=== PATIENT | male | born 1955 ===

== ENCOUNTER 2017-02-28 23:20 | Inpatient (IN) ==
[2017-02-28 23:52] LABS: Basophils % 0.5 % (0.0-0.8); Eosinophils # 0.2 10*3/uL (0.0-0.87); Eosinophils % 3.1 % (0.00-10.9); Hematocrit 28.1 VOL% (42.0-52.0); Hemoglobin 10.1 GM/DL (14.0-18.0); Immature Granulocytes % 0.8 %; Immature Granulocytes Absolute 0.05 #; Lymphocytes # 1.3 10*3/uL (1.4-4.0); Lymphocytes % 20.3 % (21.2-54.2); Mean Corpuscular HGB Conc 35.9 GM/DL (32-36); Mean Corpuscular Hemoglobin 32 PG (27-34); Mean Corpuscular Volume 88.1 FL (87-102); Mean Platelet Volume 10.5 FL (9.6-12.0); Monocytes # 0.6 10*3/uL (0.11-0.8); Monocytes % 9.8 % (1.7-12.7); Neutrophils # 4.2 10*3/uL (1.4-7.4); Neutrophils % 65.5 % (38.7-73.9); Platelet Count 202 T/CUMM (130-400); Red Blood Count 3.19 MC/CUMM (3.8-5.5); Red Cell Distribution Width 12.6 % (9.3-17.3); White Blood Count 6.4 T/CUMM (4-12)
[2017-03-01] MEDS ORDERED: ONDANSETRON 4 MG/2 ML VIAL IV PRN
[2017-03-01] MEDS ORDERED: ZALEPLON 5 MG CAPSULE PO PRN
[2017-03-01] MEDS ORDERED: BISACODYL 5 MG TABLET PO PRN
[2017-03-01] MEDS ORDERED: DOCUSATE SODIUM 100 MG CAPSULE PO PRN
--- NOTE | 2017-03-01 00:01 | Emergency Department Note ---
IDonald Mantricia, am scribing for, and in the presence of, Nino Castellanos MD 23:41. Jasmin Meza Hans, MD, personally performed the services described in this documentation, ascribed by Eagle Bennett in my presence, and it is both accurate and complete . Arrival - Arrival Chief Complaint: Syncope Stated Complaint: syncope ED Nursing Triage Note: PATIENT TRANSFER FROM [facility]. EMS REPORTS PATIENT WAS DRIVING TODAY WHEN HE FELT LIKE HE WAS GOING TO PASS OUT AND SO HE PULLED OVER TO THE SIDE OF THE ROAD. PATIENT STATES HE HAS BEEN HAVING SOME COUGHING AND HEMOPTYSIS FOR THE PAST SEVERAL DAYS. PATIENT DENIES ANY CHEST PAIN OR SOB ON ARRIVAL. PATIENT IS AAOX3 IN NAD. PATIENT WITH HISTORY OF CABG IN 2016 AND HISTORY OF HEART DISEASE. Mode of Arrival: Stretcher Limitations: No Limitations Source: Patient Time Seen by Provider: 02/28/17 23:36 - History of Present Illness HPI Narrative: Pt is a 61 y/o male arriving to ED by EMS as a transfer from [facility] for further evaluation of near syncopal episode that onset today. Pt reports that he was driving when he felt like he was about to pass out so he pulled over to the side of the road. He denies any chest pain or SOB. Pt also reports that he has been coughing up blood with clots on and off for 3 weeks. Pt was seen at [facility] and only left with a referral and did not hear back from their ED. Pt has a PSHx of CABG in 2012 and is now taking Coumadin; he has a PMHx of heart disease. At time of exam, pt's blood pressure is 198/100. No other complaints were reported to ED. Onset (ago): hour(s) Consistency: constant Severity: mild Allergies/Adverse Reactions: Allergies Allergy/AdvReac Type Severity Reaction Status Date / Time No Known Allergies Allergy Verified 05/18/16 04:01 Home Medications: Home Medications Medication Instructions Recorded Confirmed Type Acetaminophen Tab [Tylenol Tab] 650 mg PO Q4H PRN #0 tablet 05/20/16 05/23/16 Rx Aspirin Chew Tab 81 mg PO DAILY tablet 05/20/16 05/23/16 Rx Carvedilol [Coreg] 6.25 mg PO BID #60 tablet 10/27/16 10/30/16 Rx Furosemide Tab [Lasix Tab] 20 mg PO DAILY #30 tablet 05/20/16 05/23/16 Rx Carvedilol [Coreg] 6.25 mg PO BID #60 tablet 06/01/16 Rx Potassium Chloride 20 meq PO DAILY 06/01/16 06/01/16 History Rosuvastatin [Crestor] 20 mg PO DAILY #30 tablet 06/01/16 Rx cloNIDine TAB [Catapres Tab] 0.1 mg PO BID #60 tablet 06/01/16 Rx predniSONE TAB [PredniSONE] 5 mg PO DAILY #7 tablet 06/01/16 Rx Review of System - Review of System Constitutional: Present: other (near syncope). Absent: chills, diaphoresis, fever Head/Ears/Nose/Throat: Absent: earache Respiratory: Absent: cough Cardiovascular: Absent: chest pain Gastrointestinal: Absent: abdominal pain, nausea, vomiting Musculoskeletal: Absent: arm pain, back pain, leg pain, neck pain Medical,Surgical,& Family Hx - Medical History Cardio: History of: CAD, Hypertension Neurology: History of: TIA Endocrine: History of: Diabetes Mellitus (NIDDM) (diet controlled) Respiratory: History of: Asthma Comment Only: Respiratory Problems (ulcer in lung) Gastrointestinal: History of: GERD Musculoskeletal: Comment Only: Musculoskeletal Problems (mult knee scopes to bilat knees) - Surgical History Cardiac Surgeries: Sugical HX of: Cardiac Catheterization (stent), Cardiac Surgery (CABG,AVR) - Family History Family History: Reports;: Family Diabetes (father), Family Hypertension (father) - Social History Smoking Status: Current every day smoker Exam Vital Signs: Vital Signs Temperature 97.9 F 02/28/17 23:22 Pulse Rate 70 02/28/17 23:22 Respiratory Rate 18 02/28/17 23:22 Blood Pressure 198/100 02/28/17 23:22 O2 Sat by Pulse Oximetry 100 02/28/17 23:22 - General General appearance: alert, in no apparent distress - Head Head exam: Present: atraumatic, normocephalic - Eye Eye exam: Present: normal appearance, PERRL, EOMI - ENT ENT exam: Present: normal exam, normal oropharynx, mucous membranes moist - Neck Neck exam: Present: normal inspection - Chest Chest inspection: Present: normal inspection - Respiratory Respiratory exam: Present: normal lung sounds bilaterally - Cardiovascular Cardiovascular exam: Present: regular rate, normal rhythm, normal heart sounds - Abdominal Exam Abdominal exam: Present: soft. Absent: distention, tenderness, guarding, rebound - Extremities Exam Extremities exam: Present: normal inspection - Back Exam Back exam: Present: normal inspection - Neurological Exam Neurological exam: Present: alert, oriented X3, CN II-XII intact - Psychiatric Psychiatric exam: Present: normal affect, normal mood - Skin Skin exam: Present: warm, dry, intact, normal color Course Course Narrative: This patient was evaluated in the ER and his chart from [place] was reviewed. He appeared to have some evidence of increased pulmonary vascular markings consistent with some volume overload on his chest x-ray and his INR was 2.6. His hemoglobin at [place] was 9.2 and it was over 12 when it was last checked here in May. Because of his near syncopal episode and his hemoptysis and anticoagulation I recommended admission to the hospital for further workup and treatment. I discussed this with the hospitalist on-call who agreed to come see the patient. Results - Labs CBC & BMP: 02/28/17 23:41 Disposition Clinical Impression: Syncope due to orthostatic hypotension, Hemoptysis Case discussed with: patient Disposition: Still a Patient Condition: Stable Time of Disposition: 00:01
--- NOTE | 2017-03-01 00:41 | Hospitalist History & Physical ---
Assessment and Plan (1) Hemoptysis Status: Acute Assessment and plan: Admit to hospitalist service. Consult pulmonary. Current Visit: Yes (2) Chronic renal failure Status: Chronic Current Visit: Yes Qualifiers: Chronic kidney disease stage: stage 3 (moderate) Qualified Code(s): N18.3 - Chronic kidney disease, stage 3 (moderate) (3) CAD (coronary artery disease) Status: Chronic Current Visit: Yes Qualifiers: [place] vs. transplanted heart: [place] heart Associated angina: without angina (4) Diabetes Status: Chronic Current Visit: Yes Qualifiers: Diabetes mellitus type: type 2 Diabetes mellitus complication detail: with chronic kidney disease Diabetes mellitus meterman insulin use: without meterman use Chronic kidney disease stage: stage 3 (moderate) (5) Dyslipidemia Status: Chronic Current Visit: Yes (6) Hypertension Status: Chronic Assessment and plan: Continue all home medications Current Visit: Yes Qualifiers: Hypertension type: essential hypertension Qualified Code(s): I10 - Essential (primary) hypertension (7) Chronic anticoagulation Status: Acute Assessment and plan: On Coumadin. INR therapeutic. Current Visit: Yes History of Present Illness Chief complaint: near syncope, hemoptysis History of present illness: Mr. Jiménez is a 61 year old male arriving to ED by EMS as a transfer from [facility] for further evaluation of near syncopal episode that onset today. Pt reports that he was driving when he felt like he was about to pass out so he pulled over to the side of the road. He denies any chest pain or SOB. Pt also reports that he has been coughing up blood with clots on and off for 3 weeks. Pt was seen at [facility] and only left with a referral and did not hear back from their ED. Pt has a PSHx of CABG in 2012 and is now taking Coumadin; he has a PMHx of heart disease. At time of exam, pt's blood pressure is 198/100. No other complaints were reported to ED. He reports the bleeding is preceded by cough. 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 Home Medications Medication Instructions Recorded Confirmed Type Acetaminophen Tab [Tylenol Tab] 650 mg PO Q4H PRN #0 tablet 05/20/16 05/23/16 Rx Aspirin Chew Tab 81 mg PO DAILY tablet 05/20/16 05/23/16 Rx Carvedilol [Coreg] 6.25 mg PO BID #60 tablet 05/20/16 05/23/16 Rx Furosemide Tab [Lasix Tab] 20 mg PO DAILY #30 tablet 05/20/16 05/23/16 Rx Carvedilol [Coreg] 6.25 mg PO BID #60 tablet 06/01/16 Rx Potassium Chloride 20 meq PO DAILY 06/01/16 06/01/16 History Rosuvastatin [Crestor] 20 mg PO DAILY #30 tablet 06/01/16 Rx cloNIDine TAB [Catapres Tab] 0.1 mg PO BID #60 tablet 06/01/16 Rx predniSONE TAB [PredniSONE] 5 mg PO DAILY #7 tablet 06/01/16 Rx Allergies Allergy/AdvReac Type Severity Reaction Status Date / Time No Known Allergies Allergy Verified 03/01/17 00:10 Medical,Surgical,& Family Hx - Medical History Cardio: History of: CAD, Hypertension Neurology: History of: TIA Endocrine: History of: Diabetes Mellitus (NIDDM) (diet controlled) Respiratory: History of: Asthma Comment Only: Respiratory Problems (ulcer in lung) Gastrointestinal: History of: GERD Musculoskeletal: Comment Only: Musculoskeletal Problems (mult knee scopes to bilat knees) - Surgical History Cardiac Surgeries: Sugical HX of: Cardiac Catheterization (stent), Cardiac Surgery (CABG,AVR) - Family History Family History: Reports;: Family Diabetes (father), Family Hypertension (father) - Social History Smoking Status: Current every day smoker Frequency of Alcohol Use: Occasionally Type of Drug Use: None Marital Status: Lives With:: Spouse Functional capacity: independent ambulation 12 point system: reviewed and no additional remarkable complaints except as stated Exam - Constitutional Vitals: Period Temp Pulse Resp BP Sys/Pérez Pulse Ox Last 24 Hr 97.9 F-97.9 F 70-70 18-18 198-198/100-100 100 Exam: Constitutional System: No distress. No tremulousness. Head: Normocephalic, atraumatic. Ears, Nose and Throat System: No pain or tenderness. No epistaxis or discharge Eyes System: Pupils equal, round, and reactive. Extraocular muscles intact. Neck: Supple, without adenopathy, No jugular venous distention. No thyromegaly, neck mass, or prior surgery apparent. Respiratory System: Chest rales bilaterally to auscultation. Cardiovascular System: Heart with regular rate and rhythm. GI System: Abdomen soft, nontender. Normo active bowel sounds present. Musculoskeletal System: limbs with 2+ bilateral pedal edema. Full distal pulses. Neurological System: No discernable sensory deficit. No aphasia Psychiatric System: Conversation is rational Results - Labs CBC & BMP: 02/28/17 23:41 Lab Results: I have reviewed the past 24 hour labs Quality Measures - VTE Contraindication to Pharmacological VTE Prophylaxis: Already on Theraputic Agent , No Prophylaxis Needed
[2017-03-01] MEDS ORDERED: DEXTROSE 50% 25 GM/50 ML VIAL IV PRN (00:47)
[2017-03-01] MEDS ORDERED: GLUCAGON 1 MG VIAL IM PRN (00:47)
--- NOTE | 2017-03-01 06:15 | EKG Report ---
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
[2017-03-01 06:36] LABS: Basophils % 0.4 % (0.0-0.8); Eosinophils # 0.2 10*3/uL (0.0-0.87); Eosinophils % 2.9 % (0.00-10.9); Hematocrit 26.6 VOL% (42.0-52.0); Hemoglobin 9.6 GM/DL (14.0-18.0); Immature Granulocytes % 0.5 %; Immature Granulocytes Absolute 0.04 #; Lymphocytes # 1.4 10*3/uL (1.4-4.0); Lymphocytes % 18.4 % (21.2-54.2); Mean Corpuscular HGB Conc 36.1 GM/DL (32-36); Mean Corpuscular Hemoglobin 32 PG (27-34); Mean Corpuscular Volume 87.8 FL (87-102); Mean Platelet Volume 10.8 FL (9.6-12.0); Monocytes # 0.7 10*3/uL (0.11-0.8); Monocytes % 9.9 % (1.7-12.7); Neutrophils # 5.1 10*3/uL (1.4-7.4); Neutrophils % 67.9 % (38.7-73.9); Platelet Count 197 T/CUMM (130-400); Red Blood Count 3.03 MC/CUMM (3.8-5.5); Red Cell Distribution Width 12.5 % (9.3-17.3); White Blood Count 7.5 T/CUMM (4-12)
[2017-03-01 06:43] LABS: INR 2.5
[2017-03-01 06:49] LABS: PT Patient Result 27.8 SECS
[2017-03-01 07:13] LABS: Calcium 8.2 MG/DL (8.5-10.1); Magnesium 2.1 MG/DL (1.8-2.4); Osmolality,Calculated 290.4 MOS/KG (273-304); Risk Ratio 5.5; Thyroid Stimulating Hormone 2.23 uIU/ml (0.358-3.74)
--- NOTE | 2017-03-01 07:35 | XRay Report ---
XR chest 1V portable Indication: Hemoptysis Comparison: 28 February 2017 Findings: The heart and mediastinum are stable in size and configuration with cardiac surgery changes. The pulmonary vascularity is normal in caliber. No lung infiltrates, effusions, pneumothorax or other abnormality is demonstrated. Impression: No acute process or significant change. PROCEDURE INTERPRETED AT [facility] DEPARTMENT OF RADIOLOGY Final Report Signed by: Dr. Sagar Graham
[2017-03-01] MEDS: INSULIN LISPRO 100 UNIT/ML SUBCUT SCH ×4 (08:10→21:27)
[2017-03-01] MEDS: FUROSEMIDE 40 MG/4 ML VIAL IV SCH (08:10)
[2017-03-01] MEDS: PANTOPRAZOLE 40 MG TABLET PO SCH (08:11)
--- NOTE | 2017-03-01 09:53 | Pulmonology Consult Note ---
Assessment and Plan (1) Status post aortic valve replacement Status: Acute Assessment and plan: Patient has a mechanical aortic valve. Requires lifelong anticoagulants with Coumadin. INR is 2.5 which is good therapeutic range. Current Visit: Yes (2) Chronic anticoagulation Status: Acute Assessment and plan: Again requires chronic anticoagulation for his aortic valve replacement. Current Visit: Yes (3) Hemoptysis Status: Acute Assessment and plan: I suspect he has hemoptysis due to congestive heart failure and anticoagulants. Nothing shows up on x-ray. I will obtain a plain CT without contrast. We will plan bronchoscopy to visualize his airways tomorrow. Probably will be best to control his congestive heart failure a little better to cut down his hemoptysis. Current Visit: Yes (4) CAD (coronary artery disease) Status: Chronic Assessment and plan: No active angina. Current Visit: Yes Qualifiers: [place] vs. transplanted heart: [place] heart Associated angina: without angina (5) Congestive heart failure Problem details: ef 25% Status: Acute Assessment and plan: BNP is elevated. Has had a low ejection fraction in the past. Ejection fraction 25%. Acute on chronic systolic congestive heart failure. Needs diuresis. Congestive heart failure can cause increased submucosal vascularity in the bronchi and lead to hemoptysis, especially in the setting of an anticoagulated patient. Current Visit: No History of Present Illness Chief complaint: Hemoptysis History of present illness: Mr. Jiménez is a 61 year old male who had an aortic valve replacement with a prosthetic valve 10 months ago here. He also had coronary bypass surgery at that time. For the last month he has been coughing up blood off and on. He says is pure blood and bright red. He has not had any fever or purulent sputum. He quit smoking a year ago. He does not have any known underlying lung disease. He has an elevated BNP. He has had some leg edema. He denies pleuritic chest pain. Home Medications Medication Instructions Recorded Confirmed Type Acetaminophen Tab [Tylenol Tab] 650 mg PO Q4H PRN #0 tablet 05/20/16 05/23/16 Rx Aspirin Chew Tab 81 mg PO DAILY tablet 05/20/16 05/23/16 Rx Carvedilol [Coreg] 6.25 mg PO BID #60 tablet 05/20/16 05/23/16 Rx Furosemide Tab [Lasix Tab] 20 mg PO DAILY #30 tablet 05/20/16 05/23/16 Rx Carvedilol [Coreg] 6.25 mg PO BID #60 tablet 06/01/16 Rx Potassium Chloride 20 meq PO DAILY 06/01/16 06/01/16 History Rosuvastatin [Crestor] 20 mg PO DAILY #30 tablet 06/01/16 Rx cloNIDine TAB [Catapres Tab] 0.1 mg PO BID #60 tablet 06/01/16 Rx predniSONE TAB [PredniSONE] 5 mg PO DAILY #7 tablet 06/01/16 Rx Allergies Allergy/AdvReac Type Severity Reaction Status Date / Time No Known Allergies Allergy Verified 03/01/17 00:10 12 point system: reviewed and no additional remarkable complaints except as stated - Cardiovascular Cardiovascular: Present: dyspnea, dyspnea on exertion, edema - Respiratory Respiratory: Present: cough, dyspnea, hemoptysis, dyspnea on exertion - Hematologic/Lymphatic Hematologic/Lymphatic: Present: easy bleeding, easy bruising Exam (Pulmonay) H&P - Constitutional Vitals: Period Temp Pulse Resp BP Sys/Pérez Pulse Ox Last 24 Hr 97.5 F-98.3 F 62-77 18-20 120-204/86-110 97-100 Exam: Vital signs normal. Pupils react to light. Throat is clear. Neck supple no bruits. He does have some jugular venous distention. Chest reveals a few rales in the right lower lobe. Heart normal rate and rhythm with mechanical aortic valve click. Abdomen soft nontender no masses. Extremities 1+ edema. Chronic discoloration of lower extremities. Venous graft donor sites are well- healed. Medical,Surgical,& Family Hx - Medical History Cardio: History of: CAD, Hypertension Neurology: History of: TIA Endocrine: History of: Diabetes Mellitus (NIDDM) Respiratory: History of: Asthma Comment Only: Respiratory Problems (ulcer in lung) Gastrointestinal: History of: GERD Musculoskeletal: Comment Only: Musculoskeletal Problems (mult knee scopes to bilat knees) - Surgical History Cardiac Surgeries: Sugical HX of: Cardiac Catheterization (stent), Cardiac Surgery (CABG,AVR) - Family History Family History: Reports;: Family Diabetes (father), Family Hypertension (father) - Social History Smoking Status: Former smoker Frequency of Alcohol Use: Occasionally Type of Drug Use: None Results - Labs CBC & BMP: 03/01/17 05:49 03/01/17 05:49 Lab Results: I have reviewed the past 24 hour labs - Diagnostic Findings Procedure: Chest x-ray: image reviewed by me (Cardiomegaly. Slight increased interstitial markings in the bases. No roya infiltrates.) Quality Measures - VTE Contraindication to Pharmacological VTE Prophylaxis: Already on Theraputic Agent , No Prophylaxis Needed
--- NOTE | 2017-03-01 12:25 | CT Report ---
CT chest wo con Indication: Hemoptysis. Comparison: CT chest 02/08/2017. Technique: CT chest was performed without administration of intravenous contrast. In addition to multiple contiguous axial source images, coronal and sagittal MPR series were provided. The CT examination was performed using one or more of the following dose reduction techniques: Automatic exposure control, adjustment of the mA and kV according to patient size, use of acute or iterative reconstruction techniques. Findings: Noncalcified spiculated nodule posterior aspect of the right upper lobe measures 15 x 11 mm and is considered compatible with pulmonary neoplasm. Caudal to the nodule and peripherally located to the nodule, there is additional groundglass attenuation as well as nodular airspace attenuation or could reflect obstructive atelectatic change. Subsegmental bronchi as demonstrated on images #[id number] appear obstructed possibly with ingrowth of neoplasm as these bronchi lie at the margin and proximal to the suggested neoplasm. Dependent atelectatic changes are present bilaterally. No pleural effusions are present. No additional endobronchial lesions are demonstrated. Noncontrast enhanced appearance of the mediastinal contents is stable. Sternotomy is present and extensive coronary artery calcifications are noted. Aortic valve prosthesis is present. Imaged portion of the upper abdomen demonstrates no specific evidence of acute pathology. Osseous structures appear stable. Soft tissues and musculature of the chest wall appear stable. No acute findings involving the chest wall or osseous structures are demonstrated. Impression: 1. Spiculated noncalcified nodule right upper lobe is worrisome for neoplasm. 2. Subsegmental bronchi adjacent to the caudal margin of the above-described nodule are occluded. Areas of nodular nonconsolidating airspace attenuation groundglass attenuation caudal to the above-described nodule could reflect evidence of infection or atelectasis. 3. No distinct adenopathy can be identified within the noncontrast enhanced mediastinum. 4. Other findings as detailed. 03/01/2017 12:18 PM PROCEDURE INTERPRETED [facility] DEPARTMENT OF RADIOLOGY Final Report Signed by: Dr. Deonte Diaz
--- NOTE | 2017-03-01 15:09 | Hospitalist Progress Note ---
Assessment and Plan (1) Hemoptysis Status: Acute Assessment and plan: The patient is to have bronchoscopy tomorrow. I reviewed the plan of care with the patient and his family at the bedside. Current Visit: Yes (2) Congestive heart failure Problem details: ef 25% Status: Acute Current Visit: No (3) Chronic renal failure Status: Chronic Current Visit: Yes Qualifiers: Chronic kidney disease stage: stage 3 (moderate) Qualified Code(s): N18.3 - Chronic kidney disease, stage 3 (moderate) (4) Chronic anticoagulation Status: Acute Current Visit: Yes (5) Status post aortic valve replacement Status: Acute Current Visit: Yes Hospitalist: Subjective Interval history: The patient is resting quietly in bed today. He has more hemoptysis again today. Dr. Quiñones anticipates bronchoscopy tomorrow. Noncontrast CAT scan does show a spiculated lesion in the right upper lobe. Exam - Constitutional Vitals: Period Temp Pulse Resp BP Sys/Pérez Pulse Ox Last 24 Hr 97.5 F-98.3 F 62-77 18-20 120-204/82-110 97-100 Exam: Constitutional System: No distress. No tremulousness. The patient has some body hemoptysis and a cup next to the bed Head: Normocephalic, atraumatic. Ears, Nose and Throat System: No evidence of Otitis or Mastoiditis. No epistaxis or discharge Eyes System: Pupils equal, round, and reactive. Extraocular muscles intact. Neck: Supple, without adenopathy, No jugular venous distention. No thyromegaly , neck mass, or prior surgery apparent. Respiratory System: Chest clear to auscultation. Cardiovascular System: Heart with regular rate and rhythm. No murmur. GI System: Abdomen soft, nontender. Normo active bowel sounds present. Musculoskeletal System: limbs with no pedal edema. Full distal pulses. Neurological System: No discernable sensory deficit. No aphasia Psychiatric System: Conversation is rational Results - Labs CBC & BMP: 03/01/17 05:49 03/01/17 05:49 Lab Results: I have reviewed the past 24 hour labs Quality Measures - VTE Contraindication to Pharmacological VTE Prophylaxis: Already on Theraputic Agent , No Prophylaxis Needed
[2017-03-01] MEDS: cloNIDine 0.1 MG TABLET PO SCH (21:26)
[2017-03-01] MEDS: CARVEDILOL 12.5 MG TABLET PO SCH (21:27)
[2017-03-02] MEDS ORDERED: PROMETHAZINE 25 MG/1 ML VIAL IM ONE (07:00)
[2017-03-02] MEDS ORDERED: MIDAZOLAM 2 MG/2 ML VIAL ONE (07:18)
[2017-03-02] MEDS ORDERED: MIDAZOLAM 2 MG/2 ML VIAL IV ONE (07:30)
[2017-03-02] MEDS ORDERED: LIDOCAINE 1% 20 ML VIAL MISC INJ ONE (07:30)
--- NOTE | 2017-03-02 07:50 | Operative Note ---
Date of procedure: 03/02/17 (Fiberoptic bronchoscopy with biopsy left lower lobe ) Pre-op diagnosis: 1. Hemoptysis #2 right upper lobe pulmonary nodule Post-op diagnosis: same (Same plus endobronchial lesion found superior segment left lower lobe and biopsy) Procedure: The patient was given intramuscular premedication on the [place]. He was transported to the bronchoscopy suite. After an appropriate timeout to be sure we were dealing with Bobo Jiménez, the patient was topically anesthetized in the nose and nasopharynx with Xylocaine. 3 L of nasal oxygen was placed in the right naris. He was given 2 mg of Versed intravenously to the point of sedation. The fiberoptic bronchoscope was introduced via the left naris. The vocal cords were identified and noted to function normally with phonation. There was some blood draped across the left vocal cord indicating that he was having some persistent hemoptysis. There were no vocal cord lesions. After further topical anesthesia the trachea was entered. It was free of lesions. The william was sharp. There was a trail of blood coming from the posterior segment right upper lobe. This is where the nodule was noted on CT scan. There were no visible lesions. We lavaged the posterior segment right upper lobe with saline. I did not do any brushings or transbronchial biopsies there because the lesion is very peripheral and the patient is somewhat anticoagulated. We then looked at the left long. There was a small amount of blood in the superior segment of the left lower lobe. There was a pale white fleshy lesion endobronchially coming off the lateral wall of the takeoff of the superior segment. This was photographed. We carefully used forceps biopsies to biopsy this lesion and came out almost in its entirety. There was minimal bleeding following that which cleared easily with saline irrigation and scope tip pressure. Bronchial washings were obtained from the superior segment left lower lobe area. We lavaged that area as well. The bronchoscope was removed. Patient returned to his room in stable condition. Anesthesia: conscious sedation Surgeon / Physician: Jah Quiñones Estimated blood loss: minimal Specimens: other (Bilateral bronchial washings, biopsy lesion superior segment left lower lobe) Condition: stable Disposition: floor Results - Labs CBC & BMP: 03/01/17 05:49 03/01/17 05:49 Discharge Plan - Discharge Medications No Action Aspirin Chew Tab 81 mg PO DAILY tablet Furosemide Tab [Lasix Tab] 20 mg PO DAILY #30 tablet cloNIDine TAB [Catapres Tab] 0.1 mg PO BID #60 tablet Potassium Chloride 20 meq PO DAILY Carvedilol [Coreg] 12.5 mg PO BID Warfarin [Coumadin] 1 mg DIRECTED Pioglitazone HCl 15 mg DAILY Warfarin [Coumadin] 2 mg DIRECTED Saxagliptin HCl [Onglyza] 2.5 mg PC BREAKFAST Calcium (Carb)/Vit D 600-400 [Caltrate 600 + D] 1 tablet BID - Follow Up or Referral - Forms/Instructions
--- NOTE | 2017-03-02 07:54 | Pulmonology Progress Note ---
Pulmonary - PN: Subj Interval history: This 61-year-old came in with history of coughing up blood for about a month almost on a daily basis. We obtained a chest CT yesterday and it showed a right upper lobe spiculated lung lesion slightly more than 1 cm in size and highly suggestive of a bronchogenic carcinoma. The patient is chronically on Coumadin for a mechanical aortic valve replacement. We did take him to bronchoscopy this morning. The lesion in the right upper lobe was too peripheral to try to get to with a bronchoscope but we did note that there was blood in that orifice and I do think this was the source of his hemoptysis. I would suggest a PET scan. A needle biopsy of the right upper lobe would be needed if the PET scan is positive. Incidental finding at the bronchoscopy was an endobronchial lesion in the superior segment left lower lobe that was clearly visible and very pale and I was able to biopsy this. Not sure if this is related to the right upper lobe nodule. At this point I would await the path report on this biopsy. We could hold his Coumadin and put him on subcutaneous Lovenox as a bridge. Then get a needle biopsy of right upper lobe lesion in a couple of days. Exam (Progress Note) - Constitutional Vitals: Period Temp Pulse Resp BP Sys/Pérez Pulse Ox Last 24 Hr 97.5 F-99.5 F 62-91 12-20 122-204/20-97 93-100 Exam: Vital signs are normal. Pupils react to light. Throat is clear. Neck supple no bruits. Chest sounds clear. Heart normal rate and rhythm with aortic valve click. Abdomen soft nontender no masses. Bowel sounds present. Extremities no clubbing cyanosis edema. Calves nontender. Results - Labs CBC & BMP: 03/01/17 05:49 03/01/17 05:49 Lab Results: I have reviewed the past 24 hour labs - Diagnostic Findings Procedure: CT - chest: image reviewed by me (Spiculated 1.3 cm nodule posterior segment right upper lobe highly suggestive of a malignancy. No adenopathy.) Assessment and Plan (1) Status post aortic valve replacement Status: Acute Assessment and plan: Patient has a mechanical aortic valve. Requires lifelong anticoagulants with Coumadin. INR is 2.5 which is good therapeutic range. 03/02/2017 would keep on subcu Lovenox while Coumadin is held. Current Visit: Yes (2) Chronic anticoagulation Status: Acute Assessment and plan: Again requires chronic anticoagulation for his aortic valve replacement. Current Visit: Yes (3) Hemoptysis Status: Acute Assessment and plan: I suspect he has hemoptysis due to congestive heart failure and anticoagulants. Nothing shows up on x-ray. I will obtain a plain CT without contrast. We will plan bronchoscopy to visualize his airways tomorrow. Probably will be best to control his congestive heart failure a little better to cut down his hemoptysis. 03/02/2017 bronchoscopy today showed blood has come from the posterior segment right upper lobe which is the location of the peripheral nodule seen on CT. We incidentally found an endobronchial pale white fleshy lesion in the superior segment left lower lobe that we did biopsy without any problems. Not sure if that is related to the lesion on the other side or not. Await pathology. Would need to have INR of less than 1.8 before needle biopsy could be done on the right side. Again would keep on subcu Lovenox while Coumadin is held and check daily protimes. Current Visit: Yes (4) CAD (coronary artery disease) Status: Chronic Assessment and plan: No active angina. Current Visit: Yes Qualifiers: [place] vs. transplanted heart: [place] heart Associated angina: without angina (5) Congestive heart failure Problem details: ef 25% Status: Acute Assessment and plan: BNP is elevated. Has had a low ejection fraction in the past. Ejection fraction 25%. Acute on chronic systolic congestive heart failure. Needs diuresis. Congestive heart failure can cause increased submucosal vascularity in the bronchi and lead to hemoptysis, especially in the setting of an anticoagulated patient. 03/02/2017 congestive heart failure managed with diuretics. He does have renal insufficiency. We did not see the increased submucosal vascularity that I thought we may at bronchoscopy. Current Visit: No
[2017-03-02 08:42] LABS: INR 2.1
[2017-03-02 08:54] LABS: PT Patient Result 23.7 SECS
[2017-03-02] MEDS: ENOXAPARIN 40 MG/0.4 ML SYRINGE SUBCUT SCH ×2 (09:50→20:42)
[2017-03-02] MEDS: FUROSEMIDE 40 MG/4 ML VIAL IV SCH (09:52)
[2017-03-02] MEDS: INSULIN LISPRO 100 UNIT/ML SUBCUT SCH ×4 (09:52→20:42)
[2017-03-02] MEDS: CARVEDILOL 12.5 MG TABLET PO SCH ×2 (09:52→20:42)
[2017-03-02] MEDS: cloNIDine 0.1 MG TABLET PO SCH ×2 (09:52→20:42)
[2017-03-02] MEDS: PANTOPRAZOLE 40 MG TABLET PO SCH (09:53)
--- NOTE | 2017-03-02 11:30 | Hospitalist Progress Note ---
Assessment and Plan (1) Hemoptysis Status: Acute Assessment and plan: The patient had bronchoscopy today and left upper lobe endobronchial lesion was removed as an incidental finding. There is blood coming from the right upper lobe bronchus and transthoracic needle biopsy is planned for Tuesday. The patient will hold Coumadin and bridge with Lovenox. We will discontinue IV Lasix and substitute oral Lasix. Will follow kidney function closely. Current Visit: Yes (2) Congestive heart failure Problem details: ef 25% Status: Acute Current Visit: No (3) Chronic renal failure Status: Chronic Current Visit: Yes Qualifiers: Chronic kidney disease stage: stage 3 (moderate) Qualified Code(s): N18.3 - Chronic kidney disease, stage 3 (moderate) (4) Chronic anticoagulation Status: Acute Current Visit: Yes (5) Status post aortic valve replacement Status: Acute Current Visit: Yes Hospitalist: Subjective Interval history: Mr. Jiménez had bronchoscopy today. It revealed the hemoptysis coming from the right upper lobe. Dr. Quiñones was able to remove a small endobronchial lesion from the left lung as well. The patient is breathing comfortably and Coumadin is being held for possible transthoracic needle biopsy of the right upper lobe lesion on Tuesday. Exam - Constitutional Vitals: Period Temp Pulse Resp BP Sys/Pérez Pulse Ox Last 24 Hr 97.6 F-99.5 F 62-91 12-20 122-192/20-97 93-100 Exam: Constitutional System: No distress. No tremulousness. The patient has some body hemoptysis and a cup next to the bed Head: Normocephalic, atraumatic. Ears, Nose and Throat System: No evidence of Otitis or Mastoiditis. No epistaxis or discharge Eyes System: Pupils equal, round, and reactive. Extraocular muscles intact. Neck: Supple, without adenopathy, No jugular venous distention. No thyromegaly , neck mass, or prior surgery apparent. Respiratory System: Chest clear to auscultation. Cardiovascular System: Heart with regular rate and rhythm. No murmur. GI System: Abdomen soft, nontender. Normo active bowel sounds present. Musculoskeletal System: limbs with no pedal edema. Full distal pulses. Neurological System: No discernable sensory deficit. No aphasia Psychiatric System: Conversation is rational Results - Labs CBC & BMP: 03/01/17 05:49 03/01/17 05:49 Lab Results: I have reviewed the past 24 hour labs Quality Measures - VTE Contraindication to Pharmacological VTE Prophylaxis: Already on Theraputic Agent , No Prophylaxis Needed
[2017-03-02] MEDS ORDERED: DEXTROSE 50% 25 GM/50 ML SYRINGE IV PRN (22:30)
[2017-03-03 06:00] LABS: INR 1.8; PT Patient Result 20.1 SECS
[2017-03-03 06:10] LABS: Calcium 8.1 MG/DL (8.5-10.1)
[2017-03-03 06:11] LABS: Magnesium 2.5 MG/DL (1.8-2.4); Osmolality,Calculated 292.3 MOS/KG (273-304); Potassium 5.1 MMOL/L (3.5-5.1)
[2017-03-03] MEDS: INSULIN LISPRO 100 UNIT/ML SUBCUT SCH ×4 (07:47→21:28)
--- NOTE | 2017-03-03 07:56 | XRay Report ---
Portable chest Date: 03/03/2017 Clinical history: Post bronchoscopy Comparison: 03/01/2017 Technique: Portable AP sitting chest Findings: The heart is normal in size with prior median sternotomy and cardiac valve replacement. Spiculated masslike density in the right upper lobe at the level of the right first anterior rib. Chronic scarring with stable mediastinum and osseous structures. Impression: Status post median sternotomy with chronic scarring. Persistent spiculated noncalcified mass in the right upper lobe consistent with probable neoplastic process. No pneumothorax. PROCEDURE INTERPRETED AT [facility] DEPARTMENT OF RADIOLOGY Final Report Signed by: Dr. Ingrid Kate
--- NOTE | 2017-03-03 08:13 | Pulmonology Progress Note ---
Pulmonary - PN: Subj Interval history: This 61-year-old came in with history of coughing up blood for about a month almost on a daily basis. We obtained a chest CT yesterday and it showed a right upper lobe spiculated lung lesion slightly more than 1 cm in size and highly suggestive of a bronchogenic carcinoma. The patient is chronically on Coumadin for a mechanical aortic valve replacement. We did take him to bronchoscopy this morning. The lesion in the right upper lobe was too peripheral to try to get to with a bronchoscope but we did note that there was blood in that orifice and I do think this was the source of his hemoptysis. I would suggest a PET scan. A needle biopsy of the right upper lobe would be needed if the PET scan is positive. Incidental finding at the bronchoscopy was an endobronchial lesion in the superior segment left lower lobe that was clearly visible and very pale and I was able to biopsy this. Not sure if this is related to the right upper lobe nodule. At this point I would await the path report on this biopsy. We could hold his Coumadin and put him on subcutaneous Lovenox as a bridge. Then get a needle biopsy of right upper lobe lesion in a couple of days. 03/03/2017 pathology report is pending from the biopsy of the endobronchial lesion and superior segment left lower lobe. Patient's Coumadin is being held. He is on subcu Lovenox. We will hold that after today's dose. He is set up for a needle biopsy of the right upper lobe pulmonary nodule tomorrow. After that he will need to get back on full anticoagulation for his mechanical aortic valve. He has not had any further hemoptysis in the last 24 hours. Exam (Progress Note) - Constitutional Vitals: Period Temp Pulse Resp BP Sys/Pérez Pulse Ox Last 24 Hr 97.7 F-99.9 F 56-75 16-20 104-154/54-75 93-99 Exam: Vital signs are normal. Pupils react to light. Throat is clear. Neck supple no bruits. Chest sounds clear. Heart normal rate and rhythm with aortic valve click. Abdomen soft nontender no masses. Bowel sounds present. Extremities no clubbing cyanosis edema. Calves nontender. Results - Labs CBC & BMP: 03/01/17 05:49 03/03/17 04:38 Lab Results: I have reviewed the past 24 hour labs Assessment and Plan (1) Status post aortic valve replacement Status: Acute Assessment and plan: Patient has a mechanical aortic valve. Requires lifelong anticoagulants with Coumadin. INR is 2.5 which is good therapeutic range. 03/02/2017 would keep on subcu Lovenox while Coumadin is held. 03/03/2017 he is on half dose Lovenox while Coumadin is held. INR was 1.8 yesterday. Should be able to tolerate needle biopsy of right upper lobe lung lesion tomorrow. Holding Lovenox after today's dose. Current Visit: Yes (2) Chronic anticoagulation Status: Acute Assessment and plan: Again requires chronic anticoagulation for his aortic valve replacement. Current Visit: Yes (3) Hemoptysis Status: Acute Assessment and plan: I suspect he has hemoptysis due to congestive heart failure and anticoagulants. Nothing shows up on x-ray. I will obtain a plain CT without contrast. We will plan bronchoscopy to visualize his airways tomorrow. Probably will be best to control his congestive heart failure a little better to cut down his hemoptysis. 03/02/2017 bronchoscopy today showed blood has come from the posterior segment right upper lobe which is the location of the peripheral nodule seen on CT. We incidentally found an endobronchial pale white fleshy lesion in the superior segment left lower lobe that we did biopsy without any problems. Not sure if that is related to the lesion on the other side or not. Await pathology. Would need to have INR of less than 1.8 before needle biopsy could be done on the right side. Again would keep on subcu Lovenox while Coumadin is held and check daily protimes. 03/03/2017 blood was noted to be coming from the posterior segment right upper lobe which is where the spiculated nodule was noted on CT. Very likely this will be a bronchogenic carcinoma. Needle biopsy is planned for tomorrow. Incidental finding of an endobronchial lesion that was removed almost in toto with forceps from the superior segment left lower lobe. Pathology pending Current Visit: Yes (4) CAD (coronary artery disease) Status: Chronic Assessment and plan: No active angina. Current Visit: Yes Qualifiers: [place] vs. transplanted heart: [place] heart Associated angina: without angina (5) Congestive heart failure Problem details: ef 25% Status: Acute Assessment and plan: BNP is elevated. Has had a low ejection fraction in the past. Ejection fraction 25%. Acute on chronic systolic congestive heart failure. Needs diuresis. Congestive heart failure can cause increased submucosal vascularity in the bronchi and lead to hemoptysis, especially in the setting of an anticoagulated patient. 03/02/2017 congestive heart failure managed with diuretics. He does have renal insufficiency. We did not see the increased submucosal vascularity that I thought we may at bronchoscopy. 03/03/2017 does not appear to be in roya heart failure at present. Current Visit: No
[2017-03-03] MEDS: ENOXAPARIN 40 MG/0.4 ML SYRINGE SUBCUT SCH (09:04)
[2017-03-03] MEDS: CARVEDILOL 12.5 MG TABLET PO SCH ×2 (09:05→21:28)
[2017-03-03] MEDS: cloNIDine 0.1 MG TABLET PO SCH ×2 (09:05→21:28)
[2017-03-03] MEDS: PANTOPRAZOLE 40 MG TABLET PO SCH (09:05)
[2017-03-03] MEDS: FUROSEMIDE 80 MG TABLET PO SCH (09:05)
--- NOTE | 2017-03-03 11:15 | Pathology Report from [facility] ---
[facility] [place] ACCESSION # : [id number] PATIENT NAME : Bobo Jiménez ORDERING DR : NAVIN SALMERON MD CLINICAL HX: Hemoptysis POST-OP DX: Same SPECIMEN INFO: Washing,Bronchial,RUL - 10 mls blood tinged, mucoid CLASS: I CLASS COMMENTS: Beingn respiratory cells, inflammationCELL BLOCK: Same CLASS LEGEND: CLASS 0 Material inadequate for diagnosis because of (see comment) CLASS I Absence of atypical or abnormal cells CLASS II Atypical Cytology but no evidence of malignancy CLASS III Cytology suggestive of but not conclusive for malignancy CLASS IV Cytology strongly suggestive of malignancy CLASS V Cytology conclusive for malignancy COLLECTED DATE: 03/02/2017 [facility] REPORT DATE: 03/03/2017 ELECTRONICALLY SIGNED BY: Lauren Roberts M.D. 03/03/2017 - 8:58:36 MTDD
--- NOTE | 2017-03-03 11:16 | Pathology Report from [facility] ---
[facility] [place] ACCESSION # : [id number] PATIENT NAME : Bobo Jiménez ORDERING DR : NAVIN SALMERON MD CLINICAL HX: Hemoptysis POST-OP DX: Same SPECIMEN INFO: Washing,Bronchial,LeftSuperiorSegment - 10 mls bloody, cloudy CLASS: I CLASS COMMENTS: Benign respiratory cells, inflammationCELL BLOCK: Same CLASS LEGEND: CLASS 0 Material inadequate for diagnosis because of (see comment) CLASS I Absence of atypical or abnormal cells CLASS II Atypical Cytology but no evidence of malignancy CLASS III Cytology suggestive of but not conclusive for malignancy CLASS IV Cytology strongly suggestive of malignancy CLASS V Cytology conclusive for malignancy COLLECTED DATE: 03/02/2017 [facility] [place] REPORT DATE: 03/03/2017 ELECTRONICALLY SIGNED BY: Lauren Roberts M.D. 03/03/2017 - 9:04:43 MTDDeedee
--- NOTE | 2017-03-03 11:16 | Hospitalist Progress Note ---
Assessment and Plan (1) Hemoptysis Status: Acute Assessment and plan: The patient had bronchoscopy yesterday and left upper lobe endobronchial lesion was removed as an incidental finding. There is blood coming from the right upper lobe bronchus and transthoracic needle biopsy is planned for Tuesday. The patient will hold Coumadin and bridge with Lovenox. We will discontinue IV Lasix and substitute oral Lasix. Will follow kidney function closely. Current Visit: Yes (2) Congestive heart failure Problem details: ef 25% Status: Acute Current Visit: No (3) Chronic renal failure Status: Chronic Current Visit: Yes Qualifiers: Chronic kidney disease stage: stage 3 (moderate) Qualified Code(s): N18.3 - Chronic kidney disease, stage 3 (moderate) (4) Chronic anticoagulation Status: Acute Current Visit: Yes (5) Status post aortic valve replacement Status: Acute Current Visit: Yes Hospitalist: Subjective Interval history: The patient is resting quietly. He has not had any further hemoptysis. The patient has not complained of chest pain or shortness of breath. Exam - Constitutional Vitals: Period Temp Pulse Resp BP Sys/Pérez Pulse Ox Last 24 Hr 97.7 F-99.9 F 56-75 16-20 104-154/54-78 93-99 Exam: Constitutional System: No distress. No tremulousness. Head: Normocephalic, atraumatic. Ears, Nose and Throat System: No evidence of Otitis or Mastoiditis. No epistaxis or discharge Eyes System: Pupils equal, round, and reactive. Extraocular muscles intact. Neck: Supple, without adenopathy, No jugular venous distention. No thyromegaly , neck mass, or prior surgery apparent. Respiratory System: Chest clear to auscultation. Cardiovascular System: Heart with regular rate and rhythm. No murmur. GI System: Abdomen soft, nontender. Normo active bowel sounds present. Musculoskeletal System: limbs with no pedal edema. Full distal pulses. Neurological System: No discernable sensory deficit. No aphasia Psychiatric System: Conversation is rational Results - Labs CBC & BMP: 03/01/17 05:49 03/03/17 04:38 Lab Results: I have reviewed the past 24 hour labs Quality Measures - VTE Contraindication to Pharmacological VTE Prophylaxis: Already on Theraputic Agent , No Prophylaxis Needed
--- NOTE | 2017-03-03 18:16 | Pathology Report from [facility] ---
[facility] ACCESSION # : [id number] PATIENT NAME : Bobo Santiago ORDERING DR : NAVIN SALMERON MD CLINICAL HX: Hemoptysis POST-OP DX: Same SPECIMEN INFO: Left superior segment bronchial GROSS DESCRIPTION: The specimen is received in formalin labeled with the patients name BOBO SANTIAGO and L SUPERIOR SEGMENT consists of a 0.2 x 0.2 cm jacobsen mucosal tissue fragment. Submitted in one cassette. DIAGNOSIS FOR BOBO SANTIAGO: LEFT SUPERIOR SEGMENT BRONCHIAL BIOPSY: Polypoid bronchial tissue with moderately dysplastic squamous metaplasia and focal chronic inflammation. COLLECTED DATE: 03/02/2017 [facility] REPORT DATE: 03/03/2017 ELECTRONICALLY SIGNED BY: Lauren Roberts M.D. 03/03/2017 - 12:24:22 [facility]ITAL[facility]ed[facility]
[2017-03-04 06:22] LABS: INR 1.7; PT Patient Result 18.7 SECS
[2017-03-04 06:42] LABS: Calcium 7.7 MG/DL (8.5-10.1); Magnesium 2.3 MG/DL (1.8-2.4); Osmolality,Calculated 285.8 MOS/KG (273-304); Potassium 4.5 MMOL/L (3.5-5.1)
[2017-03-04] MEDS: INSULIN LISPRO 100 UNIT/ML SUBCUT SCH ×4 (08:32→20:17)
--- NOTE | 2017-03-04 09:27 | Pulmonology Progress Note ---
Pulmonary - PN: Subj Interval history: This 61-year-old came in with history of coughing up blood for about a month almost on a daily basis. We obtained a chest CT yesterday and it showed a right upper lobe spiculated lung lesion slightly more than 1 cm in size and highly suggestive of a bronchogenic carcinoma. The patient is chronically on Coumadin for a mechanical aortic valve replacement. We did take him to bronchoscopy this morning. The lesion in the right upper lobe was too peripheral to try to get to with a bronchoscope but we did note that there was blood in that orifice and I do think this was the source of his hemoptysis. I would suggest a PET scan. A needle biopsy of the right upper lobe would be needed if the PET scan is positive. Incidental finding at the bronchoscopy was an endobronchial lesion in the superior segment left lower lobe that was clearly visible and very pale and I was able to biopsy this. Not sure if this is related to the right upper lobe nodule. At this point I would await the path report on this biopsy. We could hold his Coumadin and put him on subcutaneous Lovenox as a bridge. Then get a needle biopsy of right upper lobe lesion in a couple of days. 03/03/2017 pathology report is pending from the biopsy of the endobronchial lesion and superior segment left lower lobe. Patient's Coumadin is being held. He is on subcu Lovenox. We will hold that after today's dose. He is set up for a needle biopsy of the right upper lobe pulmonary nodule tomorrow. After that he will need to get back on full anticoagulation for his mechanical aortic valve. He has not had any further hemoptysis in the last 24 hours. 03/04/2017 pathology from the right fleshy lesion removed from the superior segment of left lower lobe is benign. This appears to be some form of polyp. I essentially remove the whole thing with the forceps. This should not get in the way of whatever treatment is required for the right-sided lesion. Patient is to get needle biopsy of right upper lobe nodule today. INR is 1.7. Should be able to tolerate it. Exam (Progress Note) - Constitutional Vitals: Period Temp Pulse Resp BP Sys/Pérez Pulse Ox Last 24 Hr 97.5 F-98.5 F 56-85 18-20 102-171/51-81 94-99 Exam: Vital signs are normal. Pupils react to light. Throat is clear. Neck supple no bruits. Chest sounds clear. Heart normal rate and rhythm with aortic valve click. Abdomen soft nontender no masses. Bowel sounds present. Extremities no clubbing cyanosis edema. Calves nontender. Results - Labs CBC & BMP: 03/01/17 05:49 03/04/17 05:20 Lab Results: I have reviewed the past 24 hour labs Assessment and Plan (1) Status post aortic valve replacement Status: Acute Assessment and plan: Patient has a mechanical aortic valve. Requires lifelong anticoagulants with Coumadin. INR is 2.5 which is good therapeutic range. 03/02/2017 would keep on subcu Lovenox while Coumadin is held. 03/03/2017 he is on half dose Lovenox while Coumadin is held. INR was 1.8 yesterday. Should be able to tolerate needle biopsy of right upper lobe lung lesion tomorrow. Holding Lovenox after today's dose. 03/04/2017 anticoagulants are being held for needle biopsy today. INR 1.7 should be low enough to tolerate needle biopsy Current Visit: Yes (2) Chronic anticoagulation Status: Acute Assessment and plan: Again requires chronic anticoagulation for his aortic valve replacement. Current Visit: Yes (3) Hemoptysis Status: Acute Assessment and plan: I suspect he has hemoptysis due to congestive heart failure and anticoagulants. Nothing shows up on x-ray. I will obtain a plain CT without contrast. We will plan bronchoscopy to visualize his airways tomorrow. Probably will be best to control his congestive heart failure a little better to cut down his hemoptysis. 03/02/2017 bronchoscopy today showed blood has come from the posterior segment right upper lobe which is the location of the peripheral nodule seen on CT. We incidentally found an endobronchial pale white fleshy lesion in the superior segment left lower lobe that we did biopsy without any problems. Not sure if that is related to the lesion on the other side or not. Await pathology. Would need to have INR of less than 1.8 before needle biopsy could be done on the right side. Again would keep on subcu Lovenox while Coumadin is held and check daily protimes. 03/03/2017 blood was noted to be coming from the posterior segment right upper lobe which is where the spiculated nodule was noted on CT. Very likely this will be a bronchogenic carcinoma. Needle biopsy is planned for tomorrow. Incidental finding of an endobronchial lesion that was removed almost in toto with forceps from the superior segment left lower lobe. Pathology pending 03/04/2017 no further hemoptysis. Current Visit: Yes (4) CAD (coronary artery disease) Status: Chronic Assessment and plan: No active angina. Current Visit: Yes Qualifiers: [place] vs. transplanted heart: [place] heart Associated angina: without angina (5) Congestive heart failure Problem details: ef 25% Status: Acute Assessment and plan: BNP is elevated. Has had a low ejection fraction in the past. Ejection fraction 25%. Acute on chronic systolic congestive heart failure. Needs diuresis. Congestive heart failure can cause increased submucosal vascularity in the bronchi and lead to hemoptysis, especially in the setting of an anticoagulated patient. 03/02/2017 congestive heart failure managed with diuretics. He does have renal insufficiency. We did not see the increased submucosal vascularity that I thought we may at bronchoscopy. 03/03/2017 does not appear to be in roya heart failure at present. 03/04/2017 not in roya heart failure at present. Current Visit: No
[2017-03-04] MEDS: CARVEDILOL 12.5 MG TABLET PO SCH ×2 (09:50→20:17)
[2017-03-04] MEDS: cloNIDine 0.1 MG TABLET PO SCH ×2 (09:50→20:17)
[2017-03-04] MEDS: PANTOPRAZOLE 40 MG TABLET PO SCH (09:50)
[2017-03-04] MEDS: FUROSEMIDE 80 MG TABLET PO SCH (09:50)
--- NOTE | 2017-03-04 16:27 | Hospitalist Progress Note ---
Assessment and Plan (1) Hemoptysis Status: Acute Assessment and plan: The patient will hopefully have needle biopsy on Tuesday. Will recheck INR tomorrow. We will restart Lovenox. Current Visit: Yes (2) Congestive heart failure Problem details: ef 25% Status: Acute Current Visit: No (3) Chronic renal failure Status: Chronic Current Visit: Yes Qualifiers: Chronic kidney disease stage: stage 3 (moderate) Qualified Code(s): N18.3 - Chronic kidney disease, stage 3 (moderate) (4) Chronic anticoagulation Status: Acute Current Visit: Yes (5) Status post aortic valve replacement Status: Acute Current Visit: Yes Hospitalist: Subjective Interval history: The patient was to have transthoracic needle biopsy today, but INR was 1.6 and judged to by the interventional radiologist. We will reschedule for Tuesday. Exam - Constitutional Vitals: Period Temp Pulse Resp BP Sys/Pérez Pulse Ox Last 24 Hr 97.6 F-98.5 F 56-74 16-20 102-171/51-81 94-97 Exam: Constitutional System: No distress. No tremulousness. Head: Normocephalic, atraumatic. Ears, Nose and Throat System: No evidence of Otitis or Mastoiditis. No epistaxis or discharge Eyes System: Pupils equal, round, and reactive. Extraocular muscles intact. Neck: Supple, without adenopathy, No jugular venous distention. No thyromegaly , neck mass, or prior surgery apparent. Respiratory System: Chest clear to auscultation. Cardiovascular System: Heart with regular rate and rhythm. No murmur. GI System: Abdomen soft, nontender. Normo active bowel sounds present. Musculoskeletal System: limbs with no pedal edema. Full distal pulses. Neurological System: No discernable sensory deficit. No aphasia Psychiatric System: Conversation is rational Results - Labs CBC & BMP: 03/01/17 05:49 03/04/17 05:20 Lab Results: I have reviewed the past 24 hour labs Quality Measures - VTE Contraindication to Pharmacological VTE Prophylaxis: Already on Theraputic Agent , No Prophylaxis Needed
[2017-03-04] MEDS ORDERED: ENOXAPARIN 80 MG/0.8 ML SYRINGE SUBCUT SCH (16:30)
[2017-03-04] MEDS: ENOXAPARIN 40 MG/0.4 ML SYRINGE SUBCUT SCH (20:18)
[2017-03-05 03:30] LABS: INR 1.5; PT Patient Result 16.2 SECS
[2017-03-05] MEDS: INSULIN LISPRO 100 UNIT/ML SUBCUT SCH ×4 (08:51→20:57)
[2017-03-05] MEDS: ENOXAPARIN 40 MG/0.4 ML SYRINGE SUBCUT SCH ×2 (08:52→20:57)
[2017-03-05] MEDS: CARVEDILOL 12.5 MG TABLET PO SCH ×2 (08:53→20:57)
[2017-03-05] MEDS: FUROSEMIDE 80 MG TABLET PO SCH (08:54)
[2017-03-05] MEDS: PANTOPRAZOLE 40 MG TABLET PO SCH (08:54)
[2017-03-05] MEDS: cloNIDine 0.1 MG TABLET PO SCH ×2 (08:54→20:57)
--- NOTE | 2017-03-05 09:34 | Pulmonology Progress Note ---
Pulmonary - PN: Subj Interval history: This 61-year-old came in with history of coughing up blood for about a month almost on a daily basis. We obtained a chest CT yesterday and it showed a right upper lobe spiculated lung lesion slightly more than 1 cm in size and highly suggestive of a bronchogenic carcinoma. The patient is chronically on Coumadin for a mechanical aortic valve replacement. We did take him to bronchoscopy this morning. The lesion in the right upper lobe was too peripheral to try to get to with a bronchoscope but we did note that there was blood in that orifice and I do think this was the source of his hemoptysis. I would suggest a PET scan. A needle biopsy of the right upper lobe would be needed if the PET scan is positive. Incidental finding at the bronchoscopy was an endobronchial lesion in the superior segment left lower lobe that was clearly visible and very pale and I was able to biopsy this. Not sure if this is related to the right upper lobe nodule. At this point I would await the path report on this biopsy. We could hold his Coumadin and put him on subcutaneous Lovenox as a bridge. Then get a needle biopsy of right upper lobe lesion in a couple of days. 03/03/2017 pathology report is pending from the biopsy of the endobronchial lesion and superior segment left lower lobe. Patient's Coumadin is being held. He is on subcu Lovenox. We will hold that after today's dose. He is set up for a needle biopsy of the right upper lobe pulmonary nodule tomorrow. After that he will need to get back on full anticoagulation for his mechanical aortic valve. He has not had any further hemoptysis in the last 24 hours. 03/04/2017 pathology from the right fleshy lesion removed from the superior segment of left lower lobe is benign. This appears to be some form of polyp. I essentially remove the whole thing with the forceps. This should not get in the way of whatever treatment is required for the right-sided lesion. Patient is to get needle biopsy of right upper lobe nodule today. INR is 1.7. Should be able to tolerate it. 03/05/2017 patient's INR of 1.7 was too high for interventional radiologist to proceed with needle biopsy yesterday. Plans are to do that on Tuesday. INR today is 1.5. Patient on half dose Lovenox twice a day. Has mechanical aortic valve Exam (Progress Note) - Constitutional Vitals: Period Temp Pulse Resp BP Sys/Pérez Pulse Ox Last 24 Hr 97.5 F-98.1 F 60-74 16-20 119-165/69-94 96-100 Exam: Vital signs are normal. Pupils react to light. Throat is clear. Neck supple no bruits. Chest sounds clear. Heart normal rate and rhythm with aortic valve click. Abdomen soft nontender no masses. Bowel sounds present. Extremities no clubbing cyanosis edema. Calves nontender. Results - Labs CBC & BMP: 03/01/17 05:49 03/04/17 05:20 Lab Results: I have reviewed the past 24 hour labs Assessment and Plan (1) Status post aortic valve replacement Status: Acute Assessment and plan: Patient has a mechanical aortic valve. Requires lifelong anticoagulants with Coumadin. INR is 2.5 which is good therapeutic range. 03/02/2017 would keep on subcu Lovenox while Coumadin is held. 03/03/2017 he is on half dose Lovenox while Coumadin is held. INR was 1.8 yesterday. Should be able to tolerate needle biopsy of right upper lobe lung lesion tomorrow. Holding Lovenox after today's dose. 03/04/2017 anticoagulants are being held for needle biopsy today. INR 1.7 should be low enough to tolerate needle biopsy 03/05/17 again is on Lovenox while we are holding Coumadin Current Visit: Yes (2) Chronic anticoagulation Status: Acute Assessment and plan: Again requires chronic anticoagulation for his aortic valve replacement. Current Visit: Yes (3) Hemoptysis Status: Acute Assessment and plan: I suspect he has hemoptysis due to congestive heart failure and anticoagulants. Nothing shows up on x-ray. I will obtain a plain CT without contrast. We will plan bronchoscopy to visualize his airways tomorrow. Probably will be best to control his congestive heart failure a little better to cut down his hemoptysis. 03/02/2017 bronchoscopy today showed blood has come from the posterior segment right upper lobe which is the location of the peripheral nodule seen on CT. We incidentally found an endobronchial pale white fleshy lesion in the superior segment left lower lobe that we did biopsy without any problems. Not sure if that is related to the lesion on the other side or not. Await pathology. Would need to have INR of less than 1.8 before needle biopsy could be done on the right side. Again would keep on subcu Lovenox while Coumadin is held and check daily protimes. 03/03/2017 blood was noted to be coming from the posterior segment right upper lobe which is where the spiculated nodule was noted on CT. Very likely this will be a bronchogenic carcinoma. Needle biopsy is planned for tomorrow. Incidental finding of an endobronchial lesion that was removed almost in toto with forceps from the superior segment left lower lobe. Pathology pending 03/04/2017 no further hemoptysis. 03/05/2017 no hemoptysis now. Has right upper lobe pulmonary nodule that is likely the source of the hemoptysis. We found blood in that bronchus at bronchoscopy. Current Visit: Yes (4) CAD (coronary artery disease) Status: Chronic Assessment and plan: No active angina. Current Visit: Yes Qualifiers: [place] vs. transplanted heart: [place] heart Associated angina: without angina (5) Congestive heart failure Problem details: ef 25% Status: Acute Assessment and plan: BNP is elevated. Has had a low ejection fraction in the past. Ejection fraction 25%. Acute on chronic systolic congestive heart failure. Needs diuresis. Congestive heart failure can cause increased submucosal vascularity in the bronchi and lead to hemoptysis, especially in the setting of an anticoagulated patient. 03/02/2017 congestive heart failure managed with diuretics. He does have renal insufficiency. We did not see the increased submucosal vascularity that I thought we may at bronchoscopy. 03/03/2017 does not appear to be in roya heart failure at present. 03/04/2017 not in roya heart failure at present. 03/05/17 heart failure is controlled. Current Visit: No
[2017-03-05] MEDS: ACETAMINOPHEN 325 MG TABLET PO PRN (10:33)
--- NOTE | 2017-03-05 12:43 | Hospitalist Progress Note ---
Assessment and Plan (1) Hemoptysis Status: Acute Assessment and plan: The patient will hopefully have needle biopsy on Tuesday. Will recheck INR tomorrow. We will continue Lovenox over the weekend. Current Visit: Yes (2) Congestive heart failure Problem details: ef 25% Status: Acute Current Visit: No (3) Chronic renal failure Status: Chronic Current Visit: Yes Qualifiers: Chronic kidney disease stage: stage 3 (moderate) Qualified Code(s): N18.3 - Chronic kidney disease, stage 3 (moderate) (4) Chronic anticoagulation Status: Acute Current Visit: Yes (5) Status post aortic valve replacement Status: Acute Current Visit: Yes Hospitalist: Subjective Interval history: The patient is admitted the hospital with hemoptysis. He has a suspicious lesion in the right upper lung posteriorly. The patient will have a transthoracic needle biopsy on Tuesday if INR is less than 1.4. The patient has no new symptoms. Exam - Constitutional Vitals: Period Temp Pulse Resp BP Sys/Pérez Pulse Ox Last 24 Hr 97.5 F-98.5 F 60-74 18-20 121-165/75-94 96-100 Exam: Constitutional System: No distress. No tremulousness. Head: Normocephalic, atraumatic. Ears, Nose and Throat System: No evidence of Otitis or Mastoiditis. No epistaxis or discharge Eyes System: Pupils equal, round, and reactive. Extraocular muscles intact. Neck: Supple, without adenopathy, No jugular venous distention. No thyromegaly , neck mass, or prior surgery apparent. Respiratory System: Chest clear to auscultation. Cardiovascular System: Heart with regular rate and rhythm. No murmur. GI System: Abdomen soft, nontender. Normo active bowel sounds present. Musculoskeletal System: limbs with no pedal edema. Full distal pulses. Neurological System: No discernable sensory deficit. No aphasia Psychiatric System: Conversation is rational Results - Labs CBC & BMP: 03/01/17 05:49 03/04/17 05:20 Lab Results: I have reviewed the past 24 hour labs Quality Measures - VTE Contraindication to Pharmacological VTE Prophylaxis: Already on Theraputic Agent , No Prophylaxis Needed
[2017-03-06 02:22] LABS: INR 1.5; PT Patient Result 15.8 SECS
[2017-03-06] MEDS: INSULIN LISPRO 100 UNIT/ML SUBCUT SCH ×4 (09:17→22:20)
[2017-03-06] MEDS: ENOXAPARIN 40 MG/0.4 ML SYRINGE SUBCUT SCH (09:18)
[2017-03-06] MEDS: PANTOPRAZOLE 40 MG TABLET PO SCH (09:19)
[2017-03-06] MEDS: cloNIDine 0.1 MG TABLET PO SCH ×2 (09:19→20:48)
[2017-03-06] MEDS: FUROSEMIDE 80 MG TABLET PO SCH (09:20)
[2017-03-06] MEDS: CARVEDILOL 12.5 MG TABLET PO SCH ×2 (09:20→20:48)
--- NOTE | 2017-03-06 09:30 | Pulmonology Progress Note ---
Pulmonary - PN: Subj Interval history: This 61-year-old came in with history of coughing up blood for about a month almost on a daily basis. We obtained a chest CT yesterday and it showed a right upper lobe spiculated lung lesion slightly more than 1 cm in size and highly suggestive of a bronchogenic carcinoma. The patient is chronically on Coumadin for a mechanical aortic valve replacement. We did take him to bronchoscopy this morning. The lesion in the right upper lobe was too peripheral to try to get to with a bronchoscope but we did note that there was blood in that orifice and I do think this was the source of his hemoptysis. I would suggest a PET scan. A needle biopsy of the right upper lobe would be needed if the PET scan is positive. Incidental finding at the bronchoscopy was an endobronchial lesion in the superior segment left lower lobe that was clearly visible and very pale and I was able to biopsy this. Not sure if this is related to the right upper lobe nodule. At this point I would await the path report on this biopsy. We could hold his Coumadin and put him on subcutaneous Lovenox as a bridge. Then get a needle biopsy of right upper lobe lesion in a couple of days. 03/03/2017 pathology report is pending from the biopsy of the endobronchial lesion and superior segment left lower lobe. Patient's Coumadin is being held. He is on subcu Lovenox. We will hold that after today's dose. He is set up for a needle biopsy of the right upper lobe pulmonary nodule tomorrow. After that he will need to get back on full anticoagulation for his mechanical aortic valve. He has not had any further hemoptysis in the last 24 hours. 03/04/2017 pathology from the right fleshy lesion removed from the superior segment of left lower lobe is benign. This appears to be some form of polyp. I essentially remove the whole thing with the forceps. This should not get in the way of whatever treatment is required for the right-sided lesion. Patient is to get needle biopsy of right upper lobe nodule today. INR is 1.7. Should be able to tolerate it. 03/05/2017 patient's INR of 1.7 was too high for interventional radiologist to proceed with needle biopsy yesterday. Plans are to do that on Tuesday. INR today is 1.5. Patient on half dose Lovenox twice a day. Has mechanical aortic valve 03/06/2017 INR is 1.5 today. Will hold Lovenox after morning dose and plan for needle biopsy of right upper lobe spiculated pulmonary nodule tomorrow. At bronchoscopy there was clearly some old blood coming from that posterior right upper lobe segment. Exam (Progress Note) - Constitutional Vitals: Period Temp Pulse Resp BP Sys/Pérez Pulse Ox Last 24 Hr 97.4 F-98.9 F 54-76 18-20 93-156/54-88 96-99 Exam: Vital signs are normal. Pupils react to light. Throat is clear. Neck supple no bruits. Chest sounds clear. Heart normal rate and rhythm with aortic valve click. Abdomen soft nontender no masses. Bowel sounds present. Extremities no clubbing cyanosis edema. Calves nontender. Results - Labs CBC & BMP: 03/01/17 05:49 03/04/17 05:20 Lab Results: I have reviewed the past 24 hour labs Assessment and Plan (1) Status post aortic valve replacement Status: Acute Assessment and plan: Patient has a mechanical aortic valve. Requires lifelong anticoagulants with Coumadin. INR is 2.5 which is good therapeutic range. 03/02/2017 would keep on subcu Lovenox while Coumadin is held. 03/03/2017 he is on half dose Lovenox while Coumadin is held. INR was 1.8 yesterday. Should be able to tolerate needle biopsy of right upper lobe lung lesion tomorrow. Holding Lovenox after today's dose. 03/04/2017 anticoagulants are being held for needle biopsy today. INR 1.7 should be low enough to tolerate needle biopsy 03/05/17 again is on Lovenox while we are holding Coumadin 03/06/2017 hold Lovenox after this morning. INR is 1.5. Resume Coumadin soon after needle biopsy completed. Current Visit: Yes (2) Chronic anticoagulation Status: Acute Assessment and plan: Again requires chronic anticoagulation for his aortic valve replacement. Current Visit: Yes (3) Hemoptysis Status: Acute Assessment and plan: I suspect he has hemoptysis due to congestive heart failure and anticoagulants. Nothing shows up on x-ray. I will obtain a plain CT without contrast. We will plan bronchoscopy to visualize his airways tomorrow. Probably will be best to control his congestive heart failure a little better to cut down his hemoptysis. 03/02/2017 bronchoscopy today showed blood has come from the posterior segment right upper lobe which is the location of the peripheral nodule seen on CT. We incidentally found an endobronchial pale white fleshy lesion in the superior segment left lower lobe that we did biopsy without any problems. Not sure if that is related to the lesion on the other side or not. Await pathology. Would need to have INR of less than 1.8 before needle biopsy could be done on the right side. Again would keep on subcu Lovenox while Coumadin is held and check daily protimes. 03/03/2017 blood was noted to be coming from the posterior segment right upper lobe which is where the spiculated nodule was noted on CT. Very likely this will be a bronchogenic carcinoma. Needle biopsy is planned for tomorrow. Incidental finding of an endobronchial lesion that was removed almost in toto with forceps from the superior segment left lower lobe. Pathology pending 03/04/2017 no further hemoptysis. 03/05/2017 no hemoptysis now. Has right upper lobe pulmonary nodule that is likely the source of the hemoptysis. We found blood in that bronchus at bronchoscopy. 03/06/2017 no further hemoptysis. Blood was seen to come from the posterior segment right upper lobe at bronchoscopy. Current Visit: Yes (4) CAD (coronary artery disease) Status: Chronic Assessment and plan: No active angina. Current Visit: Yes Qualifiers: [place] vs. transplanted heart: [place] heart Associated angina: without angina (5) Congestive heart failure Problem details: ef 25% Status: Acute Assessment and plan: BNP is elevated. Has had a low ejection fraction in the past. Ejection fraction 25%. Acute on chronic systolic congestive heart failure. Needs diuresis. Congestive heart failure can cause increased submucosal vascularity in the bronchi and lead to hemoptysis, especially in the setting of an anticoagulated patient. 03/02/2017 congestive heart failure managed with diuretics. He does have renal insufficiency. We did not see the increased submucosal vascularity that I thought we may at bronchoscopy. 03/03/2017 does not appear to be in roya heart failure at present. 03/04/2017 not in roya heart failure at present. 03/05/17 heart failure is controlled. Current Visit: No
[2017-03-06] MEDS ORDERED: PHYTONADIONE 10 MG/1 ML AMP SUBCUT ONE (09:32)
--- NOTE | 2017-03-06 13:19 | Hospitalist Progress Note ---
Assessment and Plan (1) Hemoptysis Status: Acute Assessment and plan: The patient will hopefully have needle biopsy on Tuesday. Will recheck INR tomorrow. We are going to discontinue Lovenox now Current Visit: Yes (2) Congestive heart failure Problem details: ef 25% Status: Acute Current Visit: No (3) Chronic renal failure Status: Chronic Current Visit: Yes Qualifiers: Chronic kidney disease stage: stage 3 (moderate) Qualified Code(s): N18.3 - Chronic kidney disease, stage 3 (moderate) (4) Chronic anticoagulation Status: Acute Current Visit: Yes (5) Status post aortic valve replacement Status: Acute Current Visit: Yes Hospitalist: Subjective Interval history: The patient was admitted to the hospital with hemoptysis. We are planning transthoracic needle biopsy of the right upper lobe mass on Tuesday. INR today 1.5. I am ordering a dose of vitamin K which has been administered. Exam - Constitutional Vitals: Period Temp Pulse Resp BP Sys/Pérez Pulse Ox Last 24 Hr 97.4 F-98.9 F 54-76 18-20 116-156/61-88 96-99 Exam: Constitutional System: No distress. No tremulousness. Head: Normocephalic, atraumatic. Ears, Nose and Throat System: No evidence of Otitis or Mastoiditis. No epistaxis or discharge Eyes System: Pupils equal, round, and reactive. Extraocular muscles intact. Neck: Supple, without adenopathy, No jugular venous distention. No thyromegaly , neck mass, or prior surgery apparent. Respiratory System: Chest clear to auscultation. Cardiovascular System: Heart with regular rate and rhythm. No murmur. GI System: Abdomen soft, nontender. Normo active bowel sounds present. Musculoskeletal System: limbs with no pedal edema. Full distal pulses. Neurological System: No discernable sensory deficit. No aphasia Psychiatric System: Conversation is rational Results - Labs CBC & BMP: 03/01/17 05:49 03/04/17 05:20 Lab Results: I have reviewed the past 24 hour labs Labs: INR is 1.5 Quality Measures - VTE Contraindication to Pharmacological VTE Prophylaxis: Already on Theraputic Agent , No Prophylaxis Needed
[2017-03-07 04:50] LABS: Basophils % 0.4 % (0.0-0.8); Eosinophils # 0.3 10*3/uL (0.0-0.87); Eosinophils % 2.8 % (0.00-10.9); Hematocrit 29.5 VOL% (42.0-52.0); Hemoglobin 10.1 GM/DL (14.0-18.0); Immature Granulocytes % 0.6 %; Immature Granulocytes Absolute 0.05 #; Lymphocytes # 1.6 10*3/uL (1.4-4.0); Lymphocytes % 17.8 % (21.2-54.2); Mean Corpuscular HGB Conc 34.2 GM/DL (32-36); Mean Corpuscular Hemoglobin 31 PG (27-34); Mean Corpuscular Volume 89.7 FL (87-102); Mean Platelet Volume 10.6 FL (9.6-12.0); Monocytes # 0.9 10*3/uL (0.11-0.8); Neutrophils # 6.1 10*3/uL (1.4-7.4); Neutrophils % 68.4 % (38.7-73.9); Platelet Count 204 T/CUMM (130-400); Red Blood Count 3.29 MC/CUMM (3.8-5.5); Red Cell Distribution Width 12.8 % (9.3-17.3); White Blood Count 8.9 T/CUMM (4-12)
[2017-03-07 05:11] LABS: INR 1.3
[2017-03-07 05:23] LABS: Calcium 7.9 MG/DL (8.5-10.1); Magnesium 2.7 MG/DL (1.8-2.4); Osmolality,Calculated 286.7 MOS/KG (273-304); Potassium 5.3 MMOL/L (3.5-5.1)
[2017-03-07] MEDS: INSULIN LISPRO 100 UNIT/ML SUBCUT SCH ×4 (07:40→20:05)
--- NOTE | 2017-03-07 08:40 | Pulmonology Progress Note ---
Pulmonary - PN: Subj Interval history: This 61-year-old came in with history of coughing up blood for about a month almost on a daily basis. We obtained a chest CT yesterday and it showed a right upper lobe spiculated lung lesion slightly more than 1 cm in size and highly suggestive of a bronchogenic carcinoma. The patient is chronically on Coumadin for a mechanical aortic valve replacement. We did take him to bronchoscopy this morning. The lesion in the right upper lobe was too peripheral to try to get to with a bronchoscope but we did note that there was blood in that orifice and I do think this was the source of his hemoptysis. I would suggest a PET scan. A needle biopsy of the right upper lobe would be needed if the PET scan is positive. Incidental finding at the bronchoscopy was an endobronchial lesion in the superior segment left lower lobe that was clearly visible and very pale and I was able to biopsy this. Not sure if this is related to the right upper lobe nodule. At this point I would await the path report on this biopsy. We could hold his Coumadin and put him on subcutaneous Lovenox as a bridge. Then get a needle biopsy of right upper lobe lesion in a couple of days. 03/03/2017 pathology report is pending from the biopsy of the endobronchial lesion and superior segment left lower lobe. Patient's Coumadin is being held. He is on subcu Lovenox. We will hold that after today's dose. He is set up for a needle biopsy of the right upper lobe pulmonary nodule tomorrow. After that he will need to get back on full anticoagulation for his mechanical aortic valve. He has not had any further hemoptysis in the last 24 hours. 03/04/2017 pathology from the right fleshy lesion removed from the superior segment of left lower lobe is benign. This appears to be some form of polyp. I essentially remove the whole thing with the forceps. This should not get in the way of whatever treatment is required for the right-sided lesion. Patient is to get needle biopsy of right upper lobe nodule today. INR is 1.7. Should be able to tolerate it. 03/05/2017 patient's INR of 1.7 was too high for interventional radiologist to proceed with needle biopsy yesterday. Plans are to do that on Tuesday. INR today is 1.5. Patient on half dose Lovenox twice a day. Has mechanical aortic valve 03/06/2017 INR is 1.5 today. Will hold Lovenox after morning dose and plan for needle biopsy of right upper lobe spiculated pulmonary nodule tomorrow. At bronchoscopy there was clearly some old blood coming from that posterior right upper lobe segment. 03/07/2017 INR is 1.3. Ready for needle biopsy. Patient aware that he could have complications of bleeding or a pneumothorax. Exam (Progress Note) - Constitutional Vitals: Period Temp Pulse Resp BP Sys/Pérez Pulse Ox Last 24 Hr 97.7 F-98.7 F 60-71 18-20 118-141/61-79 95-98 Exam: Vital signs are normal. Pupils react to light. Throat is clear. Neck supple no bruits. Chest sounds clear. Heart normal rate and rhythm with aortic valve click. Abdomen soft nontender no masses. Bowel sounds present. Extremities no clubbing cyanosis edema. Calves nontender. Results - Labs CBC & BMP: 03/07/17 04:19 03/07/17 04:19 Lab Results: I have reviewed the past 24 hour labs Assessment and Plan (1) Status post aortic valve replacement Status: Acute Assessment and plan: Patient has a mechanical aortic valve. Requires lifelong anticoagulants with Coumadin. INR is 2.5 which is good therapeutic range. 03/02/2017 would keep on subcu Lovenox while Coumadin is held. 03/03/2017 he is on half dose Lovenox while Coumadin is held. INR was 1.8 yesterday. Should be able to tolerate needle biopsy of right upper lobe lung lesion tomorrow. Holding Lovenox after today's dose. 03/04/2017 anticoagulants are being held for needle biopsy today. INR 1.7 should be low enough to tolerate needle biopsy 03/05/17 again is on Lovenox while we are holding Coumadin 03/06/2017 hold Lovenox after this morning. INR is 1.5. Resume Coumadin soon after needle biopsy completed. 03/07/2017 INR is 1.3. Holding Coumadin for needle biopsy. Had Lovenox yesterday morning but it has been held since then. Needs to resume Lovenox later today if no bleeding from the biopsy. Current Visit: Yes (2) Chronic anticoagulation Status: Acute Assessment and plan: Again requires chronic anticoagulation for his aortic valve replacement. Current Visit: Yes (3) Hemoptysis Status: Acute Assessment and plan: I suspect he has hemoptysis due to congestive heart failure and anticoagulants. Nothing shows up on x-ray. I will obtain a plain CT without contrast. We will plan bronchoscopy to visualize his airways tomorrow. Probably will be best to control his congestive heart failure a little better to cut down his hemoptysis. 03/02/2017 bronchoscopy today showed blood has come from the posterior segment right upper lobe which is the location of the peripheral nodule seen on CT. We incidentally found an endobronchial pale white fleshy lesion in the superior segment left lower lobe that we did biopsy without any problems. Not sure if that is related to the lesion on the other side or not. Await pathology. Would need to have INR of less than 1.8 before needle biopsy could be done on the right side. Again would keep on subcu Lovenox while Coumadin is held and check daily protimes. 03/03/2017 blood was noted to be coming from the posterior segment right upper lobe which is where the spiculated nodule was noted on CT. Very likely this will be a bronchogenic carcinoma. Needle biopsy is planned for tomorrow. Incidental finding of an endobronchial lesion that was removed almost in toto with forceps from the superior segment left lower lobe. Pathology pending 03/04/2017 no further hemoptysis. 03/05/2017 no hemoptysis now. Has right upper lobe pulmonary nodule that is likely the source of the hemoptysis. We found blood in that bronchus at bronchoscopy. 03/06/2017 no further hemoptysis. Blood was seen to come from the posterior segment right upper lobe at bronchoscopy. 03/07/2017 this is felt to be due to the pulmonary nodule in the right upper lobe. Blood was seen coming from that segment at bronchoscopy. For needle biopsy today. Current Visit: Yes (4) CAD (coronary artery disease) Status: Chronic Assessment and plan: No active angina. Current Visit: Yes Qualifiers: [place] vs. transplanted heart: [place] heart Associated angina: without angina (5) Congestive heart failure Problem details: ef 25% Status: Acute Assessment and plan: BNP is elevated. Has had a low ejection fraction in the past. Ejection fraction 25%. Acute on chronic systolic congestive heart failure. Needs diuresis. Congestive heart failure can cause increased submucosal vascularity in the bronchi and lead to hemoptysis, especially in the setting of an anticoagulated patient. 03/02/2017 congestive heart failure managed with diuretics. He does have renal insufficiency. We did not see the increased submucosal vascularity that I thought we may at bronchoscopy. 03/03/2017 does not appear to be in roya heart failure at present. 03/04/2017 not in roya heart failure at present. 03/05/17 heart failure is controlled. Current Visit: No
[2017-03-07] MEDS: PANTOPRAZOLE 40 MG TABLET PO SCH (10:40)
[2017-03-07] MEDS: cloNIDine 0.1 MG TABLET PO SCH ×2 (10:40→20:05)
[2017-03-07] MEDS: FUROSEMIDE 80 MG TABLET PO SCH (10:40)
[2017-03-07] MEDS: CARVEDILOL 12.5 MG TABLET PO SCH ×2 (10:40→20:05)
[2017-03-07] MEDS ORDERED: DIAZEPAM 5 MG TABLET PO ONE (13:28)
[2017-03-07] MEDS ORDERED: SODIUM POLYSTYRENE SULFATE 15 GM/60 ML BOTTLE PO ONE (14:20)
--- NOTE | 2017-03-07 14:23 | Hospitalist Progress Note ---
Assessment and Plan (1) Hemoptysis Status: Acute Assessment and plan: light staph aureus from bronch, no abx for now as no other signs of infection, ct guided biopsy today by IR, dont restart coumadin till we know if lesion can be resected. Current Visit: Yes (2) Congestive heart failure Problem details: ef 25% Status: Acute Assessment and plan: HL IVF, bnp, cont lasix,hx of chronic systolic and diastolic chf with ef 30% and grade 3 diastolic dysfunction Current Visit: No (3) Chronic renal failure Status: Chronic Assessment and plan: chronic stage 4 renal failure, stable Current Visit: Yes Qualifiers: Chronic kidney disease stage: stage 3 (moderate) Qualified Code(s): N18.3 - Chronic kidney disease, stage 3 (moderate) (4) Diabetes Status: Chronic Assessment and plan: dont restart actos, patient needs to be on insulin, start on lantus 7 units Current Visit: Yes Qualifiers: Diabetes mellitus type: type 2 Diabetes mellitus complication detail: with chronic kidney disease 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 Current Visit: Yes (7) Status post aortic valve replacement Status: Acute Assessment and plan: lovenox 90 units Sq daily Current Visit: Yes Hospitalist: Subjective Interval history: Discussed case with Dr. Quiñones today. Patient is downstairs getting a biopsy at this lung lesion currently. If his hemoptysis has stopped will restart him on treatment dose Lovenox tonight. We do not want to restart the Coumadin and as this 1 lesion may be resectable. We will await biopsy before restarting the Coumadin. Exam - Constitutional Vitals: Period Temp Pulse Resp BP Sys/Pérez Pulse Ox Last 24 Hr 97.7 F-98.7 F 60-71 12-20 128-165/61-79 95-100 Exam: Heart Rate-[RRR] Lungs-[diminished but clear ] GI-[+bs soft, NT] Ext-[no edema] Neuro [Motor 5/5], [alert and oriented times 2] psych [normal mood and flat affect] General [no acute distress] Results - Labs CBC & BMP: 03/07/17 04:19 03/07/17 04:19 Lab Results: I have reviewed the past 24 hour labs Labs: Growing staph aureus in his sputum. Quality Measures - VTE Contraindication to Pharmacological VTE Prophylaxis: Already on Theraputic Agent , No Prophylaxis Needed
[2017-03-07] MEDS ORDERED: CLINDAMYCIN INJ 600 MG in PREMIX 1 EACH IV SCH (14:30)
--- NOTE | 2017-03-07 15:16 | Post Interventional Procedure ---
Pre-op diagnosis: Right upper lobe pulmonary nodule Post-op diagnosis: same Procedure: CT guided lung nodule biopsy Contrast: none Flouroscopy: none Radiologist: Jimmy Roldan Anesthesia: local Specimens: other (three 20 ga cores sent to path) Estimated blood loss: none Complications: none Condition: stable Description/Findings: tiny right apical nodule targeted from prone approach 3 cores obtained with no pneumothorax after biopsy patient tolerated well Assessment and Plan - Time spent with patient Time spent with patient: Less than 30 minutes
--- NOTE | 2017-03-07 15:19 | XRay Report ---
Exam: XR chest post procedure Indication: Status post right upper lobe lung nodule biopsy Comparison study: 03/03/2017 radiograph Findings: There is no pneumothorax following biopsy of the right upper lobe lung nodule. The right upper lobe lung nodule is again visualized and appears essentially unchanged from prior. Median sternotomy wiring is noted. Critics silhouette remains some contours appear within normal limits. Lungs are otherwise clear. Impression: No pneumothorax or other complication following right upper lobe lung nodule biopsy. PROCEDURE INTERPRETED AT [facility] DEPARTMENT OF RADIOLOGY Final Report Signed by: Jimmy Roldan
--- NOTE | 2017-03-07 15:20 | CT Report ---
CT biopsy lung w core RT Clinical Information: Right upper lobe solid pulmonary nodule concerning for neoplasm/carcinoma Physician: Dr. Roldan Technique: Informed consent was obtained from the patient. Full explanation of the nature of the procedure, alternatives and risks were discussed, including risks of bleeding, infection and potential inability to diagnose with needle technique. Adjacent vascular and organ injury were also fully discussed. He expressed understanding and a desire to proceed. Formal timeouts were performed, per protocol. Local anesthesia only was used for the procedure. Upper lobe solid nodule is targeted for biopsy from the prone position. CT guided localization of the target lesion was performed. Under real time guidance, 3 total core biopsies were obtained using a 20-gauge system and submitted in formalin. Follow-up imaging demonstrated no evidence of pneumothorax, hemorrhage or other immediate complication. Estimated blood loss less than 5 cc. Total number of images for this study: 1470 Conclusion: Technically successful CT guided right upper lobe lung nodule biopsy as detailed above PROCEDURE INTERPRETED AT [facility] DEPARTMENT OF RADIOLOGY Final Report Signed by: Jimmy Roldan
--- NOTE | 2017-03-07 17:01 | XRay Report ---
Exam: XR chest inspiration expiratio Indication: status post right upper lobe lesion biopsy Comparison study: today at 2:41 pm Findings: There is no pneumothorax following right lung biopsy. Impression: No pneumothorax. PROCEDURE INTERPRETED AT [facility] DEPARTMENT OF RADIOLOGY Final Report Signed by: Jimmy Roldan
[2017-03-07] MEDS: INSULIN GLARGINE 100 UNIT/ML SUBCUT SCH (17:15)
[2017-03-07] MEDS ORDERED: ENOXAPARIN 100 MG/ML SYRINGE SUBCUT SCH (21:00)
[2017-03-07] MEDS: ACETAMINOPHEN 325 MG TABLET PO PRN (23:53)
[2017-03-08] MEDS: ACETAMINOPHEN 325 MG TABLET PO PRN (06:06)
[2017-03-08] MEDS ORDERED: FUROSEMIDE 40 MG TABLET PO SCH (07:15)
[2017-03-08 07:28] LABS: Basophils % 0.5 % (0.0-0.8); Eosinophils # 0.2 10*3/uL (0.0-0.87); Eosinophils % 3.5 % (0.00-10.9); Hematocrit 29.4 VOL% (42.0-52.0); Hemoglobin 10.3 GM/DL (14.0-18.0); Immature Granulocytes % 0.5 %; Immature Granulocytes Absolute 0.03 #; Lymphocytes # 0.9 10*3/uL (1.4-4.0); Lymphocytes % 13.8 % (21.2-54.2); Mean Corpuscular Hemoglobin 32 PG (27-34); Mean Corpuscular Volume 89.9 FL (87-102); Mean Platelet Volume 11.8 FL (9.6-12.0); Monocytes # 0.6 10*3/uL (0.11-0.8); Monocytes % 9.3 % (1.7-12.7); Neutrophils # 4.6 10*3/uL (1.4-7.4); Neutrophils % 72.4 % (38.7-73.9); Platelet Count 217 T/CUMM (130-400); Red Blood Count 3.27 MC/CUMM (3.8-5.5); Red Cell Distribution Width 12.9 % (9.3-17.3); White Blood Count 6.4 T/CUMM (4-12)
--- NOTE | 2017-03-08 07:35 | Oncology Consult Note ---
Assessment and Plan - Time spent with patient Time spent with patient: Greater than 30 minutes (1) Mass of right lung Status: Acute Assessment and plan: At this point in time we are waiting return of pathology. This does appear to be a malignant lesion on CT scan and hopefully we will have confirmatory information from his biopsy done yesterday. If malignancy is confirmed, he will need thoracic surgery evaluation for possible resection. Given the location, the actual surgical resection would not be a difficult process. However, his biggest issue is going to be his underlying comorbidities including coronary artery disease status post CABG, likely emphysema, and artificial aortic valve on chronic anticoagulation. Thoracic surgery evaluation can be done as an outpatient. They would likely prefer to have pulmonary function test and a PET scan done. 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 transplanted heart: [place] heart Associated angina: without angina (8) Status post aortic valve replacement Status: Acute Current Visit: Yes History of Present Illness History of present illness: Mr. Jiménez is a 61 year old male with an extensive smoking history, coronary artery disease status post three-vessel CABG in 2016, status post aortic valve replacement on chronic anticoagulation, and likely emphysema who was admitted with hemoptysis. A CT of his chest showed a 1.5 cm density in his right upper lobe. He underwent bronchoscopy with no identifiable lesion in the right lung but there was a small endobronchial density in the left lung. Bronchial washings were done which returned back negative. Resection of this density in the left lung return back as just squamous metaplasia. He underwent percutaneous needle biopsy of the right upper lobe mass yesterday. Pathology still pending at this time. Oncology has been consulted for evaluation. Home Medications Medication Instructions Recorded Confirmed Type Aspirin Chew Tab 81 mg PO DAILY tablet 05/20/16 03/01/17 Rx Furosemide Tab [Lasix Tab] 20 mg PO DAILY #30 tablet 05/20/16 03/01/17 Rx Potassium Chloride 20 meq PO DAILY 06/01/16 03/01/17 History cloNIDine TAB [Catapres Tab] 0.1 mg PO BID #60 tablet 06/01/16 03/01/17 Rx Calcium (Carb)/Vit D 600-400 1 tablet BID 03/01/17 03/01/17 History [Caltrate 600 + D] Carvedilol [Coreg] 12.5 mg PO BID 03/01/17 03/01/17 History Pioglitazone HCl 15 mg DAILY 03/01/17 03/01/17 History Saxagliptin HCl [Onglyza] 2.5 mg PC BREAKFAST 03/01/17 03/01/17 History Warfarin [Coumadin] 1 mg DIRECTED 03/01/17 03/01/17 History Warfarin [Coumadin] 2 mg DIRECTED 03/01/17 03/01/17 History Allergies Allergy/AdvReac Type Severity Reaction Status Date / Time No Known Allergies Allergy Verified 03/01/17 00:10 Medical,Surgical,& Family Hx - Medical History Cardio: History of: CAD, Hypertension Neurology: History of: TIA Endocrine: History of: Diabetes Mellitus (NIDDM) Respiratory: History of: Asthma Comment Only: Respiratory Problems (ulcer in lung) Gastrointestinal: History of: GERD Musculoskeletal: Comment Only: Musculoskeletal Problems (mult knee scopes to bilat knees) - Surgical History Cardiac Surgeries: Sugical HX of: Cardiac Catheterization (stent), Cardiac Surgery (CABG,AVR) - Family History Family History: Reports;: Family Diabetes (father), Family Hypertension (father) - Social History Smoking Status: Former smoker Frequency of Alcohol Use: Occasionally Type of Drug Use: None 12 point system: reviewed and no additional remarkable complaints except as stated - Constitutional Constitutional: Absent: chills, fatigue, fever(s), night sweats, weakness, weight loss - Cardiovascular Cardiovascular ROS IM: Absent: chest pain, edema - Respiratory Respiratory: Present: hemoptysis. Absent: cough, dyspnea - Gastrointestinal Gastrointestinal: Absent: abdominal pain, hematemesis, hematochezia, melena Exam - Constitutional Vitals: Period Temp Pulse Resp BP Sys/Pérez Pulse Ox Last 24 Hr 97.5 F-98.7 F 60-82 12-20 129-180/61-87 95-100 General appearance: normal weight, no acute distress - Head Head Exam: Present: normocephalic, atraumatic - Eye Eye Exam: Present: EOMI Pupils: Present: PERRL - ENT ENT exam: Present: normal exam, normal oropharynx - Neck Neck exam: Absent: lymphadenopathy, thyromegaly - Respiratory Respiratory exam: Present: CTAB. Absent: decreased breath sounds, wheezes - Cardiovascular Cardiovascular exam: Present: RRR. Absent: JVD, systolic murmur - GI/Abdominal GI/Abdominal exam: Present: soft. Absent: ascites, distended, firm, mass - Neurological Exam Neurological exam: Present: alert, oriented X3, CN II-XII intact - Psychiatric Psychiatric exam: Present: normal affect, normal mood - Skin Skin exam: Present: warm, dry Results - Labs CBC & BMP: 03/08/17 05:16 03/07/17 04:19 Lab Results: I have reviewed the past 24 hour labs - Diagnostic Findings Procedure: CT - chest: report reviewed by me, image reviewed by me Quality Measures - VTE Contraindication to Pharmacological VTE Prophylaxis: Already on Theraputic Agent , No Prophylaxis Needed
[2017-03-08 07:40] LABS: INR 1.2; PT Patient Result 12.9 SECS
--- NOTE | 2017-03-08 08:08 | Pulmonology Progress Note ---
Pulmonary - PN: Subj Interval history: This 61-year-old came in with history of coughing up blood for about a month almost on a daily basis. We obtained a chest CT yesterday and it showed a right upper lobe spiculated lung lesion slightly more than 1 cm in size and highly suggestive of a bronchogenic carcinoma. The patient is chronically on Coumadin for a mechanical aortic valve replacement. We did take him to bronchoscopy this morning. The lesion in the right upper lobe was too peripheral to try to get to with a bronchoscope but we did note that there was blood in that orifice and I do think this was the source of his hemoptysis. I would suggest a PET scan. A needle biopsy of the right upper lobe would be needed if the PET scan is positive. Incidental finding at the bronchoscopy was an endobronchial lesion in the superior segment left lower lobe that was clearly visible and very pale and I was able to biopsy this. Not sure if this is related to the right upper lobe nodule. At this point I would await the path report on this biopsy. We could hold his Coumadin and put him on subcutaneous Lovenox as a bridge. Then get a needle biopsy of right upper lobe lesion in a couple of days. 03/03/2017 pathology report is pending from the biopsy of the endobronchial lesion and superior segment left lower lobe. Patient's Coumadin is being held. He is on subcu Lovenox. We will hold that after today's dose. He is set up for a needle biopsy of the right upper lobe pulmonary nodule tomorrow. After that he will need to get back on full anticoagulation for his mechanical aortic valve. He has not had any further hemoptysis in the last 24 hours. 03/04/2017 pathology from the right fleshy lesion removed from the superior segment of left lower lobe is benign. This appears to be some form of polyp. I essentially remove the whole thing with the forceps. This should not get in the way of whatever treatment is required for the right-sided lesion. Patient is to get needle biopsy of right upper lobe nodule today. INR is 1.7. Should be able to tolerate it. 03/05/2017 patient's INR of 1.7 was too high for interventional radiologist to proceed with needle biopsy yesterday. Plans are to do that on Tuesday. INR today is 1.5. Patient on half dose Lovenox twice a day. Has mechanical aortic valve 03/06/2017 INR is 1.5 today. Will hold Lovenox after morning dose and plan for needle biopsy of right upper lobe spiculated pulmonary nodule tomorrow. At bronchoscopy there was clearly some old blood coming from that posterior right upper lobe segment. 03/07/2017 INR is 1.3. Ready for needle biopsy. Patient aware that he could have complications of bleeding or a pneumothorax. 03/08/2017 patient had needle biopsy of right upper lobe lesion yesterday. Pathology is pending. Patient does have some comorbidities including previous coronary bypass surgery, a diagnosis of congestive heart failure although he is not in failure at present, and chronic renal failure. I will get a PFT today. I think a PET scan may be helpful but since this is a small solitary pulmonary nodule, probably could proceed with resection, if indicated by the pathology when it is out. Exam (Progress Note) - Constitutional Vitals: Period Temp Pulse Resp BP Sys/Pérez Pulse Ox Last 24 Hr 97.5 F-98.7 F 63-82 12-20 136-180/78-87 95-100 Exam: Vital signs are normal. Pupils react to light. Throat is clear. Neck supple no bruits. Chest sounds clear. Heart normal rate and rhythm with aortic valve click. Abdomen soft nontender no masses. Bowel sounds present. Extremities no clubbing cyanosis edema. Calves nontender. Results - Labs CBC & BMP: 03/08/17 05:16 03/07/17 04:19 Lab Results: I have reviewed the past 24 hour labs Assessment and Plan (1) Status post aortic valve replacement Status: Acute Assessment and plan: Patient has a mechanical aortic valve. Requires lifelong anticoagulants with Coumadin. INR is 2.5 which is good therapeutic range. 03/02/2017 would keep on subcu Lovenox while Coumadin is held. 03/03/2017 he is on half dose Lovenox while Coumadin is held. INR was 1.8 yesterday. Should be able to tolerate needle biopsy of right upper lobe lung lesion tomorrow. Holding Lovenox after today's dose. 03/04/2017 anticoagulants are being held for needle biopsy today. INR 1.7 should be low enough to tolerate needle biopsy 03/05/17 again is on Lovenox while we are holding Coumadin 03/06/2017 hold Lovenox after this morning. INR is 1.5. Resume Coumadin soon after needle biopsy completed. 03/07/2017 INR is 1.3. Holding Coumadin for needle biopsy. Had Lovenox yesterday morning but it has been held since then. Needs to resume Lovenox later today if no bleeding from the biopsy. 03/08/2017 continuing on subcu Lovenox while pathology is pending. If surgery is planned, we do not want to restart Coumadin and have to stop it again. Current Visit: Yes (2) Chronic anticoagulation Status: Acute Assessment and plan: Again requires chronic anticoagulation for his aortic valve replacement. Current Visit: Yes (3) Hemoptysis Status: Acute Assessment and plan: I suspect he has hemoptysis due to congestive heart failure and anticoagulants. Nothing shows up on x-ray. I will obtain a plain CT without contrast. We will plan bronchoscopy to visualize his airways tomorrow. Probably will be best to control his congestive heart failure a little better to cut down his hemoptysis. 03/02/2017 bronchoscopy today showed blood has come from the posterior segment right upper lobe which is the location of the peripheral nodule seen on CT. We incidentally found an endobronchial pale white fleshy lesion in the superior segment left lower lobe that we did biopsy without any problems. Not sure if that is related to the lesion on the other side or not. Await pathology. Would need to have INR of less than 1.8 before needle biopsy could be done on the right side. Again would keep on subcu Lovenox while Coumadin is held and check daily protimes. 03/03/2017 blood was noted to be coming from the posterior segment right upper lobe which is where the spiculated nodule was noted on CT. Very likely this will be a bronchogenic carcinoma. Needle biopsy is planned for tomorrow. Incidental finding of an endobronchial lesion that was removed almost in toto with forceps from the superior segment left lower lobe. Pathology pending 03/04/2017 no further hemoptysis. 03/05/2017 no hemoptysis now. Has right upper lobe pulmonary nodule that is likely the source of the hemoptysis. We found blood in that bronchus at bronchoscopy. 03/06/2017 no further hemoptysis. Blood was seen to come from the posterior segment right upper lobe at bronchoscopy. 03/07/2017 this is felt to be due to the pulmonary nodule in the right upper lobe. Blood was seen coming from that segment at bronchoscopy. For needle biopsy today. 03/08/2017 patient has had no further hemoptysis. No hemoptysis following the needle biopsy. Current Visit: Yes (4) CAD (coronary artery disease) Status: Chronic Assessment and plan: No active angina. Current Visit: Yes Qualifiers: [place] vs. transplanted heart: [place] heart Associated angina: without angina (5) Congestive heart failure Problem details: ef 25% Status: Acute Assessment and plan: BNP is elevated. Has had a low ejection fraction in the past. Ejection fraction 25%. Acute on chronic systolic congestive heart failure. Needs diuresis. Congestive heart failure can cause increased submucosal vascularity in the bronchi and lead to hemoptysis, especially in the setting of an anticoagulated patient. 03/02/2017 congestive heart failure managed with diuretics. He does have renal insufficiency. We did not see the increased submucosal vascularity that I thought we may at bronchoscopy. 03/03/2017 does not appear to be in roya heart failure at present. 03/04/2017 not in roya heart failure at present. 03/05/17 heart failure is controlled. Current Visit: No
[2017-03-08] MEDS: INSULIN LISPRO 100 UNIT/ML SUBCUT SCH (08:51)
[2017-03-08] MEDS: cloNIDine 0.1 MG TABLET PO SCH (08:52)
[2017-03-08] MEDS: PANTOPRAZOLE 40 MG TABLET PO SCH (08:52)
[2017-03-08] MEDS: INSULIN GLARGINE 100 UNIT/ML SUBCUT SCH (08:52)
[2017-03-08] MEDS: CARVEDILOL 12.5 MG TABLET PO SCH (08:52)
--- NOTE | 2017-03-08 10:02 | Discharge Summary ---
Hospital Course - Hospital Course Hospital Course: 61-year-old Beckham male presents for near-syncope episode secondary to hemoptysis. Patient reported coughing up clots of blood over the last 3 weeks. Patient is on Coumadin for in aortic valve replacement and is on aspirin for CAD. Patient's INR on admission was 1.8. We have left it to drift down to 1.3. CT of his check chest showed a spiculated noncalcified nodule in the right upper lobe that was worrisome for any plasty. Patient had something removed on the other side that was concerning in the past and it turned out to be benign. Biopsy was taken by interventional radiology yesterday and pathology has already confirmed that there is no cancer but does reports infection. Patient was had a bronchoscopy which also grew out staph aureus sensitive to clindamycin. We will do 7 days of clindamycin. We have restarted his Lovenox shots once a day due to his renal failure. We will reload him on Coumadin for 5 mg of Coumadin for the next 3 days then 2.5. Lovenox should be discontinued after the INR is greater than 2. Patient will be reloaded on Coumadin to see if he develops hemoptysis again. If he continues to have problems with hemoptysis this area will need to be resected by surgery. Patient sees Dr. Felder for his cardiac problems and for adjustment of Coumadin. I have asked home health to help in monitoring that. Including administration of his Lovenox shots. Would like him to follow-up with Dr. Paredes for his stage 4 renal failure. He is on a low dose of Lasix a day but cannot tolerate any more potassium. Patient is on oral diabetic medicines which are no longer appropriate due to his current diagnoses. Patient will have to start on a low dose of Lantus daily to control his blood sugars. Patient wanted to return to work right away I do not think that is a good idea. I think he needs to stay off work for at least this week. He will also have a lot of follow-up appointments in the next 1-2 weeks that will make it difficult for him to work. His hypertension is controlled and his chronic systolic and diastolic chf is controlled. She will be discharged home today with follow-up appointments with Dr. Quiñones, Dr Felder, [facility] and Dr. Paredes. - Time spent with patient Time with patient DS: Greater than 30 minutes (45 min) Diagnosis - Discharge Diagnosis (1) Hemoptysis Status: Acute (2) Congestive heart failure Status: Acute (3) Chronic renal failure Status: Chronic (4) Diabetes Status: Chronic (5) Hypertension Status: Chronic (6) Chronic anticoagulation Status: Acute (7) Status post aortic valve replacement Status: Acute Discharge Plan - Discharge Data Disposition: Home Health Service Condition at Discharge: Stable Discharge Diet: diabetic diet Activity: resume usual activities as tolerated, other (wear oxygen prn as needed ) Hygiene: no restrictions Weight Bearing at Discharge: full weight bearing, other (fall precautions ) Contact your physician if you experience:: fever over 101 - Discharge Medications New Enoxaparin [Lovenox] 90 mg SUBCUT Q24H #5 syringe Insulin Glargine,Hum.rec.anlog [Lantus SoloStar] 10 unit SUBCUT DAILY #5 applicator Warfarin [Coumadin] 2.5 mg PO DAILY@1800 #60 tablet Clindamycin HCl 300 mg PO TID #21 capsule Continue Aspirin Chew Tab 81 mg PO DAILY tablet cloNIDine TAB [Catapres Tab] 0.1 mg PO BID #60 tablet Carvedilol [Coreg] 12.5 mg PO BID Furosemide Tab [Lasix Tab] 20 mg PO DAILY #30 tablet Calcium (Carb)/Vit D 600-400 [Caltrate 600 + D] 1 tablet BID Discontinued Potassium Chloride 20 meq PO DAILY Warfarin [Coumadin] 1 mg DIRECTED Pioglitazone HCl 15 mg DAILY Warfarin [Coumadin] 2 mg DIRECTED Saxagliptin HCl [Onglyza] 2.5 mg PC BREAKFAST - Follow Up or Referral Follow Up: Randy Paredes Jr., MD [Physician] - 2 Weeks (worsening renal function) [facility] [Provider Group] - 1 Week (INR ) Jah Quiñones MD [Physician] - 1 Week Frankie Felder MD [Physician] - 2 Weeks - Forms/Instructions Additional Discharge Instructions: INR on 03/11 and then daily until INR between 2-3. Must continue lovenox until INR greater than 2. Call results to Dr. Felder Exam - Constitutional Vitals: Period Temp Pulse Resp BP Sys/Pérez Pulse Ox Last 24 Hr 97.5 F-98.7 F 63-82 12-20 136-180/78-87 95-100 General appearance: normal weight, no acute distress - Respiratory Respiratory exam: Present: clear to auscultation bilaterally. Absent: wheezes - Cardiovascular Cardiovascular exam: Present: regular rate and rhythm. Absent: systolic murmur - GI/Abdominal GI/Abdominal exam: Present: normal bowel sounds, soft. Absent: tenderness - Neurological Exam Neurological exam: Present: alert, oriented X3 - Psychiatric Psychiatric exam: Present: normal affect, normal mood Discharge Results Procedures and tests throughout hospitalization: Pending Orders 03/02/17 07:50 AFB Culture/Smears Routine AFB Culture/Smears Routine Fungal Culture w/ Prep Routine Fungal Culture w/ Prep Routine Cytology Request Routine 03/06/17 14:17 Consult to Interventional Rad Routine 03/09/17 04:00 CBC [Comp Blood Count Auto Diff] IN AM Prothrombin Time INR IN AM 03/10/17 04:00 CBC [Comp Blood Count Auto Diff] IN AM Prothrombin Time INR IN AM Labs on day of discharge: Labs from last 24 hours 03/08/17 03/08/17 03/08/17 08:05 05:16 05:16 WBC 6.4 RBC 3.27 L Hgb 10.3 L Hct 29.4 L MCV 89.9 MCH 32 MCHC 35.0 RDW 12.9 Plt Count 217 MPV 11.8 Neut % (Auto) 72.4 Lymph % (Auto) 13.8 L Ector % (Auto) 9.3 Eos % (Auto) 3.5 Baso % (Auto) 0.5 Neut # (Auto) 4.6 Lymph # (Auto) 0.9 L Ector # (Auto) 0.6 Eos # (Auto) 0.2 Baso # (Auto) 0.0 Immature Gran % 0.5 Nucleated RBC % 0.0 Immature Gran # 0.03 Nucleated RBCs # 0.00 Immature Plt Fraction 0.0 INR 1.2 PT Patient/Control Mix 12.9 POC Glucose 215 H B-Natriuretic Peptide 03/07/17 03/07/17 03/07/17 19:17 15:50 15:15 WBC RBC Hgb Hct MCV MCH MCHC RDW Plt Count MPV Neut % (Auto) Lymph % (Auto) Ector % (Auto) Eos % (Auto) Baso % (Auto) Neut # (Auto) Lymph # (Auto) Ector # (Auto) Eos # (Auto) Baso # (Auto) Immature Gran % Nucleated RBC % Immature Gran # Nucleated RBCs # Immature Plt Fraction INR PT Patient/Control Mix POC Glucose 331 H 133 H B-Natriuretic Peptide 176 H 03/07/17 11:05 WBC RBC Hgb Hct MCV MCH MCHC RDW Plt Count MPV Neut % (Auto) Lymph % (Auto) Ector % (Auto) Eos % (Auto) Baso % (Auto) Neut # (Auto) Lymph # (Auto) Ector # (Auto) Eos # (Auto) Baso # (Auto) Immature Gran % Nucleated RBC % Immature Gran # Nucleated RBCs # Immature Plt Fraction INR PT Patient/Control Mix POC Glucose 189 H B-Natriuretic Peptide DS: Provider Date of admission: 03/01/17 00:00 Primary care physician: Werner Spangler MD Attending physician on admission: Angelica Chiu MD Consults: 03/01/17 00:38 Consult to Physician [CONS] Routine Comment: hemoptysis Consulting Provider: Jah Quiñones Consulting Provider Notified: Yes When should Consulting Provider be notified: Now Consult to Specialist Group: Pulmonology When should Consulting Provider be notified: Now Person Notified: DR QUIÑONES NOTIFIED OF CONSULT Date Notified: 03/01/17 Time Notified: 08:38 03/07/17 14:15 Consult to Physician [CONS] Routine Comment: lung ca, biopsy today Consulting Provider: Onel Paul Consulting Provider Notified: Yes When should Consulting Provider be notified: Now Consult to Specialist Group: Oncology When should Consulting Provider be notified: Now Person Notified: DR PAUL NOTIFIED OF CONSULT Date Notified: 03/08/17 Time Notified: 07:28 03/08/17 06:19 Consult to Case Mgmt/Social Srvs [CONS] Routine Reason for Case Mgmt/Social Srvs: Other Consult Comment: wants to discuss how to apply for disability Discharging clinician: Michela Mcgraw MD
[2017-03-08 11:58] VITALS: BP 162/78
--- NOTE | 2017-03-08 12:26 | Pathology Report from [facility] ---
[facility] ACCESSION # : [id number] PATIENT NAME : Bobo Santiago ORDERING DR : Jimmy Roldan MD CLINICAL HX: Right upper lobe lung mass POST-OP DX: Same SPECIMEN INFO: Right upper lobe lung mass biopsy x 3, CT GROSS DESCRIPTION: The specimen is received in formalin labeled with the patients name BOBO SANTIAGO and consists of cylindrical fragments of red- jacobsen soft tissue collectively measuring 0.4 x 0.5 cm. Submitted in one cassette. DIAGNOSIS FOR BOBO SANTIAGO: RIGHT UPPER LOBE LUNG MASS, BIOPSY: Benign pulmonary parenchyma with evidence of prior hemorrhage and abscess formation. No evidence of malignancy. COLLECTED DATE: 03/07/2017 [facility] REPORT DATE: 03/08/2017 ELECTRONICALLY SIGNED BY: Estuardo Olivares III, M.D. 03/08/2017 - 9:22:20 [facility] SYSTEM[facility]ed[facility]
--- NOTE | 2017-04-01 11:37 | Anesthesia Post-Op ---
Anesthesia Post OP - Post Ansesthetic Evaluation Patient seen in post op: Yes Resp: within normal limits CV: within normal limits Mental: within normal limits Temp: within normal limits [id number]: within normal limits Nausea and Vomiting: within normal limits Pain: within normal limits
== END 2017-03-08 11:56 | disposition home health service (06) | DRG 987 ==
LOC: EDBD → EDUNIT# → N.ED 23:20 → SUATTDRO 03-01 → N.EDINP 03-01 → N.4E 03-01 01:37
PROVIDERS: ADMIT Family Medicine; ATTEND Internal Medicine

== ENCOUNTER 2017-03-31 10:27 | Inpatient (IN) ==
[2017-03-31] MEDS ORDERED: TIROFIBAN 5,000 MCG/100 ML PREMIX IV SCH (11:08)
[2017-03-31 12:05] LABS: Basophils % 0.2 % (0.0-0.8); Eosinophils # 0.1 10*3/uL (0.0-0.87); Eosinophils % 1.7 % (0.00-10.9); Hematocrit 17.8 VOL% (42.0-52.0); Immature Granulocytes % 0.5 %; Immature Granulocytes Absolute 0.04 #; Mean Corpuscular HGB Conc 34.8 GM/DL (32-36); Mean Corpuscular Hemoglobin 31 PG (27-34); Mean Corpuscular Volume 89.4 FL (87-102); Mean Platelet Volume 10.7 FL (9.6-12.0); Monocytes # 0.7 10*3/uL (0.11-0.8); Neutrophils # 6.3 10*3/uL (1.4-7.4); Neutrophils % 76.6 % (38.7-73.9); Platelet Count 215 T/CUMM (130-400); Red Blood Count 1.99 MC/CUMM (3.8-5.5); Red Cell Distribution Width 13.1 % (9.3-17.3); White Blood Count 8.2 T/CUMM (4-12)
--- NOTE | 2017-03-31 12:05 | Cardiology History & Physical ---
Assessment and Plan - Time spent with patient Time spent with patient: Greater than 30 minutes (1) ST elevation myocardial infarction (STEMI) of anterior wall Status: Acute Assessment and plan: With him having had chest pain in these EKG changes, he needs an emergency cath Plan/records: 1 emergency heart cath Give Aggrastat Proton pump inhibitor Check labs Aspirin was given the emergency room We will add a beta-smith post MA Probably no TEODORO inhibitor depending on his renal function check lipids and treat per guidelines Left heart cath and possible PTCA or stent were discussed with the patient. The risk of the procedure include but are not limited to a small risk of injury to the vessel, abnormal heart rhythm, stroke, heart attack, need for emergent surgery, contrast reaction, restenosis, infection, or . The patient voices understanding, agrees with the plan, and desires to proceed with the heart catheterization. Current Visit: Yes (2) Chronic anticoagulation Status: Acute Current Visit: No (3) Status post aortic valve replacement Status: Acute Current Visit: No (4) CAD (coronary artery disease) Status: Chronic Current Visit: No Qualifiers: [place] vs. transplanted heart: [place] heart Associated angina: without angina (5) Chronic renal failure Status: Chronic Current Visit: No Qualifiers: Chronic kidney disease stage: stage 3 (moderate) Qualified Code(s): N18.3 - Chronic kidney disease, stage 3 (moderate) (6) Diabetes Status: Chronic Current Visit: No Qualifiers: Diabetes mellitus type: type 2 Diabetes mellitus complication detail: with chronic kidney disease Diabetes mellitus correction insulin use: without correction use Chronic kidney disease stage: stage 3 (moderate) (7) Dyslipidemia Status: Chronic Current Visit: No (8) Hypertension Status: Chronic Current Visit: No Qualifiers: Hypertension type: essential hypertension Qualified Code(s): I10 - Essential (primary) hypertension History of Present Illness Chief complaint: "I hurt my chest this morning". History of present illness: Mr. Jiménez is a 61 year old male PCP: [facility] [employer]:? Has been Dr. rob Patient is 61. In 04/2016 he underwent multivessel bypass grafting with a vein graft to the right coronary, vein graft to the obtuse marginal, and an EDUARD to the LAD. He did fairly well. I do not believe he was seen in follow-up. This morning, he began having some chest pressure. There is a left chest. Nothing brought it on. Nitroglycerin did help it. It was associated shortness breath but no nausea diaphoresis. He was seen by EMS. They activated STEMI. However when I reevaluated for STEMI the fat is not a STEMI. There are ambulance brought down and he was delayed in getting here. His EKG repeated in the ER was a question of a STEMI . Currently is not having much chest pain. No orthopnea, PND, edema, palpitations , syncope, cough wheezing or phlegm. No bleeding in the pt's bowels, urine, or coughing up blood. No planned surgery for the next year. No contraindication to anticoagulation for a year. Chronic renal insufficiency-creatinine about 3.5 Prior bypass grafting Diabetes Had a lung biopsy 2 weeks ago here--was told the results was no cancer Visual acuity is less Prior CVA Left knee hurts more after the stroke No known drug allergies Home Medications Medication Instructions Recorded Confirmed Type Aspirin Chew Tab 81 mg PO DAILY tablet 05/20/16 03/31/17 Rx cloNIDine TAB [Catapres Tab] 0.1 mg PO BID #60 tablet 06/01/16 03/31/17 Rx Calcium (Carb)/Vit D 600-400 1 tablet BID 03/01/17 03/31/17 History [Caltrate 600 + D] Carvedilol [Coreg] 6.25 mg PO BID 03/01/17 03/31/17 History Insulin Glargine,Hum.rec.anlog 10 unit SUBCUT DAILY #5 applicator 03/08/1703/31 Rx [Lantus SoloStar] Warfarin [Coumadin] 2.5 mg PO DAILY@1800 #60 tablet 03/08/17 03/31/17 Rx Atorvastatin [Lipitor] 20 mg PO BEDTIME 03/31/17 03/31/17 History Furosemide Tab [Lasix Tab] 20 mg PO MOWEFR 03/31/17 03/31/17 History Tramadol HCl [Tramadol Tab] 50 mg PO Q12H PRN 03/31/17 03/31/17 History Allergies Allergy/AdvReac Type Severity Reaction Status Date / Time No Known Allergies Allergy Verified 03/01/17 00:10 12 point system: reviewed and no additional remarkable complaints except as stated (A 12 point review of systems is negative except for as mentioned in HPI. ) Medical,Surgical,& Family Hx - Medical History Cardio: History of: CAD, Hypertension Neurology: History of: TIA Endocrine: History of: Diabetes Mellitus (NIDDM) Respiratory: History of: Asthma Comment Only: Respiratory Problems (ulcer in lung) Gastrointestinal: History of: GERD Musculoskeletal: Comment Only: Musculoskeletal Problems (mult knee scopes to bilat knees) - Surgical History Cardiac Surgeries: Sugical HX of: Cardiac Catheterization (stent), Cardiac Surgery (CABG,AVR) Orthopedic Surgeries: Surgical HX of;: Orthopedic Surgery - Family History Family History: Reports;: Family Diabetes (father), Family Hypertension (father) - Social History Smoking Status: Former smoker Functional capacity: independent ambulation Cardiology Physical Exam - Constitutional Vitals: Intake and Output 03/30/17 03/31/17 03/31/17 23:59 07:59 15:59 Other: Weight 89.358 kg Patient Weight 03/31/17 23:59 Weight 89.358 kg Exam: HEENT: Pupils equal, reactive to light and accommodation Neck: NoJVD or bruit Lungs clear to auscultation Heart: Regular rhythm rate with normal S1 and S2. Apical S4, 2/6 systolic ejection murmur along right upper sternal border Abdomen: No hepatosplenomegaly Spine/extremities: No clubbing, cyanosis, or edema Neuro: Nonfocal Psych: No depression or anxiety Femoral pulses are 4+. Foot pulses are 3-4+. Result/EKG - Labs CBC & BMP: 03/31/17 13:53 03/31/17 11:51 Lab Results: I have reviewed the past 24 hour labs - Diagnostic Findings Procedure: Chest x-ray: report reviewed by me - EKG EKG results: interpreted by me
--- NOTE | 2017-03-31 12:05 | History and Physical Update ---
Sedation H&P Update - History and Physical H&P was reviewed, the patient examined and there: are no changes in the patients condition since last H&P was completed. - Dictation Physical: refer to H&P completed by admitting physician - Physical Exam Mental Status: alert and oriented Heart: regular rate and rhythm Lung: clear to auscultation Abdomen: within normal limits Vitals: within normal limits - Sedation Plan for Sedation: minimal Patient Consent: Procedure disscussed with patient and patinet has consented., Risks and benefits were discussed with patient,including infection,, bleeding, injury to surrounding structures, seizure, temporary nerve, Patient understands and accepts potential risks/benefits and agrees to, proceed. ASA Class: IV Airway Assessment: Class II: Soft palate, uvula, fauces visible
[2017-03-31 12:06] LABS: Hemoglobin 6.2 GM/DL (14.0-18.0)
--- NOTE | 2017-03-31 12:10 | Operative Note ---
Date of procedure: 03/31/17 Procedure Preformed: Left heart cath Coronary angiography Angiogram of the vein graft to the right coronary Angiogram of the vein graft to the left circumflex/obtuse marginal Angiogram of the ISBELL vein graft graft to LAD Aggrastat bolus and infusion--for PCI Stent of the insertion site of the ISBELL into the LAD--drug-eluting stent, 3.0 x 20 mm integrity, after pre-dilating with a 3.0 x 20 mm NC Trek--after PTCA there was significant residual recoil, thus drug-eluting stent was done Angiogram of the right femoral artery Loading with Brilinta, 180 mg p.o. Angio-Seal of the right femoral artery-successful- Surgeon / Physician: Frankie Felder Monumental Stonemason: Jose M Lugo Post-op diagnosis: same (7-year-old who had onset of chest pain this morning and EKG done which is a question of a STEMI. Is referred for diagnostic catheterization and possible intervention. On the way, exam is broke down. There was a delay with the ambulance.) Findings: Impression Significant three-vessel coronary disease Patent EDUARD to the LAD but there is a significant, 80%, insertion site stenosis- could be the source of his anterior STEMI, could be opening and closing--but it could be a red kidd and that the EKG changes are not due to ACS/STEMI Patent vein graft to the obtuse marginal Patent vein graft to the right coronary No LV gram was done because of his creatinine about 3.5 and he has a Saint Yadiel aortic valve Aggrastat bolus and infusion Status post successful stenting of the insertion site of the ISBELL into the LAD- drug-eluting stent, 3.0 x 20 mm integrity; after pre-dilating with a 3.0 x 20 mm NC Trek Brilinta 180 mg p.o. Angiogram of the right femoral artery Angio-Seal right femoral artery-successful Plan/recommendations: Based on the angiogram, it could be that the insertion site the LAD was open and closing and causes ischemic anterior EKG changes. However, it could be that there is an intermittent IVCD or some other cause of the apparent ST elevation EKG changes and that this was not a STEMI. I intervened. Hopefully be better. He received 109 9 cc of Visipaque. He very likely could have renal failure requiring dialysis. Thus, I will consult nephrology. I discussed that with him. Otherwise, I am told his initial hematocrit is 17. Thus, I will consult GI medicine, he may have a GI source of his low hematocrit, such as bleeding. Because of the emergency situation, we had none of this information and to wear into the cath and intervention. The patient will have risk factors optimized. The patient will be on antiplatelet medications to include Plavix or Brilinta for at least a year, and then change to aspirin. Otherwise, he will need to be on the warfarin indefinitely because it is Saint Yadiel aortic valve.. Follow-up will be scheduled. Addenda: I saw the patient post-cath. the groin puncture site and distal pulse are stable. vital signs are stable and the patient will be observed closely overnight. Specimens: none sent Estimated blood loss: minimal Condition: stable Anesthesia: local, conscious sedation Disposition: ICU
[2017-03-31] MEDS ORDERED: MAGNESIUM SULF RIDER 2 GM in PREMIX 1 EACH IV PRN (12:20)
[2017-03-31] MEDS ORDERED: ONDANSETRON 4 MG/2 ML VIAL IV PRN (12:20)
[2017-03-31] MEDS ORDERED: MAGNESIUM SULF RIDER 4 GM in PREMIX 1 EACH IV PRN (12:20)
--- NOTE | 2017-03-31 12:20 | Cardiology Operative Report ---
Date of Procedure:: 03/31/17 Post-op diagnosis: same (Anterior STEMI, known CAD, prior AVR) Procedure: Date of procedure: 03/31/17 Procedure Preformed: Left heart cath Coronary angiography Angiogram of the vein graft to the right coronary Angiogram of the vein graft to the left circumflex/obtuse marginal Angiogram of the ISBELL vein graft graft to LAD Aggrastat bolus and infusion--for PCI Stent of the insertion site of the ISBELL into the LAD--drug-eluting stent, 3.0 x 20 mm integrity, after pre-dilating with a 3.0 x 20 mm NC Trek--after PTCA there was significant residual recoil, thus drug-eluting stent was done Angiogram of the right femoral artery Loading with Brilinta, 180 mg p.o. Angio-Seal of the right femoral artery-successful- Surgeon / Physician: Frankie Felder Tip Puncher: Jose M Lugo Post-op diagnosis: same (7-year-old who had onset of chest pain this morning and EKG done which is a question of a STEMI. Is referred for diagnostic catheterization and possible intervention. On the way, exam is broke down. There was a delay with the ambulance.) procedure: The patient was prepped and draped in usual manner. Entered the right femoral artery via the Seldinger technique. I used a sheath and then used a JL4 and engaged left coronary. Multiple views were taken. I then exchanged for a JR4. Multiple views of the right coronary were taken. I then used a JR4 to engage the vein graft to right coronary, vein graft to obtuse marginal, and the EDUARD. Multiple views were taken of each of these. I then proceeded with intervention of the insertion site of the ISBELL into the LAD. See below. The catheters were then removed from the patient. Please see the data sheets for the details of catheters used. Intervention: Cardiovascular surgery was available for any complications. The coronary intervention was done using a 6 Welsh ISBELL guiding catheter and a 0.014 run through wire. After predilatation with a 3.0 x 20 mm NC trek balloon, there was significant recall., I then placed a 3.0 x 20 mm integrally coronary stent across the lesion. It was deployed. Afterwards, there was a good result. See the data sheet for the times and inflation, last inflation was to about 18-20 nicole for a minute. No ventriculogram or aortogram was done to try to conserve Contrast Angiogram of the right femoral artery was done, either at that time or as a follow-through from the aortogram/left ventriculogram. Closure device was used -see data sheets. patient was transferred to her room on telemetry in satisfactory condition. Please see the cath report for details of the pressures and times. Complications: none Hemodynamic data: LVEDP was --not done, because I did not cross the Saint Yadiel valve Angiographic data: The left main coronary was large and had minimal luminal irregularities. There is a distal narrowing of maybe 40 - 50% The left anterior descending artery was large. There is one major diagonal. The proximal LAD is occluded. The remainder of LAD is filled via the ISBELL to the LAD The left circumflex system was moderate to large. It was 1 major obtuse marginal and 1 posterior lateral branches. The obtuse marginal branch was occluded proximally or subtotally occluded. The right coronary artery was large in size, dominant vessel with the PDA and post lateral branch. It was totally occluded proximally. The vessel filled via the vein graft to the PDA. The ISBELL to the LAD was large. However at the insertion site there was an 80% focal narrowing. The vein graft to the right coronary artery was large and widely patent The vein graft to the obtuse marginal was large and widely patent. After predilatation of the LAD there was significant recall. It was inadequate for PTCA alone. After placement of the stent, there was a 0% residual and DEREK grade III flow. . Angiogram of the right femoral artery revealed the puncture site to be in a large vessel, above the bifurcation. It was suitable for a clocure device. Impression Significant three-vessel coronary disease Patent EDUARD to the LAD but there is a significant, 80%, insertion site stenosis- could be the source of his anterior STEMI, could be opening and closing--but it could be a red kidd and that the EKG changes are not due to ACS/STEMI Patent vein graft to the obtuse marginal Patent vein graft to the right coronary No LV gram was done because of his creatinine about 3.5 and he has a [place] Yadiel aortic valve Aggrastat bolus and infusion Status post successful stenting of the insertion site of the ISBELL into the LAD- drug-eluting stent, 3.0 x 20 mm integrity; after pre-dilating with a 3.0 x 20 mm NC Trek Brilinta 180 mg p.o. Angiogram of the right femoral artery Angio-Seal right femoral artery-successful Plan/recommendations: Based on the angiogram, it could be that the insertion site the LAD was open and closing and causes ischemic anterior EKG changes. However, it could be that there is an intermittent IVCD or some other cause of the apparent ST elevation EKG changes and that this was not a STEMI. I intervened. Hopefully be better. He received 109 9 cc of Visipaque. He very likely could have renal failure requiring dialysis. Thus, I will consult nephrology. I discussed that with him. Otherwise, I am told his initial hematocrit is 17. Thus, I will consult GI medicine, he may have a GI source of his low hematocrit, such as bleeding. Because of the emergency situation, we had none of this information and to wear into the cath and intervention. The patient will have risk factors optimized. The patient will be on antiplatelet medications to include Plavix or Brilinta for at least a year, and then change to aspirin. Otherwise, he will need to be on the warfarin indefinitely because it is Saint Yadiel aortic valve.. Follow-up will be scheduled. Addenda: I saw the patient post-cath. the groin puncture site and distal pulse are stable. vital signs are stable and the patient will be observed closely overnight. Specimens: none sent Estimated blood loss: minimal Condition: stable Anesthesia: local, conscious sedation Disposition: ICU Anesthesia: local, minimal conscious sedation Surgeon / Physician: Frankie Felder Estimated blood loss: minimal Specimens: none sent Condition: stable Disposition: ICU/CCU
[2017-03-31] MEDS ORDERED: PANTOPRAZOLE 40 MG TABLET PO SCH (12:30)
[2017-03-31] MEDS: SODIUM CHLORIDE 0.9% 1,000 ML IV SCH ×2 (12:59→20:39)
[2017-03-31] MEDS: CARVEDILOL 3.125 MG TABLET PO SCH ×2 (13:00→21:15)
[2017-03-31 13:17] LABS: Alanine Aminotransferase 15 U/L (16-61); Albumin 2.5 G/DL (3.4-5.0); Alkaline Phosphatase 98 U/L (45-117); Aspartate Amino Transferase 21 U/L (0-37); Blood Urea Nitrogen 47 MG/DL (7-18); Calcium 7.9 MG/DL (8.5-10.1); Glucose 333 MG/DL (74-106); Magnesium 2.3 MG/DL (1.8-2.4); Potassium 4.2 MMOL/L (3.5-5.1); Sodium 136 MMOL/L (136-145); Total Protein 5.7 G/DL (6.4-8.3); Troponin I Only 0.022 NG/ML (0.00-0.045)
--- NOTE | 2017-03-31 13:41 | EKG Report ---
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
[2017-03-31 14:08] LABS: Risk Ratio 5.55
[2017-03-31 14:10] LABS: Troponin I Only 0.021 NG/ML (0.00-0.045)
[2017-03-31 14:16] LABS: Basophils % 0.3 % (0.0-0.8); Eosinophils # 0.1 10*3/uL (0.0-0.87); Eosinophils % 1.4 % (0.00-10.9); Hematocrit 18.5 VOL% (42.0-52.0); Hemoglobin 6.5 GM/DL (14.0-18.0); Immature Granulocytes % 0.3 %; Immature Granulocytes Absolute 0.02 #; Lymphocytes % 13.8 % (21.2-54.2); Mean Corpuscular HGB Conc 35.1 GM/DL (32-36); Mean Corpuscular Hemoglobin 31 PG (27-34); Mean Corpuscular Volume 89.4 FL (87-102); Mean Platelet Volume 10.9 FL (9.6-12.0); Monocytes # 0.6 10*3/uL (0.11-0.8); Neutrophils # 5.3 10*3/uL (1.4-7.4); Neutrophils % 76.2 % (38.7-73.9); Platelet Count 215 T/CUMM (130-400); Red Blood Count 2.07 MC/CUMM (3.8-5.5); Red Cell Distribution Width 13.1 % (9.3-17.3)
[2017-03-31 14:41] LABS: Folate 7.4 NG/ML (5.4-24.0); Vitamin B12 380 PG/ML (211-911)
[2017-03-31 14:44] LABS: PT Patient Result 92.9 SECS
[2017-03-31 14:47] LABS: INR 7.7; Partial Thromboplastin Time > 320.0 SECS (0-40)
[2017-03-31] MEDS ORDERED: SODIUM CHLORIDE 0.9% 250 ML IV PRN (14:54)
[2017-03-31] MEDS ORDERED: MIDAZOLAM 2 MG/2 ML VIAL ONE (15:00)
[2017-03-31] MEDS ORDERED: MEPERIDINE 25 MG/1 ML VIAL ONE (15:00)
[2017-03-31] MEDS ORDERED: TICAGRELOR 90 MG TABLET ONE (15:00)
[2017-03-31] MEDS ORDERED: LIDOCAINE 1% 20 ML VIAL ONE (15:00)
[2017-03-31] MEDS ORDERED: HYDROmorphone 2 MG/1 ML VIAL ONE (15:00)
[2017-03-31] MEDS ORDERED: HEPARIN 5,000 UNIT/1 ML VIAL ONE (15:00)
[2017-03-31] MEDS ORDERED: TIROFIBAN 5,000 MCG/100 ML PREMIX IV ONE (15:00)
[2017-03-31] MEDS ORDERED: ceFAZolin 1,000 MG VIAL ONE (15:00)
--- NOTE | 2017-03-31 15:03 | Nephrology Consult Note ---
History of Present Illness Chief complaint: ARF on CRF History of present illness: Mr. Jiménez is a 61 year old male whom we are asked to see with a creatinine of about 3.8. He is status post aortic valve replacement on chronic anticoagulation and status post coronary artery bypass. He presented with chest pain was taken to the [facility] and received 100 cc of contrast and placement of the stent at the anastomosis of his internal mammary artery to the LAD. He is doing well now with blood pressure about 140 systolic. There is no recorded hypotension. He is having no chest pain. In May 2016 his creatinine here was 1.5. He is a long-standing diabetic. He reports having had a good bit of hemoptysis late including last night and denies any melena. His hematocrit however 17% at the time of presentation. On exam he is lying flat in no distress very pleasant and oriented chest is clear heart without rub or gallop and no significant edema is noted. Impression acute renal failure superimposed on chronic renal impairment. The acute component is likely secondary to his recent bleeding. Next diagnosis is diabetes mellitus and diabetic nephropathy. Plan he is to receive fresh frozen plasma and packed cells to correct his over anticoagulation and anemia respectively. Will give a couple doses of Mucomyst which is of questionable benefit but certainly will not hurt. Principally we will maintain his blood pressure and try to keep him well hydrated. Will follow daily lab clinic Home Medications Medication Instructions Recorded Confirmed Type Aspirin Chew Tab 81 mg PO DAILY tablet 05/20/16 03/31/17 Rx cloNIDine TAB [Catapres Tab] 0.1 mg PO BID #60 tablet 06/01/16 03/31/17 Rx Calcium (Carb)/Vit D 600-400 1 tablet BID 03/01/17 03/31/17 History [Caltrate 600 + D] Carvedilol [Coreg] 6.25 mg PO BID 03/01/17 03/31/17 History Insulin Glargine,Hum.rec.anlog 10 unit SUBCUT DAILY #5 applicator 03/08/1703/31 Rx [Lantus SoloStar] Warfarin [Coumadin] 2.5 mg PO DAILY@1800 #60 tablet 03/08/17 03/31/17 Rx Atorvastatin [Lipitor] 20 mg PO BEDTIME 03/31/17 03/31/17 History Furosemide Tab [Lasix Tab] 20 mg PO MOWEFR 03/31/17 03/31/17 History Tramadol HCl [Tramadol Tab] 50 mg PO Q12H PRN 03/31/17 03/31/17 History Allergies Allergy/AdvReac Type Severity Reaction Status Date / Time No Known Allergies Allergy Verified 03/01/17 00:10 Medical,Surgical,& Family Hx - Medical History Cardio: History of: CAD, Hypertension, NM Psychological: No history of: Anxiety Disorders, Depression Neurology: History of: TIA Endocrine: History of: Diabetes Mellitus (IDDM), Diabetes Mellitus (NIDDM) Respiratory: History of: Asthma Comment Only: Respiratory Problems (ulcer in lung) Genitourinary: No history of: Prostate Problems Gastrointestinal: History of: GERD Musculoskeletal: Comment Only: Musculoskeletal Problems (mult knee scopes to bilat knees) Hematology: No history of: Anemia - Surgical History Cardiac Surgeries: Sugical HX of: Cardiac Catheterization (stent), Cardiac Surgery (CABG,AVR (June 2016)) HEENT Surgeries: Surgical HX of: Eye Surgery (Cataract surgery) Abdominal Surgeries: Patient denies: Appendectomy, Cholecystectomy Orthopedic Surgeries: Surgical HX of;: Orthopedic Surgery (Right knee, Left hand ) - Family History Family History: Reports;: Family Diabetes (father), Family Hypertension (father) - Social History Smoking Status: Former smoker Frequency of Alcohol Use: None Type of Drug Use: None Review of Systems 12 point system: reviewed and no additional remarkable complaints except as stated Exam - Vital Signs Vital signs: Period Temp Pulse Resp BP Sys/Pérez Pulse Ox Last 24 Hr 97.3 F 64-74 13-21 125-161/70-82 98-100 - General Appearance General appearance: well-developed, well-nourished, appears started age EENT: ATNC Neck: no JVD, no thyromegaly, no carotid bruit, supple Respiratory: no kyphosis, no scoliosis Cardiology: no murmurs, no rub, no gallops, no edema, regular rate, regular rhythm, normal S1, normal S2 Gastrointestinal: normoactive bowel sounds Integumentary: no rash, warm and dry Neurologic: no focal deficit, no asterixis, alert and oriented x3, reflexes 2+ and symmetric, gait normal, strength 5/5 Musculoskeletal: no deformities, no erythema, no cyanosis, no clubbing Psychiatric: mood/affect appropriate, cooperative Results - Labs CBC & BMP: 03/31/17 13:53 03/31/17 11:51 Assessment and Plan - Time spent with patient Time spent with patient: Greater than 30 minutes (1) Acute renal failure Status: Acute Current Visit: Yes (2) Chronic renal failure Status: Chronic Current Visit: No Qualifiers: Chronic kidney disease stage: stage 3 (moderate) Qualified Code(s): N18.3 - Chronic kidney disease, stage 3 (moderate) (3) Diabetes Status: Chronic Current Visit: No Qualifiers: Diabetes mellitus type: type 2 Diabetes mellitus complication detail: with chronic kidney disease 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 transplanted heart: [place] heart Associated angina: without angina Specialty Discharge - Follow Up or Referrals - Speciality Discharge Instructions Nephrology Instructions: Mucomyst 3 doses. Fresh frozen plasma and packed cells as planned. Daily creatinine.
[2017-03-31 16:26] LABS: Sedimentation Rate-Westergren 130 MM/HR (0-20)
--- NOTE | 2017-03-31 17:44 | Gastrointestinal Consult Note ---
Assessment and Plan (1) Gastrointestinal hemorrhage with hematemesis Status: Acute Assessment and plan: I am really not sure if the bleeding the patient was describing coming out of his mouth was secondary to the previous mass noted in the right lung with hemoptysis or epistaxis in the nasal cavity and swallowed blood (which I strongly suspect given his symptoms) or true hematemesis from his underlying reflux and possible esophagitis versus Dieulafoy's lesion versus gastric ulcer etc. Upper endoscopy may be able to clarify the situation or at least rule out the upper GI tract as a potential source. If this is unrevealing with suggest that Dr. Villalta that are doing fiberoptic examination the patient's sinuses/ nasal cavity to see if this is the true source. Given the patient's reflux will certainly place him on Protonix twice daily and will continue to observe him for melena. I was not able to do a rectal exam today due to his requirement to remain still in the bed. From a GI standpoint he can certainly have some clear liquids tonight, we will plan to perform upper endoscopy tomorrow morning, after he is received his fresh frozen plasma and 2 units packed red blood cells. I think it is reasonable to hold off on active anticoagulation but understand the reason to not treat him with vitamin K given the recent stent placement 2 to the ISBELL. Further recommendations post upper endoscopy tomorrow. Current Visit: Yes (2) Posthemorrhagic anemia Status: Acute Assessment and plan: We will watch the patient's hematocrit status post treatment with a fresh frozen plasma and then transfusion. CBC and PT/INR pending for tomorrow. Upper endoscopy discussed with the patient and his who is at the bedside, risks include but are not limited to: Bleeding, infection, perforation, cardiac and pulmonary compromise. Current Visit: Yes (3) Chronic anticoagulation Status: Acute Assessment and plan: The patient has a requirement for chronic anticoagulation due to his St. Yadiel's aortic heart valve. Now he has the stent placement 2 in the ISBELL and will need to be on chronic anticoagulation. Would suggest switching over to heparin as this can be discontinued almost immediately and has a reversal agent in the form of protamine. We will continue to observe him in the short-term. Current Visit: No (4) Screening for colorectal cancer Status: Acute Assessment and plan: The patient has never had a colorectal cancer screening and is 10 years overdue at some point in the future he may wish to have this evaluated. This is certainly not a priority for the next 6 months and may require a heparin window given the patient's aortic heart valve/need for chronic anticoagulation. Current Visit: Yes History of Present Illness Chief complaint: Question of hematemesis versus epistaxis with expectorated blood, anemia History of present illness: Mr. Jiménez is a 61 year old [place] male who has a history of undergoing triple -vessel bypass and insertion of a St. Yadiel's valve in the aortic valve position around August [address] Matthew. Unfortunately the patient developed a stroke with right-sided upper and lower extremity weakness as well as some dysarthria/ dysphasia. These have gotten considerably better but the patient still has easy fatigue on walking and tends to list to his right side after prolonged exercise. The patient is also been worked up for a right upper lobe mass that proved not to be cancerous but instead an abscess. He apparently had chest pain this morning and during an EKG was thought to have a potential STEMI and was taken to the [facility] by Dr. Felder where he was noted to have an anterior STEMI and the ISBELL leading to the LAD was stented using a drug-eluting stent 2. Patient was noted to have elevated creatinine of 3.5 and so contrast was limited as a result of this. Unfortunately the patient also was noted to have a low hematocrit at 17% along with an INR that was elevated due to presumably over coumadinization to 7.7. At baseline the patient takes Coumadin 2.5 mg daily along with 81 mg of aspirin. He blames some of the blood loss on his use of tramadol 1. He is being given fresh frozen plasma but is not giving any vitamin K due to the recent stent placement. The patient describes what sounded initially like hematemesis where he would be laying flat on his back and with suddenly cough versus expectorate quarter size clots of blood which eventually filled up a volume equal to about 22 ounces he states. Does not feel that these are being vomited up per se from the stomach but rather expectorated up versus coughed up and may represent epistaxis with partial clearance and expectoration. He does have reflux and states this can be severe and so a GI bleeding source will be sought tomorrow with attention paid to the nasopharynx particularly. He has not noticed any black stools recently. His last hematocrit from the hospital on 03/08/17 was 29.4%. The patient's hematocrit has ranged in the past from [address] up to 37.1%. He has never had a colonoscopy and cannot recall having EGD but does state that he had a bronchoscopy and did expectorate some bleeding after that her seizure was done in the past. He does not feel nauseous he is somewhat hungry but is being held n.p.o. post catheterization. He is due to get 2 units of fresh frozen plasma as well as 2 units of packed red blood cells. Will likely perform upper endoscopy tomorrow morning in order to assess the GI tract as mentioned. Home Medications Medication Instructions Recorded Confirmed Type Aspirin Chew Tab 81 mg PO DAILY tablet 05/20/16 03/31/17 Rx cloNIDine TAB [Catapres Tab] 0.1 mg PO BID #60 tablet 06/01/16 03/31/17 Rx Calcium (Carb)/Vit D 600-400 1 tablet BID 03/01/17 03/31/17 History [Caltrate 600 + D] Carvedilol [Coreg] 6.25 mg PO BID 03/01/17 03/31/17 History Insulin Glargine,Hum.rec.anlog 10 unit SUBCUT DAILY #5 applicator 03/08/1703/31 Rx [Lantus SoloStar] Warfarin [Coumadin] 2.5 mg PO DAILY@1800 #60 tablet 03/08/17 03/31/17 Rx Atorvastatin [Lipitor] 20 mg PO BEDTIME 03/31/17 03/31/17 History Furosemide Tab [Lasix Tab] 20 mg PO MOWEFR 03/31/17 03/31/17 History Tramadol HCl [Tramadol Tab] 50 mg PO Q12H PRN 03/31/17 03/31/17 History Allergies Allergy/AdvReac Type Severity Reaction Status Date / Time No Known Allergies Allergy Verified 03/01/17 00:10 Medical,Surgical,& Family Hx - Medical History Cardio: History of: CAD, Hypertension, ID Psychological: No history of: Anxiety Disorders, Depression Neurology: History of: TIA Endocrine: History of: Diabetes Mellitus (IDDM), Diabetes Mellitus (NIDDM) Respiratory: History of: Asthma Comment Only: Respiratory Problems (ulcer in lung) Genitourinary: No history of: Prostate Problems Gastrointestinal: History of: GERD Musculoskeletal: Comment Only: Musculoskeletal Problems (mult knee scopes to bilat knees) Hematology: No history of: Anemia - Surgical History Cardiac Surgeries: Sugical HX of: Cardiac Catheterization (stent), Cardiac Surgery (CABG,AVR (June 2016)) HEENT Surgeries: Surgical HX of: Eye Surgery (Cataract surgery) Abdominal Surgeries: Patient denies: Appendectomy, Cholecystectomy Orthopedic Surgeries: Surgical HX of;: Orthopedic Surgery (Right knee, Left hand ) - Family History Family History: Reports;: Family Diabetes (father), Family Hypertension (father) - Social History Smoking Status: Former smoker Frequency of Alcohol Use: None Type of Drug Use: None Review of systems: Constitutional: Denies fever, chills, positive for nausea, but denies true vomiting--he has difficulty clarifying this from expectoration Eyes: Denies dry eyes, and scleral icterus HENT: Patient has occasional headaches Cardiovascular: He admits to acute chest pain but no claudication Respiratory: Admits to chest pain, some shortness of breath, but no wheezing, difficulty breathing, he does admit to some cough with black expectoration Gastrointestinal: As noted in the HPI Genitourinary: Denies dysuria and hematuria Neurologic: Denies vision loss, and loss of sensation Musculoskeletal: He admits to some joint swelling, joint stiffness, and muscular weakness Psychiatric: Denies depression and pam symptoms Heme-Lymph: The patient does have some easy bruising especially with his recent left arm injury, but denies lymph node enlargement or tenderness, night sweats, he has been having some excessive bleeding Allergies-immunologic: Denies pruritus and rhinorrhea Exam - Constitutional Vitals: Period Temp Pulse Resp BP Sys/Pérez Pulse Ox Last 24 Hr 97.3 F-98.2 F 61-74 12-21 125-161/65-82 97-100 General appearance: no acute distress Exam: Constitutional: Well-developed, well-nourished, alert, and in no acute distress Head and face: Head: Normocephalic atraumatic Eyes: Conjunctiva without injection, no gross scleral icterus, pupils equal and round bilaterally Ears: Intact to conversation in both ears Nose: External appearance is normal, nares patent Mouth: Oral mucous membranes moist without erythema dentition noted to be without erosion--Dr. Hernandez residue is noted in the back throat Neck: Normal appearance, no masses or tenderness, trachea midline Thyroid: Gland midline and appropriate size for age Respiratory: Normal respiratory effort, clear to auscultation without wheezes, rhonchi or rales Cardiovascular: Regular rate and rhythm, normal S1, S2, there is a metallic click noted in the right second intercostal space, the exam is without rubs, or gallops. He does have a 2 out of 6 systolic ejection murmur heard best left lower sternal border radiating up into the second right intercostal space Gastrointestinal: Nontender to palpation, normal active bowel sounds, tone normal without rigidity or guarding, no masses present, no hepatomegaly, no spleen tip felt. No rectal exam obtained--as he was laying flat post cardiac catheterization. Lymphatic: Neck without adenopathy, axilla without lymphadenopathy present Musculoskeletal: Right and left lower extremities with some evidence of edema--there is swelling noted of his right leg and left arm with cuts and excoriations on the left arm Skin and subcutaneous tissue: No rashes or ulcerations noted, normal skin turgor, digits and nails without clubbing/cyanosis/deformities. Neurologic: The patient is grossly oriented to person place and time, cranial nerves show tongue movements are normal with normal tongue extrusion midline, light touch sensation is intact. Psychiatric: No hallucinations or delusions are present, does not appear depressed Results - Labs CBC & BMP: 03/31/17 13:53 03/31/17 11:51 Quality Measures - VTE Contraindication to Pharmacological VTE Prophylaxis: High Risk of Bleeding Specialty Discharge - Follow Up or Referrals
--- NOTE | 2017-03-31 19:17 | XRay Report ---
Exam: XR chest 1V portable Indication: Shortness of breath Comparison study: Prior chest radiograph 03/07/2017 Findings: There is been development of right upper lobe airspace opacities suggestive of atelectasis or focal pneumonia. The heart, mediastinum and bony structures are stable from prior. There is no pneumothorax. No significant pleural effusion is identified. Median sternotomy wiring is again noted. There is no acute osseous abnormality. The known right upper lobe lung lesion is not well visualized. Impression: Development of focal opacities within the right upper lung may represent atelectasis or developing infectious/inflammatory infiltrate. PROCEDURE INTERPRETED AT [facility] Final Report Signed by: Jimmy Roldan
[2017-03-31] MEDS: TICAGRELOR 90 MG TABLET PO SCH (21:14)
[2017-03-31] MEDS: PANTOPRAZOLE 40 MG VIAL IV SCH (21:15)
[2017-03-31] MEDS: ATORVASTATIN 40 MG TABLET PO SCH (21:15)
[2017-03-31] MEDS: ACETYLCYSTEINE 600 MG CAPSULE PO SCH (21:15)
[2017-03-31 21:57] LABS: INR 2.8
[2017-03-31 22:03] LABS: PT Patient Result 32.2 SECS
[2017-03-31 22:16] LABS: Troponin I Only 0.041 NG/ML (0.00-0.045)
[2017-04-01 04:58] LABS: Basophils % 0.5 % (0.0-0.8); Eosinophils # 0.3 10*3/uL (0.0-0.87); Eosinophils % 3.2 % (0.00-10.9); Hematocrit 23.2 VOL% (42.0-52.0); Hemoglobin 8.2 GM/DL (14.0-18.0); Immature Granulocytes % 0.5 %; Immature Granulocytes Absolute 0.04 #; Lymphocytes # 0.9 10*3/uL (1.4-4.0); Lymphocytes % 10.8 % (21.2-54.2); Mean Corpuscular HGB Conc 35.3 GM/DL (32-36); Mean Corpuscular Hemoglobin 31 PG (27-34); Mean Corpuscular Volume 86.6 FL (87-102); Mean Platelet Volume 10.5 FL (9.6-12.0); Monocytes # 0.9 10*3/uL (0.11-0.8); Neutrophils # 6.4 10*3/uL (1.4-7.4); Platelet Count 214 T/CUMM (130-400); Red Blood Count 2.68 MC/CUMM (3.8-5.5); Red Cell Distribution Width 13.6 % (9.3-17.3); White Blood Count 8.5 T/CUMM (4-12)
[2017-04-01] MEDS ORDERED: MORPHINE 2 MG/1 ML SYRINGE IV PRN (05:16)
[2017-04-01] MEDS: hydrALAZINE 20 MG/1 ML VIAL IV PRN ×2 (05:20→09:36)
[2017-04-01 05:25] LABS: INR 3.1
[2017-04-01 05:31] LABS: Calcium 7.9 MG/DL (8.5-10.1); Magnesium 2.2 MG/DL (1.8-2.4); Osmolality,Calculated 294.4 MOS/KG (273-304); Potassium 3.9 MMOL/L (3.5-5.1)
[2017-04-01 05:34] LABS: PT Patient Result 35.4 SECS
[2017-04-01 05:39] LABS: Troponin I Only 0.064 NG/ML (0.00-0.045)
[2017-04-01] MEDS: SODIUM CHLORIDE 0.9% 1,000 ML IV SCH ×3 (06:13→20:35)
[2017-04-01 06:31] LABS: Hemoglobin A1 (Alkaline) 97.6 % (96.5-98.5); Hemoglobin A2 (Alkaline) 2.4 % (1.5-3.5)
--- NOTE | 2017-04-01 08:31 | EKG Report ---
Stationary ECG Study [facility] Test Date: 04/01/2017 8:04:44 AM Pat Name: CELINE SANTIAGO Department: Room: 126 Gender: M [employer] Associate: ALCON : 1955 Requested by: Duncan Felder Order Number: [id number] Reading MD: DUNCAN FELDER Intervals [place] Rate: 71 P: 31 VA: 133 QRS: 45 QRSD: 92 T: 48 QT: 368 QTc: 391 Interpretive Statements SINUS RHYTHM ST DEVIATION AND MODERATE T-WAVE ABNORMALITY, CONSIDER LATERAL ISCHEMIA Electronically Signed On 04-01-17 10:15:46 CDT by DUNCAN FELDER [email or web address]
--- NOTE | 2017-04-01 09:25 | Nephrology Progress Note ---
Nephrology - PN: Subj Interval history: Mr. Jiménez is seen in follow-up of his acute renal failure superimposed on chronic renal failure. He is doing well and his creatinine is down to 2.9 from yesterday's 3.3. He is making good volumes of urine and has a stable blood pressure 160/90. After transfusion his hematocrit is 23%. He is to undergo upper endoscopy today. His Mucomyst will be stopped after tonight's dose and I expect his renal function to continue to improve. Chest is clear. He is not short of breath and is cheerful. We will continue to check her creatinine daily. Exam (PN)-Nephrology - Vital Signs Vital signs: Period Temp Pulse Resp BP Sys/Pérez Pulse Ox Last 24 Hr 97.3 F-99.2 F 60-82 10-22 125-184/62-102 92-100 - Lab 04/01/17 04:08 04/01/17 04:09 Most recent lab results Calcium 7.9 MG/DL (8.5-10.1) L 04/01/17 04:09 Magnesium 2.2 MG/DL (1.8-2.4) 04/01/17 04:09 Assessment and Plan (1) Acute renal failure Status: Acute Current Visit: Yes (2) Chronic renal failure Status: Chronic Current Visit: No Qualifiers: Chronic kidney disease stage: stage 3 (moderate) Qualified Code(s): N18.3 - Chronic kidney disease, stage 3 (moderate) (3) Diabetes Status: Chronic Current Visit: No Qualifiers: Diabetes mellitus type: type 2 Diabetes mellitus complication detail: with chronic kidney disease Diabetes mellitus 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 transplanted heart: [place] heart Associated angina: without angina Specialty Discharge - Follow Up or Referrals
[2017-04-01] MEDS: ACETYLCYSTEINE 600 MG CAPSULE PO SCH ×2 (09:33→20:35)
[2017-04-01] MEDS: CARVEDILOL 3.125 MG TABLET PO SCH (09:34)
[2017-04-01] MEDS: TICAGRELOR 90 MG TABLET PO SCH ×2 (09:34→20:34)
[2017-04-01] MEDS: PANTOPRAZOLE 40 MG VIAL IV SCH ×2 (09:39→20:35)
[2017-04-01] MEDS ORDERED: ETOMIDATE 20 MG/10 ML VIAL IV ONE (10:55)
[2017-04-01] MEDS ORDERED: PROPOFOL 200 MG/20 ML VIAL IV ONE (10:55)
[2017-04-01] MEDS ORDERED: LIDOCAINE 100 MG/5 ML SYRINGE ONE (10:55)
--- NOTE | 2017-04-01 11:22 | Operative Note ---
Date of procedure: 04/01/17 Pre-op diagnosis: Question of epistaxis versus hemoptysis versus hematemesis Post-op diagnosis: other (This patient has anemia of unclear source. Expectoration of blood given the lack of findings of the upper endoscopy I suspect this may have either come from his lungs with coughed up blood from the lesion previously identified or from his nasopharynx with epistaxis. I might suggest obtaining a nasopharyngeal exam with Dr. Estrada or other ENT if the patient begins to have similar symptoms. Post fresh frozen plasma the coagulopathy has been corrected back to the usual range for heart valve patient. We need to watch his hematocrit. Eventually this patient will need a colonoscopy presumably 6-[address]) Procedure: PROCEDURE: Esophagogastroduodenoscopy (EGD) REFERRING PHYSICIAN: Frankie Rob MD INDICATIONS: This is a patient who came in with a hematocrit of 17.8 and a INR elevated from Coumadin to 7.7, status post 2 units of fresh frozen plasma and 2 units of packed red blood cells the patient's hematocrit is up to 23.2% and an INR of 3.1. The prior H&P was reviewed and interrim changes are as noted : ENDOSCOPIST: Eloy Tavera MD ENDOSCOPE: Olympus Video 100 System upper endoscope ASA CLASS: EXAM: CV: regular rate and rhythm respiratory: Clear without wheezes abdominal: active bowel sounds MEDICATION: Per nursing anesthesia protocol, see their notes PROCEDURE: After discussion of the potential risks and benefits of upper endoscopy, the informed consent was obtained. The patient was then placed in the left lateral decubitus position where sedation was achieved as noted above. Esophageal intubation was performed without difficulty, and the endoscope was advanced through the esophagus, stomach and duodenum. A slow withdrawal was then performed with retroflexion in the stomach for careful inspection of the incisura angularis, fundus and cardia. The scope was then returned to a neutral position and withdrawn through the esophagus. The patient tolerated the procedure well and without complication. BIOPSIES: None obtained due to INR elevation PHOTOGRAPHS: Obtained FINDINGS: Hypopharynx and Larynx: There was a scant amount of blood in front of the vocal cords possibly due to hemoptysis versus nasopharyngeal bleeding in this region. Esohagoscopy Upper and middle thirds: Normal Lower third normal Esophogastric junctions: Normal Gastroscopy: Cardia/Fundus: 1 cm hiatal hernia otherwise normal-appearing Body: Slight patchy erythema, no heme Antrum and pylorus slight patchy erythema, no heme Duodenoscopy: Bulb normal Second and third portions: Normal IMPRESSION: This patient has anemia of unclear source. Expectoration of blood given the lack of findings of the upper endoscopy I suspect this may have either come from his lungs with coughed up blood from the lesion previously identified or from his nasopharynx with epistaxis. I might suggest obtaining a nasopharyngeal exam with Dr. Estrada or other ENT if the patient begins to have similar symptoms. Post fresh frozen plasma the coagulopathy has been corrected back to the usual range for heart valve patient. We need to watch his hematocrit. Eventually this patient will need a colonoscopy presumably 6-[address] RECOMMENDATIONS: Follow up for biopsy results in 1-2 weeks by phone [phone] Continue anti-gastroesophageal reflux measures (avoid carbonated and acidic beverages, avoid eating within 2 hours of bedtime, avoid tight fitting clothing , and elevate the front bed posts 6 inches prior to sleeping. Colonoscopy eventually needed Stool for H. pylori antigen This patient could go right back on a cardiac diet my opinion. Protonix 40 mg daily. Eloy Tavera MD COPY TO: Frankie rob MD Anesthesia: MAC Surgeon / Physician: Eloy Tavera Estimated blood loss: minimal Specimens: none sent Condition: stable Disposition: post procedure unit (G.I. Suite) Results - Labs CBC & BMP: 04/01/17 04:08 04/01/17 04:09 Discharge Plan - Discharge Medications No Action Aspirin Chew Tab 81 mg PO DAILY tablet cloNIDine TAB [Catapres Tab] 0.1 mg PO BID #60 tablet Carvedilol [Coreg] 6.25 mg PO BID Insulin Glargine,Hum.rec.anlog [Lantus SoloStar] 10 unit SUBCUT DAILY #5 applicator Warfarin [Coumadin] 2.5 mg PO DAILY@1800 #60 tablet Atorvastatin [Lipitor] 20 mg PO BEDTIME Furosemide Tab [Lasix Tab] 20 mg PO MOWEFR Calcium (Carb)/Vit D 600-400 [Caltrate 600 + D] 1 tablet BID Tramadol HCl [Tramadol Tab] 50 mg PO Q12H PRN PRN Reason: Pain - Follow Up or Referral - Forms/Instructions Instructions: Left Heart Catheterization (DC), Heart Healthy Diet (GEN), Coronary Intravascular Stent Placement (DC)
--- NOTE | 2017-04-01 11:33 | Gastrointestinal Progress Note ---
Assessment and Plan (1) Gastrointestinal hemorrhage with hematemesis Status: Acute Assessment and plan: I am really not sure if the bleeding the patient was describing coming out of his mouth was secondary to the previous mass noted in the right lung with hemoptysis or epistaxis in the nasal cavity and swallowed blood (which I strongly suspect given his symptoms) or true hematemesis from his underlying reflux and possible esophagitis versus Dieulafoy's lesion versus gastric ulcer etc. Upper endoscopy may be able to clarify the situation or at least rule out the upper GI tract as a potential source. If this is unrevealing with suggest that Dr. Estrada might consider doing fiberoptic examination the patient's sinuses/ nasal cavity to see if this is the true source. Given the patient's reflux will certainly place him on Protonix twice daily and will continue to observe him for melena. I was not able to do a rectal exam today due to his requirement to remain still in the bed. From a GI standpoint he can certainly have some clear liquids tonight, we will plan to perform upper endoscopy tomorrow morning, after he is received his fresh frozen plasma and 2 units packed red blood cells. I think it is reasonable to hold off on active anticoagulation but understand the reason to not treat him with vitamin K given the recent stent placement 2 to the LAMAR. Further recommendations post upper endoscopy tomorrow. 04/01/17--Upper endoscopy findings were as follows: This patient has anemia of unclear source. Expectoration of blood given the lack of findings of the upper endoscopy I suspect this may have either come from his lungs with coughed up blood from the lesion previously identified or from his nasopharynx with epistaxis. I might suggest obtaining a nasopharyngeal exam with Dr. Estrada or other ENT if the patient begins to have similar symptoms. Post fresh frozen plasma the coagulopathy has been corrected back to the usual range for heart valve patient. We need to watch his hematocrit. Eventually this patient will need a colonoscopy presumably 6-[address] Current Visit: Yes (2) Posthemorrhagic anemia Status: Acute Assessment and plan: We will watch the patient's hematocrit status post treatment with a fresh frozen plasma and then transfusion. CBC and PT/INR pending for tomorrow. Upper endoscopy discussed with the patient and his who is at the bedside, risks include but are not limited to: Bleeding, infection, perforation, cardiac and pulmonary compromise. --INR is now down to 3.1, hematocrit is increased from 17.8% to 23.2%. Watch this for stability over time. Considering the patient's cardiac disease might consider giving him more blood and has a cushion in case he bleeds further from another unspecified source. The upper GI tract appears not to be the source of his blood loss. There was a small amount of blood noted in the posterior pharynx suggestive of hemoptysis versus epistaxis with expectoration of this blood. Current Visit: Yes (3) Chronic anticoagulation Status: Acute Assessment and plan: The patient has a requirement for chronic anticoagulation due to his St. Yadiel's aortic heart valve. Now he has the stent placement 2 in the ISBELL and will need to be on chronic anticoagulation. Would suggest switching over to heparin as this can be discontinued almost immediately and has a reversal agent in the form of protamine. We will continue to observe him in the short-term. 04/01/17--As noted above, INR now down to 3.1 which is within the range that aortic valve anticoagulation is effective (2.5-3.5). Current Visit: No (4) Screening for colorectal cancer Status: Acute Assessment and plan: The patient has never had a colorectal cancer screening and is 10 years overdue at some point in the future he may wish to have this evaluated. This is certainly not a priority for the next 6 months and may require a heparin window given the patient's aortic heart valve/need for chronic anticoagulation. 04/01/17--continue to plan colonoscopy as an outpatient down the road 6-12 months depending on when he can come off his anticoagulation long enough to be able to be scoped for potential lesions/other bleeding sources. If the patient develops significant lower GI bleeding the next several months we can certainly take him off of anticoagulation and check for a source. Current Visit: Yes Gastroenterology - PN: Subj Interval history: Patient doing well this morning, no new complaints Exam (Progress Note) - Constitutional Vitals: Period Temp Pulse Resp BP Sys/Pérez Pulse Ox Last 24 Hr 97.3 F-99.2 F 60-82 10-22 125-184/62-102 92-100 General appearance: no acute distress - Head Head exam: Present: normocephalic - Eye Eye exam: Present: EOMI - Respiratory Respiratory exam: Present: clear to auscultation bilaterally - Cardiovascular Cardiovascular exam: Present: regular rate and rhythm - GI/Abdominal GI/Abdominal exam: Present: normal bowel sounds, soft. Absent: distended, guarding, tenderness, rebound - Neurological Exam Neurological exam: Present: alert, oriented X3, CN II-XII intact. Absent: motor sensory deficit - Psychiatric Psychiatric exam: Present: normal affect, normal mood - Skin Skin exam: Present: warm Results - Labs CBC & BMP: 04/01/17 04:08 04/01/17 04:09 Specialty Discharge - Follow Up or Referrals
--- NOTE | 2017-04-01 12:39 | Cardiology Progress Note ---
Assessment and Plan - Time spent with patient Time spent with patient: Greater than 30 minutes (1) NSTEMI (non-ST elevated myocardial infarction) Status: Acute Assessment and plan: SEE PLAN OF CARE LISTED BELOW Current Visit: Yes (2) Hx of CABG Status: Chronic Assessment and plan: SEE PLAN OF CARE LISTED BELOW Current Visit: Yes (3) Anemia Status: Acute Assessment and plan: SEE PLAN OF CARE LISTED BELOW Current Visit: Yes (4) Chronic renal failure Status: Chronic Assessment and plan: SEE PLAN OF CARE LISTED BELOW Current Visit: No Qualifiers: Chronic kidney disease stage: stage 3 (moderate) Qualified Code(s): N18.3 - Chronic kidney disease, stage 3 (moderate) (5) Diabetes Status: Chronic Assessment and plan: SEE PLAN OF CARE LISTED BELOW Current Visit: No Qualifiers: Diabetes mellitus type: type 2 Diabetes mellitus complication detail: with chronic kidney disease 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 insulin use: without alf use Chronic kidney disease stage: stage 3 (moderate) (6) Hypertension Status: Chronic Assessment and plan: SEE PLAN OF CARE LISTED BELOW Current Visit: No Qualifiers: Hypertension type: essential hypertension Qualified Code(s): I10 - Essential (primary) hypertension (7) Dyslipidemia Status: Chronic Assessment and plan: SEE PLAN OF CARE LISTED BELOW Current Visit: No (8) Tobacco abuse Status: Chronic Assessment and plan: SEE PLAN OF CARE LISTED BELOW Current Visit: No (9) Murmur, cardiac Status: Chronic Assessment and plan: SEE PLAN OF CARE LISTED BELOW Current Visit: No (10) CAD (coronary artery disease) Status: Chronic Assessment and plan: SEE PLAN OF CARE LISTED BELOW Current Visit: No Qualifiers: [place] vs. 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 FELDER PCP: [facility] SUMMARY: Mr. Jiménez, 61ChM, with risk factors significant for: Known CAD ( April 2016 CABG: ISBELL - LAD, SVG - OM, SVG - RCA), hypertension, dyslipidemia , diabetes, sedentary lifestyle and noncompliance. History of aortic valve replacement (mechanical valve), chronic anticoagulation (Coumadin), chronic kidney disease. Patient was admitted March 31, 2017 with complaints of chest pain. Initially, there was thought this may be STEMI and patient was taken emergently to the cardiac catheterization lab where Dr. Felder performed PCI with PHYLLIS to the insertion site of the ISBELL to LAD. This was not a STEMI rather a NSTEMI. Patient tolerated the procedure well and was returned to the CCU. Patient was found to be significantly anemic with a hemoglobin of 6.9, INR 7.7. Required fresh frozen plasma to correct the INR to 2.8. Required 2 units packed red blood cells as well. Gastroenterology was consulted and patient is scheduled to undergo a EGD today. Appreciate nephrology's assistance. Patient has chronic kidney disease and overnight, creatinine has improved from 3.3 - 2.9. 2016: This morning, patient tells me he is feeling well without chest pain, heaviness or tightness. Right groin is soft, free of hematoma or bruit. Patient is tolerating low-dose beta-smith, atorvastatin. Avoiding TEODORO inhibitors for fear of worsening renal insufficiency. Patient's aspirin has been held but Brilinta continues. Echocardiogram reveals: EF 55%, aortic valve area 1.5 cm, PAP 62 mmHg. At this point, blood pressures been somewhat elevated and I will increase his beta-smith giving him a "now" dose for better blood pressure control. Continue to follow his labs closely. Will further discuss with Dr. Felder and await additional recommendations. ASSESSMENT/PLAN: 1. NSTEMI - PCI to insertion site of ISBELL to LAD. Drug-eluting stent was utilized. Now revascularized 2. KNOWN CAD ( S/P CABG: ISBELL - LAD, SVG - RCA, SVG - OM) - 3. HYPERTENSION - increase beta-blockade for better blood pressure control. Avoiding TEODORO inhibitors for fear of worsening renal insufficiency 4. DYSLIPIDEMIA - LDL 65. Triglycerides 375. Will add fish oil 5. DIABETES - sliding scale insulin, adjusting accordingly 6. MECHANICAL AORTIC VALVE - has been maintained on Coumadin. 7. ANEMIA - appreciate gastroenterology's assistance. Scheduled to undergo EGD today. He has received transfusions 2. 8. SUPRATHERAPEUTIC INR - this is been reversed with FFP. Continue daily monitoring 9. CKD, STAGE III - avoiding TEODORO inhibitors for fear of worsening renal insufficiency 10. NONCOMPLIANCE - reiterated the importance of compliance 11. TOBACCO USE - greater than 5 minutes was spent today discussing the merits of tobacco cessation Exam (Progress Note) - Constitutional Vitals: Period Temp Pulse Resp BP Sys/Pérez Pulse Ox Last 24 Hr 97.3 F-99.2 F 60-82 10-22 125-184/62-102 92-100 Exam: General: [Appears well with no apparent distress.] [Pleasant and cooperative. ] [Appears comfortable.] HEENT: [PERRL, normocephalic, atraumatic. Mucous membranes moist. No jaundice noted. Conjunctiva moist and clear, sclerae anicteric] Neck: No obvious JVD/HJR, no thyromegaly or lymphadenopathy noted. No carotid bruit appreciated Cardiac: [Regular rate and rhythm.] [Click of valve is noted. II/ LISANDRA heard best at bilateral upper sternal borders Lungs: [Clear to auscultation without accessory muscle use to assist the respiratory pattern.] Oxygen in use via nasal cannula intermittently Abdomen: Soft, bowel sounds normoactive. Nontender and nondistended. No abdominal bruit or thrill noted. No masses noted. Musculoskeletal: No fluid collection. Decreased range of motion is noted. Extremities: Right groin soft, free of hematoma or bruit. No clubbing, cyanosis noted. [Trace bilateral lower extremity edema edema noted.] Upper extremity pulses 2+. Lower extremity pulses 2+. Capillary refill less than 3 seconds. Skin: No unusual lesions or rashes. No skin breakdown appreciated. Neuro: Awake, alert and oriented 3. Moves all extremities well without hemiparesis or paralysis. No essential tremor is appreciated. Result/EKG - Labs CBC & BMP: 04/01/17 04:08 04/01/17 04:09 Lab Results: I have reviewed the past 24 hour labs Labs: Laboratory Results - last 24 hr 03/31/17 03/31/17 03/31/17 11:51 11:51 13:00 WBC RBC Hgb Hct MCV MCH MCHC RDW Plt Count MPV Neut % (Auto) Lymph % (Auto) [place] % (Auto) Eos % (Auto) Baso % (Auto) Neut # (Auto) Lymph # (Auto) [place] # (Auto) Eos # (Auto) Baso # (Auto) Immature Gran % Nucleated RBC % Immature Gran # Nucleated RBCs # Anemia Panel Interp Immature Plt Fraction ESR [place] Absolute Retic Percent Retic Retic Hgb Equivalent Hemoglobin A1 Hemoglobin A2 Hgb ELP Interp INR PT Patient/Control Mix Circ Anticoag PTT Sodium 136 Potassium 4.2 Chloride 102 Carbon Dioxide 25 Anion Gap 13.2 BUN 47 H Creatinine 3.30 H GFR Calculation 23 BUN/Creatinine Ratio 14.00 Glucose 333 H Calculated Osmolality 296.0 Calcium 7.9 L Magnesium 2.3 Iron TIBC % Saturation Ferritin 222.7 Total Bilirubin 0.60 AST 21 ALT 15 L Alkaline Phosphatase 98 Total Creatine Kinase 273 CK-MB (CK-2) 2.1 Troponin I 0.022 Total Protein 5.7 L Albumin 2.5 L Globulin 3.2 Albumin/Globulin Ratio 0.7 L Triglycerides Cholesterol LDL Cholesterol VLDL Cholesterol HDL Cholesterol Heart Disease Risk Ratio Vitamin B12 Folate Blood Type Antibody Screen IRA (IgG-AHG) Negative IRA, Polyspecific Negative Crossmatch 03/31/17 03/31/17 03/31/17 13:01 13:01 13:01 WBC RBC Hgb Hct MCV MCH MCHC RDW Plt Count MPV Neut % (Auto) Lymph % (Auto) [place] % (Auto) Eos % (Auto) Baso % (Auto) Neut # (Auto) Lymph # (Auto) [place] # (Auto) Eos # (Auto) Baso # (Auto) Immature Gran % Nucleated RBC % Immature Gran # Nucleated RBCs # Anemia Panel Interp Immature Plt Fraction ESR [place] Absolute Retic Percent Retic Retic Hgb Equivalent Hemoglobin A1 Hemoglobin A2 Hgb ELP Interp INR PT Patient/Control Mix Circ Anticoag PTT Sodium Potassium Chloride Carbon Dioxide Anion Gap BUN Creatinine GFR Calculation BUN/Creatinine Ratio Glucose Calculated Osmolality Calcium Magnesium Iron 50 L TIBC 250 % Saturation 20.0 Ferritin Total Bilirubin AST ALT Alkaline Phosphatase Total Creatine Kinase 279 CK-MB (CK-2) 2.2 Troponin I 0.021 Total Protein Albumin Globulin Albumin/Globulin Ratio Triglycerides 375 H Cholesterol 161 LDL Cholesterol 65.0 VLDL Cholesterol 75.0 HDL Cholesterol 29 L Heart Disease Risk Ratio 5.55 Vitamin B12 Folate Blood Type Antibody Screen IRA (IgG-AHG) IRA, Polyspecific Crossmatch 03/31/17 03/31/17 03/31/17 13:53 13:53 13:54 WBC 7.0 RBC 2.07 L Hgb 6.5 L Hct 18.5 L MCV 89.4 MCH 31 MCHC 35.1 RDW 13.1 Plt Count 215 MPV 10.9 Neut % (Auto) 76.2 H Lymph % (Auto) 13.8 L [place] % (Auto) 8.0 Eos % (Auto) 1.4 Baso % (Auto) 0.3 Neut # (Auto) 5.3 Lymph # (Auto) 1.0 L [place] # (Auto) 0.6 Eos # (Auto) 0.1 Baso # (Auto) 0.0 Immature Gran % 0.3 Nucleated RBC % 0.0 Immature Gran # 0.02 Nucleated RBCs # 0.00 Anemia Panel Interp See comment Immature Plt Fraction 0.0 ESR Westergren 130 H Absolute Retic 0.1 Percent Retic 2.5 H Retic Hgb Equivalent 33.6 Hemoglobin A1 97.6 Hemoglobin A2 2.4 Hgb ELP Interp See comment INR 7.7 H* PT Patient/Control Mix 92.9 D Circ Anticoag PTT > 320.0 H* D Sodium Potassium Chloride Carbon Dioxide Anion Gap BUN Creatinine GFR Calculation BUN/Creatinine Ratio Glucose Calculated Osmolality Calcium Magnesium Iron TIBC % Saturation Ferritin Total Bilirubin AST ALT Alkaline Phosphatase Total Creatine Kinase CK-MB (CK-2) Troponin I Total Protein Albumin Globulin Albumin/Globulin Ratio Triglycerides Cholesterol LDL Cholesterol VLDL Cholesterol HDL Cholesterol Heart Disease Risk Ratio Vitamin B12 380 Folate 7.4 Blood Type Antibody Screen IRA (IgG-AHG) IRA, Polyspecific Crossmatch 03/31/17 03/31/17 03/31/17 13:54 21:09 21:09 WBC RBC Hgb Hct MCV MCH MCHC RDW Plt Count MPV Neut % (Auto) Lymph % (Auto) [place] % (Auto) Eos % (Auto) Baso % (Auto) Neut # (Auto) Lymph # (Auto) [place] # (Auto) Eos # (Auto) Baso # (Auto) Immature Gran % Nucleated RBC % Immature Gran # Nucleated RBCs # Anemia Panel Interp Immature Plt Fraction ESR [place] Absolute Retic Percent Retic Retic Hgb Equivalent Hemoglobin A1 Hemoglobin A2 Hgb ELP Interp INR 2.8 PT Patient/Control Mix 32.2 D Circ Anticoag PTT Sodium Potassium Chloride Carbon Dioxide Anion Gap BUN Creatinine GFR Calculation BUN/Creatinine Ratio Glucose Calculated Osmolality Calcium Magnesium Iron TIBC % Saturation Ferritin Total Bilirubin AST ALT Alkaline Phosphatase Total Creatine Kinase 245 CK-MB (CK-2) 2.1 Troponin I 0.041 Total Protein Albumin Globulin Albumin/Globulin Ratio Triglycerides Cholesterol LDL Cholesterol VLDL Cholesterol HDL Cholesterol Heart Disease Risk Ratio Vitamin B12 Folate Blood Type O POSITIVE Antibody Screen Negative IRA (IgG-AHG) IRA, Polyspecific Crossmatch See Detail 04/01/17 04/01/17 04/01/17 04:08 04:08 04:08 WBC 8.5 RBC 2.68 L D Hgb 8.2 L D Hct 23.2 L MCV 86.6 L MCH 31 MCHC 35.3 RDW 13.6 Plt Count 214 MPV 10.5 Neut % (Auto) 75.0 H Lymph % (Auto) 10.8 L [place] % (Auto) 10.0 Eos % (Auto) 3.2 Baso % (Auto) 0.5 Neut # (Auto) 6.4 Lymph # (Auto) 0.9 L [place] # (Auto) 0.9 H Eos # (Auto) 0.3 Baso # (Auto) 0.0 Immature Gran % 0.5 Nucleated RBC % 0.0 Immature Gran # 0.04 Nucleated RBCs # 0.00 Anemia Panel Interp Immature Plt Fraction 0.0 ESR [place] Absolute Retic Percent Retic Retic Hgb Equivalent Hemoglobin A1 Hemoglobin A2 Hgb ELP Interp INR 3.1 PT Patient/Control Mix 35.4 Circ Anticoag PTT 50.0 H D Sodium Potassium Chloride Carbon Dioxide Anion Gap BUN Creatinine GFR Calculation BUN/Creatinine Ratio Glucose Calculated Osmolality Calcium Magnesium Iron TIBC % Saturation Ferritin Total Bilirubin AST ALT Alkaline Phosphatase Total Creatine Kinase 208 CK-MB (CK-2) 1.6 Troponin I 0.064 H D Total Protein Albumin Globulin Albumin/Globulin Ratio Triglycerides Cholesterol LDL Cholesterol VLDL Cholesterol HDL Cholesterol Heart Disease Risk Ratio Vitamin B12 Folate Blood Type Antibody Screen IRA (IgG-AHG) IRA, Polyspecific Crossmatch 04/01/17 04:09 WBC RBC Hgb Hct MCV MCH MCHC RDW Plt Count MPV Neut % (Auto) Lymph % (Auto) [place] % (Auto) Eos % (Auto) Baso % (Auto) Neut # (Auto) Lymph # (Auto) [place] # (Auto) Eos # (Auto) Baso # (Auto) Immature Gran % Nucleated RBC % Immature Gran # Nucleated RBCs # Anemia Panel Interp Immature Plt Fraction ESR [place] Absolute Retic Percent Retic Retic Hgb Equivalent Hemoglobin A1 Hemoglobin A2 Hgb ELP Interp INR PT Patient/Control Mix Circ Anticoag PTT Sodium 140 Potassium 3.9 Chloride 106 Carbon Dioxide 28 Anion Gap 9.9 BUN 43 H Creatinine 2.90 H GFR Calculation 27 BUN/Creatinine Ratio 14.00 Glucose 183 H Calculated Osmolality 294.4 Calcium 7.9 L Magnesium 2.2 Iron TIBC % Saturation Ferritin Total Bilirubin AST ALT Alkaline Phosphatase Total Creatine Kinase CK-MB (CK-2) Troponin I Total Protein Albumin Globulin Albumin/Globulin Ratio Triglycerides Cholesterol LDL Cholesterol VLDL Cholesterol HDL Cholesterol Heart Disease Risk Ratio Vitamin B12 Folate Blood Type Antibody Screen IRA (IgG-AHG) IRA, Polyspecific Crossmatch - Diagnostic Findings Procedure: Chest x-ray: report reviewed by me - EKG EKG results: interpreted by me EKG shows: sinus rhythm Quality Measures - VTE Contraindication to Pharmacological VTE Prophylaxis: High Risk of Bleeding Specialty Discharge - Follow Up or Referrals
--- NOTE | 2017-04-01 15:40 | ECHO Report ---
Bobo Jiménez Exam Date: 04/01/2017 08:47 Referring Physician: Technologist: Lisa Maguire RDCS Age: 61 Ht (in): 69 Wt (lb): 197 Gender: M Exam Location: [facility] ([place]) Echo Indications: Subsequent ST elevation (STEMI) myocardial infarction of anterior wall, s/p CATH with stent, hx AVR - [place], Chronic kidney disease, stage 3 (moderate), Acute kidney failure, unspecified, CAD with previous CABG, Essential (primary) hypertension, Dyslipidemia, IDDM, Chronic anticoagulation BP: 179 / 82 HR: 76 Rhythm: Sinus Technical Quality: Good IMPRESSIONS 2 - 3 + left ventricular hypertrophy. Left ventricular ejection fraction is estimated at 55 %. The right ventricle is mildly enlarged but normal in function. The right atrium is mildly enlarged. The left atrium is mildly enlarged. Mild mitral valve regurgitation. [place] aortic valve. Mean gradient 9 mmHg, PEDRO 1.5 cm. Trace prosthetic aortic valve regurgitation. Zfxj-[id number]-ovgoctyc tricuspid valve regurgitation. Tricuspid regurgitation velocities suggest a PAP of 62 mmHg. Mild pulmonary valve regurgitation. MEASUREMENTS (Male / Female) Normal Values 2D ECHO LV Diastolic Diameter PLAX 5.0 cm 4.2 - 5.9 / 3.9 - 5.3 cm LV Systolic Diameter PLAX 3.7 cm LV Fractional Shortening PLAX 25.9 % IVS Diastolic Thickness 1.3 cm 0.6 - 1.0 / 0.6 - 0.9 cm LVPW Diastolic Thickness 1.3 cm 0.6 - 1.0 / 0.6 - 0.9 cm RV Internal Dim ED PLAX 3.7 cm Aortic Root Diameter 3.7 cm LA Systolic Diameter LX 4.9 cm 3.0 - 4.0 / 2.7 - 3.8 cm DOPPLER TR Peak Velocity 361.0 cm/s TR Peak Gradient 52.1 mmHg FINDINGS Left Ventricle Normal left ventricular cavity size. 2 3 + left ventricular hypertrophy. Left ventricular ejection fraction is estimated at 55 %. Right Ventricle The right ventricle is mildly enlarged but normal in function Right Atrium The right atrium is mildly enlarged. Left Atrium The left atrium is mildly enlarged. Mitral Valve Mildly thickened mitral valve. Mild mitral annular calcification. Mild mitral valve regurgitation. Aortic Valve [place] aortic valve. Mean gradient 9 mmHg, PEDRO 1.5 cm. Trace prosthetic aortic valve regurgitation. Tricuspid Valve Morphologically normal tricuspid valve. Opfo-gv-odwyjshx tricuspid valve regurgitation. Tricuspid regurgitation velocities suggest a PAP of 62 mmHg. Pulmonic Valve Morphologically normal pulmonic valve. Mild pulmonary valve regurgitation. Pericardium Normal pericardium without effusion. Aorta Normal ascending aorta dimension. Frankie Felder MD (Electronically Signed) Final Date: 01 April 2017 15:39
[2017-04-01] MEDS: CARVEDILOL 6.25 MG TABLET PO SCH ×2 (16:49→20:34)
[2017-04-01] MEDS ORDERED: GLUCAGON 1 MG VIAL IM PRN (17:24)
[2017-04-01] MEDS ORDERED: DEXTROSE 50% 25 GM/50 ML SYRINGE IV PRN (17:24)
[2017-04-01] MEDS: ATORVASTATIN 40 MG TABLET PO SCH (20:34)
[2017-04-01] MEDS: OMEGA 3 ACID ETHYL ESTERS 1 GM CAPSULE PO SCH (20:35)
[2017-04-01] MEDS: INSULIN REGULAR 100 UNIT/ML SUBCUT SCH (21:08)
[2017-04-02 05:09] LABS: Basophils % 0.2 % (0.0-0.8); Eosinophils # 0.2 10*3/uL (0.0-0.87); Eosinophils % 2.4 % (0.00-10.9); Hematocrit 21.8 VOL% (42.0-52.0); Hemoglobin 7.6 GM/DL (14.0-18.0); Immature Granulocytes % 0.5 %; Immature Granulocytes Absolute 0.05 #; Lymphocytes % 10.3 % (21.2-54.2); Mean Corpuscular HGB Conc 34.9 GM/DL (32-36); Mean Corpuscular Hemoglobin 31 PG (27-34); Mean Corpuscular Volume 87.6 FL (87-102); Mean Platelet Volume 10.3 FL (9.6-12.0); Monocytes % 10.2 % (1.7-12.7); Neutrophils # 7.4 10*3/uL (1.4-7.4); Neutrophils % 76.4 % (38.7-73.9); Platelet Count 204 T/CUMM (130-400); Red Blood Count 2.49 MC/CUMM (3.8-5.5); Red Cell Distribution Width 13.4 % (9.3-17.3); White Blood Count 9.7 T/CUMM (4-12)
[2017-04-02] MEDS: SODIUM CHLORIDE 0.9% 1,000 ML IV SCH (05:11)
[2017-04-02 05:44] LABS: Calcium 7.5 MG/DL (8.5-10.1); INR 4.2; Magnesium 2.3 MG/DL (1.8-2.4); Osmolality,Calculated 292.5 MOS/KG (273-304); Potassium 4.2 MMOL/L (3.5-5.1)
[2017-04-02 06:03] LABS: Partial Thromboplastin Time 65.8 SECS (0-40)
[2017-04-02] MEDS ORDERED: SODIUM CHLORIDE 0.9% 250 ML IV PRN (07:17)
--- NOTE | 2017-04-02 07:17 | Nephrology Progress Note ---
Nephrology - PN: Subj Interval history: The patient is resting. However serum creatinine is up to 4.0 today. Of note, hematocrit is down to 21. He denies any shortness of breath or chest pain. He has been hemodynamically stable. Recommend transfusing 2 units packed red blood cells. BMP in a.m. Exam (PN)-Nephrology - Vital Signs Vital signs: Period Temp Pulse Resp BP Sys/Pérez Pulse Ox Last 24 Hr 98.3 F-98.8 F 63-83 12-23 123-184/57-103 94-100 - General Appearance General appearance: well-developed, well-nourished EENT: ATNC Neck: supple Respiratory: clear Cardiology: no edema, regular rate, regular rhythm Gastrointestinal: normoactive bowel sounds, no tenderness Integumentary: no rash Neurologic: alert and oriented x3 Musculoskeletal: no clubbing Psychiatric: mood/affect appropriate, cooperative - Lab 04/02/17 04:23 04/02/17 04:23 Most recent lab results Calcium 7.5 MG/DL (8.5-10.1) L 04/02/17 04:23 Magnesium 2.3 MG/DL (1.8-2.4) 04/02/17 04:23 Assessment and Plan (1) NSTEMI (non-ST elevated myocardial infarction) Status: Acute Current Visit: Yes (2) Hx of CABG Status: Chronic Current Visit: Yes (3) Chronic renal failure Status: Chronic Current Visit: No Qualifiers: Chronic kidney disease stage: stage 3 (moderate) Qualified Code(s): N18.3 - Chronic kidney disease, stage 3 (moderate) (4) Diabetes Status: Chronic Current Visit: No Qualifiers: Diabetes mellitus type: type 2 Diabetes mellitus complication detail: with chronic kidney disease 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 Current Visit: Yes Specialty Discharge - Follow Up or Referrals
[2017-04-02] MEDS: INSULIN REGULAR 100 UNIT/ML SUBCUT SCH ×4 (07:42→20:51)
--- NOTE | 2017-04-02 07:53 | EKG Report ---
Stationary ECG Study [facility] Test Date: 04/02/2017 7:54:07 AM Pat Name: CELINE SANTIAGO Department: Room: 126 Gender: M [place] Gatherer: CHRISTIANO : 1955 Requested by: Duncan Felder Order Number: [id number] Reading MD: DUNCAN FELDER Intervals [place] Rate: 80 P: -18 SC: 130 QRS: -25 QRSD: 98 T: 96 QT: 361 QTc: 397 Interpretive Statements SINUS RHYTHM ANTEROSEPTAL MYOCARDIAL INFARCTION, OF INDETERMINATE AGE Electronically Signed On 04-02-17 12:20:25 CDT by DUNCAN FELDER [email or web address]
[2017-04-02] MEDS: CARVEDILOL 6.25 MG TABLET PO SCH ×2 (08:20→20:50)
[2017-04-02] MEDS: OMEGA 3 ACID ETHYL ESTERS 1 GM CAPSULE PO SCH ×2 (08:20→20:52)
[2017-04-02] MEDS: TICAGRELOR 90 MG TABLET PO SCH ×2 (08:20→20:51)
[2017-04-02] MEDS: PANTOPRAZOLE 40 MG VIAL IV SCH ×2 (08:21→20:52)
[2017-04-02] MEDS: POLYETHYLENE GLYCOL POWDER 17 GM PACK PO SCH (12:14)
--- NOTE | 2017-04-02 14:11 | Cardiology Progress Note ---
Assessment and Plan (1) ST elevation myocardial infarction (STEMI) of anterior wall Status: Acute Assessment and plan: With him having had chest pain in these EKG changes, he needs an emergency cath Plan/records: 1 emergency heart cath Give Aggrastat Proton pump inhibitor Check labs Aspirin was given the emergency room We will add a beta-smith post MD Probably no TEODORO inhibitor depending on his renal function check lipids and treat per guidelines Left heart cath and possible PTCA or stent were discussed with the patient. The risk of the procedure include but are not limited to a small risk of injury to the vessel, abnormal heart rhythm, stroke, heart attack, need for emergent surgery, contrast reaction, restenosis, infection, or . The patient voices understanding, agrees with the plan, and desires to proceed with the heart catheterization. 04/02/17 With upper endoscopy negative and some nasal discharge of blood, ENT source is possible Appreciate Dr. Russell Tavera's help We will consult ENT, Dr. Arik Estrada Give 2 more units of blood, hematocrit continues to decrease Creatinine has now increased. Renal is involved. Hopefully will not be a large increase, will peak and then come back to his baseline We will watch another day in CCU Recheck CBC and CMP in the a.m. Prognosis remains guarded Current Visit: Yes (2) Chronic anticoagulation Status: Chronic Current Visit: No (3) Status post aortic valve replacement Status: Chronic Current Visit: No (4) CAD (coronary artery disease) Status: Chronic Current Visit: No Qualifiers: [place] vs. 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 director long term care insulin use: without detention use Chronic kidney disease stage: stage 3 (moderate) (7) Dyslipidemia Status: Chronic Current Visit: No (8) Hypertension Status: Chronic Current Visit: No Qualifiers: Hypertension type: essential hypertension Qualified Code(s): I10 - Essential (primary) hypertension Exam (Progress Note) - Constitutional Vitals: Period Temp Pulse Resp BP Sys/Pérez Pulse Ox Last 24 Hr 98.5 F-99.7 F 63-84 11-26 123-184/57-103 94-100 Result/EKG - Labs CBC & BMP: 04/02/17 04:23 04/02/17 04:23 Labs: Laboratory Results - last 24 hr 04/01/17 04/02/17 04/02/17 20:39 04:23 04:23 WBC 9.7 RBC 2.49 L Hgb 7.6 L Hct 21.8 L MCV 87.6 MCH 31 MCHC 34.9 RDW 13.4 Plt Count 204 MPV 10.3 Neut % (Auto) 76.4 H Lymph % (Auto) 10.3 L [place] % (Auto) 10.2 Eos % (Auto) 2.4 Baso % (Auto) 0.2 Neut # (Auto) 7.4 Lymph # (Auto) 1.0 L [place] # (Auto) 1.0 H Eos # (Auto) 0.2 Baso # (Auto) 0.0 Immature Gran % 0.5 Nucleated RBC % 0.0 Immature Gran # 0.05 Nucleated RBCs # 0.00 Immature Plt Fraction 0.0 INR 4.2 PT Patient/Control Mix 49.0 D Circ Anticoag PTT 65.8 H D Sodium Potassium Chloride Carbon Dioxide Anion Gap BUN Creatinine GFR Calculation BUN/Creatinine Ratio Glucose POC Glucose 305 H Calculated Osmolality Calcium Magnesium Blood Type Antibody Screen Crossmatch Blood Bank Comment 04/02/17 04/02/17 04/02/17 04:23 04:23 07:29 WBC RBC Hgb Hct MCV MCH MCHC RDW Plt Count MPV Neut % (Auto) Lymph % (Auto) [place] % (Auto) Eos % (Auto) Baso % (Auto) Neut # (Auto) Lymph # (Auto) [place] # (Auto) Eos # (Auto) Baso # (Auto) Immature Gran % Nucleated RBC % Immature Gran # Nucleated RBCs # Immature Plt Fraction INR PT Patient/Control Mix Circ Anticoag PTT Sodium 139 Potassium 4.2 Chloride 105 Carbon Dioxide 28 Anion Gap 10.2 BUN 49 H Creatinine 4.00 H GFR Calculation 18 BUN/Creatinine Ratio 12.00 Glucose 158 H POC Glucose 166 H Calculated Osmolality 292.5 Calcium 7.5 L Magnesium 2.3 Blood Type Cancelled Antibody Screen Cancelled Crossmatch See Detail Blood Bank Comment Cancelled 04/02/17 11:27 WBC RBC Hgb Hct MCV MCH MCHC RDW Plt Count MPV Neut % (Auto) Lymph % (Auto) [place] % (Auto) Eos % (Auto) Baso % (Auto) Neut # (Auto) Lymph # (Auto) [place] # (Auto) Eos # (Auto) Baso # (Auto) Immature Gran % Nucleated RBC % Immature Gran # Nucleated RBCs # Immature Plt Fraction INR PT Patient/Control Mix Circ Anticoag PTT Sodium Potassium Chloride Carbon Dioxide Anion Gap BUN Creatinine GFR Calculation BUN/Creatinine Ratio Glucose POC Glucose 202 H Calculated Osmolality Calcium Magnesium Blood Type Antibody Screen Crossmatch Blood Bank Comment Quality Measures - VTE Contraindication to Pharmacological VTE Prophylaxis: High Risk of Bleeding Specialty Discharge - Follow Up or Referrals
--- NOTE | 2017-04-02 15:02 | Consultation ---
Assessment and Plan - Time spent with patient Time spent with patient: Greater than 30 minutes (1) Anterior epistaxis Status: Acute Assessment and plan: Bedside nasal endoscopy reveals bright red blood consistent with bilateral anterior epistaxis with no discernible source consistent with elevated INR. Bilateral sinus foam anterior packing simple performed at bedside along with nasal endoscopy patient tolerated the procedure well. The amount of hemorrhage that I visualized is not consistent with a hemoglobin of 7.6. I suspect with his multiple comorbidities he has a baseline anemia that was exacerbated potentially with bilateral epistaxis because of an elevated INR. He is currently receiving several units of blood products and with that improving his INR and controlling his blood pressure and the sinus foam that will dissolve over the next several days this should control any nasal cause or exacerbation. Additionally I will add Afrin and nasal saline spray to help moisten the nasal airway and help the sinus foam to dissolve over the next several days. Additionally if he is to wear a supplemental oxygen device I recommend it be a mask and that it be humidified and to stay away from nasal prong during at least this course of stay. Thank you very much for this consultation I remain available if there is any additional questions or concerns and I will follow this patient intermittently throughout his course of stay Current Visit: Yes (2) Coagulopathy Status: Acute Current Visit: Yes (3) NSTEMI (non-ST elevated myocardial infarction) Status: Acute Current Visit: Yes (4) Anemia Status: Acute Current Visit: Yes (5) Posthemorrhagic anemia Status: Resolved Current Visit: Yes (6) ST elevation myocardial infarction (STEMI) of anterior wall Status: Acute Current Visit: Yes History of Present Illness - Data of Consult Patient: new to practice Consult date: 04/02/17 Requesting Physician: Eloy Tavera - Consult Narrative Reason for consult: Anemia, epistaxis History of present illness: Mr. Jiménez is a 61 year old male with multiple medical comorbidities was found to have significant anemia that has progressed since his admit to a hemoglobin of 7 currently he was scoped by GI today with no obvious sources of hemorrhage. He has had episodes of hemoptysis with no defined source. ENT was consulted to evaluate the nasal airway to determine if there is any potential for epistaxis to be the underlying cause. He has noted a few episodes of epistaxis over the last day. His blood pressure is been moderately well controlled and the patient is unaware of the exact source. CC: Frankie Felder MD - Home Medications and Allergies Home Medications: Home Medications Medication Instructions Recorded Confirmed Type Aspirin Chew Tab 81 mg PO DAILY tablet 05/20/16 03/31/17 Rx cloNIDine TAB [Catapres Tab] 0.1 mg PO BID #60 tablet 06/01/16 03/31/17 Rx Calcium (Carb)/Vit D 600-400 1 tablet BID 03/01/17 03/31/17 History [Caltrate 600 + D] Carvedilol [Coreg] 6.25 mg PO BID 03/01/17 03/31/17 History Insulin Glargine,Hum.rec.anlog 10 unit SUBCUT DAILY #5 applicator 03/08/1703/31 Rx [Lantus SoloStar] Warfarin [Coumadin] 2.5 mg PO DAILY@1800 #60 tablet 03/08/17 03/31/17 Rx Atorvastatin [Lipitor] 20 mg PO BEDTIME 03/31/17 03/31/17 History Furosemide Tab [Lasix Tab] 20 mg PO MOWEFR 03/31/17 03/31/17 History Tramadol HCl [Tramadol Tab] 50 mg PO Q12H PRN 03/31/17 03/31/17 History Allergies/Adverse Reactions: Allergies Allergy/AdvReac Type Severity Reaction Status Date / Time No Known Allergies Allergy Verified 03/01/17 00:10 12 point system: reviewed and no additional remarkable complaints except as stated Medical,Surgical,& Family Hx - Medical History Cardio: History of: CAD, Hypertension, AR Psychological: No history of: Anxiety Disorders, Depression Neurology: History of: TIA Endocrine: History of: Diabetes Mellitus (IDDM), Diabetes Mellitus (NIDDM) Respiratory: History of: Asthma Comment Only: Respiratory Problems (ulcer in lung) Genitourinary: No history of: Prostate Problems Gastrointestinal: History of: GERD Musculoskeletal: Comment Only: Musculoskeletal Problems (mult knee scopes to bilat knees) Hematology: No history of: Anemia - Surgical History Cardiac Surgeries: Sugical HX of: Cardiac Catheterization (stent), Cardiac Surgery (CABG,AVR) HEENT Surgeries: Surgical HX of: Eye Surgery (Cataract surgery) Abdominal Surgeries: Patient denies: Appendectomy, Cholecystectomy Orthopedic Surgeries: Surgical HX of;: Orthopedic Surgery - Family History Family History: Reports;: Family Diabetes (father), Family Hypertension (father) - Social History Smoking Status: Former smoker Frequency of Alcohol Use: None Type of Drug Use: None Exam - Constitutional Vitals: Period Temp Pulse Resp BP Sys/Pérez Pulse Ox Last 24 Hr 98.5 F-99.7 F 66-84 11-26 123-184/57-103 94-100 General appearance: normal weight, no acute distress - Head Head exam: Present: normal inspection, normocephalic - Eye Eye exam: Present: EOMI Pupils: Present: MALORIE - ENT ENT exam: Present: normal exam, normal external ear exam, other (Minimal bright red blood in the posterior oropharynx. Bedside nasal endoscopy performed revealing bilateral bright red blood with no discernible source consistent with the patient's elevated INR from anticoagulant therapy at home. The amount of epistaxis is not consistent with a hemoglobin of 7 unless there is a baseline anemia of chronic disease which seems possible so this may be an exacerbation of his baseline anemia) - Neck Neck exam: Present: normal inspection - Respiratory Respiratory exam: Present: other (No gross shortness of breath or difficulty breathing he is satting well on room air SPO2 he is had a nasal cannula but is currently not using it it is not currently humidified I did discuss with nursing that if he needs supplemental oxygen should be with facemask warmed and humidified air) - Cardiovascular Cardiovascular exam: Present: other (Current systolic blood pressure 149) - GI/Abdominal GI/Abdominal exam: Present: soft - Extremities Exam Extremities exam: Present: normal inspection, normal capillary refill - Neurological Exam Neurological exam: Present: alert, oriented X3, CN II-XII intact - Psychiatric Psychiatric exam: Present: normal affect, normal mood - Skin Skin exam: Present: normal color, warm Results - Labs CBC & BMP: 04/02/17 04:23 04/02/17 04:23 Lab Results: I have reviewed the past 24 hour labs (Decrease in hemoglobin from low eights-7.6 this could be delusional from admit) Quality Measures - VTE Contraindication to Pharmacological VTE Prophylaxis: High Risk of Bleeding Specialty Discharge - Follow Up or Referrals
[2017-04-02] MEDS ORDERED: OXYMETAZOLINE 0.05% NASAL SPRAY 15 ML BOTTLE BOTH NARES PRN (15:08)
[2017-04-02] MEDS ORDERED: SODIUM CHLORIDE 0.65% NASAL SPRAY 45 ML BOTTLE BOTH NARES PRN (15:09)
--- NOTE | 2017-04-02 15:16 | EKG Report ---
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
[2017-04-02] MEDS: hydrALAZINE 20 MG/1 ML VIAL IV PRN ×2 (15:40→19:33)
[2017-04-02] MEDS: ACETAMINOPHEN 325 MG TABLET PO PRN (19:33)
--- NOTE | 2017-04-02 20:02 | Gastrointestinal Progress Note ---
Assessment and Plan (1) Gastrointestinal hemorrhage with hematemesis Status: Acute Assessment and plan: I am really not sure if the bleeding the patient was describing coming out of his mouth was secondary to the previous mass noted in the right lung with hemoptysis or epistaxis in the nasal cavity and swallowed blood (which I strongly suspect given his symptoms) or true hematemesis from his underlying reflux and possible esophagitis versus Dieulafoy's lesion versus gastric ulcer etc. Upper endoscopy may be able to clarify the situation or at least rule out the upper GI tract as a potential source. If this is unrevealing with suggest that Dr. Estrada might consider doing fiberoptic examination the patient's sinuses/ nasal cavity to see if this is the true source. Given the patient's reflux will certainly place him on Protonix twice daily and will continue to observe him for melena. I was not able to do a rectal exam today due to his requirement to remain still in the bed. From a GI standpoint he can certainly have some clear liquids tonight, we will plan to perform upper endoscopy tomorrow morning, after he is received his fresh frozen plasma and 2 units packed red blood cells. I think it is reasonable to hold off on active anticoagulation but understand the reason to not treat him with vitamin K given the recent stent placement 2 to the [place]. Further recommendations post upper endoscopy tomorrow. 04/01/17--Upper endoscopy findings were as follows: This patient has anemia of unclear source. Expectoration of blood given the lack of findings of the upper endoscopy I suspect this may have either come from his lungs with coughed up blood from the lesion previously identified or from his nasopharynx with epistaxis. I might suggest obtaining a nasopharyngeal exam with Dr. Estrada or other ENT if the patient begins to have similar symptoms. Post fresh frozen plasma the coagulopathy has been corrected back to the usual range for heart valve patient. We need to watch his hematocrit. Eventually this patient will need a colonoscopy presumably 6-[address] 04/02/17--The patient had a upper endoscopy which was fairly unrevealing yesterday , the lesion was found in his nasopharynx corresponding to a potential bleeding source from epistaxis by Dr. Arik Estrada. His hematocrit continues to drift down his equilibrates, will strongly consider giving him some more blood if the product applications scientist feels this would be helpful. We can consider doing colonoscopy down the road to look for colorectal cancer. As his GI issues are cleared up I am going to sign off the case at this time, good luck with this very challenging patient. Current Visit: Yes (2) Posthemorrhagic anemia Status: Resolved Assessment and plan: We will watch the patient's hematocrit status post treatment with a fresh frozen plasma and then transfusion. CBC and PT/INR pending for tomorrow. Upper endoscopy discussed with the patient and his who is at the bedside, risks include but are not limited to: Bleeding, infection, perforation, cardiac and pulmonary compromise. 04/01/17--INR is now down to 3.1, hematocrit is increased from 17.8% to 23.2%. Watch this for stability over time. Considering the patient's cardiac disease might consider giving him more blood and has a cushion in case he bleeds further from another unspecified source. The upper GI tract appears not to be the source of his blood loss. There was a small amount of blood noted in the posterior pharynx suggestive of hemoptysis versus epistaxis with expectoration of this blood. 04/02/17--unfortunately the INR is back up to 4.2, the hematocrit continues to drift downward, currently at 21.8%. The patient has received another 2 units in response to this but we are waiting till the morning time to redraw. I have signed off the case at this point please alert me if there are any other GI issues the wish to have addressed. Current Visit: Yes (3) Chronic anticoagulation Status: Chronic Assessment and plan: The patient has a requirement for chronic anticoagulation due to his [facility]'s aortic heart valve. Now he has the stent placement 2 in the [place] and will need to be on chronic anticoagulation. Would suggest switching over to heparin as this can be discontinued almost immediately and has a reversal agent in the form of protamine. We will continue to observe him in the short-term. 04/01/17--As noted above, INR now down to 3.1 which is within the range that aortic valve anticoagulation is effective (2.5-3.5). 04/02/17--As noted above. INR continues to rise despite being off Coumadin. May need more FFP or small dose of vitamin K. Current Visit: No (4) Screening for colorectal cancer Status: Resolved Assessment and plan: The patient has never had a colorectal cancer screening and is 10 years overdue at some point in the future he may wish to have this evaluated. This is certainly not a priority for the next 6 months and may require a heparin window given the patient's aortic heart valve/need for chronic anticoagulation. 04/01/17--continue to plan colonoscopy as an outpatient down the road 6-12 months depending on when he can come off his anticoagulation long enough to be able to be scoped for potential lesions/other bleeding sources. If the patient develops significant lower GI bleeding the next several months we can certainly take him off of anticoagulation and check for a source. 04/02/17--as noted above. Current Visit: No Gastroenterology - PN: Subj Interval history: No new complaints, epistaxis was discovered on evaluation of the nasopharynx by Dr. Arik Estrada. The patient is taking his food and well and is not having any further GI issues. Exam (Progress Note) - Constitutional Vitals: Period Temp Pulse Resp BP Sys/Pérez Pulse Ox Last 24 Hr 98.5 F-100.3 F 67-90 11-26 123-192/57-107 94-100 General appearance: no acute distress - Head Head exam: Present: normocephalic - Eye Eye exam: Present: EOMI - Respiratory Respiratory exam: Present: clear to auscultation bilaterally. Absent: rhonchi, stridor, wheezes - Cardiovascular Cardiovascular exam: Present: regular rate and rhythm - GI/Abdominal GI/Abdominal exam: Present: normal bowel sounds, soft. Absent: distended, guarding, tenderness - Extremities Exam Extremities exam: Present: edema (Trace) - Neurological Exam Neurological exam: Present: alert, oriented X3 - Psychiatric Psychiatric exam: Present: normal affect, normal mood - Skin Skin exam: Present: warm Results - Labs CBC & BMP: 04/02/17 04:23 04/02/17 04:23 Specialty Discharge - Follow Up or Referrals
[2017-04-02] MEDS: ATORVASTATIN 40 MG TABLET PO SCH (20:50)
[2017-04-03 03:43] LABS: Basophils % 0.3 % (0.0-0.8); Eosinophils # 0.2 10*3/uL (0.0-0.87); Eosinophils % 1.7 % (0.00-10.9); Hematocrit 26.3 VOL% (42.0-52.0); Hemoglobin 9.2 GM/DL (14.0-18.0); Immature Granulocytes % 0.7 %; Immature Granulocytes Absolute 0.07 #; Lymphocytes # 0.9 10*3/uL (1.4-4.0); Lymphocytes % 8.1 % (21.2-54.2); Mean Corpuscular Hemoglobin 30 PG (27-34); Mean Corpuscular Volume 86.5 FL (87-102); Mean Platelet Volume 10.1 FL (9.6-12.0); Monocytes # 1.2 10*3/uL (0.11-0.8); Neutrophils # 8.2 10*3/uL (1.4-7.4); Neutrophils % 78.2 % (38.7-73.9); Platelet Count 203 T/CUMM (130-400); Red Blood Count 3.04 MC/CUMM (3.8-5.5); Red Cell Distribution Width 13.7 % (9.3-17.3); White Blood Count 10.5 T/CUMM (4-12)
[2017-04-03 04:07] LABS: INR 4.2
[2017-04-03 04:09] LABS: PT Patient Result 48.8 SECS
[2017-04-03 04:47] LABS: Calcium 7.1 MG/DL (8.5-10.1); Potassium 3.7 MMOL/L (3.5-5.1)
[2017-04-03] MEDS: hydrALAZINE 20 MG/1 ML VIAL IV PRN (06:16)
[2017-04-03] MEDS: OMEGA 3 ACID ETHYL ESTERS 1 GM CAPSULE PO SCH ×2 (08:40→21:55)
[2017-04-03] MEDS: TICAGRELOR 90 MG TABLET PO SCH ×2 (08:40→21:49)
[2017-04-03] MEDS: CARVEDILOL 6.25 MG TABLET PO SCH ×2 (08:40→21:49)
[2017-04-03] MEDS: INSULIN REGULAR 100 UNIT/ML SUBCUT SCH ×4 (08:41→21:49)
[2017-04-03] MEDS: POLYETHYLENE GLYCOL POWDER 17 GM PACK PO SCH (08:43)
[2017-04-03] MEDS: PANTOPRAZOLE 40 MG VIAL IV SCH ×2 (08:44→21:48)
--- NOTE | 2017-04-03 09:25 | EKG Report ---
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
--- NOTE | 2017-04-03 09:28 | Nephrology Progress Note ---
Nephrology - PN: Subj Interval history: The patient is resting. However serum creatinine is up to 4.0 today. Of note, hematocrit is down to 21. He denies any shortness of breath or chest pain. He has been hemodynamically stable. Recommend transfusing 2 units packed red blood cells. BMP in a.m. 04/03/2017. The patient did receive 2 units packed red blood cells on yesterday. Hemoglobin is noted be 9.2 today. The patient did require nasal packing by Dr. rondon on yesterday to 2 epistaxis. He states he did get much rest last night. He has been hemodynamically stable. Creatinine is noted to be 4.3 slightly up from yesterday. Exam (PN)-Nephrology - Vital Signs Vital signs: Period Temp Pulse Resp BP Sys/Pérez Pulse Ox Last 24 Hr 98.5 F-100.3 F 69-94 11-87 132-192/74-107 95-100 Exam: Nasal packing noted. - General Appearance General appearance: well-developed, well-nourished Neck: supple Respiratory: clear Cardiology: regular rate, regular rhythm Gastrointestinal: normoactive bowel sounds Neurologic: alert and oriented x3 Psychiatric: mood/affect appropriate, cooperative - Lab 04/03/17 03:15 04/03/17 03:15 Most recent lab results Calcium 7.1 MG/DL (8.5-10.1) L 04/03/17 03:15 Magnesium 2.3 MG/DL (1.8-2.4) 04/02/17 04:23 Assessment and Plan (1) NSTEMI (non-ST elevated myocardial infarction) Status: Acute Current Visit: Yes (2) Hx of CABG Status: Chronic Current Visit: Yes (3) Chronic renal failure Status: Chronic Current Visit: No Qualifiers: Chronic kidney disease stage: stage 3 (moderate) Qualified Code(s): N18.3 - Chronic kidney disease, stage 3 (moderate) (4) Diabetes Status: Chronic Current Visit: No Qualifiers: Diabetes mellitus type: type 2 Diabetes mellitus complication detail: with chronic kidney disease Diabetes mellitus chcf insulin use: without watermaster use Chronic kidney disease stage: stage 3 (moderate) (5) Hypertension Status: Chronic Current Visit: No Qualifiers: Hypertension type: essential hypertension Qualified Code(s): I10 - Essential (primary) hypertension (6) Anemia Status: Acute Current Visit: Yes Specialty Discharge - Follow Up or Referrals
--- NOTE | 2017-04-03 13:02 | Cardiology Progress Note ---
Assessment and Plan (1) ST elevation myocardial infarction (STEMI) of anterior wall Problem details: In retrospect, with no rise in CK-MB or troponin, this may be a baseline abnormal EKG for him. He may or may not had a non-STEMI. However his chest pain is now gone, possibly related to the 80% lesion of the insertion site of the LAD from the EDUARD graft Status: Acute Assessment and plan: With him having had chest pain in these EKG changes, he needs an emergency cath Plan/records: 1 emergency heart cath Give Aggrastat Proton pump inhibitor Check labs Aspirin was given the emergency room We will add a beta-smith post MS Probably no TEODORO inhibitor depending on his renal function check lipids and treat per guidelines Left heart cath and possible PTCA or stent were discussed with the patient. The risk of the procedure include but are not limited to a small risk of injury to the vessel, abnormal heart rhythm, stroke, heart attack, need for emergent surgery, contrast reaction, restenosis, infection, or . The patient voices understanding, agrees with the plan, and desires to proceed with the heart catheterization. 04/02/17 With upper endoscopy negative and some nasal discharge of blood, ENT source is possible Appreciate Dr. Russell Tavera's help We will consult ENT, Dr. Arik Estrada Give 2 more units of blood, hematocrit continues to decrease Creatinine has now increased. Renal is involved. Hopefully will not be a large increase, will peak and then come back to his baseline We will watch another day in CCU Recheck CBC and CMP in the a.m. Prognosis remains guarded 04/03/70 Assessment/plan/recommendation: He seems to not be bleeding more now His INR remains elevated, even with holding warfarin. Hopefully the INR will decrease. He is very sensitive to warfarin. DC nasal cannula O2 Appreciate Dr. Arik Galvin's help with his epistaxis We will try to get INR to a range of 2-3 His creatinine is increased, but not so high that he needs dialysis. Hopefully creatinine will peak and come down and he will get back to his baseline renal function We will managed transfer moved to telemetry unit Maybe home a few days Long-term, since she had a stent, per the information from the [place] AF-PCI trial, where 2 drugs were used instead of a triple therapy, I would favor him using Coumadin and Plavix or Brilinta, which ever they have at [facility], and drop the low-dose aspirin. -- this will be for a year and then consider--- stopping the Plavix/Brilinta and then using an aspirin with the warfarin. Current Visit: Yes (2) Chronic anticoagulation Status: Chronic Current Visit: No (3) Status post aortic valve replacement Status: Chronic Current Visit: No (4) CAD (coronary artery disease) Status: Chronic Current Visit: No Qualifiers: [place] vs. transplanted heart: [place] heart Associated angina: without angina (5) Chronic renal failure Status: Chronic Current Visit: No Qualifiers: Chronic kidney disease stage: stage 3 (moderate) Qualified Code(s): N18.3 - Chronic kidney disease, stage 3 (moderate) (6) Diabetes Status: Chronic Current Visit: No Qualifiers: Diabetes mellitus type: type 2 Diabetes mellitus complication detail: with chronic kidney disease Diabetes mellitus long term care social worker insulin use: without mcfp use Chronic kidney disease stage: stage 3 (moderate) (7) Dyslipidemia Status: Chronic Current Visit: No (8) Hypertension Status: Chronic Current Visit: No Qualifiers: Hypertension type: essential hypertension Qualified Code(s): I10 - Essential (primary) hypertension (9) Abnormal EKG Status: Acute Current Visit: Yes Cardiology - PN: Subj Interval history: No chest pain or shortness of breath. Did have some epistaxis last night. Had some foam placed in his nose to help control the epistaxis Exam (Progress Note) - Constitutional Vitals: Period Temp Pulse Resp BP Sys/Pérez Pulse Ox Last 24 Hr 98.5 F-100.3 F 65-94 11-87 132-192/74-107 95-98 Exam: HEENT: Pupils equal, reactive to light and accommodation Neck: NoJVD or bruit Lungs clear to auscultation Heart: Regular rhythm rate with normal S1 and S2. Apical S4, 2/6 systolic ejection murmur along the right upper sternal border. Normal opening and closing sounds of the aortic valve. Abdomen: No hepatosplenomegaly Spine/extremities: No clubbing, cyanosis, or edema Neuro: Nonfocal Psych: No depression or anxiety Result/EKG - Labs CBC & BMP: 04/03/17 03:15 04/03/17 03:15 Lab Results: I have reviewed the past 24 hour labs Labs: Laboratory Results - last 24 hr 04/02/17 04/02/17 04/02/17 04:23 15:46 20:36 WBC RBC Hgb Hct MCV MCH MCHC RDW Plt Count MPV Neut % (Auto) Lymph % (Auto) [place] % (Auto) Eos % (Auto) Baso % (Auto) Neut # (Auto) Lymph # (Auto) [place] # (Auto) Eos # (Auto) Baso # (Auto) Immature Gran % Nucleated RBC % Immature Gran # Nucleated RBCs # Immature Plt Fraction INR PT Patient/Control Mix Sodium Potassium Chloride Carbon Dioxide Anion Gap BUN Creatinine GFR Calculation BUN/Creatinine Ratio Glucose POC Glucose 219 H 296 H Calculated Osmolality Calcium Crossmatch See Detail 04/03/17 04/03/17 04/03/17 03:15 03:15 03:15 WBC 10.5 RBC 3.04 L D Hgb 9.2 L D Hct 26.3 L MCV 86.5 L MCH 30 MCHC 35.0 RDW 13.7 Plt Count 203 MPV 10.1 Neut % (Auto) 78.2 H Lymph % (Auto) 8.1 L [place] % (Auto) 11.0 Eos % (Auto) 1.7 Baso % (Auto) 0.3 Neut # (Auto) 8.2 H Lymph # (Auto) 0.9 L [place] # (Auto) 1.2 H Eos # (Auto) 0.2 Baso # (Auto) 0.0 Immature Gran % 0.7 Nucleated RBC % 0.0 Immature Gran # 0.07 Nucleated RBCs # 0.00 Immature Plt Fraction 0.0 INR 4.2 PT Patient/Control Mix 48.8 Sodium 136 Potassium 3.7 Chloride 102 Carbon Dioxide 25 Anion Gap 12.7 BUN 51 H Creatinine 4.30 H GFR Calculation 17 BUN/Creatinine Ratio 11.00 Glucose 136 H POC Glucose Calculated Osmolality 287.0 Calcium 7.1 L Crossmatch 04/03/17 07:02 WBC RBC Hgb Hct MCV MCH MCHC RDW Plt Count MPV Neut % (Auto) Lymph % (Auto) [place] % (Auto) Eos % (Auto) Baso % (Auto) Neut # (Auto) Lymph # (Auto) [place] # (Auto) Eos # (Auto) Baso # (Auto) Immature Gran % Nucleated RBC % Immature Gran # Nucleated RBCs # Immature Plt Fraction INR PT Patient/Control Mix Sodium Potassium Chloride Carbon Dioxide Anion Gap BUN Creatinine GFR Calculation BUN/Creatinine Ratio Glucose POC Glucose 152 H Calculated Osmolality Calcium Crossmatch - Diagnostic Findings Procedure: Chest x-ray: report reviewed by me - EKG EKG results: interpreted by me Quality Measures - VTE Contraindication to Pharmacological VTE Prophylaxis: High Risk of Bleeding Specialty Discharge - Follow Up or Referrals Follow up with: Frankie Felder MD [Physician] - (In about 2-4 weeks after discharge--with a CBC, PT/INR, and a CMP)
[2017-04-03] MEDS ORDERED: traMADol 50 MG TABLET PO PRN (14:20)
[2017-04-03] MEDS: ATORVASTATIN 40 MG TABLET PO SCH (21:49)
[2017-04-03] MEDS: CALCIUM (CARBONATE)/VITAMIN D 600 MG-400 UNIT TABLET PO SCH (21:49)
[2017-04-03] MEDS: ZALEPLON 5 MG CAPSULE PO PRN (21:49)
[2017-04-04 04:53] LABS: Basophils % 0.4 % (0.0-0.8); Eosinophils # 0.3 10*3/uL (0.0-0.87); Hematocrit 25.3 VOL% (42.0-52.0); Hemoglobin 8.9 GM/DL (14.0-18.0); Immature Granulocytes % 0.4 %; Immature Granulocytes Absolute 0.03 #; Lymphocytes # 0.8 10*3/uL (1.4-4.0); Lymphocytes % 10.5 % (21.2-54.2); Mean Corpuscular HGB Conc 35.2 GM/DL (32-36); Mean Corpuscular Hemoglobin 31 PG (27-34); Mean Corpuscular Volume 86.6 FL (87-102); Mean Platelet Volume 10.5 FL (9.6-12.0); Monocytes # 0.9 10*3/uL (0.11-0.8); Monocytes % 12.2 % (1.7-12.7); Neutrophils # 5.4 10*3/uL (1.4-7.4); Neutrophils % 72.5 % (38.7-73.9); Platelet Count 220 T/CUMM (130-400); Red Blood Count 2.92 MC/CUMM (3.8-5.5); White Blood Count 7.5 T/CUMM (4-12)
[2017-04-04 05:19] LABS: PT Patient Result 46.8 SECS
[2017-04-04 05:31] LABS: Calcium 6.8 MG/DL (8.5-10.1); Osmolality,Calculated 294.7 MOS/KG (273-304); Potassium 4.1 MMOL/L (3.5-5.1)
--- NOTE | 2017-04-04 07:35 | Physician Query Form ---
CLICK EDIT DOCUMENT TO SELECT QUERY ANSWER --> OK --> SIGN Rubi Diaz RN, CCDS Certified Clinical Gizzard Skin Remover W) [phone] (f) [phone] [email or web address] PROVIDERS: Make your selection(s) from the choices in EACH section by typing an "x" and enter comments in the comment section. Please use your independent medical judgment in providing your response. This request does not imply that any particular answer is desired or expected. CLINICAL INDICATORS: (Providers should not edit this section) The below diagnosis was documented in the record, but is not consistently noted in subsequent documentation. The medical record indicates that the patient was admitted with an MA, and " With flat troponins and no CK-MB rise, it is possible EKG changes or a "red kidd", and the patient is not having a STEMI. It could be unstable angina.". Diagnosis: STEMI Please clarify the following: ( ) The above diagnosis was monitored, evaluated, and/or treated and is a confirmed diagnosis ( ) The above diagnosis was ruled out ( ) The above diagnosis is still a likely, suspected, probable diagnosis (x ) Other, please specify: Based on EKG, he was initially thought he was having an anterior STEMI. However, after doing the cath and no rising enzymes and EKG did not change any further, it appears he was not having a STEMI. He very well could be having unstable angina because his chest pain is now gone since we put the stent in his insertion site into his LAD from the ISBELL. ( ) Clinically unable to determine COMMENTS: PLEASE ALSO DOCUMENT RESPONSE IN PROGRESS NOTES AND/OR DISCHARGE SUMMARY Use of terms such as suspected, likely, or probable (associated with a specific diagnosis that is being evaluated, monitored, or treated as if it exists) are acceptable and can be restated in the discharge summary if not ruled out. KOLTON
--- NOTE | 2017-04-04 07:36 | Physician Query Form ---
CLICK EDIT DOCUMENT TO SELECT QUERY ANSWER --> OK --> SIGN Rubi Diaz RN, CCDS Certified Clinical Otolaryngology Nurse W) [phone] (f) [phone] [email or web address] PROVIDERS: Make your selection(s) from the choices in EACH section by typing an "x" and enter comments in the comment section. Please use your independent medical judgment in providing your response. This request does not imply that any particular answer is desired or expected. CLINICAL INDICATORS: (Providers should not edit this section) The medical record indicates that the patient was admitted with an ID, anemia "acute", HH of 6.2/17.8, hemoptysis, "requirement for chronic anticoagulation due to his [facility]iel's aortic heart valve" and the patient was given 4 units of blood. "I suspect with his multiple comorbidities he has a baseline anemia that was exacerbated potentially with bilateral epistaxis because of an elevated INR" Based on the above, could you clarify the appropriate diagnosis, if significant , that supports the above abnormalities and additional evaluation, monitoring, and/or treatment rendered: (x ) patient was monitored or treated for "Hemorrhagic disorder due to extrinsic circulating anticoagulants. ( ) patient was not monitored or treated for "Hemorrhagic disorder due to extrinsic circulating anticoagulants. ( ) Other, please specify: ( ) Clinically unable to determine COMMENTS: PLEASE ALSO DOCUMENT RESPONSE IN PROGRESS NOTES AND/OR DISCHARGE SUMMARY Use of terms such as suspected, likely, or probable (associated with a specific diagnosis that is being evaluated, monitored, or treated as if it exists) are acceptable and can be restated in the discharge summary if not ruled out. MTDD
--- NOTE | 2017-04-04 08:25 | Progress Note ---
Assessment and Plan - Time spent with patient Time spent with patient: Less than 30 minutes (1) Anterior epistaxis Status: Acute Assessment and plan: Bedside nasal endoscopy reveals bright red blood consistent with bilateral anterior epistaxis with no discernible source consistent with elevated INR. Bilateral sinus foam anterior packing simple performed at bedside along with nasal endoscopy patient tolerated the procedure well. The amount of hemorrhage that I visualized is not consistent with a hemoglobin of 7.6. I suspect with his multiple comorbidities he has a baseline anemia that was exacerbated potentially with bilateral epistaxis because of an elevated INR. He is currently receiving several units of blood products and with that improving his INR and controlling his blood pressure and the sinus foam that will dissolve over the next several days this should control any nasal cause or exacerbation. Additionally I will add Afrin and nasal saline spray to help moisten the nasal airway and help the sinus foam to dissolve over the next several days. Additionally if he is to wear a supplemental oxygen device I recommend it be a mask and that it be humidified and to stay away from nasal prong during at least this course of stay. Thank you very much for this consultation I remain available if there is any additional questions or concerns and I will follow this patient intermittently throughout his course of stay 04/04/2017 Bedside anterior rhinoscopy reveals a recurrence of bright red blood from the right anterior septum and nasal airway. I opted for a repeat packing of FloSeal which is an anterior pack but more aggressive and may cause some mucosal irritation but the benefits outweigh the risk if there is no improvement or if this recurs we will put a non-dissolvable Merisel for the next 5-7 days but for patient comfort we opted to try for another few more days with a dissolvable that would be better tolerated. Patient tolerated the placement well please notify me if there is any recurrence we will try to continue to monitor this situation. Thank you again very much for involving me in this patient's care Current Visit: Yes (2) Coagulopathy Status: Acute Current Visit: Yes (3) NSTEMI (non-ST elevated myocardial infarction) Status: Acute Current Visit: Yes (4) Anemia Status: Acute Current Visit: Yes (5) Posthemorrhagic anemia Status: Resolved Current Visit: Yes (6) ST elevation myocardial infarction (STEMI) of anterior wall Problem details: In retrospect, with no rise in CK-MB or troponin, this may be a baseline abnormal EKG for him. He may or may not had a non-STEMI. However his chest pain is now gone, possibly related to the 80% lesion of the insertion site of the LAD from the EDUARD graft Status: Acute Current Visit: Yes Family Medicine PN Sub Interval history: Mr. Jiménez is a 61-year-old male with multiple comorbidities requiring chronic anticoagulation had a recurrence of his epistaxis then we resolved on Tuesday with dissolvable nasal packing apparently on the right side it started to bleed again this morning he did have isolated elbow dated blood pressure/hypertension in the high 190s which probably contributed to his epistaxis patient was tolerating it well and there appears to be minimal blood loss noted of probably less than 10-20 cc. ENT was consulted and was in the hospital and came by for repeat packing. Exam (Progress Note) - Constitutional Vitals: Period Temp Pulse Resp BP Sys/Pérez Pulse Ox Last 24 Hr 96.1 F-99.1 F 65-87 14-22 110-165/72-91 92-98 General appearance: normal weight, no acute distress - Head Head exam: Present: normal inspection, normocephalic - Eye Eye exam: Present: EOMI Pupils: Present: MALORIE - ENT ENT exam: Present: normal exam, normal external ear exam, other (Anterior rhinoscopy reveals diffuse venous epistaxis predominantly anterior again the previous packing has started to resolve as expected but with the elevated blood pressure there appeared to be a recurrence. I repacked the patient's right side with FloSeal which is also a dissolvable nasal pack but may cause some mucosal irritation but the benefits outweigh the risk of using a little bit more aggressive packing with some thrombin to help try to control this if this does not work will be forced to place a Merisel pack or non-dissolvable longer term pack while everything settles down most likely this was because of the isolated elevated blood pressure because his INR appears to be improved.) - Neck Neck exam: Present: normal inspection - Respiratory Respiratory exam: Present: other (No shortness of breath or difficulty breathing ) - GI/Abdominal GI/Abdominal exam: Present: soft - Extremities Exam Extremities exam: Present: normal inspection, normal capillary refill - Neurological Exam Neurological exam: Present: alert, oriented X3, CN II-XII intact - Psychiatric Psychiatric exam: Present: normal affect, normal mood - Skin Skin exam: Present: normal color, warm Results - Labs CBC & BMP: 04/04/17 03:41 04/04/17 03:41 Lab Results: I have reviewed the past 24 hour labs (Slight continued drop of hemoglobin from the low 90s to the high eights this could be lab variation his nosebleed was prime minimal on enough not to cause or gross change and lab values) Quality Measures - VTE Contraindication to Pharmacological VTE Prophylaxis: High Risk of Bleeding Specialty Discharge - Follow Up or Referrals Follow up with: Frankie Felder MD [Physician] - (In about 2-4 weeks after discharge--with a CBC, PT/INR, and a CMP)
[2017-04-04] MEDS: CARVEDILOL 6.25 MG TABLET PO SCH (08:32)
[2017-04-04] MEDS: POLYETHYLENE GLYCOL POWDER 17 GM PACK PO SCH (08:32)
[2017-04-04] MEDS: TICAGRELOR 90 MG TABLET PO SCH ×2 (08:32→22:36)
[2017-04-04] MEDS: CALCIUM (CARBONATE)/VITAMIN D 600 MG-400 UNIT TABLET PO SCH ×2 (08:33→22:36)
[2017-04-04] MEDS: INSULIN REGULAR 100 UNIT/ML SUBCUT SCH ×4 (08:34→22:38)
[2017-04-04] MEDS: PANTOPRAZOLE 40 MG VIAL IV SCH ×2 (08:39→22:39)
[2017-04-04] MEDS: hydrALAZINE 20 MG/1 ML VIAL IV PRN (08:44)
[2017-04-04] MEDS: OMEGA 3 ACID ETHYL ESTERS 1 GM CAPSULE PO SCH ×2 (09:22→22:38)
--- NOTE | 2017-04-04 15:02 | Cardiology Progress Note ---
Assessment and Plan (1) NSTEMI (non-ST elevated myocardial infarction) Status: Acute Assessment and plan: 61-year-old male, presenting with non-STEMI, severe anemia, underwent PCI. Status post transfusion, packed for nosebleed. Unrevealing upper GI workup. Mechanical [facility] AVR, on Coumadin. Currently, still anemic, hemodynamically stable, without ischemic symptoms. -Continue Brilinta. -Resume Coumadin, once INR drifts below 3. -Continue statin -Continue carvedilol. -Appreciate ENT, GI input. -He is still quite anemic, but not symptomatic from CHF or angina at this point. If his symptoms with light activity, will transfuse further, to achieve a crit above 27 -Severe CKD, follow electrolytes closely Current Visit: Yes (2) Hx of CABG Status: Chronic Current Visit: Yes (3) Anemia Status: Acute Current Visit: Yes (4) Anterior epistaxis Status: Acute Current Visit: Yes (5) Chronic renal failure Status: Chronic Current Visit: No Qualifiers: Chronic kidney disease stage: stage 3 (moderate) Qualified Code(s): N18.3 - Chronic kidney disease, stage 3 (moderate) (6) Diabetes Status: Chronic Current Visit: No Qualifiers: Diabetes mellitus type: type 2 Diabetes mellitus complication detail: with chronic kidney disease 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 use: without halfway use Chronic kidney disease stage: stage 3 (moderate) (7) Hypertension Status: Chronic Current Visit: No Qualifiers: Hypertension type: essential hypertension Qualified Code(s): I10 - Essential (primary) hypertension (8) Expressive aphasia Status: Resolved Current Visit: No (9) Acute CVA (cerebrovascular accident) Status: Resolved Current Visit: No (10) Chronic anticoagulation Status: Chronic Current Visit: No (11) Status post aortic valve replacement Status: Chronic Current Visit: No (12) Posthemorrhagic anemia Status: Resolved Current Visit: Yes Cardiology - PN: Subj Interval history: He is feeling better. Has no bleeding a.m., was assessed and treated by Dr. Estrada. No chest pain or shortness of breath. Crit around 25, no symptoms with rest or light activity. Exam (Progress Note) - Constitutional Vitals: Period Temp Pulse Resp BP Sys/Pérez Pulse Ox Last 24 Hr 96.1 F-99.1 F 70-78 16-18 110-197/70-96 92-99 General appearance: normal weight, over weight - Head Head exam: Present: normal inspection. Absent: contusion - Eye Eye exam: Absent: conjunctival injection, scleral icterus Pupils: Absent: dilated - ENT ENT exam: Present: normal external ear exam - Neck Neck exam: Present: normal inspection - Respiratory Respiratory exam: Present: clear to auscultation bilaterally. Absent: chest wall tenderness - Cardiovascular Cardiovascular exam: Present: regular rate and rhythm, other (Mechanical valve sound). Absent: JVD, systolic murmur - GI/Abdominal GI/Abdominal exam: Present: normal bowel sounds. Absent: distended - Extremities Exam Extremities exam: Present: normal inspection, normal capillary refill, edema (1+ ), other (Healed ulcers) - Back Exam Back exam: Present: normal inspection - Neurological Exam Neurological exam: Present: alert, oriented X3 - Psychiatric Psychiatric exam: Present: normal affect, normal mood - Skin Skin exam: Present: normal color, warm. Absent: cyanosis Result/EKG - Labs CBC & BMP: 04/04/17 03:41 04/04/17 03:41 Lab Results: I have reviewed the past 24 hour labs Labs: Laboratory Results - last 24 hr 04/03/17 04/03/17 04/03/17 11:21 16:59 21:11 WBC RBC Hgb Hct MCV MCH MCHC RDW Plt Count MPV Neut % (Auto) Lymph % (Auto) [place] % (Auto) Eos % (Auto) Baso % (Auto) Neut # (Auto) Lymph # (Auto) [place] # (Auto) Eos # (Auto) Baso # (Auto) Immature Gran % Nucleated RBC % Immature Gran # Nucleated RBCs # Immature Plt Fraction INR PT Patient/Control Mix Sodium Potassium Chloride Carbon Dioxide Anion Gap BUN Creatinine GFR Calculation BUN/Creatinine Ratio Glucose POC Glucose 182 H 291 H 277 H Calculated Osmolality Calcium 04/04/17 04/04/17 04/04/17 03:41 03:41 03:41 WBC 7.5 RBC 2.92 L Hgb 8.9 L Hct 25.3 L MCV 86.6 L MCH 31 MCHC 35.2 RDW 14.0 Plt Count 220 MPV 10.5 Neut % (Auto) 72.5 Lymph % (Auto) 10.5 L [place] % (Auto) 12.2 Eos % (Auto) 4.0 Baso % (Auto) 0.4 Neut # (Auto) 5.4 Lymph # (Auto) 0.8 L [place] # (Auto) 0.9 H Eos # (Auto) 0.3 Baso # (Auto) 0.0 Immature Gran % 0.4 Nucleated RBC % 0.0 Immature Gran # 0.03 Nucleated RBCs # 0.00 Immature Plt Fraction 0.0 INR 4.0 PT Patient/Control Mix 46.8 Sodium 138 Potassium 4.1 Chloride 105 Carbon Dioxide 24 Anion Gap 13.1 BUN 52 H Creatinine 4.10 H GFR Calculation 18 BUN/Creatinine Ratio 12.00 Glucose 203 H POC Glucose Calculated Osmolality 294.7 Calcium 6.8 L 04/04/17 04/04/17 07:55 11:22 WBC RBC Hgb Hct MCV MCH MCHC RDW Plt Count MPV Neut % (Auto) Lymph % (Auto) [place] % (Auto) Eos % (Auto) Baso % (Auto) Neut # (Auto) Lymph # (Auto) [place] # (Auto) Eos # (Auto) Baso # (Auto) Immature Gran % Nucleated RBC % Immature Gran # Nucleated RBCs # Immature Plt Fraction INR PT Patient/Control Mix Sodium Potassium Chloride Carbon Dioxide Anion Gap BUN Creatinine GFR Calculation BUN/Creatinine Ratio Glucose POC Glucose 279 H 206 H Calculated Osmolality Calcium - EKG EKG results: interpreted by me Quality Measures - VTE Contraindication to Pharmacological VTE Prophylaxis: High Risk of Bleeding Specialty Discharge - Follow Up or Referrals Follow up with: Frankie Felder MD [Physician] - (In about 2-4 weeks after discharge--with a CBC, PT/INR, and a CMP)
--- NOTE | 2017-04-04 16:23 | Nephrology Progress Note ---
Nephrology - PN: Subj Interval history: Mr. Jiménez is seen in follow-up of his acute renal failure. His creatinine is down to 4.1 today from 4.3 yesterday. He is in no distress lying flat and his chest is clear. He complains of nothing today but did have a nosebleed earlier and required packing again. His INR is 4 and he remains on antiplatelet agents. Will continue to follow and expect his renal function to slowly return to its previous baseline. Exam (PN)-Nephrology - Vital Signs Vital signs: Period Temp Pulse Resp BP Sys/Pérez Pulse Ox Last 24 Hr 96.1 F-99.0 F 70-78 16-18 110-197/70-96 92-99 - Lab 04/04/17 03:41 04/04/17 03:41 Most recent lab results Calcium 6.8 MG/DL (8.5-10.1) L 04/04/17 03:41 Magnesium 2.3 MG/DL (1.8-2.4) 04/02/17 04:23 Assessment and Plan (1) Acute renal failure Status: Chronic Current Visit: Yes (2) Chronic renal failure Status: Chronic Current Visit: No Qualifiers: Chronic kidney disease stage: stage 3 (moderate) Qualified Code(s): N18.3 - Chronic kidney disease, stage 3 (moderate) (3) Diabetes Status: Chronic Current Visit: No Qualifiers: Diabetes mellitus type: type 2 Diabetes mellitus complication detail: with chronic kidney disease Diabetes mellitus intermediate insulin use: without terminal gauger supervisor use Chronic kidney disease stage: stage 3 (moderate) (4) CAD (coronary artery disease) Status: Chronic Current Visit: No Qualifiers: [place] vs. transplanted heart: [place] heart Associated angina: without angina Specialty Discharge - Follow Up or Referrals Follow up with: Frankie Felder MD [Physician] - (In about 2-4 weeks after discharge--with a CBC, PT/INR, and a CMP)
[2017-04-04] MEDS ORDERED: CARVEDILOL 6.25 MG TABLET PO ONE (16:59)
[2017-04-04] MEDS: ATORVASTATIN 40 MG TABLET PO SCH (22:36)
[2017-04-04] MEDS: CARVEDILOL 12.5 MG TABLET PO SCH (22:37)
[2017-04-05] MEDS: ACETAMINOPHEN 325 MG TABLET PO PRN (07:36)
[2017-04-05] MEDS: CALCIUM (CARBONATE)/VITAMIN D 600 MG-400 UNIT TABLET PO SCH ×2 (08:26→22:41)
[2017-04-05] MEDS: CARVEDILOL 12.5 MG TABLET PO SCH (08:26)
[2017-04-05] MEDS: TICAGRELOR 90 MG TABLET PO SCH ×2 (08:26→22:41)
[2017-04-05] MEDS: INSULIN REGULAR 100 UNIT/ML SUBCUT SCH ×4 (08:26→22:42)
--- NOTE | 2017-04-05 08:27 | Nephrology Progress Note ---
Nephrology - PN: Subj Interval history: Mr. Jiménez is seen in follow-up of his acute renal failure superimposed on chronic renal failure. Creatinines not done today but will check tomorrow and the next several days. An INR will be checked Tuesday. He is not short of breath when lying flat but will follow up his right upper lobe infiltrate with a chest x-ray today. He has no significant peripheral edema. He does have some bruising from his over anticoagulation. Exam (PN)-Nephrology - Vital Signs Vital signs: Period Temp Pulse Resp BP Sys/Pérez Pulse Ox Last 24 Hr 98.1 F-99 F 66-75 16-20 127-182/70-90 95-96 - Lab 04/04/17 03:41 04/04/17 03:41 Most recent lab results Calcium 6.8 MG/DL (8.5-10.1) L 04/04/17 03:41 Magnesium 2.3 MG/DL (1.8-2.4) 04/02/17 04:23 Assessment and Plan (1) Acute renal failure Status: Chronic Current Visit: Yes (2) Chronic renal failure Status: Chronic Current Visit: No Qualifiers: Chronic kidney disease stage: stage 3 (moderate) Qualified Code(s): N18.3 - Chronic kidney disease, stage 3 (moderate) (3) Diabetes Status: Chronic Current Visit: No Qualifiers: Diabetes mellitus type: type 2 Diabetes mellitus complication detail: with chronic kidney disease Diabetes mellitus fpc insulin use: without long term care phlebotomist use Chronic kidney disease stage: stage 3 (moderate) (4) CAD (coronary artery disease) Status: Chronic Current Visit: No Qualifiers: [place] vs. transplanted heart: [place] heart Associated angina: without angina Specialty Discharge - Follow Up or Referrals Follow up with: Frankie Felder MD [Physician] - (In about 2-4 weeks after discharge--with a CBC, PT/INR, and a CMP)
[2017-04-05] MEDS: PANTOPRAZOLE 40 MG VIAL IV SCH ×2 (08:29→22:42)
[2017-04-05] MEDS: POLYETHYLENE GLYCOL POWDER 17 GM PACK PO SCH (08:34)
[2017-04-05] MEDS: OMEGA 3 ACID ETHYL ESTERS 1 GM CAPSULE PO SCH ×2 (08:41→22:41)
--- NOTE | 2017-04-05 09:19 | XRay Report ---
2 view chest 04/05/2017 8:18 AM Indication: Shortness of breath Comparison: March 31, 2017 at 1759 hours Findings: Cardiomediastinal contours are stable with sternotomy wires and midline no evidence of bowel replacement. Persistent atelectasis of the right upper lobe. No acute osseous abnormalities. Visualized upper abdomen demonstrates no acute pathology. Impression: No change in the complete atelectasis of the right upper lobe PROCEDURE INTERPRETED AT [facility] DEPARTMENT OF RADIOLOGY Final Report Signed by: Deonte Pak
--- NOTE | 2017-04-05 09:52 | Progress Note ---
Assessment and Plan (1) Anterior epistaxis Status: Acute Assessment and plan: Patient's epistaxis his has resolved. He has not been using his Afrin or nasal saline spray. I instructed him on how to insert this. He will do this twice a day. Current Visit: Yes Family Medicine PN Sub Interval history: Acute epitaxis status post bilateral sinus bone packing over the weekend. He continued to have right septal anterior bleed which was packed with FloSeal yesterday. His denies any more hemorrhage or nasal mucosal irritation. His INR remained stable at around 4. His blood pressure is improved, but it was elevated some this morning. Exam (Progress Note) - Constitutional Vitals: Period Temp Pulse Resp BP Sys/Pérez Pulse Ox Last 24 Hr 98.1 F-99 F 66-75 16-20 127-182/70-90 95-96 General appearance: normal weight, no acute distress - Head Head exam: Present: normal inspection, normocephalic - Eye Eye exam: Present: EOMI - ENT ENT exam: Present: normal external ear exam, normal oropharynx, other (No active bleeding noted.) - Neck Neck exam: Present: normal inspection - Respiratory Respiratory exam: Present: other (Normal effort and movement bilaterally) - Cardiovascular Cardiovascular exam: Present: other (Regular rate) - GI/Abdominal GI/Abdominal exam: Present: soft - Extremities Exam Extremities exam: Present: normal inspection, normal capillary refill - Neurological Exam Neurological exam: Present: alert, oriented X3 - Psychiatric Psychiatric exam: Present: normal affect, normal mood - Skin Skin exam: Present: normal color Results - Labs CBC & BMP: 04/04/17 03:41 04/04/17 03:41 Lab Results: I have reviewed the past 24 hour labs Quality Measures - VTE Contraindication to Pharmacological VTE Prophylaxis: High Risk of Bleeding Specialty Discharge - Follow Up or Referrals Follow up with: Frankie Felder MD [Physician] - (In about 2-4 weeks after discharge--with a CBC, PT/INR, and a CMP)
--- NOTE | 2017-04-05 14:44 | Cardiology Progress Note ---
Assessment and Plan - Time spent with patient Time spent with patient: Greater than 30 minutes Time spent discussing smoking cessation with patient: 3 to 10 minutes (1) NSTEMI (non-ST elevated myocardial infarction) Status: Resolved Assessment and plan: SEE PLAN OF CARE LISTED BELOW Current Visit: Yes (2) Hx of CABG Status: Chronic Assessment and plan: SEE PLAN OF CARE LISTED BELOW Current Visit: Yes (3) Anemia Status: Acute Assessment and plan: SEE PLAN OF CARE LISTED BELOW Current Visit: Yes (4) Chronic renal failure Status: Chronic Assessment and plan: SEE PLAN OF CARE LISTED BELOW Current Visit: No Qualifiers: Chronic kidney disease stage: stage 3 (moderate) Qualified Code(s): N18.3 - Chronic kidney disease, stage 3 (moderate) (5) Diabetes Status: Chronic Assessment and plan: SEE PLAN OF CARE LISTED BELOW Current Visit: No Qualifiers: Diabetes mellitus type: type 2 Diabetes mellitus complication detail: with chronic kidney disease 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 Chronic kidney disease stage: stage 3 (moderate) (6) Hypertension Status: Chronic Assessment and plan: SEE PLAN OF CARE LISTED BELOW Current Visit: No Qualifiers: Hypertension type: essential hypertension Qualified Code(s): I10 - Essential (primary) hypertension (7) Dyslipidemia Status: Chronic Assessment and plan: SEE PLAN OF CARE LISTED BELOW Current Visit: No (8) Tobacco abuse Status: Chronic Assessment and plan: SEE PLAN OF CARE LISTED BELOW Current Visit: No (9) Murmur, cardiac Status: Chronic Assessment and plan: SEE PLAN OF CARE LISTED BELOW Current Visit: No (10) CAD (coronary artery disease) Status: Chronic Assessment and plan: SEE PLAN OF CARE LISTED BELOW Current Visit: No Qualifiers: [place] vs. transplanted heart: [place] heart Associated angina: without angina (11) Chronic anticoagulation Status: Chronic Assessment and plan: SEE PLAN OF CARE LISTED BELOW Current Visit: No (12) Status post aortic valve replacement Status: Chronic Assessment and plan: SEE PLAN OF CARE LISTED BELOW Current Visit: No (13) Anterior epistaxis Status: Resolved Assessment and plan: SEE PLAN OF CARE LISTED BELOW Current Visit: Yes Cardiology - PN: Subj Interval history: FLOOR REPRESENTATIVE: DR. FELDER PCP: [facility] SUMMARY: Mr. Jiménez, 61ChM, with risk factors significant for: Known CAD ( April 2016 CABG: ISBELL - LAD, SVG - OM, SVG - RCA), hypertension, dyslipidemia , diabetes, sedentary lifestyle and noncompliance. History of aortic valve replacement (mechanical valve), chronic anticoagulation (Coumadin), chronic kidney disease. Patient was admitted March 31, 2017 with complaints of chest pain. Initially, there was thought this may be STEMI and patient was taken emergently to the cardiac catheterization lab where Dr. Felder performed PCI with PHYLLIS to the insertion site of the ISBELL to LAD. This was not a STEMI rather a NSTEMI. Patient tolerated the procedure well and was returned to the CCU. Patient was found to be significantly anemic with a hemoglobin of 6.9, INR 7.7. Required fresh frozen plasma to correct the INR to 2.8. Required transfusions packed red blood cells. Underwent EGD which revealed no obvious bleed, unrevealing upper GI workup. Patient has chronic kidney disease and overnight, creatinine has improved from 3.3 - 2.9. 2016: This morning, patient tells me he is feeling well without chest pain, heaviness or tightness. Right groin is soft, free of hematoma or bruit. Patient is tolerating low-dose beta-smith, atorvastatin. Avoiding TEODORO inhibitors for fear of worsening renal insufficiency. Patient's aspirin has been held but Brilinta continues. Echocardiogram reveals: EF 55%, aortic valve area 1.5 cm, PAP 62 mmHg. At this point, blood pressures been somewhat elevated and I will increase his beta-smith giving him a "now" dose for better blood pressure control. Continue to follow his labs closely. Will further discuss with Dr. Felder and await additional recommendations. 2016: Patient has been ambulating in room. Hopefully, he will be eligible for discharge home soon. He would like to be evaluated for swing bed facility however I do not think he is can qualify. No additional epistaxis during the night. I will ask case management to assist with evaluation. INR pending today. Blood pressure is better after increasing beta-blockade yesterday. Still suboptimally controlled and I will increase his Coreg this afternoon as well. Avoiding TEODORO inhibitors for fear of worsening his renal insufficiency. Also, not utilizing Aspirin due to his recent severe anemia requiring transfusion and supratherapeutic INR. Coumadin continues to be held at this time. ASSESSMENT/PLAN: 1. NSTEMI - PCI to insertion site of ISBELL to LAD. Drug-eluting stent was utilized. Now revascularized. We are holding aspirin due to his recent severe anemia but continuing Brilinta with continued monitoring of his anemic status. 2. KNOWN CAD ( S/P CABG: ISBELL - LAD, SVG - RCA, SVG - OM) - without complaints of angina at this time 3. HYPERTENSION - increasing beta-blockade again this afternoon for better blood pressure control. Avoiding TEODORO inhibitors for fear of worsening renal insufficiency 4. DYSLIPIDEMIA - LDL 65. Triglycerides 375. [place]am-3 has been added as well. Dietary counseling. 5. DIABETES - sliding scale insulin, adjusting accordingly. Suboptimally controlled blood glucose levels. Restarting home insulin regimen starting in the morning. 6. MECHANICAL AORTIC VALVE - has been maintained on Coumadin. Today's INR pending. We are still holding Coumadin. 7. ANEMIA - appreciate gastroenterology's assistance. EGD unrevealing. Stable but we will continue to monitor. 8. SUPRATHERAPEUTIC INR -INR pending today. Coumadin continues to be held. Will need to reincorporate once her INR begins to dwindle down. 9. CKD, STAGE III - avoiding TEODORO inhibitors for fear of worsening renal insufficiency 10. NONCOMPLIANCE - reiterated the importance of compliance 11. TOBACCO USE - greater than 5 minutes was spent today discussing the merits of tobacco cessation 12. EPISTAXIS - no additional epistaxis overnight. Dr. Estrada intervened yesterday. We will resume Coumadin when INR begins to normalize. Exam (Progress Note) - Constitutional Vitals: Period Temp Pulse Resp BP Sys/Pérez Pulse Ox Last 24 Hr 98.1 F-99 F 64-75 16-20 127-182/70-90 95-98 Exam: General: [Appears well with no apparent distress.] [Pleasant and cooperative. ] [Appears comfortable.] HEENT: [PERRL, normocephalic, atraumatic. Mucous membranes moist. No jaundice noted. Conjunctiva moist and clear, sclerae anicteric] Neck: No obvious JVD/HJR, no thyromegaly or lymphadenopathy noted. No carotid bruit appreciated Cardiac: [Regular rate and rhythm.] [Click of valve is noted. II/ LISANDRA heard best at bilateral upper sternal borders Lungs: [Clear to auscultation without accessory muscle use to assist the respiratory pattern.] Not requiring oxygen. Abdomen: Soft, bowel sounds normoactive. Nontender and nondistended. No abdominal bruit or thrill noted. No masses noted. Musculoskeletal: No fluid collection. Decreased range of motion is noted. Extremities: Right groin soft, free of hematoma or bruit. No clubbing, cyanosis noted. [Trace bilateral lower extremity edema edema noted.] Upper extremity pulses 2+. Lower extremity pulses 2+. Capillary refill less than 3 seconds. Skin: No unusual lesions or rashes. No skin breakdown appreciated. Neuro: Awake, alert and oriented 3. Moves all extremities well without hemiparesis or paralysis. No essential tremor is appreciated. Result/EKG - Labs CBC & BMP: 04/04/17 03:41 04/04/17 03:41 Lab Results: I have reviewed the past 24 hour labs Labs: Laboratory Results - last 24 hr 04/04/17 04/04/17 04/05/17 16:28 20:48 07:46 POC Glucose 256 H 228 H 180 H 04/05/17 11:57 POC Glucose 294 H - Diagnostic Findings Procedure: Chest x-ray: report reviewed by me - EKG EKG results: interpreted by dc EKG shows: sinus rhythm Quality Measures - VTE Contraindication to Pharmacological VTE Prophylaxis: High Risk of Bleeding Specialty Discharge - Follow Up or Referrals Follow up with: Frankie Felder MD [Physician] - (In about 2-4 weeks after discharge--with a CBC, PT/INR, and a CMP)
[2017-04-05 15:06] LABS: INR 3.6
[2017-04-05 15:09] LABS: PT Patient Result 41.3 SECS
--- NOTE | 2017-04-05 19:55 | XRay Report ---
History: Fall with left elbow pain Date: 04/05/2017 Study: Left elbow 2 views Comparison exam: No previous elbow x-ray available There is no acute fracture or dislocation. There is mild osteophyte formation associated with the elbow. There is no focal lytic or blastic lesion. Impression: No acute fracture is seen. Osteoarthritis PROCEDURE INTERPRETED AT [facility] DEPARTMENT OF RADIOLOGY Final Report Signed by: Dr. Crystal Carlos
[2017-04-05] MEDS: CARVEDILOL 25 MG TABLET PO SCH (22:41)
[2017-04-05] MEDS: ZALEPLON 5 MG CAPSULE PO PRN (22:41)
[2017-04-05] MEDS: ATORVASTATIN 40 MG TABLET PO SCH (22:41)
[2017-04-06 03:56] LABS: Basophils % 0.5 % (0.0-0.8); Eosinophils # 0.4 10*3/uL (0.0-0.87); Eosinophils % 4.7 % (0.00-10.9); Hemoglobin 8.5 GM/DL (14.0-18.0); Immature Granulocytes % 0.8 %; Immature Granulocytes Absolute 0.07 #; Lymphocytes % 11.4 % (21.2-54.2); Mean Corpuscular Hemoglobin 30 PG (27-34); Monocytes # 1.1 10*3/uL (0.11-0.8); Monocytes % 12.8 % (1.7-12.7); Neutrophils % 69.8 % (38.7-73.9); Platelet Count 240 T/CUMM (130-400); Red Blood Count 2.81 MC/CUMM (3.8-5.5); White Blood Count 8.5 T/CUMM (4-12)
[2017-04-06 04:13] LABS: INR 3.8
[2017-04-06 04:22] LABS: PT Patient Result 44.2 SECS
[2017-04-06 05:01] LABS: Calcium 7.2 MG/DL (8.5-10.1); Magnesium 2.5 MG/DL (1.8-2.4); Osmolality,Calculated 287.7 MOS/KG (273-304)
[2017-04-06 05:14] LABS: Potassium 6.1 MMOL/L (3.5-5.1)
--- NOTE | 2017-04-06 08:03 | Progress Note ---
Assessment and Plan (1) Anterior epistaxis Status: Resolved Assessment and plan: Status post sinus foam packing and right FloSeal packing. He is doing well without any further Hemorrhage. I did instruct him again to use his nasal sprays especially the saline wash. Current Visit: Yes Family Medicine PN Sub Interval history: Anterior Epistaxis status post sinus foam packing about five days ago and FloSeal packing about two days ago. He denies any further epistaxis or mucosal irritation. He has not been using his nasal sprays as directed. BP was better controlled through the night and INR remains stable. Exam (Progress Note) - Constitutional Vitals: Period Temp Pulse Resp BP Sys/Pérez Pulse Ox Last 24 Hr 97.5 F-100.1 F 64-81 18-20 139-156/71-91 95-98 General appearance: normal weight, no acute distress - Head Head exam: Present: normal inspection, normocephalic - ENT ENT exam: Present: normal oropharynx, other (No active nasal hemorrhagge) - Neck Neck exam: Present: normal inspection - Respiratory Respiratory exam: Present: other (Normal effort and movement bilaterally) - Cardiovascular Cardiovascular exam: Present: other (Regular rate) - GI/Abdominal GI/Abdominal exam: Present: soft - Extremities Exam Extremities exam: Present: normal inspection - Neurological Exam Neurological exam: Present: oriented X3 - Psychiatric Psychiatric exam: Present: normal affect, normal mood Results - Labs CBC & BMP: 04/06/17 03:02 04/06/17 06:52 Quality Measures - VTE Contraindication to Pharmacological VTE Prophylaxis: High Risk of Bleeding Specialty Discharge - Follow Up or Referrals Follow up with: Frankie Felder MD [Physician] - (In about 2-4 weeks after discharge--with a CBC, PT/INR, and a CMP)
--- NOTE | 2017-04-06 08:06 | Pulmonology Consult Note ---
Assessment and Plan (1) Atelectasis right upper lobe Status: Acute Assessment and plan: This is likely due to a thrombus from hemoptysis. Earlier he had bled from a tiny lesion in his right upper lobe when he was hyper anticoagulated. We will bronchoscope him and remove whatever is obstructing his right upper lobe. Suspect it will need to be a clot or mucous plug. Will not have to hold his anticoagulants for this. Current Visit: Yes (2) NSTEMI (non-ST elevated myocardial infarction) Status: Resolved Assessment and plan: Status post cath and now on Brilinta. Had stent in ISBELL graft Current Visit: Yes (3) Hx of CABG Status: Chronic Assessment and plan: Patient has had previous coronary bypass surgery. Came in with non-ST elevation [place]. Was cathed by Dr. Felder the findings of narrowing of the ISBELL graft. That was stented. Patient is on Brilinta. He remains on Coumadin for his aortic valve replacement. Current Visit: Yes (4) Anterior epistaxis Status: Resolved Assessment and plan: He was found to have some bleeding from the anterior portion of both nares. We will be careful of that spot when we do the bronchoscope Current Visit: Yes (5) Coagulopathy Status: Acute Assessment and plan: He is fully anticoagulated on Coumadin. His INR was 7.7 on admission. We need to be sure he gets proper follow-up of his protimes when he is discharged this time. Current Visit: Yes (6) Congestive heart failure Problem details: ef 25% Status: Resolved Assessment and plan: Ejection fraction 25%. Does not appear to be in roya failure at present Current Visit: No (7) Hemoptysis Status: Acute Assessment and plan: His hemoptysis has stopped. Current Visit: No (8) Status post aortic valve replacement Status: Chronic Assessment and plan: Requires lifelong anticoagulants with Coumadin. [place] INR would be 2.5-3.5 Current Visit: No History of Present Illness Chief complaint: Atelectasis right upper lobe History of present illness: Mr. Jiménez is a 61 year old male who came in 6 days ago with chest pain and had a non-ST elevation myocardial infarction. He was also coughing up blood. His INR was 7.7. He had a previous aortic valve replacement and coronary bypass surgery. He has a cardiomyopathy with ejection fraction 25%. He has also had a nosebleed. His pro time has been corrected down to the therapeutic range for his aortic valve. He he developed atelectasis of the right upper lobe. He has lost some volume there now. I suspect he has a mucous plug and or thrombus in his right upper lobe bronchus. I bronchoscoped him about a month ago for pulmonary nodule in the right upper lobe and hemoptysis. We did see blood coming from that segment. He had an endobronchial lesion in the left lower lobe that we biopsied and it was benign, a polypoid lesion and seem to be completely resected just with the bronchial forceps. Samples from the right upper lobe were negative for malignancy and we had planned follow-up x-rays there. The patient is not clear whether he gets his pro times done with the doctor. He said he got it done at the pharmacy. It appears that he is not getting proper follow-up care once he leaves here. At present he is on Brilinta and on Coumadin. He has not eaten this morning. We can proceed with bronchoscopy. I do not plan any biopsies. We will remove whatever is obstructing the right upper lobe whether it is a thrombus or mucous plug. Home Medications Medication Instructions Recorded Confirmed Type Aspirin Chew Tab 81 mg PO DAILY tablet 05/20/16 03/31/17 Rx cloNIDine TAB [Catapres Tab] 0.1 mg PO BID #60 tablet 06/01/16 03/31/17 Rx Calcium (Carb)/Vit D 600-400 1 tablet BID 03/01/17 03/31/17 History [Caltrate 600 + D] Carvedilol [Coreg] 6.25 mg PO BID 03/01/17 03/31/17 History Insulin Glargine,Hum.rec.anlog 10 unit SUBCUT DAILY #5 applicator 03/08/1703/31 Rx [Lantus SoloStar] Warfarin [Coumadin] 2.5 mg PO DAILY@1800 #60 tablet 03/08/17 03/31/17 Rx Atorvastatin [Lipitor] 20 mg PO BEDTIME 03/31/17 03/31/17 History Furosemide Tab [Lasix Tab] 20 mg PO MOWEFR 03/31/17 03/31/17 History Tramadol HCl [Tramadol Tab] 50 mg PO Q12H PRN 03/31/17 03/31/17 History Allergies Allergy/AdvReac Type Severity Reaction Status Date / Time No Known Allergies Allergy Verified 03/01/17 00:10 - Cardiovascular Cardiovascular: Present: dyspnea, dyspnea on exertion, edema - Respiratory Respiratory: Present: cough, dyspnea, hemoptysis, dyspnea on exertion - Hematologic/Lymphatic Hematologic/Lymphatic: Present: easy bleeding Exam (Pulmonay) H&P - Constitutional Vitals: Period Temp Pulse Resp BP Sys/Pérez Pulse Ox Last 24 Hr 97.5 F-100.1 F 64-81 18-20 139-156/71-91 95-98 Exam: Patient is alert oriented. Vital signs normal. Pupils react to light. Throat is clear. Neck supple no bruits. Chest reveals decreased breath sounds on the right upper lobe otherwise clear. Heart normal rate and rhythm without mechanical aortic valve click which sounds normal. Abdomen is soft nontender no masses. Extremities no clubbing cyanosis 1+ edema. Calves nontender. Medical,Surgical,& Family Hx - Medical History Cardio: History of: CAD, Hypertension, [place] Psychological: No history of: Anxiety Disorders, Depression Neurology: History of: TIA Endocrine: History of: Diabetes Mellitus (IDDM), Diabetes Mellitus (NIDDM) Respiratory: History of: Asthma Comment Only: Respiratory Problems (ulcer in lung) Genitourinary: No history of: Prostate Problems Gastrointestinal: History of: GERD Musculoskeletal: Comment Only: Musculoskeletal Problems (mult knee scopes to bilat knees) Hematology: No history of: Anemia - Surgical History Cardiac Surgeries: Sugical HX of: Cardiac Catheterization (stent), Cardiac Surgery (CABG,AVR) HEENT Surgeries: Surgical HX of: Eye Surgery (Cataract surgery) Abdominal Surgeries: Patient denies: Appendectomy, Cholecystectomy Orthopedic Surgeries: Surgical HX of;: Orthopedic Surgery - Family History Family History: Reports;: Family Diabetes (father), Family Hypertension (father) - Social History Smoking Status: Former smoker Frequency of Alcohol Use: None Type of Drug Use: None Results - Labs CBC & BMP: 04/06/17 03:02 04/06/17 06:52 Lab Results: I have reviewed the past 24 hour labs - Diagnostic Findings Procedure: Chest x-ray: image reviewed by me (Atelectasis right upper lobe with volume loss) Quality Measures - VTE Contraindication to Pharmacological VTE Prophylaxis: High Risk of Bleeding Specialty Discharge - Follow Up or Referrals Follow up with: Frankie Felder MD [Physician] - (In about 2-4 weeks after discharge--with a CBC, PT/INR, and a CMP)
[2017-04-06] MEDS ORDERED: LIDOCAINE 2% 20 ML VIAL RESP TX ONE (08:13)
[2017-04-06] MEDS ORDERED: LIDOCAINE 1% 20 ML VIAL MISC INJ ONE (08:13)
[2017-04-06] MEDS ORDERED: MIDAZOLAM 2 MG/2 ML VIAL IV ONE (08:13)
[2017-04-06] MEDS ORDERED: MIDAZOLAM 2 MG/2 ML VIAL ONE ×2 (08:41→10:43)
--- NOTE | 2017-04-06 08:47 | Nephrology Progress Note ---
Nephrology - PN: Subj Interval history: Mr. Jiménez is seen in follow-up of his acute renal failure superimposed on chronic renal failure. His creatinine is better at 3.8 and he looks fine. He is lying flat in bed and is not short of breath. His chest x-ray yesterday demonstrates atelectasis the right upper lobe and Dr. Quiñones will do bronchoscopy today to remove the obstruction if possible. He has no significant edema. His renal function should continue to improve toward baseline. He is several days post contrast exposure Exam (PN)-Nephrology - Vital Signs Vital signs: Period Temp Pulse Resp BP Sys/Pérez Pulse Ox Last 24 Hr 97.5 F-100.1 F 64-81 18-20 139-156/71-91 95-98 - Lab 04/06/17 03:02 04/06/17 06:52 Most recent lab results Calcium 7.2 MG/DL (8.5-10.1) L 04/06/17 03:02 Magnesium 2.5 MG/DL (1.8-2.4) H 04/06/17 03:02 Assessment and Plan (1) Acute renal failure Status: Chronic Current Visit: Yes (2) Chronic renal failure Status: Chronic Current Visit: No Qualifiers: Chronic kidney disease stage: stage 3 (moderate) Qualified Code(s): N18.3 - Chronic kidney disease, stage 3 (moderate) (3) Diabetes Status: Chronic Current Visit: No Qualifiers: Diabetes mellitus type: type 2 Diabetes mellitus complication detail: with chronic kidney disease 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 transplanted heart: [place] heart Associated angina: without angina Specialty Discharge - Follow Up or Referrals Follow up with: Frankie Felder MD [Physician] - (In about 2-4 weeks after discharge--with a CBC, PT/INR, and a CMP)
--- NOTE | 2017-04-06 10:16 | Operative Note ---
Date of procedure: 04/06/17 (Fiberoptic bronchoscopy with removal of thrombi right upper lobe bronchus) Pre-op diagnosis: Right upper lobe atelectasis due to endobronchial thrombi Post-op diagnosis: same Procedure: After an appropriate timeout to be sure we were dealing with Bobo Jiménez, the patient was topically anesthetized in the nose and nasopharynx with Xylocaine. He was given at first 2 mg of Versed and eventually a total of 6 mg of Versed to the point of sedation intravenously. 3 L of nasal oxygen was placed in the left naris. The fiberoptic bronchoscope was introduced via the right naris. Vocal cords were identified and noted to function normally with phonation. After further topical anesthesia the trachea was entered and was free of lesions. The william was sharp. Left lung was normal. The previously noted polyp in the superior segment of the left lower lobe is gone from previous biopsies. On the right side there were retained secretions in the right middle and lower lobes. The right upper lobe was totally obstructed with thrombus. Using forceps, saline, and suction from the tip of the bronchoscope we were able to remove the vast majority of the thrombi the right upper lobe. There was still some adherent thrombi coming from the posterior segment of the right upper lobe. We were not able to get that dislodged. I was then able to visualize the apical and anterior segments of the right upper lobe which are open now. The bronchoscope was removed. Patient returned to his room in stable condition. Hopefully he can cough and dislodge the residual thrombi in the posterior segment right upper lobe. If not we may have to go back and try to remove them later. Probably would have to hold Coumadin for that. Anesthesia: conscious sedation Surgeon / Physician: Jah Quiñones Estimated blood loss: minimal Specimens: other (Bronchial washings) Condition: stable Disposition: floor Results - Labs CBC & BMP: 04/06/17 03:02 04/06/17 06:52 Discharge Plan - Discharge Medications No Action Aspirin Chew Tab 81 mg PO DAILY tablet cloNIDine TAB [Catapres Tab] 0.1 mg PO BID #60 tablet Carvedilol [Coreg] 6.25 mg PO BID Insulin Glargine,Hum.rec.anlog [Lantus SoloStar] 10 unit SUBCUT DAILY #5 applicator Warfarin [Coumadin] 2.5 mg PO DAILY@1800 #60 tablet Atorvastatin [Lipitor] 20 mg PO BEDTIME Furosemide Tab [Lasix Tab] 20 mg PO MOWEFR Calcium (Carb)/Vit D 600-400 [Caltrate 600 + D] 1 tablet BID Tramadol HCl [Tramadol Tab] 50 mg PO Q12H PRN PRN Reason: Pain - Follow Up or Referral Follow Up: Frnakie Felder MD [Physician] - (In about 2-4 weeks after discharge--with a CBC, PT/INR, and a CMP) - Forms/Instructions Instructions: Left Heart Catheterization (DC), Heart Healthy Diet (GEN), Coronary Intravascular Stent Placement (DC)
[2017-04-06] MEDS: INSULIN REGULAR 100 UNIT/ML SUBCUT SCH ×4 (12:53→21:29)
--- NOTE | 2017-04-06 13:57 | Physician Query Form ---
CLICK EDIT DOCUMENT TO SELECT QUERY ANSWER --> OK --> SIGN Rubi Diaz RN, CCDS Certified Clinical Soft Water Mechanic W) [phone] (f) [phone] [email or web address] PROVIDERS: Make your selection(s) from the choices in EACH section by typing an "x" and enter comments in the comment section. Please use your independent medical judgment in providing your response. This request does not imply that any particular answer is desired or expected. CLINICAL INDICATORS: (Providers should not edit this section) The medical record indicates that the patient was admitted with an [place], History of "Congestive Heart Failure", "Ejection fraction 25%", and the patient is on Coreg Daily. Please provide further specificity regarding CHF. TYPE: ( x) Systolic (HFrEF - heart failure with reduced systolic function/EF) ( ) Diastolic (HFpEF - heart failure with preserved systolic function/EF) ( ) Combined Systolic/Diastolic ( ) Other, please specify: ( ) Clinically unable to determine ( ) Past Medical History of Systolic CHF ( ) Past Medical History of Diastolic CHF ( ) Clinically unable to determine COMMENTS: PLEASE ALSO DOCUMENT RESPONSE IN PROGRESS NOTES AND/OR DISCHARGE SUMMARY Use of terms such as suspected, likely, or probable (associated with a specific diagnosis that is being evaluated, monitored, or treated as if it exists) are acceptable and can be restated in the discharge summary if not ruled out. MTDD
[2017-04-06] MEDS: TICAGRELOR 90 MG TABLET PO SCH ×2 (15:01→21:29)
[2017-04-06] MEDS: CARVEDILOL 25 MG TABLET PO SCH ×2 (15:02→21:29)
[2017-04-06] MEDS: OMEGA 3 ACID ETHYL ESTERS 1 GM CAPSULE PO SCH ×2 (15:02→21:29)
[2017-04-06] MEDS: CALCIUM (CARBONATE)/VITAMIN D 600 MG-400 UNIT TABLET PO SCH ×2 (15:02→21:29)
[2017-04-06] MEDS: PANTOPRAZOLE 40 MG VIAL IV SCH ×2 (15:08→21:29)
[2017-04-06] MEDS: POLYETHYLENE GLYCOL POWDER 17 GM PACK PO SCH (15:10)
--- NOTE | 2017-04-06 16:52 | Cardiology Progress Note ---
Assessment and Plan - Time spent with patient Time spent with patient: Greater than 30 minutes Time spent discussing smoking cessation with patient: 3 to 10 minutes (1) NSTEMI (non-ST elevated myocardial infarction) Status: Resolved Assessment and plan: SEE PLAN OF CARE LISTED BELOW Current Visit: Yes (2) Hx of CABG Status: Chronic Assessment and plan: SEE PLAN OF CARE LISTED BELOW Current Visit: Yes (3) Anemia Status: Acute Assessment and plan: SEE PLAN OF CARE LISTED BELOW Current Visit: Yes (4) Chronic renal failure Status: Chronic Assessment and plan: SEE PLAN OF CARE LISTED BELOW Current Visit: No Qualifiers: Chronic kidney disease stage: stage 3 (moderate) Qualified Code(s): N18.3 - Chronic kidney disease, stage 3 (moderate) (5) Diabetes Status: Chronic Assessment and plan: SEE PLAN OF CARE LISTED BELOW Current Visit: No Qualifiers: Diabetes mellitus type: type 2 Diabetes mellitus complication detail: with chronic kidney disease 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 Chronic kidney disease stage: stage 3 (moderate) (6) Hypertension Status: Chronic Assessment and plan: SEE PLAN OF CARE LISTED BELOW Current Visit: No Qualifiers: Hypertension type: essential hypertension Qualified Code(s): I10 - Essential (primary) hypertension (7) Dyslipidemia Status: Chronic Assessment and plan: SEE PLAN OF CARE LISTED BELOW Current Visit: No (8) Tobacco abuse Status: Chronic Assessment and plan: SEE PLAN OF CARE LISTED BELOW Current Visit: No (9) Murmur, cardiac Status: Chronic Assessment and plan: SEE PLAN OF CARE LISTED BELOW Current Visit: No (10) CAD (coronary artery disease) Status: Chronic Assessment and plan: SEE PLAN OF CARE LISTED BELOW Current Visit: No Qualifiers: [place] vs. transplanted heart: [place] heart Associated angina: without angina (11) Chronic anticoagulation Status: Chronic Assessment and plan: SEE PLAN OF CARE LISTED BELOW Current Visit: No (12) Status post aortic valve replacement Status: Chronic Assessment and plan: SEE PLAN OF CARE LISTED BELOW Current Visit: No (13) Anterior epistaxis Status: Resolved Assessment and plan: SEE PLAN OF CARE LISTED BELOW Current Visit: Yes (14) Right upper lobe consolidation Status: Acute Assessment and plan: SEE PLAN OF CARE LISTED BELOW. Current Visit: Yes Cardiology - PN: Subj Interval history: MUD BOSS: DR. FELDER PCP: [facility] SUMMARY: Mr. Jiménez, 61ChM, with risk factors significant for: Known CAD ( April 2016 CABG: ISBELL - LAD, SVG - OM, SVG - RCA), hypertension, dyslipidemia , diabetes, sedentary lifestyle and noncompliance. History of aortic valve replacement (mechanical valve), chronic anticoagulation (Coumadin), chronic kidney disease. Patient was admitted March 31, 2017 with complaints of chest pain. Initially, there was thought this may be STEMI and patient was taken emergently to the cardiac catheterization lab where Dr. Felder performed PCI with PHYLLIS to the insertion site of the ISBELL to LAD. This was not a STEMI rather a NSTEMI. Patient tolerated the procedure well and was returned to the CCU. Patient was found to be significantly anemic with a hemoglobin of 6.9, INR 7.7. Required fresh frozen plasma to correct the INR to 2.8. Required transfusions packed red blood cells. Underwent EGD which revealed no obvious bleed, unrevealing upper GI workup. Patient has chronic kidney disease and overnight, creatinine has improved from 3.3 - 2.9. 2016: This morning, patient tells me he is feeling well without chest pain, heaviness or tightness. Right groin is soft, free of hematoma or bruit. Patient is tolerating low-dose beta-smith, atorvastatin. Avoiding TEODORO inhibitors for fear of worsening renal insufficiency. Patient's aspirin has been held but Brilinta continues. Echocardiogram reveals: EF 55%, aortic valve area 1.5 cm, PAP 62 mmHg. At this point, blood pressures been somewhat elevated and I will increase his beta-smith giving him a "now" dose for better blood pressure control. Continue to follow his labs closely. Will further discuss with Dr. Felder and await additional recommendations. 2016: Patient has been ambulating in room. Hopefully, he will be eligible for discharge home soon. He would like to be evaluated for swing bed facility however I do not think he is can qualify. No additional epistaxis during the night. I will ask case management to assist with evaluation. INR pending today. Blood pressure is better after increasing beta-blockade yesterday. Still suboptimally controlled and I will increase his Coreg this afternoon as well. Avoiding TEODORO inhibitors for fear of worsening his renal insufficiency. Also, not utilizing Aspirin due to his recent severe anemia requiring transfusion and supratherapeutic INR. Coumadin continues to be held at this time. 2016: Patient underwent bronchoscopy with removal of thrombi of the right upper lobe bronchus this morning. (See FOB report). X-ray left arm reveal no fracture. He is doing well at this time. No chest pain, heaviness or tightness. He has been walking without difficulty, no dyspnea. INR 3.8. Will re-start Coumadin soon. Vital signs are stable. Continue Coreg, Brilinta , atorvastatin. Further discuss with Dr. Phillips and await additional recommendations. ASSESSMENT/PLAN: 1. NSTEMI - PCI to insertion site of ISBELL to LAD with PHYLLIS. We are holding aspirin due to his recent, severe anemia but continuing Brilinta with continued monitoring of his anemic status. 2. KNOWN CAD ( S/P CABG: ISBELL - LAD, SVG - RCA, SVG - OM) - without complaints of angina at this time 3. HYPERTENSION -blood pressures responded nicely to increasing beta- blockade. Avoiding TEODORO inhibitors for fear of worsening renal insufficiency 4. DYSLIPIDEMIA - LDL 65. Triglycerides 375. [place]-3 has been added as well. Dietary counseling. 5. DIABETES - sliding scale insulin, adjusting accordingly. Blood glucose levels responded well after initiating home insulin regimen. 6. MECHANICAL AORTIC VALVE - has been maintained on Coumadin. Today's INR 3.8. We are still holding Coumadin. 7. ANEMIA - appreciate gastroenterology's assistance. EGD unrevealing. Stable but we will continue to monitor. 8. SUPRATHERAPEUTIC INR - INR remains elevated despite Coumadin being withheld. Will reincorporate once INR begins to normalize. 9. CKD, STAGE III - avoiding TEODORO inhibitors for fear of worsening renal insufficiency 10. NONCOMPLIANCE - reiterated the importance of compliance 11. TOBACCO USE - greater than 5 minutes was spent today discussing the merits of tobacco cessation 12. EPISTAXIS - no additional epistaxis overnight. Dr. Estrada intervened yesterday. We will resume Coumadin when INR begins to normalize. 13. THROMBI OF BRONCHUS - status post fiberoptic bronchoscopy. Hopefully, patient may be able to expectorate the residual thrombi. Exam (Progress Note) - Constitutional Vitals: Period Temp Pulse Resp BP Sys/Pérez Pulse Ox Last 24 Hr 97 F-100.1 F 62-81 12-27 113-185/64-96 95-100 Exam: General: [Appears well with no apparent distress.] [Pleasant and cooperative. ] [Appears comfortable.] HEENT: [PERRL, normocephalic, atraumatic. Mucous membranes moist. No jaundice noted. Conjunctiva moist and clear, sclerae anicteric] Neck: No obvious JVD/HJR, no thyromegaly or lymphadenopathy noted. No carotid bruit appreciated Cardiac: [Regular rate and rhythm.] [Click of valve is noted. II/ LISANDRA heard best at bilateral upper sternal borders Lungs: [Clear to auscultation without accessory muscle use to assist the respiratory pattern.] Not requiring oxygen. Abdomen: Soft, bowel sounds normoactive. Nontender and nondistended. No abdominal bruit or thrill noted. No masses noted. Musculoskeletal: No fluid collection. Decreased range of motion is noted. Extremities: Right groin soft, free of hematoma or bruit. No clubbing, cyanosis noted. [Trace bilateral lower extremity edema edema noted.] Upper extremity pulses 2+. Lower extremity pulses 2+. Capillary refill less than 3 seconds. Skin: No unusual lesions or rashes. No skin breakdown appreciated. Neuro: Awake, alert and oriented 3. Moves all extremities well without hemiparesis or paralysis. No essential tremor is appreciated. Result/EKG - Labs CBC & BMP: 04/06/17 03:02 04/06/17 06:52 Lab Results: I have reviewed the past 24 hour labs Labs: Laboratory Results - last 24 hr 04/05/17 04/06/17 04/06/17 19:22 03:02 03:02 WBC 8.5 RBC 2.81 L Hgb 8.5 L Hct 25.0 L MCV 89.0 MCH 30 MCHC 34.0 RDW 14.0 Plt Count 240 MPV 10.0 Neut % (Auto) 69.8 Lymph % (Auto) 11.4 L [place] % (Auto) 12.8 H Eos % (Auto) 4.7 Baso % (Auto) 0.5 Neut # (Auto) 6.0 Lymph # (Auto) 1.0 L [place] # (Auto) 1.1 H Eos # (Auto) 0.4 Baso # (Auto) 0.0 Immature Gran % 0.8 Nucleated RBC % 0.0 Immature Gran # 0.07 Nucleated RBCs # 0.00 Immature Plt Fraction 0.0 INR 3.8 PT Patient/Control Mix 44.2 Sodium Potassium Chloride Carbon Dioxide Anion Gap BUN Creatinine GFR Calculation BUN/Creatinine Ratio Glucose POC Glucose 315 H Calculated Osmolality Calcium Magnesium 04/06/17 04/06/17 04/06/17 03:02 06:52 08:18 WBC RBC Hgb Hct MCV MCH MCHC RDW Plt Count MPV Neut % (Auto) Lymph % (Auto) [place] % (Auto) Eos % (Auto) Baso % (Auto) Neut # (Auto) Lymph # (Auto) [place] # (Auto) Eos # (Auto) Baso # (Auto) Immature Gran % Nucleated RBC % Immature Gran # Nucleated RBCs # Immature Plt Fraction INR PT Patient/Control Mix Sodium 138 Potassium 6.1 H* D 4.9 Chloride 108 H Carbon Dioxide 24 Anion Gap 12.1 BUN 43 H Creatinine 3.80 H GFR Calculation 19 BUN/Creatinine Ratio 11.00 Glucose 138 H POC Glucose 189 H Calculated Osmolality 287.7 Calcium 7.2 L Magnesium 2.5 H 04/06/17 04/06/17 11:32 15:20 WBC RBC Hgb Hct MCV MCH MCHC RDW Plt Count MPV Neut % (Auto) Lymph % (Auto) [place] % (Auto) Eos % (Auto) Baso % (Auto) Neut # (Auto) Lymph # (Auto) [place] # (Auto) Eos # (Auto) Baso # (Auto) Immature Gran % Nucleated RBC % Immature Gran # Nucleated RBCs # Immature Plt Fraction INR PT Patient/Control Mix Sodium Potassium Chloride Carbon Dioxide Anion Gap BUN Creatinine GFR Calculation BUN/Creatinine Ratio Glucose POC Glucose 204 H 276 H Calculated Osmolality Calcium Magnesium - Diagnostic Findings Procedure: Chest x-ray: report reviewed by me - EKG EKG results: interpreted by sd EKG shows: sinus rhythm Quality Measures - VTE Contraindication to Pharmacological VTE Prophylaxis: High Risk of Bleeding Specialty Discharge - Follow Up or Referrals Follow up with: Frankie Felder MD [Physician] - (In about 2-4 weeks after discharge--with a CBC, PT/INR, and a CMP)
[2017-04-06] MEDS: INSULIN GLARGINE 100 UNIT/ML SUBCUT SCH (17:09)
[2017-04-06] MEDS: ATORVASTATIN 40 MG TABLET PO SCH (21:29)
[2017-04-07 06:03] LABS: Basophils % 0.4 % (0.0-0.8); Eosinophils # 0.4 10*3/uL (0.0-0.87); Eosinophils % 4.6 % (0.00-10.9); Hematocrit 23.9 VOL% (42.0-52.0); Hemoglobin 8.1 GM/DL (14.0-18.0); Immature Granulocytes % 0.9 %; Immature Granulocytes Absolute 0.07 #; Lymphocytes % 12.3 % (21.2-54.2); Mean Corpuscular HGB Conc 33.9 GM/DL (32-36); Mean Corpuscular Hemoglobin 30 PG (27-34); Mean Corpuscular Volume 89.2 FL (87-102); Monocytes # 1.1 10*3/uL (0.11-0.8); Monocytes % 13.8 % (1.7-12.7); Neutrophils # 5.3 10*3/uL (1.4-7.4); Platelet Count 226 T/CUMM (130-400); Red Blood Count 2.68 MC/CUMM (3.8-5.5); White Blood Count 7.8 T/CUMM (4-12)
[2017-04-07 06:31] LABS: Calcium 7.3 MG/DL (8.5-10.1); Magnesium 2.6 MG/DL (1.8-2.4); Osmolality,Calculated 288.5 MOS/KG (273-304); Potassium 4.7 MMOL/L (3.5-5.1)
--- NOTE | 2017-04-07 07:54 | Pulmonology Progress Note ---
Pulmonary - PN: Subj Interval history: This 61-year-old man came in with a hyper prolonged PT/INR. He apparently bled from his right upper lobe. It was obstructed at bronchoscopy yesterday and we removed a lot of clots from there. Chest x-ray today looks better but not entirely open. He still had some residual clot in the posterior segment of the right upper lobe it was very difficult to extract from there. I note that the patient's Coumadin has been held. His last INR was 3.6. He needs to be started back on the Coumadin for his mechanical aortic valve. I will resume it at 2 mg daily. Recheck pro time today and tomorrow. Patient has been noncompliant with getting his pro times checked. I talked with the patient and his daughter today. The daughter says that he often does not go to get it checked. I think this is a huge problem for him. This was discussed. Exam (Progress Note) - Constitutional Vitals: Period Temp Pulse Resp BP Sys/Pérez Pulse Ox Last 24 Hr 97 F-99.5 F 62-88 12 113-185/62-96 95-100 Exam: Patient's alert oriented vital signs normal. pupils react light. throat clear. neck supple no bruits. chest reveals slightly decreased breath sounds in the right upper lobe posteriorly otherwise clear. Heart normal rate and rhythm no murmurs, does have normal clicks of mechanical aortic valve. Abdomen soft nontender no masses. Extremities no clubbing cyanosis edema. Results - Labs CBC & BMP: 04/07/17 05:15 04/07/17 05:15 Lab Results: I have reviewed the past 24 hour labs - Diagnostic Findings Procedure: Chest x-ray: image reviewed by me (Right upper lobe is better aerated. Still slight infiltrate there. Likely from the residual obstructing thrombus in posterior segment.) Assessment and Plan (1) Atelectasis right upper lobe Status: Acute Assessment and plan: This is likely due to a thrombus from hemoptysis. Earlier he had bled from a tiny lesion in his right upper lobe when he was hyper anticoagulated. We will bronchoscope him and remove whatever is obstructing his right upper lobe. Suspect it will need to be a clot or mucous plug. Will not have to hold his anticoagulants for this. 04/07/2017 we were able to remove a good bit of thrombus from the right upper lobe bronchus. He had residual problems in the posterior segment which was difficult to extract. He is coughing up some clots this morning. Hopefully he can cough the rest of this out if he has no further bleeding. The bleeding was due to hyper prolongation of his pro time. Needs to be tightly watched. He has been noncompliant with getting his pro times at home. Current Visit: Yes (2) NSTEMI (non-ST elevated myocardial infarction) Status: Resolved Assessment and plan: Status post cath and now on Brilinta. Had stent in ISBELL graft Current Visit: Yes (3) Hx of CABG Status: Chronic Assessment and plan: Patient has had previous coronary bypass surgery. Came in with non-ST elevation [place]. Was cathed by Dr. Felder the findings of narrowing of the ISBELL graft. That was stented. Patient is on Brilinta. He remains on Coumadin for his aortic valve replacement. Current Visit: Yes (4) Anterior epistaxis Status: Resolved Assessment and plan: He was found to have some bleeding from the anterior portion of both nares. We will be careful of that spot when we do the bronchoscope 04/07/2017 no further nosebleeds. No problems with nosebleeds at the time of the bronchoscopy yesterday. Current Visit: Yes (5) Coagulopathy Status: Acute Assessment and plan: He is fully anticoagulated on Coumadin. His INR was 7.7 on admission. We need to be sure he gets proper follow-up of his protimes when he is discharged this time. 04/07/2017 recheck pro time today. Resume Coumadin at lower dose. I have chosen 2 mg daily. Cardiology may wish to adjust that. Goal would be INR of 2.5-3.5 for mechanical aortic valve. Current Visit: Yes (6) Congestive heart failure Problem details: ef 25% Status: Resolved Assessment and plan: Ejection fraction 25%. Does not appear to be in roya failure at present 04/07/2017 chronic systolic congestive heart failure controlled at present. Current Visit: No (7) Hemoptysis Status: Acute Assessment and plan: His hemoptysis has stopped. 04/07/2017 he has coughed up some clotted material. Hopefully this is coming from the posterior segment right upper lobe and will get it open. Current Visit: No (8) Status post aortic valve replacement Status: Chronic Assessment and plan: Requires lifelong anticoagulants with Coumadin. [place] INR would be 2.5-3.5 Current Visit: No Specialty Discharge - Follow Up or Referrals Follow up with: Frankie Felder MD [Physician] - (In about 2-4 weeks after discharge--with a CBC, PT/INR, and a CMP)
[2017-04-07 08:30] LABS: INR 2.5
[2017-04-07 08:35] LABS: PT Patient Result 28.3 SECS
[2017-04-07] MEDS: OMEGA 3 ACID ETHYL ESTERS 1 GM CAPSULE PO SCH (08:50)
[2017-04-07] MEDS: CARVEDILOL 25 MG TABLET PO SCH (08:51)
[2017-04-07] MEDS: CALCIUM (CARBONATE)/VITAMIN D 600 MG-400 UNIT TABLET PO SCH (08:51)
[2017-04-07] MEDS: TICAGRELOR 90 MG TABLET PO SCH (08:51)
[2017-04-07] MEDS: INSULIN REGULAR 100 UNIT/ML SUBCUT SCH ×3 (08:52→17:38)
[2017-04-07] MEDS: INSULIN GLARGINE 100 UNIT/ML SUBCUT SCH (08:52)
[2017-04-07] MEDS: POLYETHYLENE GLYCOL POWDER 17 GM PACK PO SCH (08:52)
[2017-04-07] MEDS ORDERED: SODIUM CHLORIDE 0.9% 250 ML IV PRN (09:00)
--- NOTE | 2017-04-07 09:00 | Nephrology Progress Note ---
Nephrology - PN: Subj Interval history: Mr. Jiménez is seen in follow-up of his acute on chronic renal failure. His creatinine is much improved down to 3 2 from yesterday's 3.8. Potassium stable at 4.7. Chest x-ray post bronchoscopy look much improved following removal of thrombus from the right upper lobe. He is mildly dyspneic with exertion and has a hematocrit of 23. I think he will do better if we can improve that hematocrit and will give 2 units packed red cells today. His chest is clear he has no significant edema. He is anxious to go home and hopefully he will be able to soon. From a renal standpoint I think is fine if he is discharged. Exam (PN)-Nephrology - Vital Signs Vital signs: Period Temp Pulse Resp BP Sys/Pérez Pulse Ox Last 24 Hr 97 F-99.5 F 62-88 12-27 113-164/62-96 95-100 - Lab 04/07/17 05:15 04/07/17 05:15 Most recent lab results Calcium 7.3 MG/DL (8.5-10.1) L 04/07/17 05:15 Magnesium 2.6 MG/DL (1.8-2.4) H 04/07/17 05:15 Assessment and Plan (1) Acute renal failure Status: Chronic Current Visit: Yes (2) Chronic renal failure Status: Chronic Current Visit: No Qualifiers: Chronic kidney disease stage: stage 3 (moderate) Qualified Code(s): N18.3 - Chronic kidney disease, stage 3 (moderate) (3) Diabetes Status: Chronic Current Visit: No Qualifiers: Diabetes mellitus type: type 2 Diabetes mellitus complication detail: with chronic kidney disease 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 transplanted heart: [place] heart Associated angina: without angina Specialty Discharge - Follow Up or Referrals Follow up with: Frankie Felder MD [Physician] - (In about 2-4 weeks after discharge--with a CBC, PT/INR, and a CMP)
[2017-04-07] MEDS: PANTOPRAZOLE 40 MG VIAL IV SCH (09:32)
--- NOTE | 2017-04-07 10:07 | XRay Report ---
XR chest 1V portable Indication: Post bronchoscopy Comparison: 05 April 2017 Findings: The heart and mediastinum are stable in size and configuration. The pulmonary vascularity is normal in caliber. There is improved aeration of the right upper lung density and decreased volume loss. No other lung infiltrates, effusions, pneumothorax or other abnormality is demonstrated. Impression: Improving right upper lobe atelectasis. No other significant changes. PROCEDURE INTERPRETED AT [facility] DEPARTMENT OF RADIOLOGY Final Report Signed by: Dr. Sagar Graham
--- NOTE | 2017-04-07 10:57 | Discharge Summary ---
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 SUMMARY: Mr. Jiménez, 61ChM, with risk factors significant for: Known CAD ( April 2016 CABG: ISBELL - LAD, SVG - OM, SVG - RCA), hypertension, dyslipidemia , diabetes, sedentary lifestyle and noncompliance. History of aortic valve replacement (mechanical valve), chronic anticoagulation (Coumadin), chronic kidney disease. Patient was admitted March 31, 2017 with complaints of chest pain. Initially, there was thought this may be STEMI and patient was taken emergently to the cardiac catheterization lab where Dr. Felder performed PCI with PHYLLIS to the insertion site of the ISBELL to LAD. This was not a STEMI rather a NSTEMI. Patient tolerated the procedure well and was returned to the CCU. Patient was found to be significantly anemic with a hemoglobin of 6.9, INR 7.7. Required fresh frozen plasma to correct the INR to 2.8. Required transfusions packed red blood cells. Underwent EGD which revealed no obvious bleed, unrevealing upper GI workup. Patient has chronic kidney disease and overnight, creatinine has improved from 3.3 - 2.9. 2016: This morning, patient tells me he is feeling well without chest pain, heaviness or tightness. Right groin is soft, free of hematoma or bruit. Patient is tolerating low-dose beta-smith, atorvastatin. Avoiding TEODORO inhibitors for fear of worsening renal insufficiency. Patient's aspirin has been held but Brilinta continues. Echocardiogram reveals: EF 55%, aortic valve area 1.5 cm, PAP 62 mmHg. At this point, blood pressures been somewhat elevated and I will increase his beta-smith giving him a "now" dose for better blood pressure control. Continue to follow his labs closely. Will further discuss with Dr. Felder and await additional recommendations. 2016: Patient has been ambulating in room. Hopefully, he will be eligible for discharge home soon. He would like to be evaluated for swing bed facility however I do not think he is can qualify. No additional epistaxis during the night. I will ask case management to assist with evaluation. INR pending today. Blood pressure is better after increasing beta-blockade yesterday. Still suboptimally controlled and I will increase his Coreg this afternoon as well. Avoiding TEODORO inhibitors for fear of worsening his renal insufficiency. Also, not utilizing Aspirin due to his recent severe anemia requiring transfusion and supratherapeutic INR. Coumadin continues to be held at this time. 2016: Patient underwent bronchoscopy with removal of thrombi of the right upper lobe bronchus this morning. (See FOB report). X-ray left arm reveal no fracture. He is doing well at this time. No chest pain, heaviness or tightness. He has been walking without difficulty, no dyspnea. INR 3.8. Will re-start Coumadin soon. Vital signs are stable. Continue Coreg, Brilinta , atorvastatin. Further discuss with Dr. Phillips and await additional recommendations. 2016: This morning, patient is doing well. Denies chest pain, heaviness or tightness. He has been coughing up and producing blood-tinged sputum. He is anxious for release home. From a cardiology standpoint he seems to be doing well. Greater than 30 minutes was spent today discussing the importance of compliance with medications and follow with his PT/INR. His daughters at the bedside she is instrumental in his care and tells me that she will be more vigilant with having this checked and adjusted accordingly. INR 2.5 today. I have asked that they have a PT/INR obtained on Tuesday at [facility]. He will also need a chest x-ray in 2 weeks with follow-up with pulmonology. He will be given a 2-4 week follow-up with Dr. Estrada, ENT. We will arrange for this at discharge today. Cardiology discharge medications include the following: Atorvastatin 40 mg orally each evening Brilinta 90 mg orally twice daily Coreg 25 mg orally twice daily [place]-3 2 g orally twice daily Pantoprazole 40 mg orally twice daily Warfarin 2 mg orally each evening. PT/INR Tuesday, April 11, 2017 at [facility] Patient will not require aspirin at discharge He will resume his other noncardiac preadmission medications Unable to use TEODORO inhibitor for fear of worsening renal insufficiency - Time spent with patient Time with patient DS: Greater than 30 minutes Diagnosis - Discharge Diagnosis (1) NSTEMI (non-ST elevated myocardial infarction) Status: Resolved (2) Hx of CABG Status: Chronic (3) Anemia Status: Acute (4) Chronic renal failure Status: Chronic (5) Diabetes Status: Chronic (6) Hypertension Status: Chronic (7) Dyslipidemia Status: Chronic (8) Tobacco abuse Status: Chronic (9) Murmur, cardiac Status: Chronic (10) CAD (coronary artery disease) Status: Chronic (11) Chronic anticoagulation Status: Chronic (12) Status post aortic valve replacement Status: Chronic (13) Anterior epistaxis Status: Resolved (14) Right upper lobe consolidation Status: Resolved Specialty Discharge - Follow Up or Referrals Follow up with: Frankie Felder MD [Physician] - (In about 2-4 weeks after discharge--with a CBC, PT/INR, and a CMP) Jah Quiñones MD [Physician] - (2-4 weeks with chest xray RE: S/P RUL hemmorhage) Arik Estrada DO [Physician] - (2-4 weeks) Werner Spangler MD [Primary Care Provider] - (PT/INR, CBC, BMP, Mg Tuesday, April 11, 2017) Discharge Plan - Discharge Data Disposition: Disch To Home/Self Care Condition at Discharge: Stable Discharge Diet: heart healthy Activity: other (Post cath expectations) Hygiene: other (Post cath expectations) Weight Bearing at Discharge: other Driving: other (Post cath expectations) Contact your physician if you experience:: fever over 101, Difficulty voiding, Redness or swelling, Nausea/Vomiting, Shortness of breath, Bleeding, pain uncontrolled by pain medications - Discharge Medications New Atorvastatin [Lipitor] 40 mg PO BEDTIME #30 tablet Carvedilol [Coreg] 25 mg PO BID #60 tablet [place] 3 Acid Ethyl Esters [Lovaza] 2 gm PO BID #60 capsule Oxymetazoline 0.05% Nasal Spr [Afrin Nasal [place]] 2 spray BOTH NARES BID PRN #1 bottle PRN Reason: Nasal Congestion Pantoprazole Tab [Protonix Tab] 40 mg PO BID #60 tablet Ticagrelor [Brilinta] 90 mg PO BID #60 tablet Warfarin [Coumadin] 2 mg PO DAILY@1800 #30 tablet Sodium Chloride 0.65% Nasal Sp [Rosebud Nasal [place]] 3 spray BOTH NARES QID PRN #1 bottle PRN Reason: Dry Nose Continue Insulin Glargine,Hum.rec.anlog [Lantus SoloStar] 10 unit SUBCUT DAILY #5 applicator Furosemide Tab [Lasix Tab] 20 mg PO MOWEFR Calcium (Carb)/Vit D 600-400 [Caltrate 600 + D] 1 tablet BID Tramadol HCl [Tramadol Tab] 50 mg PO Q12H PRN PRN Reason: Pain Discontinued Aspirin Chew Tab 81 mg PO DAILY tablet cloNIDine TAB [Catapres Tab] 0.1 mg PO BID #60 tablet Carvedilol [Coreg] 6.25 mg PO BID Warfarin [Coumadin] 2.5 mg PO DAILY@1800 #60 tablet Atorvastatin [Lipitor] 20 mg PO BEDTIME - Follow Up or Referral Follow Up: Frankie Felder MD [Physician] - (In about 2-4 weeks after discharge--with a CBC, PT/INR, and a CMP) Jah Quiñones MD [Physician] - (2-4 weeks with chest xray RE: S/P RUL hemmorhage) - Forms/Instructions Instructions: Left Heart Catheterization (DC), Heart Healthy Diet (GEN), Coronary Intravascular Stent Placement (DC) Exam - Constitutional Vitals: Period Temp Pulse Resp BP Sys/Pérez Pulse Ox Last 24 Hr 97 F-99.5 F 64-88 14-20 114-160/62-95 95-99 Exam: General: [Appears well with no apparent distress.] [Pleasant and cooperative. ] [Appears comfortable.] HEENT: [PERRL, normocephalic, atraumatic. Mucous membranes moist. No jaundice noted. Conjunctiva moist and clear, sclerae anicteric] Neck: No obvious JVD/HJR, no thyromegaly or lymphadenopathy noted. No carotid bruit appreciated Cardiac: [Regular rate and rhythm.] [Click of valve is noted. II/ LISANDRA heard best at bilateral upper sternal borders Lungs: [Clear to auscultation without accessory muscle use to assist the respiratory pattern.] Not requiring oxygen. Abdomen: Soft, bowel sounds normoactive. Nontender and nondistended. No abdominal bruit or thrill noted. No masses noted. Musculoskeletal: No fluid collection. Decreased range of motion is noted. Extremities: Right groin soft, free of hematoma or bruit. No clubbing, cyanosis noted. [Trace bilateral lower extremity edema edema noted.] Upper extremity pulses 2+. Lower extremity pulses 2+. Capillary refill less than 3 seconds. Skin: No unusual lesions or rashes. No skin breakdown appreciated. Neuro: Awake, alert and oriented 3. Moves all extremities well without hemiparesis or paralysis. No essential tremor is appreciated. Discharge Results Procedures and tests throughout hospitalization: Pending Orders 04/02/17 14:03 Occult Blood, Stool Routine 04/06/17 AFB Culture/Smears Routine Bronchial Washings C & Gram St Routine Fungal Culture w/ Prep Routine 04/06/17 10:11 Cytology Request Routine 04/07/17 05:15 Red Blood Cells Leuko Red Routine Type and Screen Routine 04/08/17 04:00 XR chest 2V IN AM BMP w/ Mg [Basic Metabolic Panel w/Mg] IN AM Basic Metabolic Panel IN AM CBC [Comp Blood Count Auto Diff] IN AM Prothrombin Time INR IN AM Labs on day of discharge: Labs from last 24 hours 04/07/17 04/07/17 04/07/17 08:01 07:46 05:15 WBC RBC Hgb Hct MCV MCH MCHC RDW Plt Count MPV Neut % (Auto) Lymph % (Auto) [place] % (Auto) Eos % (Auto) Baso % (Auto) Neut # (Auto) Lymph # (Auto) [place] # (Auto) Eos # (Auto) Baso # (Auto) Immature Gran % Nucleated RBC % Immature Gran # Nucleated RBCs # Immature Plt Fraction INR 2.5 PT Patient/Control Mix 28.3 D Sodium Potassium Chloride Carbon Dioxide Anion Gap BUN Creatinine GFR Calculation BUN/Creatinine Ratio Glucose POC Glucose 154 H Calculated Osmolality Calcium Magnesium Blood Type O POSITIVE Antibody Screen Negative Crossmatch See Detail 04/07/17 04/07/17 04/06/17 05:15 05:15 19:58 WBC 7.8 RBC 2.68 L Hgb 8.1 L Hct 23.9 L MCV 89.2 MCH 30 MCHC 33.9 RDW 14.0 Plt Count 226 MPV 10.0 Neut % (Auto) 68.0 Lymph % (Auto) 12.3 L [place] % (Auto) 13.8 H Eos % (Auto) 4.6 Baso % (Auto) 0.4 Neut # (Auto) 5.3 Lymph # (Auto) 1.0 L [place] # (Auto) 1.1 H Eos # (Auto) 0.4 Baso # (Auto) 0.0 Immature Gran % 0.9 Nucleated RBC % 0.0 Immature Gran # 0.07 Nucleated RBCs # 0.00 Immature Plt Fraction 0.0 INR PT Patient/Control Mix Sodium 139 Potassium 4.7 Chloride 107 Carbon Dioxide 26 Anion Gap 10.7 BUN 39 H Creatinine 3.20 H GFR Calculation 24 BUN/Creatinine Ratio 12.00 Glucose 149 H POC Glucose 329 H Calculated Osmolality 288.5 Calcium 7.3 L Magnesium 2.6 H Blood Type Antibody Screen Crossmatch 04/06/17 04/06/17 15:20 11:32 WBC RBC Hgb Hct MCV MCH MCHC RDW Plt Count MPV Neut % (Auto) Lymph % (Auto) [place] % (Auto) Eos % (Auto) Baso % (Auto) Neut # (Auto) Lymph # (Auto) [place] # (Auto) Eos # (Auto) Baso # (Auto) Immature Gran % Nucleated RBC % Immature Gran # Nucleated RBCs # Immature Plt Fraction INR PT Patient/Control Mix Sodium Potassium Chloride Carbon Dioxide Anion Gap BUN Creatinine GFR Calculation BUN/Creatinine Ratio Glucose POC Glucose 276 H 204 H Calculated Osmolality Calcium Magnesium Blood Type Antibody Screen Crossmatch Preliminary micro results at discharge 04/06/17 Unknown Bronchial Washings Culture - Preliminary Bronchial Washings Normal Cheri at 24 hours - Imaging and Cardiology Cardiology Procedure: report reviewed by Procedure: Chest x-ray: report reviewed by me DS: Provider Date of admission: 03/31/17 12:20 Primary care physician: Werner Spangler MD Attending physician on admission: Frankie Felder MD Consults: 03/31/17 12:20 Consult to Cardiac Rehabilitation [CONS] Routine Reason for Cardiac Rehabilitation: Risk Factor Modification Other Consult Comment: Evaluate and recommend 03/31/17 12:32 Consult to Physician [CONS] Routine Comment: To Dr. Coreas, whoever sees the patient, or whoOnCL Consulting Provider: Carmelo Coreas Consulting Provider Notified: No When should Consulting Provider be notified: Now Person Notified: Yael Date Notified: 03/31/17 Time Notified: 14:13 Consult Notification Comment: 61-year-old with coronary disease, STEMI, his baseline creatinine 2 weeks ago was 3.8. He received 199 cc of Visipaque. Please evaluate and treat to help minimize his contrast-induced nephropathy. Thank you. He certainly may need temporary dialysis 03/31/17 14:06 Consult to Physician [CONS] Routine Comment: Consulting Provider: 03/31/17 18:04 Consult to Anesthesiology [CONS] Routine Consulting Provider: Reason for Anesthesiology: Pre-op Clearance 04/02/17 11:44 Consult to Physician [CONS] Routine Comment: Consult regarding coughing of blood Consulting Provider: Arik Estrada When should Consulting Provider be notified: Now 04/05/17 12:44 Consult to Case Mgmt/Social Srvs [CONS] Routine Reason for Case Mgmt/Social Srvs: Discharge Planning Consult Comment: SNF at discharge tomorrow? Consult to Physical Therapy [CONS] Routine Reason for Physical Therapy: Evaluate and Treat Start Therapy: Today Consult Comment: Eval for SNF 04/05/17 20:41 Consult to Physician [CONS] Routine Comment: Consulting Provider: Jah Quiñones When should Consulting Provider be notified: In am Discharging clinician: Emmie Conway NP Expected date of discharge: 04/07/17
--- NOTE | 2017-04-07 11:18 | Pathology Report from [facility] ---
[facility] ACCESSION # : [id number] PATIENT NAME : Bobo Jiménez ORDERING DR : NAVIN SALMERON MD CLINICAL HX: Right Upper Lung Atelectasis due to thrombus POST-OP DX: Same SPECIMEN INFO: Washing,Bronchial,RUL - 15 mls bloody, thick, cloudy with tissue fragments CLASS: II CLASS COMMENTS: Blood, acute inflammation, numerous macrophages, bronchial cells.CELL BLOCK: Same CLASS LEGEND: CLASS 0 Material inadequate for diagnosis because of (see comment) CLASS I Absence of atypical or abnormal cells CLASS II Atypical Cytology but no evidence of malignancy CLASS III Cytology suggestive of but not conclusive for malignancy CLASS IV Cytology strongly suggestive of malignancy CLASS V Cytology conclusive for malignancy COLLECTED DATE: 04/06/2017 [facility] REPORT DATE: 04/07/2017 ELECTRONICALLY SIGNED BY: Estuardo Olivares III, M.D. 04/07/2017 - 8:51:04 MTDDeedee
[2017-04-07] MEDS ORDERED: BENZOCAINE/MENTHOL LOZENGE 18/BOX PO PRN (13:05)
[2017-04-07] MEDS ORDERED: DEXTROMETHORPHAN ER 6 MG/ML 90 ML/BOTTLE PO PRN (13:07)
[2017-04-07 15:37] VITALS: BP 172/86
[2017-04-07] MEDS ORDERED: WARFARIN 1 MG TABLET PO SCH (18:00)
[2017-04-07] MEDS ORDERED: PANTOPRAZOLE 40 MG TABLET PO SCH (21:00)
== END 2017-04-07 17:30 | disposition home or self-care (01) | DRG 246 ==
LOC: N.CL 10:27 → N.CC 12:20 → N.TELEN 04-03 14:07
PROVIDERS: ADMIT Internal Medicine Cardiovascular Disease; ATTEND Internal Medicine Cardiovascular Disease

== ENCOUNTER 2017-04-27 14:30 | Inpatient (IN) ==
[2017-04-27 14:54] LABS: Basophils % 0.3 % (0.0-0.8); Eosinophils # 0.1 10*3/uL (0.0-0.87); Eosinophils % 1.2 % (0.00-10.9); Hematocrit 25.8 VOL% (42.0-52.0); Hemoglobin 9.3 GM/DL (14.0-18.0); Immature Granulocytes % 0.4 %; Immature Granulocytes Absolute 0.03 #; Lymphocytes # 0.8 10*3/uL (1.4-4.0); Lymphocytes % 10.7 % (21.2-54.2); Mean Corpuscular Hemoglobin 31 PG (27-34); Mean Corpuscular Volume 84.9 FL (87-102); Mean Platelet Volume 10.6 FL (9.6-12.0); Monocytes # 0.8 10*3/uL (0.11-0.8); Monocytes % 10.6 % (1.7-12.7); Neutrophils # 5.7 10*3/uL (1.4-7.4); Neutrophils % 76.8 % (38.7-73.9); Platelet Count 259 T/CUMM (130-400); Red Blood Count 3.04 MC/CUMM (3.8-5.5); Red Cell Distribution Width 13.3 % (9.3-17.3); White Blood Count 7.4 T/CUMM (4-12)
--- NOTE | 2017-04-27 15:02 | Emergency Department Note ---
Rashawn Meza Manpreet, am scribing for, and in the presence of, Mendel Ricketts MD 14: 39. Liliam Meza James D, MD, personally performed the services described in this documentation, ascribed by Live Morocho in my presence, and it is both accurate and complete 444 . Arrival - Arrival Stated Complaint: chest pain Mode of Arrival: Stretcher Limitations: No Limitations Source: Patient, EMS, RN Notes Reviewed Time Seen by Provider: 04/27/17 14:33 - History of Present Illness HPI Narrative: Pt is a 61 y/o male who is brought in via [facility] to the ED from [facility] with CC of right shoulder pain that onset yesterday. Pt was initially sent in for a STEMI but his EKG's looked similar to a previous EKG. Pt had a stent placed [address] 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 Pt states the pain currently is similar to the pain prior to the stent. Patient received Lovenox subcu at [facility] and Brilinta p.o. by air care prior to transfer. Pt then had a reported bloody stool at [place]. Patient is also on oral Plavix regularly along with Coumadin regularly. Verbal report from [facility] shows an INR of 9.6 with a troponin of less than 0.05 after 28 hours of constant right shoulder pain. Pt was given NTG and morphine en route to the ED. Pt had a CABG in 2016. Pt denies any fever, chills, Abd pain , or N/V/D. Pt states he is a former smoker and EtOH drinker but stopped after having his CABG. Pt states he is complaint with his medications. No other pains/ complaints reported to the ED. Onset (ago): hour(s) (yesterday) Consistency: constant Severity: moderate Quality: aching Allergies/Adverse Reactions: Allergies Allergy/AdvReac Type Severity Reaction Status Date / Time No Known Allergies Allergy Verified 04/27/17 14:43 Home Medications: Home Medications Medication Instructions Recorded Confirmed Type Calcium (Carb)/Vit D 600-400 1 tablet BID 03/01/17 03/31/17 History [Caltrate 600 + D] Furosemide Tab [Lasix Tab] 20 mg PO QAM 03/31/17 03/31/17 History Tramadol HCl [Tramadol Tab] 50 mg PO Q12H PRN 03/31/17 03/31/17 History Atorvastatin [Lipitor] 40 mg PO BEDTIME #30 tablet 04/07/17 Rx Carvedilol [Coreg] 25 mg PO BID #60 tablet 04/07/17 Rx [place] 3 Acid Ethyl Esters [Lovaza] 2 gm PO BID #60 capsule 04/07/17 Rx Pantoprazole Tab [Protonix Tab] 40 mg PO BID #60 tablet 04/07/17 Rx Ticagrelor [Brilinta] 90 mg PO BID #60 tablet 04/07/17 Rx Warfarin [Coumadin] 2 mg PO DAILY@1800 #30 tablet 04/07/17 Rx Insulin Detemir [Levemir FlexPen] 04/27/17 04/27/17 History Review of System - Review of System 12 point system: reviewed and no additional remarkable complaints except as stated - Review of System Constitutional: Absent: chills, diaphoresis, fever Head/Ears/Nose/Throat: Absent: earache Respiratory: Absent: cough, respiratory distress, wheezing Cardiovascular: Absent: chest pain Gastrointestinal: Absent: abdominal pain, nausea, vomiting, diarrhea Genitourinary male: Absent: dysuria Musculoskeletal: Present: arm pain (Right shoulder pain). Absent: back pain, leg pain, neck pain Skin: Absent: rash, lesions Neurological: Absent: headache, weakness, numbness, paresthesias Exam Vital Signs: Vital Signs Temperature 97.8 F 04/27/17 14:30 Pulse Rate 62 04/27/17 15:30 Respiratory Rate 18 04/27/17 15:30 Blood Pressure 136/87 04/27/17 15:30 O2 Sat by Pulse Oximetry 100 04/27/17 15:30 GENERAL: This is a well-nourished well-developed male in no apparent distress. VITAL SIGNS: Reviewed HEENT: Head is atraumatic and normocephalic. Pupils are equal round react to light. Extraocular movements are intact. Oropharynx is benign with moist mucous membranes. NECK: Neck is soft and supple without tenderness. There are no masses. There is no lymphadenopathy. LUNGS: Lungs are clear to auscultation. Chest rises symmetrically. There is no chest wall tenderness. CV: Heart is regular rate and rhythm without murmurs rubs or gallops. ABDOMEN: Abdomen is soft, nontender to palpation. There are no abdominal abnormal masses palpated. There is no organomegaly. Bowel sounds are present and active. SKIN: Skin is warm and dry. No rash. EXTREMITIES: Patient has full range of motion without tenderness. There is no pedal edema. NEUROLOGIC: Awake alert and oriented 4. Cranial nerves II through XII are grossly intact. Motor is 5 over 5 in all extremities bilaterally. Course - Consultations Consultation #1: Discussed with Dr. Monge. Time: 14:58 Consultation #2: Discussed with hospitalist. Patient be admitted to their service. Time: 16:05 Results - Labs CBC & BMP: 04/27/17 14:47 Lab Results: I have reviewed the patients labs Labs: Lab performed [facility] and reviewed by me: Chemistry: Sodium 135, potassium 3.7, chloride 101, CO2 25, BUN 40, creatinine 3.6, glucose 342 CBC: WBC 7800, hemoglobin 9.5, hematocrit 28.5 platelet count 257,000 INR 9.6 Troponin less than 0.05 Laboratory Tests 04/27/17 14:47 Troponin I 0.027 Laboratory Tests 04/27/17 14:47 INR 12.6 H* PT Patient/Control Mix 134.0 D Circ Anticoag PTT > 320.0 H* D - EKG EKG results: interpreted by ERMD - Impressions EKG: Sinus rhythm with a rate of 62, T-wave inversion laterally and inferiorly consistent with ischemia with minimal change from old EKG performed at [facility] on 28 February 2017. - Diagnostic Findings Procedure: Chest x-ray: image reviewed by me (Old median sternotomy, no infiltrates, no pleural effusions.) Disposition Clinical Impression: Right shoulder pain, Coronary artery disease, Abnormal EKG, Diabetes mellitus, Essential hypertension, Chronic anticoagulation, GI bleed Case discussed with: patient Disposition: Still a Patient Time of Disposition: 14:58
[2017-04-27] MEDS ORDERED: SODIUM CHLORIDE 0.9% 250 ML IV PRN (15:04)
[2017-04-27] MEDS ORDERED: ONDANSETRON 4 MG/2 ML VIAL IV STA (15:08)
[2017-04-27] MEDS ORDERED: MORPHINE 2 MG/1 ML SYRINGE IV STA (15:08)
[2017-04-27 15:41] LABS: INR 12.6
[2017-04-27 15:42] LABS: Partial Thromboplastin Time > 320.0 SECS (0-40)
--- NOTE | 2017-04-27 16:16 | XRay Report ---
XR shoulder 2V RT Indication: Right shoulder pain Comparison: None Technique: Frontal views of the right shoulder were obtained in internal and external rotation . Findings: No acute fracture or dislocation demonstrated. Moderate to severe degenerative change of the acromioclavicular joint. Low lung volume with mild right infrahilar atelectasis/consolidation. Prior sternotomy. IMPRESSION: As above. PROCEDURE INTERPRETED AT [facility] DEPARTMENT OF RADIOLOGY Final Report Signed by: Dr Jenaro Scott
--- NOTE | 2017-04-27 16:28 | Cardiology Consult Note ---
Assessment and Plan - Time spent with patient Time spent with patient: Greater than 30 minutes (1) Coagulopathy Status: Acute Assessment and plan: SEE PLAN OF CARE LISTED BELOW Current Visit: No (2) Right shoulder pain Status: Acute Assessment and plan: SEE PLAN OF CARE LISTED BELOW Current Visit: Yes Qualifiers: Chronicity: acute Qualified Code(s): M25.511 - Pain in right shoulder (3) Abnormal EKG Status: Chronic Assessment and plan: SEE PLAN OF CARE LISTED BELOW Current Visit: Yes (4) GI bleed Status: Acute Assessment and plan: SEE PLAN OF CARE LISTED BELOW Current Visit: Yes (5) Chronic renal failure Status: Chronic Assessment and plan: SEE PLAN OF CARE LISTED BELOW Current Visit: No Qualifiers: Chronic kidney disease stage: stage 4 (severe) Qualified Code(s): N18.4 - Chronic kidney disease, stage 4 (severe) (6) Diabetes Status: Chronic Assessment and plan: SEE PLAN OF CARE LISTED BELOW Current Visit: No Qualifiers: Diabetes mellitus type: type 2 Diabetes mellitus complication detail: with chronic kidney disease Diabetes mellitus assisted insulin use: without assisted use Chronic kidney disease stage: stage 3 (moderate) (7) Hypertension Status: Chronic Assessment and plan: SEE PLAN OF CARE LISTED BELOW Current Visit: No Qualifiers: Hypertension type: essential hypertension Qualified Code(s): I10 - Essential (primary) hypertension (8) Dyslipidemia Status: Chronic Assessment and plan: SEE PLAN OF CARE LISTED BELOW Current Visit: No (9) CAD (coronary artery disease) Status: Chronic Assessment and plan: SEE PLAN OF CARE LISTED BELOW Current Visit: No Qualifiers: [place] vs. transplanted heart: [place] heart Associated angina: without angina (10) Chronic anticoagulation Status: Chronic Assessment and plan: SEE PLAN OF CARE LISTED BELOW Current Visit: No (11) Status post aortic valve replacement Status: Chronic Assessment and plan: SEE PLAN OF CARE LISTED BELOW Current Visit: No History of Present Illness - Data of Consult Patient: known to practice within the last 3 years Consult date: 04/27/17 Requesting Physician: Mendel Ricketts Primary care physician: [facility] - Consult Narrative Reason for consult: right shoulder pain, recent PCI History of present illness: EEG TECHNICIAN: DR. FELDER PCP: [facility] Patient is being seen in the emergency department Mr. Jiménez, 61ChM, with risk factors significant for: Known CAD (April 2016 CABG: ISBELL - LAD, SVG - OM, SVG - RCA), hypertension, dyslipidemia, diabetes, sedentary lifestyle and noncompliance. History of aortic valve replacement ( mechanical valve), chronic anticoagulation (Coumadin), chronic kidney disease. Patient was admitted March 31, 2017 with complaints of chest pain. Initially , there was thought this may be STEMI and patient was taken emergently to the cardiac catheterization lab where Dr. Felder performed PCI with PHYLLIS to the insertion site of the ISBELL to LAD. This was not a STEMI rather a NSTEMI. Patient was found to be significantly anemic with a hemoglobin of 6.9, INR 7.7. He required fresh frozen plasma to correct the INR to 2.8. Required transfusions packed red blood cells. April 01, 2017 underwent EGD, performed by Dr. Tavera, which revealed no obvious bleed, unrevealing upper GI workup. Because his GI issues improved, Dr. Tavera felt as if eventual future colonoscopy would be beneficial. Patient also had anterior epistaxis, significant. His chest x-ray was abnormal with a history of prior lung mass. He underwent FOB to remove the vast majority of thrombi in the right upper lobe thought to be related to significant epistaxis. By Dr. Quiñones patient was discharged home with INR 2.5. He was scheduled for and was evaluated at [facility] within 1 week for PT/INR. His daughter tells me it was in therapeutic range and had it rechecked last week. He was not discharged home on Aspirin given the need for Brilinta and Warfarin. (Of note, patient's Brilinta was changed to Plavix outpatient). Patient arrived to the ED from [facility] via air car with complaints of right shoulder pain 24 hours. Initially, EKG was thought to be STEMI. However, after reevaluation at [facility] EKG was noted to be similar to previous EKG. INR 12.6. It is my understanding he did receive 100 mg Lovenox, (possibly Plavix or Brilinta) and 81 mg Aspirin X 4 prior to arrival. As patient was leaving the ED of [facility] he had a bowel movement mixed with bright red blood I am told. Patient denies hematochezia at home. Hemoglobin and hematocrit 9.3 and 25.8 respectively. Patient has chronic kidney disease, stage IV (creatinine 3.2 today). At this point, will order an x-ray of his right shoulder for reproducible pain with movement. He has already been ordered FFP. Will follow INR in the morning. Will further discuss with Dr. Phillips and await additional recommendations. IMPRESSION/PLAN: 1. RIGHT SHOULDER PAIN - x-ray has been ordered. 2. SUPRATHERAPEUTIC INR -patient tells me he is taking his Coumadin as prescribed. He denies recent use of steroids, antibiotics, eating greens. He tells me he has had no deviation from his medical regimen as prescribed. Patient has been given FFP at this point. 3. GI BLEED - patient will need GI evaluation and has previously seen Dr. Tavera. Will defer to attending for further management 4. ANEMIA - continue to follow hemoglobin and hematocrit closely. Avoid Aspirin. Unfortunately, cannot stop Plavix due to recent PHYLLIS. 5. CAD - S/P PCI of insertion site of ISBELL to LAD March 31, 2017. Continue Plavix. History of CABG 6. HYPERTENSION - usually well controlled. Will adjust medications accordingly during hospital stay 7. DYSLIPIDEMIA - no need for repeat FLP. Patient had fasting lipid profile during last admission and is currently on lipid-lowering agent 8. CKD, STAGE IV - creatinine is actually better than when he was discharged. Avoiding TEODORO inhibitors for fear of worsening his renal insufficiency 9. DIABETES -adjust medications accordingly during the hospital stay 10. AVR (MECHANICAL VALVE) - must continue Coumadin when INR stable. 11. HISTORY OF LUNG MASS - this is been followed by Dr. Quiñones. He did undergo fiberoptic bronchoscopy in the last 2 months with biopsy with benign results noted. During the last hospital stay, he underwent repeat bronchoscopy to clean out emboli in the right upper lobe from severe epistaxis. CC: - Home Medications and Allergies Home Medications: Home Medications Medication Instructions Recorded Confirmed Type Calcium (Carb)/Vit D 600-400 1 tablet BID 03/01/17 03/31/17 History [Caltrate 600 + D] Furosemide Tab [Lasix Tab] 20 mg PO QAM 03/31/17 03/31/17 History Tramadol HCl [Tramadol Tab] 50 mg PO Q12H PRN 03/31/17 03/31/17 History Atorvastatin [Lipitor] 40 mg PO BEDTIME #30 tablet 04/07/17 Rx Carvedilol [Coreg] 25 mg PO BID #60 tablet 09/14/17 Rx [place] 3 Acid Ethyl Esters [Lovaza] 2 gm PO BID #60 capsule 04/07/17 Rx Pantoprazole Tab [Protonix Tab] 40 mg PO BID #60 tablet 04/07/17 Rx Ticagrelor [Brilinta] 90 mg PO BID #60 tablet 04/07/17 Rx Warfarin [Coumadin] 2 mg PO DAILY@1800 #30 tablet 04/07/17 Rx Insulin Detemir [Levemir FlexPen] 04/27/17 04/27/17 History Allergies/Adverse Reactions: Allergies Allergy/AdvReac Type Severity Reaction Status Date / Time No Known Allergies Allergy Verified 04/27/17 14:43 Review of systems: REVIEW OF SYSTEMS: - Constitutional Constitutional: Denies: Fatigue. Absent: syncope, anorexia, night sweats - EENT Eyes: Absent: blurry vision, loss of vision, diplopia Ears: Absent: decreased hearing, ear pain, ear discharge - Cardiovascular Cardiovascular: Denies: chest pain with exertion, dyspnea on exertion, edema, palpitations. Absent: chest pain with deep breath, claudication - Respiratory Respiratory: Denies DIAZ, cough. Absent: wheezing, hemoptysis, change in phlegm color - Gastrointestinal Gastrointestinal: Denies constipation. Absent: abdominal pain, hematemesis, hematochezia, melena, change in bowel habits, nausea. The patient denies these complaints, bright red bleeding in his stool was noted prior to leaving the [facility] ED. - Genitourinary Genitourinary: Absent: difficulty urinating, dysuria, urinary hesitancy, flank pain - Musculoskeletal Musculoskeletal: Present: Right shoulder pain with movement. Described as aching. Back pain Absent: joint swelling, muscle cramps, muscle weakness - Neurological Neurological: Present: normal gait without frequent falls. Absent: dizziness, hemiparesis - Psychiatric Psychiatric: Absent: anxiety, depression, difficulty concentrating - Endocrine Endocrine: Absent: cold intolerance, heat intolerance, polyuria, polyphagia, polydipsia - Hematologic/Lymphatic Hematologic/Lymphatic: Present: easy bruising. Absent: easy bleeding -Integumentary Integumentary: Absent: lesions, rashes, skin breakdown Medical,Surgical,& Family Hx - Medical History Cardio: History of: CAD, Hypertension, [place] No history of: Cardiac Dysrhythmia, CHF Psychological: No history of: Anxiety Disorders, Depression Neurology: History of: TIA Endocrine: History of: Diabetes Mellitus (IDDM), Diabetes Mellitus (NIDDM) Respiratory: History of: Asthma Comment Only: Respiratory Problems (ulcer in lung) Genitourinary: No history of: Prostate Problems Gastrointestinal: History of: GERD Musculoskeletal: Comment Only: Musculoskeletal Problems (mult knee scopes to bilat knees) Hematology: No history of: Anemia - Surgical History Cardiac Surgeries: Sugical HX of: Cardiac Catheterization (stent), Cardiac Surgery (CABG,AVR) HEENT Surgeries: Surgical HX of: Eye Surgery (Cataract surgery) Abdominal Surgeries: Patient denies: Appendectomy, Cholecystectomy Orthopedic Surgeries: Surgical HX of;: Orthopedic Surgery - Family History Family History: Reports;: Family Diabetes (father), Family Hypertension (father) - Social History Smoking Status: Former smoker Have you smoked in the last 12 months: No Frequency of Alcohol Use: None Type of Drug Use: None Marital Status: Single Lives With:: Children Functional capacity: independent ambulation Physical Examination Vital Signs Temp Pulse Resp BP Pulse Ox 97.8 F 64 18 135/74 100 04/27/17 14:30 04/27/17 14:30 04/27/17 14:30 04/27/17 14:30 04/27/17 14:30 Exam: General: [Appears well with no apparent distress.] [Pleasant and cooperative. ] [Appears comfortable.] HEENT: [PERRL, normocephalic, atraumatic. Mucous membranes moist. No jaundice noted. Conjunctiva moist and clear, sclerae anicteric] Neck: No JVD/HJR, no thyromegaly or lymphadenopathy noted. No carotid bruit appreciated Cardiac: [Regular rate and rhythm.] [Click of aortic valve auscultated. Lungs: [Clear to auscultation without accessory muscle use to assist the respiratory pattern.] Not requiring oxygen Abdomen: Soft, bowel sounds normoactive. Nontender and nondistended. No abdominal bruit or thrill noted. No masses noted. Musculoskeletal: No fluid collection. Decreased range of motion is noted. Extremities: Right shoulder pain with range of motion. No clubbing, cyanosis noted. [ No edema noted.] Upper extremity pulses 2+. Lower extremity pulses 2+ . Capillary refill less than 3 seconds. Skin: No unusual lesions or rashes. No skin breakdown appreciated. Neuro: Awake, alert and oriented 3. Moves all extremities well without hemiparesis or paralysis. No essential tremor is appreciated. Result/EKG - Labs CBC & BMP: 04/27/17 14:47 Lab Results: I have reviewed the past 24 hour labs Labs: Laboratory Results - last 24 hr 04/27/17 04/27/17 04/27/17 14:47 14:47 14:47 WBC 7.4 RBC 3.04 L Hgb 9.3 L Hct 25.8 L MCV 84.9 L MCH 31 MCHC 36.0 RDW 13.3 Plt Count 259 MPV 10.6 Neut % (Auto) 76.8 H Lymph % (Auto) 10.7 L [place] % (Auto) 10.6 Eos % (Auto) 1.2 Baso % (Auto) 0.3 Neut # (Auto) 5.7 Lymph # (Auto) 0.8 L [place] # (Auto) 0.8 Eos # (Auto) 0.1 Baso # (Auto) 0.0 Immature Gran % 0.4 Nucleated RBC % 0.0 Immature Gran # 0.03 Nucleated RBCs # 0.00 Immature Plt Fraction 0.0 INR 12.6 H* PT Patient/Control Mix 134.0 D Circ Anticoag PTT > 320.0 H* D Troponin I 0.027 - EKG EKG results: interpreted by me EKG shows: sinus rhythm
[2017-04-27] MEDS ORDERED: DEXTROSE 50% 25 GM/50 ML VIAL IV PRN (16:50)
[2017-04-27] MEDS ORDERED: GLUCAGON 1 MG VIAL IM PRN (16:50)
--- NOTE | 2017-04-27 17:03 | Hospitalist History & Physical ---
Assessment and Plan - Time spent with patient Time spent with patient: Less than 30 minutes (1) Chronic anticoagulation Status: Acute Assessment and plan: INR was noted at 12.6 at the time of admission. Upon review of the patient's medical records, the patient was taken multiple anticoagulant agents including aspirin, Plavix, Brilinta, and Coumadin. Fresh frozen plasma transfusions have been initiated in the ED. We will continue transfusions and hold all anticoagulation agents; except Plavix. We will continue the Plavix due to the recent stent placement on last month. Current Visit: Yes (2) GI bleed Status: Acute Assessment and plan: Hemoglobin hematocrit stable at 9.3/25.8. We expect this to decline. Type and screen has been performed. We will monitor hemoglobin/ hematocrit and recheck CBC in a.m. Current Visit: Yes (3) Right shoulder pain Status: Acute Assessment and plan: X-ray right shoulder was essentially unremarkable for the presence of any acute fracture however, the patient was noted to have moderate to severe degenerative changes of the acromioclavicular joint. We will provide supportive care. Start Lidoderm patches to affected area. Current Visit: Yes Qualifiers: Chronicity: acute Qualified Code(s): M25.511 - Pain in right shoulder (4) Abnormal EKG Status: Chronic Assessment and plan: Echocardiogram reported sinus rhythm with a rate of 62, T-wave inversion laterally and inferiorly consistent with ischemia. Cardiology consult has been requested. The patient has been seen in the ED. We appreciate the input. Current Visit: Yes History of Present Illness Chief complaint: Chest pain History of present illness: This is a chronically ill 61-year-old male that presented to the ED at [facility] via [facility] from the [facility] in [place], [place] for the evaluation of chest pain. Patient has a medical history significant for remote nicotine abuse, coronary artery bypass graft, chronic kidney disease, insulin-dependent diabetes mellitus, anemia, asthma, congestive heart failure, dyslipidemia, cerebrovascular accident, right lung mass, and non-ST elevated myocardial infarction. Patient surgical history significant for cardiac catheterization with stent placement, coronary artery bypass graft, and aortic valve replacement. The patient reported the onset of symptoms 1 day prior to presentation. He reports that he started to have some intermittent right shoulder pain that progressively worsen and spread affecting the right side of his chest. His symptoms prompted him to present to the [facility] for further evaluation. The patient was evaluated at the [facility] an echocardiogram was performed and thought to show some ST segment elevation. The STEMI protocol was activated there and air transport was requested. Prior to departure, the patient was given Lovenox subcutaneously and experienced a massive bloody stool. The patient was loaded and transported to [facility] for further evaluation. In route, the patient was given Brilinta, nitroglycerin, and morphine by the air transport staff. The patient was assessed at the time of ED presentation. At the time of presentation, the patient continued to verbalize right shoulder pain and reported that he had been experiencing right shoulder pain for the last 28 hours. 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 Labs were obtained which were significant for hemoglobin 9.3, hematocrit 25.8, INR 12.6, and troponin 0.027. X-ray of the right shoulder significant for moderate to severe degenerative change of the acromioclavicular joint in addition low lung volume with mild right infrahilar atelectasis/consolidation. After brief discussion with both Dr. Ricketts and Dr. Paredes; the patient will be admitted to the hospitalist service for continuation of care. Due to the severity of the patient's presenting symptoms and cardiovascular disease, a cardiology and gastroenterology consultation has been requested. Home medications have been reviewed and reconciled. CODE STATUS discussed; patient is FULL CODE. The patient will be placed in the critical care setting. Home Medications Medication Instructions Recorded Confirmed Type Calcium (Carb)/Vit D 600-400 1 tablet BID 03/01/17 03/31/17 History [Caltrate 600 + D] Furosemide Tab [Lasix Tab] 20 mg PO QAM 03/31/17 03/31/17 History Atorvastatin [Lipitor] 40 mg PO BEDTIME #30 tablet 04/07/17 Rx Carvedilol [Coreg] 25 mg PO BID #60 tablet 04/07/17 Rx [place] 3 Acid Ethyl Esters [Lovaza] 2 gm PO BID #60 capsule 04/07/17 Rx Pantoprazole Tab [Protonix Tab] 40 mg PO BID #60 tablet 04/07/17 Rx Ticagrelor [Brilinta] 90 mg PO BID #60 tablet 04/07/17 Rx Warfarin [Coumadin] 2 mg PO DAILY@1800 #30 tablet 04/07/17 Rx Clopidogrel Bisulfate [Clopidogrel] 75 mg PO DAILY 04/27/17 History Ferrous Sulfate Tab [Feosol 325 mg PO DAILY 04/27/17 History Original Tab] Insulin Detemir [Levemir FlexPen] 10 units SUBCUT PC BREAKFAST 04/27/17 History Allergies Allergy/AdvReac Type Severity Reaction Status Date / Time No Known Allergies Allergy Verified 04/27/17 14:43 Medical,Surgical,& Family Hx - Medical History Cardio: History of: CAD, Hypertension, [place] No history of: Cardiac Dysrhythmia, CHF Psychological: No history of: Anxiety Disorders, Depression Neurology: History of: TIA Endocrine: History of: Diabetes Mellitus (IDDM), Diabetes Mellitus (NIDDM) Respiratory: History of: Asthma Comment Only: Respiratory Problems (ulcer in lung) Genitourinary: No history of: Prostate Problems Gastrointestinal: History of: GERD Musculoskeletal: Comment Only: Musculoskeletal Problems (mult knee scopes to bilat knees) Hematology: No history of: Anemia - Surgical History Cardiac Surgeries: Sugical HX of: Cardiac Catheterization (stent), Cardiac Surgery (CABG,AVR) HEENT Surgeries: Surgical HX of: Eye Surgery (Cataract surgery) Abdominal Surgeries: Patient denies: Appendectomy, Cholecystectomy Orthopedic Surgeries: Surgical HX of;: Orthopedic Surgery - Family History Family History: Reports;: Family Diabetes (father), Family Hypertension (father) - Social History Smoking Status: Former smoker Have you smoked in the last 12 months: No Frequency of Alcohol Use: None Type of Drug Use: None Marital Status: Lives With:: Spouse Functional capacity: independent ambulation 12 point system: reviewed and no additional remarkable complaints except as stated Exam - Constitutional Vitals: Period Temp Pulse Resp BP Sys/Pérez Pulse Ox Last 24 Hr 97.8 F-99.3 F 60-76 15-19 103-136/65-87 100-100 General appearance: normal weight, no acute distress - Head Head exam: Present: normal inspection, normocephalic, atraumatic - Eye Eye exam: Present: EOMI. Absent: conjunctival injection Pupils: Present: MALORIE, normal accommodation - ENT ENT exam: Present: normal exam, normal external ear exam, normal oropharynx - Neck Neck exam: Present: normal inspection. Absent: lymphadenopathy, meningismus, tenderness, thyromegaly - Respiratory Respiratory exam: Present: clear to auscultation bilaterally. Absent: rales, rhonchi, stridor, wheezes - Cardiovascular Cardiovascular exam: Present: regular rate and rhythm. Absent: carotid bruit, diastolic murmur, gallop, JVD, rubs, systolic murmur - GI/Abdominal GI/Abdominal exam: Present: normal bowel sounds, soft - Extremities Exam Extremities exam: Present: normal inspection, normal capillary refill, full ROM. Absent: edema - Back Exam Back exam: Present: normal inspection - Neurological Exam Neurological exam: Present: alert, oriented X3, CN II-XII intact - Psychiatric Psychiatric exam: Present: normal affect, normal mood - Skin Skin exam: Present: normal color, warm, dry Results - Labs CBC & BMP: 04/27/17 14:47 Lab Results: I have reviewed the past 24 hour labs
[2017-04-27] MEDS: MORPHINE 2 MG/1 ML SYRINGE IV PRN (19:38)
[2017-04-27] MEDS: CALCIUM (CARBONATE)/VITAMIN D 600 MG-400 UNIT TABLET PO SCH (22:03)
[2017-04-27] MEDS: ATORVASTATIN 40 MG TABLET PO SCH (22:04)
[2017-04-27] MEDS: PANTOPRAZOLE 40 MG TABLET PO SCH (22:04)
[2017-04-27] MEDS: CARVEDILOL 25 MG TABLET PO SCH (22:04)
[2017-04-27] MEDS: OMEGA 3 ACID ETHYL ESTERS 1 GM CAPSULE PO SCH (22:05)
[2017-04-27] MEDS ORDERED: hydrALAZINE 20 MG/1 ML VIAL IV PRN (22:16)
[2017-04-27] MEDS: INSULIN REGULAR 100 UNIT/ML SUBCUT SCH (22:39)
[2017-04-28] MEDS: MORPHINE 2 MG/1 ML SYRINGE IV PRN (04:55)
[2017-04-28 05:22] LABS: Calcium 7.6 MG/DL (8.5-10.1); Osmolality,Calculated 293.8 MOS/KG (273-304); Potassium 3.6 MMOL/L (3.5-5.1)
[2017-04-28 05:29] LABS: PT Patient Result 60.9 SECS
[2017-04-28 05:31] LABS: INR 5.8
[2017-04-28 05:32] LABS: Basophils % 0.3 % (0.0-0.8); Eosinophils # 0.1 10*3/uL (0.0-0.87); Eosinophils % 1.5 % (0.00-10.9); Hematocrit 23.5 VOL% (42.0-52.0); Hemoglobin 8.3 GM/DL (14.0-18.0); Immature Granulocytes % 0.4 %; Immature Granulocytes Absolute 0.03 #; Lymphocytes # 0.8 10*3/uL (1.4-4.0); Lymphocytes % 9.9 % (21.2-54.2); Mean Corpuscular HGB Conc 35.3 GM/DL (32-36); Mean Corpuscular Hemoglobin 30 PG (27-34); Mean Corpuscular Volume 84.2 FL (87-102); Mean Platelet Volume 10.6 FL (9.6-12.0); Monocytes # 0.9 10*3/uL (0.11-0.8); Monocytes % 11.1 % (1.7-12.7); Neutrophils % 76.8 % (38.7-73.9); Platelet Count 238 T/CUMM (130-400); Red Blood Count 2.79 MC/CUMM (3.8-5.5); Red Cell Distribution Width 13.5 % (9.3-17.3); White Blood Count 7.8 T/CUMM (4-12)
--- NOTE | 2017-04-28 05:59 | Order Completion Report ---
See report scanned to EMR
[2017-04-28] MEDS: INSULIN REGULAR 100 UNIT/ML SUBCUT SCH ×4 (08:39→20:46)
[2017-04-28] MEDS: CARVEDILOL 25 MG TABLET PO SCH ×2 (08:40→20:48)
[2017-04-28] MEDS: CALCIUM (CARBONATE)/VITAMIN D 600 MG-400 UNIT TABLET PO SCH ×2 (08:40→20:47)
[2017-04-28] MEDS: FUROSEMIDE 20 MG TABLET PO SCH (08:40)
[2017-04-28] MEDS: PANTOPRAZOLE 40 MG TABLET PO SCH ×2 (08:41→20:48)
[2017-04-28] MEDS: OMEGA 3 ACID ETHYL ESTERS 1 GM CAPSULE PO SCH ×2 (08:41→20:46)
--- NOTE | 2017-04-28 08:43 | Cardiology Progress Note ---
Assessment and Plan - Time spent with patient Time spent with patient: Greater than 30 minutes (1) Coagulopathy Status: Acute Assessment and plan: SEE PLAN OF CARE LISTED BELOW Current Visit: No (2) Right shoulder pain Status: Acute Assessment and plan: SEE PLAN OF CARE LISTED BELOW Current Visit: Yes Qualifiers: Chronicity: acute Qualified Code(s): M25.511 - Pain in right shoulder (3) Abnormal EKG Status: Chronic Assessment and plan: SEE PLAN OF CARE LISTED BELOW Current Visit: Yes (4) GI bleed Status: Acute Assessment and plan: SEE PLAN OF CARE LISTED BELOW Current Visit: Yes (5) Chronic renal failure Status: Chronic Assessment and plan: SEE PLAN OF CARE LISTED BELOW Current Visit: No Qualifiers: Chronic kidney disease stage: stage 4 (severe) Qualified Code(s): N18.4 - Chronic kidney disease, stage 4 (severe) (6) Diabetes Status: Chronic Assessment and plan: SEE PLAN OF CARE LISTED BELOW Current Visit: No Qualifiers: Diabetes mellitus type: type 2 Diabetes mellitus complication detail: with chronic kidney disease Diabetes mellitus detention insulin use: without detention use Chronic kidney disease stage: stage 3 (moderate) (7) Hypertension Status: Chronic Assessment and plan: SEE PLAN OF CARE LISTED BELOW Current Visit: No Qualifiers: Hypertension type: essential hypertension Qualified Code(s): I10 - Essential (primary) hypertension (8) Dyslipidemia Status: Chronic Assessment and plan: SEE PLAN OF CARE LISTED BELOW Current Visit: No (9) CAD (coronary artery disease) Status: Chronic Assessment and plan: SEE PLAN OF CARE LISTED BELOW Current Visit: No Qualifiers: [place] vs. transplanted heart: [place] heart Associated angina: without angina (10) Chronic anticoagulation Status: Chronic Assessment and plan: SEE PLAN OF CARE LISTED BELOW Current Visit: No (11) Status post aortic valve replacement Status: Chronic Assessment and plan: SEE PLAN OF CARE LISTED BELOW Current Visit: No (12) Epistaxis Status: Acute Assessment and plan: SEE PLAN OF CARE LISTED BELOW Current Visit: Yes (13) DJD of right shoulder Status: Acute Assessment and plan: SEE PLAN OF CARE LISTED BELOW Current Visit: Yes Cardiology - PN: Subj Interval history: MATHEMATICS TEACHER: DR. FELDER PCP: [facility] SUMMARY: Mr. Jiménez, 61ChM, with risk factors significant for: Known CAD ( April 2016 CABG: ISBELL - LAD, SVG - OM, SVG - RCA), hypertension, dyslipidemia , diabetes, sedentary lifestyle and noncompliance. History of aortic valve replacement (mechanical valve), chronic anticoagulation (Coumadin), chronic kidney disease. Patient was admitted March 31, 2017 with complaints of chest pain. Initially, there was thought this may be STEMI (in March) and patient was taken emergently to the cardiac catheterization lab where Dr. Felder performed PCI with PHYLLIS to the insertion site of the ISBELL to LAD. This WAS NOT a STEMI rather a NSTEMI. During that admission patient was found to be significantly anemic with a hemoglobin of 6.9, INR 7.7. He required fresh frozen plasma to correct the INR to 2.8. Required transfusions packed red blood cells. April 01, 2017 underwent EGD, performed by Dr. aTvera, which revealed no obvious bleed, unrevealing upper GI workup. Because his GI issues improved, Dr. Tavera felt as if eventual future colonoscopy would be beneficial but could be performed outpatient. During the March hospitalization, also had anterior epistaxis, significant. Dr. Estrada followed and treated accordingly. His chest x-ray was abnormal with a history of prior lung mass. Dr. Quiñones performed FOB to remove the vast majority of thrombi in the right upper lobe thought to be related to significant epistaxis. Patient was eventually discharged home. INR at discharge was 2.5. He was scheduled for and was evaluated at [facility] within 1 week for PT/INR. His daughter tells me it was in therapeutic range and had it also had it rechecked last week. He WAS NOT discharged home on Aspirin given the need for Brilinta and Warfarin combination. (Of note, patient's Brilinta was changed to Plavix outpatient). Patient was admitted April 27, 2017 after being sent via [facility] from [facility] with concern regarding abnormal EKG initially thought to be STEMI. However, after reevaluation at [place] EKG was noted to be similar to prior EKGs, cardiac biomarkers negative, patient was having no chest pain. This was NOT STEMI or NSTEMI. Patient had actually sought attention in the [facility] ED for right shoulder pain with movement and at rest. Also, patient found to be in hypercoagulable state with INR 12.6. It is also reported he had a significant BM with bright red blood in his stool prior to leaving [facility]. Patient has been housed in the CCU. APRIL 28, 2017: Patient is followed for stable, chronic conditions to include CAD, hypertension, dyslipidemia, aortic valve replacement (mechanical valve) and chronic anticoagulation. He is also being followed for more acute conditions to include hypercoagulable state (elevated INR). Patient denies chest pain, heaviness, tightness. Denies shortness of breath, orthopnea or PND. He is not requiring oxygen. Still having significant right shoulder pain. Shoulder x-ray reveals moderate to severe degenerative changes of the right acromioclavicular joint. Patient received FFP last evening. INR 5.8. Hemoglobin and hematocrit 8.3 and 23.5 respectively. Creatinine 3.4, slightly improved. He did have mild epistaxis last evening once. No additional bright red bleeding from the rectum noted. From a cardiology standpoint, Plavix will need to be reinitiated as soon as possible given the recent PHYLLIS. Hopefully, tomorrow morning we will reintroduce as INR continues to decrease. I will further discuss with Dr. Phillips and await additional recommendations. APRIL 28, 2017 REVIEW OF SYSTEMS: Cardiovascular: Denies chest pain, heaviness, tightness. Denies palpitations or heart racing Pulmonary: Denies shortness of breath, orthopnea or PND Abdomen: Denies abdominal pain, nausea or vomiting IMPRESSION/PLAN: 1. RIGHT SHOULDER PAIN - severe DJD. Will defer to attending for treatment. 2. SUPRATHERAPEUTIC INR -Coumadin continues to be held at this time. FFP has been given. INR still elevated but improved. Will continue to follow INRs daily holding Coumadin. He will need additional assistance outpatient once discharged to help manage this. 3. GI BLEED - patient may need GI evaluation given the recent report of significant BRB. Continue to follow his labs daily. Stool for occult blood. 4. ANEMIA - continue to follow hemoglobin and hematocrit closely. Avoid Aspirin. Unfortunately, we will have to reintroduce Plavix soon when INR improves ES. 5. CAD - S/P PCI of insertion site of ISBELL to LAD March 31, 2017. Will initiate Plavix, hopefully tomorrow. History of CABG 6. HYPERTENSION - adequately controlled overnight. Continue Carvedilol. Avoiding TEODORO inhibitors for fear of worsening renal insufficiency. We will continue to follow along and adjust medications accordingly during hospital stay. 7. DYSLIPIDEMIA - no need for repeat FLP. Patient had fasting lipid profile during last admission and is currently on lipid-lowering agent 8. CKD, STAGE IV - creatinine is actually better than when he was discharged yet still high. Avoiding TEODORO inhibitors for fear of worsening his renal insufficiency. Jim BMP. Dr. Paredes has been consulted. 9. DIABETES - adjust medications accordingly during the hospital stay 10. AVR (MECHANICAL VALVE) - must continue Coumadin when INR stable. Daily INRs. 11. HISTORY OF LUNG MASS - this is been followed by Dr. Quiñones. He did undergo FOB in the last 2 months with biopsy with benign results noted. During the last hospital stay, he underwent repeat bronchoscopy to clean out emboli in the right upper lobe from severe epistaxis. 12. EPISTAXIS - once during night. History of anterior epistaxis. Continuing to monitor this closely. Exam (Progress Note) - Constitutional Vitals: Period Temp Pulse Resp BP Sys/Pérez Pulse Ox Last 24 Hr 97.7 F-99.3 F 60-77 12-26 103-210/48-109 98-100 Exam: General: [Appears well with no apparent distress.] [Pleasant and cooperative. ] [Appears comfortable.] HEENT: [PERRL, normocephalic, atraumatic. Mucous membranes moist. No jaundice noted. Poor dentition noted. Conjunctiva moist and clear, sclerae anicteric] Neck: No JVD/HJR, no thyromegaly or lymphadenopathy noted. No carotid bruit appreciated Cardiac: [Regular rate and rhythm.] [Click of aortic valve noted] Lungs: [Clear to auscultation without accessory muscle use to assist the respiratory pattern.] Not using oxygen Abdomen: Soft, bowel sounds normoactive. Nontender and nondistended. No abdominal bruit or thrill noted. No masses noted. Musculoskeletal: Right shoulder pain with minimal movement and at rest. Decreased range of motion is noted. Extremities: No clubbing, cyanosis noted. [ No edema noted.] Upper extremity pulses 2+. Lower extremity pulses 2+. Capillary refill less than 3 seconds. Skin: No unusual lesions or rashes. No skin breakdown appreciated. Neuro: Awake, alert and oriented 3. Moves all extremities well without hemiparesis or paralysis. No essential tremor is appreciated. Result/EKG - Labs CBC & BMP: 04/28/17 04:49 04/28/17 04:49 Lab Results: I have reviewed the past 24 hour labs Labs: Laboratory Results - last 24 hr 04/27/17 04/27/17 04/27/17 14:47 14:47 14:47 WBC 7.4 RBC 3.04 L Hgb 9.3 L Hct 25.8 L MCV 84.9 L MCH 31 MCHC 36.0 RDW 13.3 Plt Count 259 MPV 10.6 Neut % (Auto) 76.8 H Lymph % (Auto) 10.7 L [place] % (Auto) 10.6 Eos % (Auto) 1.2 Baso % (Auto) 0.3 Neut # (Auto) 5.7 Lymph # (Auto) 0.8 L [place] # (Auto) 0.8 Eos # (Auto) 0.1 Baso # (Auto) 0.0 Immature Gran % 0.4 Nucleated RBC % 0.0 Immature Gran # 0.03 Nucleated RBCs # 0.00 Immature Plt Fraction 0.0 INR 12.6 H* PT Patient/Control Mix 134.0 D Circ Anticoag PTT > 320.0 H* D Sodium Potassium Chloride Carbon Dioxide Anion Gap BUN Creatinine GFR Calculation BUN/Creatinine Ratio Glucose POC Glucose Calculated Osmolality Calcium Magnesium Troponin I 0.027 Blood Type Antibody Screen 04/27/17 04/27/17 04/27/17 14:47 18:04 22:07 WBC RBC Hgb Hct MCV MCH MCHC RDW Plt Count MPV Neut % (Auto) Lymph % (Auto) [place] % (Auto) Eos % (Auto) Baso % (Auto) Neut # (Auto) Lymph # (Auto) [place] # (Auto) Eos # (Auto) Baso # (Auto) Immature Gran % Nucleated RBC % Immature Gran # Nucleated RBCs # Immature Plt Fraction INR PT Patient/Control Mix Circ Anticoag PTT Sodium Potassium Chloride Carbon Dioxide Anion Gap BUN Creatinine GFR Calculation BUN/Creatinine Ratio Glucose POC Glucose 345 H 331 H Calculated Osmolality Calcium Magnesium Troponin I Blood Type O POSITIVE Antibody Screen Negative 04/28/17 04/28/17 04/28/17 04:49 04:49 04:49 WBC 7.8 RBC 2.79 L Hgb 8.3 L Hct 23.5 L MCV 84.2 L MCH 30 MCHC 35.3 RDW 13.5 Plt Count 238 MPV 10.6 Neut % (Auto) 76.8 H Lymph % (Auto) 9.9 L [place] % (Auto) 11.1 Eos % (Auto) 1.5 Baso % (Auto) 0.3 Neut # (Auto) 6.0 Lymph # (Auto) 0.8 L [place] # (Auto) 0.9 H Eos # (Auto) 0.1 Baso # (Auto) 0.0 Immature Gran % 0.4 Nucleated RBC % 0.0 Immature Gran # 0.03 Nucleated RBCs # 0.00 Immature Plt Fraction 0.0 INR 5.8 H* PT Patient/Control Mix 60.9 D Circ Anticoag PTT Sodium 137 Potassium 3.6 Chloride 103 Carbon Dioxide 26 Anion Gap 11.6 BUN 48 H Creatinine 3.40 H GFR Calculation 22 BUN/Creatinine Ratio 14.00 Glucose 236 H POC Glucose Calculated Osmolality 293.8 Calcium 7.6 L Magnesium 2.0 Troponin I Blood Type Antibody Screen 04/28/17 06:53 WBC RBC Hgb Hct MCV MCH MCHC RDW Plt Count MPV Neut % (Auto) Lymph % (Auto) [place] % (Auto) Eos % (Auto) Baso % (Auto) Neut # (Auto) Lymph # (Auto) [place] # (Auto) Eos # (Auto) Baso # (Auto) Immature Gran % Nucleated RBC % Immature Gran # Nucleated RBCs # Immature Plt Fraction INR PT Patient/Control Mix Circ Anticoag PTT Sodium Potassium Chloride Carbon Dioxide Anion Gap BUN Creatinine GFR Calculation BUN/Creatinine Ratio Glucose POC Glucose 268 H Calculated Osmolality Calcium Magnesium Troponin I Blood Type Antibody Screen - Diagnostic Findings Procedure: Chest x-ray: report reviewed by me, X-ray: report reviewed by me ( Right shoulder) - EKG EKG results: interpreted by me EKG shows: sinus rhythm Quality Measures - Stroke Symptom Onset Unknown: No
--- NOTE | 2017-04-28 09:01 | Gastrointestinal Progress Note ---
Assessment and Plan (1) Anterior epistaxis Status: Resolved Assessment and plan: This was the source of the patient's bleeding discovered after upper endoscopy. This was confirmed by Dr. Villalta on nasopharyngeal examination. No upper GI bleeding source was identified by myself in fact the EGD looked almost completely normal aside from the blood coming from the nasopharynx. Thank you for reconsulting me on this patient will sign off at this time. Current Visit: No (2) Acute posthemorrhagic anemia Status: Acute Assessment and plan: Suggest strongly controlling patient's INR in the future more stringently. Would suggest use of Protonix once daily to control patient's stress irritation from the stomach. Nothing further to add at this time thank you for requesting my input again. Good luck with this challenging patient. Current Visit: Yes Gastroenterology - PN: Subj Interval history: I was reconsulted on this patient although I am not sure why. The patient has nasopharyngeal bleeding from his sinuses as previously established by Dr. Villalta on fiberoptic evaluation. He has another bleed as he blows his nose and swallows the blood. His anticoagulation is he is noted to be hyper anticoagulated again with an INR of 12.6, status post vitamin K therapy and this is up to 5.8. Creatinine is currently 3.4 with a BUN of 48. He has had no abdominal pain no nausea or vomiting, I expect his stools were turned black shortly due to the swallowed blood. Please see my previous consultation on this patient from 03/31/17, and my previous upper endoscopy from 04/01/17 demonstrating essentially normal stomach with blood coming from the nasopharyngeal region. Note that this patient does not have upper GI bleeding. He should continue on Protonix daily. Exam (Progress Note) - Constitutional Vitals: Period Temp Pulse Resp BP Sys/Pérez Pulse Ox Last 24 Hr 97.7 F-99.3 F 60-77 12-26 103-210/48-109 98-100 General appearance: no acute distress - Head Head exam: Present: normal inspection, normocephalic - Eye Eye exam: Present: EOMI - ENT ENT exam: Present: other (Blood seen in the naris bilaterally consistent with nasopharyngeal bleeding/epistaxis) - Respiratory Respiratory exam: Present: clear to auscultation bilaterally - Cardiovascular Cardiovascular exam: Present: regular rate and rhythm - GI/Abdominal GI/Abdominal exam: Present: normal bowel sounds, soft. Absent: distended, guarding, tenderness, rebound - Extremities Exam Extremities exam: Present: edema (Trace edema) - Neurological Exam Neurological exam: Present: alert, oriented X3 - Psychiatric Psychiatric exam: Present: normal affect, normal mood - Skin Skin exam: Present: warm Results - Labs CBC & BMP: 04/28/17 04:49 04/28/17 04:49
[2017-04-28] MEDS ORDERED: SODIUM CHLORIDE 0.9% 250 ML IV PRN (09:07)
--- NOTE | 2017-04-28 09:52 | Hospitalist Progress Note ---
Assessment and Plan (1) Acute posthemorrhagic anemia Status: Acute Assessment and plan: due to hypercoagulation. INR is trending downwards. Patient had an episode of epistaxis this am that resolved spontaneously. GI bleed has resolved. H/H had dropped from 9.3/25.8-8.3/23.5 Plan Transfuse with 2units of packed cells cbc in am daily INR check, continue to hold all anticoagulants Current Visit: Yes (2) Anterior epistaxis Status: Resolved Assessment and plan: Patient had an episode this am and it stopped spontaneously. It is most likely due to hypercoagulation. Plan Continue to observe Current Visit: No (3) Chronic anticoagulation Status: Acute Assessment and plan: Patient was on multiple anticoagulant agents including aspirin, Plavix, Brilinta , and Coumadin. INR is supratherapeutic Plan Cardiology wants plavix to continue due to CAD/CABG Current Visit: Yes (4) Right shoulder pain Status: Acute Assessment and plan: Xray showed Moderate to severe degenerative change of the acromioclavicular joint. Plan continue conservative care, PT consult Current Visit: Yes Qualifiers: Chronicity: acute Qualified Code(s): M25.511 - Pain in right shoulder (5) Status post aortic valve replacement Status: Chronic Assessment and plan: Coumadin will be restarted when INR drops less than 2.5 Current Visit: No (6) CAD (coronary artery disease) Status: Chronic Assessment and plan: S/P PCI of insertion site of ISBELL to LAD March 31, 2017. He is s/p CABG as well. Cardiology wants him to continue with plavix.We will start once INR comes down Current Visit: No Qualifiers: [place] vs. transplanted heart: [place] heart Associated angina: without angina (7) CKD (chronic kidney disease) Status: Acute Assessment and plan: Continue outpatient Nephrology's input. Current Visit: Yes Qualifiers: Chronic kidney disease stage: stage 4 (severe) Qualified Code(s): N18.4 - Chronic kidney disease, stage 4 (severe) (8) Diabetes Status: Acute Assessment and plan: continue sliding scale insulin, will get HbA1c level. Current Visit: Yes (9) Hyperlipidemia Status: Acute Assessment and plan: continue with statins Current Visit: Yes (10) Abnormal EKG Status: Acute Assessment and plan: Cardiology is following Current Visit: No (11) HTN (hypertension) Status: Acute Assessment and plan: will start hydralazine po 25mg bid, follow response. Current Visit: Yes Hospitalist: Subjective Interval history: Patient had an episode of epistaxis this am that resolved spontaneously. His has stopped passing blood in his stool. His INR today is reduced from 12.6 to 5.8.He feels better. Exam - Constitutional Vitals: Period Temp Pulse Resp BP Sys/Pérez Pulse Ox Last 24 Hr 97.6 F-99.3 F 60-77 12-26 103-210/48-109 98-100 General appearance: no acute distress - Head Head exam: Present: normal inspection - Respiratory Respiratory exam: Present: clear to auscultation bilaterally - Cardiovascular Cardiovascular exam: Present: regular rate and rhythm - GI/Abdominal GI/Abdominal exam: Present: normal bowel sounds - Extremities Exam Extremities exam: Present: normal inspection - Neurological Exam Neurological exam: Present: alert, oriented X3 Results - Labs CBC & BMP: 04/28/17 04:49 04/28/17 04:49 Lab Results: I have reviewed the past 24 hour labs Quality Measures - Stroke Symptom Onset Unknown: No
--- NOTE | 2017-04-28 11:07 | Event Note ---
Interviewed and examined the patient personally. Discussed findings with the nurse practitioner. I agree with the assessment and plan, with additions as below. See the COAT CUTTER note separately, the EMR did not allow me to I did not note. 61-year-old male, mechanical aortic valve, presenting with shoulder pain, lower GI bleed, supratherapeutic INR. Prior admission for lung bleed, benign mass, CHF. -INR improved, but still supratherapeutic. Continue to hold Coumadin, will aim for an INR of 2-3, with a mechanical aVR -Still severely anemic, source was thought to be epistaxis. Apparently, the BRBPR described by the patient previously was actually melena and no further GI workup is planned at this time. He is not symptomatic from demand ischemia at this time. -We will need to resume Plavix, once bleeding risk is lower. Given the supratherapeutic INR, I would hold it for today, and reassess this tomorrow
[2017-04-28] MEDS: hydrALAZINE 25 MG TABLET PO SCH ×2 (12:56→20:48)
[2017-04-28 17:05] LABS: Amorphous Crystals,Urine Occasional /HPF (Few); Apearance,Urine Slightly Hazy (Clear); Bacteria,Urine Occasional /HPF (Few); Bilirubin,Urine Negative (Negative); Blood, Urine Small mg/dL (Negative); Glucose,Urine (UA) >=500 mg/dL (Negative); Granular Casts,Urine 10 /LPF (0-1); Hyaline Casts,Urine 39 /LPF (0-3); Ketones,Urine Negative (Negative); Nitrite,Urine Negative (Negative); Protein,Urine >=500 MG/DL; RBC,Urine 8 /HPF (0-4); Squamous Epithelial Cell,Urine Occasional /HPF (0-10); Urine Color Yellow (Yellow); Urine Specific Gravity 1.012 (1.001-1.035); Urine Urobilinogen < 2.0 EU/DL (0.2-1.0); WBC,Urine 2 /HPF (0-6)
[2017-04-28 18:15] LABS: Hematocrit 29.4 VOL% (42.0-52.0); Hemoglobin 10.2 GM/DL (14.0-18.0)
[2017-04-28] MEDS: ATORVASTATIN 40 MG TABLET PO SCH (20:48)
[2017-04-29 02:48] LABS: Basophils % 0.2 % (0.0-0.8); Eosinophils # 0.2 10*3/uL (0.0-0.87); Eosinophils % 1.9 % (0.00-10.9); Hematocrit 28.2 VOL% (42.0-52.0); Hemoglobin 9.8 GM/DL (14.0-18.0); Immature Granulocytes % 0.4 %; Immature Granulocytes Absolute 0.03 #; Lymphocytes # 0.9 10*3/uL (1.4-4.0); Lymphocytes % 11.1 % (21.2-54.2); Mean Corpuscular HGB Conc 34.8 GM/DL (32-36); Mean Corpuscular Hemoglobin 30 PG (27-34); Mean Corpuscular Volume 86.8 FL (87-102); Mean Platelet Volume 10.8 FL (9.6-12.0); Monocytes # 0.9 10*3/uL (0.11-0.8); Monocytes % 10.7 % (1.7-12.7); Neutrophils # 6.1 10*3/uL (1.4-7.4); Neutrophils % 75.7 % (38.7-73.9); Platelet Count 243 T/CUMM (130-400); Red Blood Count 3.25 MC/CUMM (3.8-5.5); Red Cell Distribution Width 13.5 % (9.3-17.3)
[2017-04-29 03:05] LABS: PT Patient Result 59.6 SECS
[2017-04-29 03:06] LABS: INR 5.6
[2017-04-29 03:22] LABS: Calcium 7.3 MG/DL (8.5-10.1); Magnesium 2.1 MG/DL (1.8-2.4); Potassium 3.6 MMOL/L (3.5-5.1)
--- NOTE | 2017-04-29 06:51 | Cardiology Progress Note ---
Assessment and Plan (1) Coagulopathy Status: Acute Assessment and plan: SEE PLAN OF CARE LISTED BELOW Current Visit: No (2) Right shoulder pain Status: Acute Assessment and plan: SEE PLAN OF CARE LISTED BELOW Current Visit: Yes Qualifiers: Chronicity: acute Qualified Code(s): M25.511 - Pain in right shoulder (3) Abnormal EKG Status: Chronic Assessment and plan: SEE PLAN OF CARE LISTED BELOW Current Visit: Yes (4) GI bleed Status: Acute Assessment and plan: SEE PLAN OF CARE LISTED BELOW Current Visit: Yes (5) Chronic renal failure Status: Chronic Assessment and plan: SEE PLAN OF CARE LISTED BELOW Current Visit: No Qualifiers: Chronic kidney disease stage: stage 4 (severe) Qualified Code(s): N18.4 - Chronic kidney disease, stage 4 (severe) (6) Diabetes Status: Chronic Assessment and plan: SEE PLAN OF CARE LISTED BELOW Current Visit: No Qualifiers: Diabetes mellitus type: type 2 Diabetes mellitus complication detail: with chronic kidney disease 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 transplanted heart: [place] heart Associated angina: without angina (10) Chronic anticoagulation Status: Chronic Assessment and plan: SEE PLAN OF CARE LISTED BELOW Current Visit: No (11) Status post aortic valve replacement Status: Chronic Assessment and plan: SEE PLAN OF CARE LISTED BELOW Current Visit: No (12) Epistaxis Status: Acute Assessment and plan: SEE PLAN OF CARE LISTED BELOW Current Visit: Yes (13) DJD of right shoulder Status: Acute Assessment and plan: SEE PLAN OF CARE LISTED BELOW Current Visit: Yes Cardiology - PN: Subj Interval history: FLOCCULATOR OPERATOR: DR. FELDER PCP: [facility] SUMMARY: Mr. Jiménez, 61ChM, with risk factors significant for: Known CAD ( April 2016 CABG: ISBELL - LAD, SVG - OM, SVG - RCA), hypertension, dyslipidemia , diabetes, sedentary lifestyle and noncompliance. History of aortic valve replacement (mechanical valve), chronic anticoagulation (Coumadin), chronic kidney disease. Patient was admitted March 31, 2017 with complaints of chest pain. Initially, there was thought this may be STEMI (in March) and patient was taken emergently to the cardiac catheterization lab where Dr. Felder performed PCI with PHYLLIS to the insertion site of the ISBELL to LAD. This WAS NOT a STEMI rather a NSTEMI. During that admission patient was found to be significantly anemic with a hemoglobin of 6.9, INR 7.7. He required fresh frozen plasma to correct the INR to 2.8. Required transfusions packed red blood cells. April 01, 2017 underwent EGD, performed by Dr. Tavera, which revealed no obvious bleed, unrevealing upper GI workup. Because his GI issues improved, Dr. Tavera felt as if eventual future colonoscopy would be beneficial but could be performed outpatient. During the March hospitalization, also had anterior epistaxis, significant. Dr. Estrada followed and treated accordingly. His chest x-ray was abnormal with a history of prior lung mass. Dr. Quiñones performed FOB to remove the vast majority of thrombi in the right upper lobe thought to be related to significant epistaxis. Patient was eventually discharged home. INR at discharge was 2.5. He was scheduled for and was evaluated at [facility] within 1 week for PT/INR. His daughter tells me it was in therapeutic range and had it also had it rechecked last week. He WAS NOT discharged home on Aspirin given the need for Brilinta and Warfarin combination. (Of note, patient's Brilinta was changed to Plavix outpatient). Patient was admitted April 27, 2017 after being sent via [facility] from [facility] with concern regarding abnormal EKG initially thought to be STEMI. However, after reevaluation at [place] EKG was noted to be similar to prior EKGs, cardiac biomarkers negative, patient was having no chest pain. This was NOT STEMI or NSTEMI. Patient had actually sought attention in the [facility] ED for right shoulder pain with movement and at rest. Also, patient found to be in hypercoagulable state with INR 12.6. It is also reported he had a significant BM with bright red blood in his stool prior to leaving [facility]. Patient has been housed in the CCU. APRIL 29, 2017: Patient is followed for stable, chronic conditions to include CAD, hypertension, dyslipidemia, aortic valve replacement (mechanical valve) and chronic anticoagulation. He is also being followed for more acute conditions to include hypercoagulable state (elevated INR). INR 5.6 today. Patient denies chest pain, heaviness, tightness. Denies shortness of breath, orthopnea or PND. He is not requiring oxygen and is lying flat sleeping comfortably, wakes and follows commands appropriately. Still having significant right shoulder pain but this is improved. Hemoglobin and hematocrit 9.8 and 28.2 Creatinine 3.2, slightly improved. He is now having mild epistaxis with multiple bloody tissues at bedside. No additional bright red bleeding from the rectum noted. From a cardiology standpoint, Plavix will need to be reinitiated as soon as possible given the recent PHYLLIS. Once his INR becomes closer to the normal range, will introduce Plavix. Hopefully this will be tomorrow. I will further discuss with Dr. Phillips and await additional recommendations. APRIL 29, 2017 REVIEW OF SYSTEMS: Cardiovascular: Denies chest pain, heaviness, tightness. Denies palpitations or heart racing Pulmonary: Denies shortness of breath, orthopnea or PND Abdomen: Denies abdominal pain, nausea or vomiting IMPRESSION/PLAN: 1. RIGHT SHOULDER PAIN - severe DJD. Will defer to attending for treatment. 2. SUPRATHERAPEUTIC INR - Coumadin continues to be held at this time. FFP was given initially. INR still slow to resolve. We will need to start Plavix soon. Consider additional FFP in order to introduce Plavix soon. He will need additional assistance outpatient once discharged to help manage this. 3. GI BLEED - no additional bright red bleeding from the rectum since arrival. Continue to follow his labs daily. Stool for occult blood. 4. ANEMIA - continue to follow hemoglobin and hematocrit closely. Avoid Aspirin. Unfortunately, we will have to reintroduce Plavix soon when INR improves. 5. CAD - S/P PCI of insertion site of ISBELL to LAD March 31, 2017. Will initiate Plavix, hopefully tomorrow. History of CABG 6. HYPERTENSION - adequately controlled overnight. Continue Carvedilol. Avoiding TEODORO inhibitors for fear of worsening renal insufficiency. We will continue to follow along and adjust medications accordingly during hospital stay. 7. DYSLIPIDEMIA - no need for repeat FLP. Patient had fasting lipid profile during last admission and is currently on lipid-lowering agent 8. CKD, STAGE IV - creatinine is actually better than when he was discharged yet still high. Avoiding TEODORO inhibitors for fear of worsening his renal insufficiency. Dialy BMP. Dr. Paredes has been consulted. 9. DIABETES - adjust medications accordingly during the hospital stay 10. AVR (MECHANICAL VALVE) - must continue Coumadin when INR stable. Daily INRs. 11. HISTORY OF LUNG MASS - this is been followed by Dr. Quiñones. He did undergo FOB in the last 2 months with biopsy with benign results noted. During the last hospital stay, he underwent repeat bronchoscopy to clean out emboli in the right upper lobe from severe epistaxis. 12. EPISTAXIS - recurrent during the night. Dr. Estrada has previously followed. Continuing to monitor this closely. Exam (Progress Note) - Constitutional Vitals: Period Temp Pulse Resp BP Sys/Pérez Pulse Ox Last 24 Hr 97.2 F-98.9 F 58-78 13-23 91-186/58-103 94-100 Exam: General: [Appears well with no apparent distress.] [Pleasant and cooperative. ] [Appears comfortable.] HEENT: [PERRL, normocephalic, atraumatic. Mucous membranes moist. No jaundice noted. Poor dentition noted. Conjunctiva moist and clear, sclerae anicteric] Neck: No JVD/HJR, no thyromegaly or lymphadenopathy noted. No carotid bruit appreciated Cardiac: [Regular rate and rhythm.] [Click of aortic valve noted] Lungs: [Clear to auscultation without accessory muscle use to assist the respiratory pattern.] Not using oxygen Abdomen: Soft, bowel sounds normoactive. Nontender and nondistended. No abdominal bruit or thrill noted. No masses noted. Musculoskeletal: Right shoulder pain with minimal movement and at rest. Decreased range of motion is noted. Extremities: No clubbing, cyanosis noted. [ No edema noted.] Upper extremity pulses 2+. Lower extremity pulses 2+. Capillary refill less than 3 seconds. Skin: No unusual lesions or rashes. No skin breakdown appreciated. Neuro: Awake, alert and oriented 3. Moves all extremities well without hemiparesis or paralysis. No essential tremor is appreciated. Result/EKG - Labs CBC & BMP: 04/29/17 01:43 04/29/17 01:43 Lab Results: I have reviewed the past 24 hour labs Labs: Laboratory Results - last 24 hr 04/28/17 04/28/17 04/28/17 06:53 09:07 09:07 WBC RBC Hgb Hct MCV MCH MCHC RDW Plt Count MPV Neut % (Auto) Lymph % (Auto) Ness % (Auto) Eos % (Auto) Baso % (Auto) Neut # (Auto) Lymph # (Auto) Ness # (Auto) Eos # (Auto) Baso # (Auto) Immature Gran % Nucleated RBC % Immature Gran # Nucleated RBCs # Immature Plt Fraction INR PT Patient/Control Mix Sodium Potassium Chloride Carbon Dioxide Anion Gap BUN Creatinine GFR Calculation BUN/Creatinine Ratio Glucose POC Glucose 268 H Hemoglobin A1c 9.9 H Calculated Osmolality Calcium Magnesium Urine Color Urine Appearance Urine pH Ur Specific [place] Urine Protein Urine Glucose (UA) Urine Ketones Urine Blood Urine Nitrate Urine Bilirubin Urine Urobilinogen Urine Leukocytes Urine RBC Urine WBC Ur Squamous Epith Cells Amorphous Crystals Urine Bacteria Hyaline Casts Granular Casts Ur Culture Indicated? Blood Type Cancelled Antibody Screen Cancelled Crossmatch See Detail Blood Bank Comment Cancelled 04/28/17 04/28/17 04/28/17 11:09 16:00 16:28 WBC RBC Hgb Hct MCV MCH MCHC RDW Plt Count MPV Neut % (Auto) Lymph % (Auto) Ness % (Auto) Eos % (Auto) Baso % (Auto) Neut # (Auto) Lymph # (Auto) Ness # (Auto) Eos # (Auto) Baso # (Auto) Immature Gran % Nucleated RBC % Immature Gran # Nucleated RBCs # Immature Plt Fraction INR PT Patient/Control Mix Sodium Potassium Chloride Carbon Dioxide Anion Gap BUN Creatinine GFR Calculation BUN/Creatinine Ratio Glucose POC Glucose 296 H 183 H Hemoglobin A1c Calculated Osmolality Calcium Magnesium Urine Color Yellow Urine Appearance Slightly hazy Urine pH 5.0 Ur Specific [place] 1.012 Urine Protein >=500 Urine Glucose (UA) >=500 Urine Ketones Negative Urine Blood Small Urine Nitrate Negative Urine Bilirubin Negative Urine Urobilinogen < 2.0 H Urine Leukocytes Negative Urine RBC 8 Urine WBC 2 Ur Squamous Epith Cells Occasional Amorphous Crystals Occasional Urine Bacteria Occasional Hyaline Casts 39 Granular Casts 10 Ur Culture Indicated? Not indicated Blood Type Antibody Screen Crossmatch Blood Bank Comment 04/28/17 04/28/17 04/28/17 17:44 19:18 20:36 WBC RBC Hgb 10.2 L D Hct 29.4 L MCV MCH MCHC RDW Plt Count MPV Neut % (Auto) Lymph % (Auto) Ness % (Auto) Eos % (Auto) Baso % (Auto) Neut # (Auto) Lymph # (Auto) Ness # (Auto) Eos # (Auto) Baso # (Auto) Immature Gran % Nucleated RBC % Immature Gran # Nucleated RBCs # Immature Plt Fraction INR PT Patient/Control Mix Sodium Potassium Chloride Carbon Dioxide Anion Gap BUN Creatinine GFR Calculation BUN/Creatinine Ratio Glucose POC Glucose 195 H 196 H Hemoglobin A1c Calculated Osmolality Calcium Magnesium Urine Color Urine Appearance Urine pH Ur Specific [place] Urine Protein Urine Glucose (UA) Urine Ketones Urine Blood Urine Nitrate Urine Bilirubin Urine Urobilinogen Urine Leukocytes Urine RBC Urine WBC Ur Squamous Epith Cells Amorphous Crystals Urine Bacteria Hyaline Casts Granular Casts Ur Culture Indicated? Blood Type Antibody Screen Crossmatch Blood Bank Comment 04/29/17 04/29/17 04/29/17 01:43 01:43 01:43 WBC 8.0 RBC 3.25 L Hgb 9.8 L Hct 28.2 L MCV 86.8 L MCH 30 MCHC 34.8 RDW 13.5 Plt Count 243 MPV 10.8 Neut % (Auto) 75.7 H Lymph % (Auto) 11.1 L Ness % (Auto) 10.7 Eos % (Auto) 1.9 Baso % (Auto) 0.2 Neut # (Auto) 6.1 Lymph # (Auto) 0.9 L Ness # (Auto) 0.9 H Eos # (Auto) 0.2 Baso # (Auto) 0.0 Immature Gran % 0.4 Nucleated RBC % 0.0 Immature Gran # 0.03 Nucleated RBCs # 0.00 Immature Plt Fraction 0.0 INR 5.6 H* PT Patient/Control Mix 59.6 Sodium 136 Potassium 3.6 Chloride 102 Carbon Dioxide 23 Anion Gap 14.6 BUN 50 H Creatinine 3.20 H GFR Calculation 23 BUN/Creatinine Ratio 15.00 Glucose 147 H POC Glucose Hemoglobin A1c Calculated Osmolality 287.0 Calcium 7.3 L Magnesium 2.1 Urine Color Urine Appearance Urine pH Ur Specific [place] Urine Protein Urine Glucose (UA) Urine Ketones Urine Blood Urine Nitrate Urine Bilirubin Urine Urobilinogen Urine Leukocytes Urine RBC Urine WBC Ur Squamous Epith Cells Amorphous Crystals Urine Bacteria Hyaline Casts Granular Casts Ur Culture Indicated? Blood Type Antibody Screen Crossmatch Blood Bank Comment - EKG EKG results: interpreted by me EKG shows: sinus rhythm Quality Measures - Stroke Symptom Onset Unknown: No
[2017-04-29] MEDS: OMEGA 3 ACID ETHYL ESTERS 1 GM CAPSULE PO SCH ×2 (08:35→20:05)
[2017-04-29] MEDS: CALCIUM (CARBONATE)/VITAMIN D 600 MG-400 UNIT TABLET PO SCH ×2 (08:35→20:05)
[2017-04-29] MEDS: INSULIN REGULAR 100 UNIT/ML SUBCUT SCH ×4 (08:35→20:08)
[2017-04-29] MEDS: PANTOPRAZOLE 40 MG TABLET PO SCH ×2 (08:36→20:06)
[2017-04-29] MEDS: CARVEDILOL 25 MG TABLET PO SCH ×2 (08:36→20:06)
[2017-04-29] MEDS: hydrALAZINE 25 MG TABLET PO SCH ×3 (08:36→20:07)
[2017-04-29] MEDS: FUROSEMIDE 20 MG TABLET PO SCH (08:36)
--- NOTE | 2017-04-29 11:10 | Hospitalist Progress Note ---
Assessment and Plan (1) Acute posthemorrhagic anemia Status: Acute Assessment and plan: due to hypercoagulation. INR is trending downwards. Patient has some occasional episodes of epistaxis whenever he tries to blow his congested nose. GI bleed has resolved. H/H-stable. He had 2units of packed cells overnight. Plan cbc in am daily INR check, continue to hold all anticoagulants Current Visit: Yes (2) Anterior epistaxis Status: Resolved Assessment and plan: Patient has episodes whenever he tries to blow his congested nose. Plan Will consider Flonase spray +/- oxymetazoline spray ENT consult Current Visit: No (3) Chronic anticoagulation Status: Acute Assessment and plan: Patient was on multiple anticoagulant agents including aspirin, Plavix, Brilinta , and Coumadin. INR is supratherapeutic Plan Cardiology wants plavix to continue due to CAD/CABG, will consider starting once the INR becomes therapeutic Current Visit: Yes (4) Right shoulder pain Status: Acute Assessment and plan: Xray showed Moderate to severe degenerative change of the acromioclavicular joint. Plan continue conservative care, PT consult Current Visit: Yes Qualifiers: Chronicity: acute Qualified Code(s): M25.511 - Pain in right shoulder (5) Status post aortic valve replacement Status: Chronic Assessment and plan: Coumadin will be restarted when INR drops less than 2.5. Appreciates Cardiology' s input Current Visit: No (6) CAD (coronary artery disease) Status: Chronic Assessment and plan: S/P PCI of insertion site of ISBELL to LAD March 31, 2017. He is s/p CABG as well. Cardiology wants him to continue with plavix.We will start once INR comes down Current Visit: No Qualifiers: [place] vs. transplanted heart: [place] heart Associated angina: without angina (7) CKD (chronic kidney disease) Status: Acute Assessment and plan: Continue outpatient Nephrology's input. Current Visit: Yes Qualifiers: Chronic kidney disease stage: stage 4 (severe) Qualified Code(s): N18.4 - Chronic kidney disease, stage 4 (severe) (8) Diabetes Status: Acute Assessment and plan: continue sliding scale insulin, HbA1c level-9.9. Current Visit: Yes (9) Hyperlipidemia Status: Acute Assessment and plan: continue with statins Current Visit: Yes (10) Abnormal EKG Status: Acute Assessment and plan: Cardiology is following Current Visit: No (11) HTN (hypertension) Status: Acute Assessment and plan: will increase hydralazine po 25mg bid, follow response. Current Visit: Yes Hospitalist: Subjective Interval history: Patient seen this am. He had a congested nose, he has been having occasional nose bleeds/clot whenever he tries to blow it. Exam - Constitutional Vitals: Period Temp Pulse Resp BP Sys/Pérez Pulse Ox Last 24 Hr 97.2 F-98.9 F 58-78 13-23 91-188/58-109 94-100 General appearance: no acute distress - Respiratory Respiratory exam: Present: clear to auscultation bilaterally - Cardiovascular Cardiovascular exam: Present: regular rate and rhythm - GI/Abdominal GI/Abdominal exam: Present: normal bowel sounds - Extremities Exam Extremities exam: Present: normal inspection - Neurological Exam Neurological exam: Present: alert, oriented X3 Results - Labs CBC & BMP: 04/29/17 01:43 04/29/17 01:43 Lab Results: I have reviewed the past 24 hour labs Quality Measures - Stroke Symptom Onset Unknown: No
[2017-04-29] MEDS: FLUTICASONE 50 MCG NASAL SPRAY 16 GM BOTTLE BOTH NARES SCH ×2 (12:42→20:09)
--- NOTE | 2017-04-29 14:41 | Consultation ---
Assessment and Plan (1) Anterior epistaxis Status: Resolved Assessment and plan: Keep head elevated. Do not blow the nose. Use OTC Simply Saline misting QID and prn, spray, sniff, expectorate. Apply Bacitracin or Vaseline to raw areas on nasal septum TID. Make sure any inspired air/oxygen is humidified, consider FM oxygen instead of nasal canula. Call in further active bleeding develops. Current Visit: No History of Present Illness - Data of Consult Consult date: 04/29/17 Requesting Physician: Katherine Douglas - Consult Narrative Reason for consult: epistaxis History of present illness: Mr. Jiménez is a 61 year old male admitted with recurrent CP, GI bleeding. Noted at admission to have INR > 12, PT>320, due to multiple anticoagulation/ antiplatelet agents. Now, getting slight fresh blood and/or clotted blood when he blows his nose. No active anterior epistaxis history ellicited. CC: Katherine Douglas MD - Home Medications and Allergies Home Medications: Home Medications Medication Instructions Recorded Confirmed Type Calcium (Carb)/Vit D 600-400 600 mg PO BID 03/01/17 04/27/17 History [Caltrate 600 + D] Furosemide Tab [Lasix Tab] 20 mg PO DIRECTED 03/31/17 04/27/17 History Atorvastatin [Lipitor] 40 mg PO BEDTIME #30 tablet 04/07/17 04/27/17 Rx Carvedilol [Coreg] 25 mg PO BID #60 tablet 04/07/17 04/27/17 Rx Rosalie 3 Acid Ethyl Esters [Lovaza] 2 gm PO BID #60 capsule 04/07/17 04/27/17 Rx Pantoprazole Tab [Protonix Tab] 40 mg PO BID #60 tablet 04/07/17 04/27/17 Rx Warfarin [Coumadin] 2 mg PO DAILY@1800 #30 tablet 04/07/17 04/27/17 Rx Clopidogrel Bisulfate [Clopidogrel] 75 mg PO QAM 04/27/17 04/27/17 History Ferrous Sulfate Tab [Feosol 325 mg PO DAILY 04/27/17 04/27/17 History Original Tab] Fluorometholone 0.1% Oph Susp [FML 1 drop BOTH EYES TID PRN 04/27/17 04/27/17 History 0.1% Oph Susp] Fluorometholone [Fluorometholone 1 drop INTRAOCULR TID 04/27/17 04/27/17 History 0.1% Oph Susp] Insulin Detemir [Levemir FlexPen] 10 units SUBCUT PC BREAKFAST 04/27/17 History Rosalie-3/Dha/Epa/Fish Oil [Fish Oil 1,000 mg PO BID 04/27/17 04/27/17 History 1,000 mg Softgel] Oxymetazoline 0.05% Nasal Spr 1 spray BOTH NARES BID PRN 04/27/17 04/27/17 History [Afrin Nasal Flushing] Tramadol HCl [Tramadol Tab] 50 mg PO Q12HR PRN 04/27/17 04/27/17 History Allergies/Adverse Reactions: Allergies Allergy/AdvReac Type Severity Reaction Status Date / Time No Known Allergies Allergy Verified 04/27/17 14:43 12 point system: reviewed and no additional remarkable complaints except as stated Medical,Surgical,& Family Hx - Medical History Cardio: History of: CAD, Hypertension, [place] No history of: Cardiac Dysrhythmia, CHF Psychological: No history of: Anxiety Disorders, Depression Neurology: History of: TIA (05/24/16) HEENT: History of: Eye Problem (CARATES) Endocrine: History of: Diabetes Mellitus (IDDM), Diabetes Mellitus (NIDDM) Respiratory: History of: Asthma No history of: Obstructive Sleep Apnea Comment Only: Respiratory Problems (ulcer in lung) Genitourinary: No history of: Prostate Problems Gastrointestinal: History of: GERD Musculoskeletal: Comment Only: Musculoskeletal Problems (mult knee scopes to bilat knees) Hematology: No history of: Anemia, Blood Transfusion Reaction, Bleeding Problems - Surgical History Cardiac Surgeries: Sugical HX of: Cardiac Catheterization (stent), Cardiac Surgery (CABG,AVR) Neurologic Surgeries: Surgical HX of: Neurologic Surgery HEENT Surgeries: Surgical HX of: Eye Surgery (Cataract surgery) Abdominal Surgeries: Patient denies: Appendectomy, Cholecystectomy Orthopedic Surgeries: Surgical HX of;: Orthopedic Surgery - Family History Family History: Reports;: Family Diabetes (father), Family Hypertension (father) - Social History Smoking Status: Former smoker Frequency of Alcohol Use: None Type of Drug Use: None Exam - Constitutional Vitals: Period Temp Pulse Resp BP Sys/Pérez Pulse Ox Last 24 Hr 97.3 F-98.9 F 60-78 13-23 91-188/58-109 94-100 - Head Head exam: Present: normal inspection - ENT ENT exam: Present: normal oropharynx, other (fresh blood on nasal septum bilaterally, not actively bleeding.) Results - Labs CBC & BMP: 04/29/17 01:43 04/29/17 01:43 Lab Results: I have reviewed the past 24 hour labs - Impressions epistaxis, non-threatening, due to anticoagulation/antiplatelet therapy Quality Measures - Stroke Symptom Onset Unknown: No
[2017-04-29] MEDS ORDERED: SODIUM CHLORIDE 0.65% NASAL SPRAY 45 ML BOTTLE BOTH NARES PRN (14:46)
[2017-04-29] MEDS ORDERED: OXYMETAZOLINE 0.05% NASAL SPRAY 15 ML BOTTLE BOTH NARES PRN (14:49)
[2017-04-29] MEDS: BACITRACIN OINT 0.9 GM PACK TOP SCH ×2 (14:59→20:08)
[2017-04-29] MEDS: ATORVASTATIN 40 MG TABLET PO SCH (20:06)
[2017-04-30 04:49] LABS: Basophils % 0.4 % (0.0-0.8); Eosinophils # 0.3 10*3/uL (0.0-0.87); Eosinophils % 3.6 % (0.00-10.9); Hematocrit 27.9 VOL% (42.0-52.0); Hemoglobin 9.7 GM/DL (14.0-18.0); Immature Granulocytes % 0.3 %; Immature Granulocytes Absolute 0.02 #; Lymphocytes # 1.1 10*3/uL (1.4-4.0); Lymphocytes % 15.3 % (21.2-54.2); Mean Corpuscular HGB Conc 34.8 GM/DL (32-36); Mean Corpuscular Hemoglobin 30 PG (27-34); Mean Corpuscular Volume 86.1 FL (87-102); Mean Platelet Volume 10.3 FL (9.6-12.0); Monocytes # 0.9 10*3/uL (0.11-0.8); Monocytes % 12.6 % (1.7-12.7); Neutrophils # 4.7 10*3/uL (1.4-7.4); Neutrophils % 67.8 % (38.7-73.9); Platelet Count 240 T/CUMM (130-400); Red Blood Count 3.24 MC/CUMM (3.8-5.5); Red Cell Distribution Width 13.4 % (9.3-17.3); White Blood Count 6.9 T/CUMM (4-12)
[2017-04-30 05:36] LABS: Calcium 7.8 MG/DL (8.5-10.1); Magnesium 2.2 MG/DL (1.8-2.4); Osmolality,Calculated 283.1 MOS/KG (273-304); Potassium 3.5 MMOL/L (3.5-5.1)
[2017-04-30 06:25] LABS: PT Patient Result 55.3 SECS
[2017-04-30 06:27] LABS: INR 5.6
[2017-04-30] MEDS: INSULIN REGULAR 100 UNIT/ML SUBCUT SCH ×4 (08:18→21:40)
[2017-04-30] MEDS: CARVEDILOL 25 MG TABLET PO SCH ×2 (08:29→21:40)
[2017-04-30] MEDS: hydrALAZINE 25 MG TABLET PO SCH ×3 (08:29→21:40)
[2017-04-30] MEDS: BACITRACIN OINT 0.9 GM PACK TOP SCH ×3 (08:29→21:40)
[2017-04-30] MEDS: PANTOPRAZOLE 40 MG TABLET PO SCH ×2 (08:30→21:40)
[2017-04-30] MEDS: CALCIUM (CARBONATE)/VITAMIN D 600 MG-400 UNIT TABLET PO SCH ×2 (08:30→21:40)
[2017-04-30] MEDS: FUROSEMIDE 20 MG TABLET PO SCH (08:30)
[2017-04-30] MEDS: FLUTICASONE 50 MCG NASAL SPRAY 16 GM BOTTLE BOTH NARES SCH ×2 (08:31→21:41)
[2017-04-30] MEDS: OMEGA 3 ACID ETHYL ESTERS 1 GM CAPSULE PO SCH ×2 (08:31→21:39)
--- NOTE | 2017-04-30 08:43 | Cardiology Progress Note ---
Assessment and Plan (1) Hx of CABG Status: Chronic Assessment and plan: 71-year-old male, mechanical aortic valve, presenting with shoulder pain, lower GI bleed, supratherapeutic INR. Prior admission for lung bleed, benign mass, CHF. -INR improved, but still supratherapeutic. Continue to hold Coumadin, will aim for an INR of 2-3, with a mechanical aVR -Given his recent epistaxis, I recommend to hold Plavix, until he gets below 3. -The melena was thought to be due to epistaxis. No GI workup is planned -He is a CAD stable, not symptomatic from angina or CHF at this time. -From a cardiac perspective, he may be moved out of the ICU, no need for telemetry Current Visit: No (2) Anterior epistaxis Status: Resolved Current Visit: No (3) Coagulopathy Status: Acute Current Visit: No Cardiology - PN: Subj Interval history: He had minimal nosebleed yesterday, none today. Hematocrit stable. Blood pressure mildly elevated. INR still above 5. He is feeling fine, denies chest pain shortness of breath. Exam (Progress Note) - Constitutional Vitals: Period Temp Pulse Resp BP Sys/Pérez Pulse Ox Last 24 Hr 97.2 F-99.4 F 60-77 9-33 99-161/59-92 92-100 General appearance: normal weight, over weight - Head Head exam: Present: normal inspection. Absent: contusion - Eye Eye exam: Absent: periorbital swelling, scleral icterus Pupils: Absent: dilated - ENT ENT exam: Present: normal external ear exam - Neck Neck exam: Present: normal inspection - Respiratory Respiratory exam: Present: clear to auscultation bilaterally. Absent: chest wall tenderness - Cardiovascular Cardiovascular exam: Present: regular rate and rhythm, systolic murmur. Absent : JVD - GI/Abdominal GI/Abdominal exam: Present: normal bowel sounds. Absent: distended - Extremities Exam Extremities exam: Present: normal inspection, normal capillary refill, edema (1+ ) - Back Exam Back exam: Present: normal inspection - Neurological Exam Neurological exam: Present: alert, oriented X3 - Psychiatric Psychiatric exam: Present: normal affect, normal mood - Skin Skin exam: Present: normal color, warm. Absent: cyanosis Result/EKG - Labs CBC & BMP: 04/30/17 04:35 04/30/17 04:35 Lab Results: I have reviewed the past 24 hour labs Labs: Laboratory Results - last 24 hr 04/29/17 04/29/17 04/29/17 11:51 16:22 19:56 WBC RBC Hgb Hct MCV MCH MCHC RDW Plt Count MPV Neut % (Auto) Lymph % (Auto) [place] % (Auto) Eos % (Auto) Baso % (Auto) Neut # (Auto) Lymph # (Auto) [place] # (Auto) Eos # (Auto) Baso # (Auto) Immature Gran % Nucleated RBC % Immature Gran # Nucleated RBCs # Immature Plt Fraction INR PT Patient/Control Mix Sodium Potassium Chloride Carbon Dioxide Anion Gap BUN Creatinine GFR Calculation BUN/Creatinine Ratio Glucose POC Glucose 221 H 292 H 264 H Calculated Osmolality Calcium Magnesium 04/30/17 04/30/17 04/30/17 04:35 04:35 04:35 WBC 6.9 RBC 3.24 L Hgb 9.7 L Hct 27.9 L MCV 86.1 L MCH 30 MCHC 34.8 RDW 13.4 Plt Count 240 MPV 10.3 Neut % (Auto) 67.8 Lymph % (Auto) 15.3 L [place] % (Auto) 12.6 Eos % (Auto) 3.6 Baso % (Auto) 0.4 Neut # (Auto) 4.7 Lymph # (Auto) 1.1 L [place] # (Auto) 0.9 H Eos # (Auto) 0.3 Baso # (Auto) 0.0 Immature Gran % 0.3 Nucleated RBC % 0.0 Immature Gran # 0.02 Nucleated RBCs # 0.00 Immature Plt Fraction 0.0 INR 5.6 H* PT Patient/Control Mix 55.3 Sodium 135 L Potassium 3.5 Chloride 101 Carbon Dioxide 23 Anion Gap 14.5 BUN 50 H Creatinine 3.30 H GFR Calculation 23 BUN/Creatinine Ratio 15.00 Glucose 120 H POC Glucose Calculated Osmolality 283.1 Calcium 7.8 L Magnesium 2.2 04/30/17 07:43 WBC RBC Hgb Hct MCV MCH MCHC RDW Plt Count MPV Neut % (Auto) Lymph % (Auto) [place] % (Auto) Eos % (Auto) Baso % (Auto) Neut # (Auto) Lymph # (Auto) [place] # (Auto) Eos # (Auto) Baso # (Auto) Immature Gran % Nucleated RBC % Immature Gran # Nucleated RBCs # Immature Plt Fraction INR PT Patient/Control Mix Sodium Potassium Chloride Carbon Dioxide Anion Gap BUN Creatinine GFR Calculation BUN/Creatinine Ratio Glucose POC Glucose 134 H Calculated Osmolality Calcium Magnesium - EKG EKG results: interpreted by me Quality Measures - Stroke Symptom Onset Unknown: No
--- NOTE | 2017-04-30 10:48 | Hospitalist Progress Note ---
Assessment and Plan (1) Acute posthemorrhagic anemia Status: Acute Assessment and plan: due to hypercoagulation. INR is trending downwards. Epistaxis is improving, ENT has made some recommendations. GI bleed has resolved. H/H-stable. He has had 2units of packed cells and a unit of FFP so far Plan cbc in am daily INR check, continue to hold all anticoagulants Current Visit: Yes (2) Anterior epistaxis Status: Resolved Assessment and plan: Improved, follow ENT's recommendations. Current Visit: No (3) Chronic anticoagulation Status: Acute Assessment and plan: Patient was on multiple anticoagulant agents including aspirin, Plavix, Brilinta , and Coumadin. INR is supratherapeutic Plan Cardiology wants plavix to continue due to CAD/CABG, will consider starting once the INR becomes therapeutic Current Visit: Yes (4) Right shoulder pain Status: Acute Assessment and plan: Xray showed Moderate to severe degenerative change of the acromioclavicular joint. Plan continue conservative care, PT consult Current Visit: Yes Qualifiers: Chronicity: acute Qualified Code(s): M25.511 - Pain in right shoulder (5) Status post aortic valve replacement Status: Chronic Assessment and plan: Coumadin will be restarted when INR drops less than 2.5. Appreciates Cardiology' s input Current Visit: No (6) CAD (coronary artery disease) Status: Chronic Assessment and plan: S/P PCI of insertion site of ISBELL to LAD March 31, 2017. He is s/p CABG as well. Cardiology wants him to continue with plavix.We will start once INR comes down Current Visit: No Qualifiers: [place] vs. transplanted heart: [place] heart Associated angina: without angina (7) CKD (chronic kidney disease) Status: Acute Assessment and plan: Continue outpatient Nephrology's input. Current Visit: Yes Qualifiers: Chronic kidney disease stage: stage 4 (severe) Qualified Code(s): N18.4 - Chronic kidney disease, stage 4 (severe) (8) Diabetes Status: Acute Assessment and plan: continue sliding scale insulin, HbA1c level-9.9. Current Visit: Yes (9) Hyperlipidemia Status: Acute Assessment and plan: continue with statins Current Visit: Yes (10) Abnormal EKG Status: Acute Assessment and plan: Cardiology is following Current Visit: No (11) HTN (hypertension) Status: Acute Assessment and plan: stable Current Visit: Yes Hospitalist: Subjective Interval history: Patient seen this am. His nasal bleed is better. ENT saw yesterday and made some recommendations. His INR is slowly dropping.Patient is stable enough to go to the floor. Exam - Constitutional Vitals: Period Temp Pulse Resp BP Sys/Pérez Pulse Ox Last 24 Hr 97.2 F-99.4 F 60-77 9-33 99-157/59-92 92-100 General appearance: no acute distress - Head Head exam: Present: normal inspection - Respiratory Respiratory exam: Present: clear to auscultation bilaterally - Cardiovascular Cardiovascular exam: Present: regular rate and rhythm - GI/Abdominal GI/Abdominal exam: Present: normal bowel sounds - Extremities Exam Extremities exam: Present: normal inspection - Neurological Exam Neurological exam: Present: alert, oriented X3 Results - Labs CBC & BMP: 04/30/17 04:35 04/30/17 04:35 Lab Results: I have reviewed the past 24 hour labs Quality Measures - Stroke Symptom Onset Unknown: No
[2017-04-30] MEDS: ATORVASTATIN 40 MG TABLET PO SCH (21:40)
[2017-05-01 06:29] LABS: Basophils % 0.4 % (0.0-0.8); Eosinophils # 0.3 10*3/uL (0.0-0.87); Eosinophils % 3.5 % (0.00-10.9); Hematocrit 27.5 VOL% (42.0-52.0); Hemoglobin 9.4 GM/DL (14.0-18.0); Immature Granulocytes % 0.4 %; Immature Granulocytes Absolute 0.03 #; Lymphocytes % 13.8 % (21.2-54.2); Mean Corpuscular HGB Conc 34.2 GM/DL (32-36); Mean Corpuscular Hemoglobin 30 PG (27-34); Mean Platelet Volume 10.7 FL (9.6-12.0); Monocytes % 13.5 % (1.7-12.7); Neutrophils # 4.9 10*3/uL (1.4-7.4); Neutrophils % 68.4 % (38.7-73.9); Platelet Count 235 T/CUMM (130-400); Red Blood Count 3.16 MC/CUMM (3.8-5.5); Red Cell Distribution Width 13.5 % (9.3-17.3); White Blood Count 7.1 T/CUMM (4-12)
[2017-05-01 06:46] LABS: PT Patient Result 55.4 SECS
[2017-05-01 06:49] LABS: INR 5.6
[2017-05-01 07:45] LABS: Calcium 7.6 MG/DL (8.5-10.1); Magnesium 2.6 MG/DL (1.8-2.4); Potassium 4.4 MMOL/L (3.5-5.1)
[2017-05-01] MEDS: INSULIN REGULAR 100 UNIT/ML SUBCUT SCH ×4 (08:42→21:40)
[2017-05-01] MEDS: CARVEDILOL 25 MG TABLET PO SCH ×2 (08:42→21:34)
[2017-05-01] MEDS: PANTOPRAZOLE 40 MG TABLET PO SCH ×2 (08:43→21:34)
[2017-05-01] MEDS: FLUTICASONE 50 MCG NASAL SPRAY 16 GM BOTTLE BOTH NARES SCH ×2 (08:43→21:42)
[2017-05-01] MEDS: CALCIUM (CARBONATE)/VITAMIN D 600 MG-400 UNIT TABLET PO SCH ×2 (08:43→21:33)
[2017-05-01] MEDS: hydrALAZINE 25 MG TABLET PO SCH ×3 (08:43→21:34)
[2017-05-01] MEDS: FUROSEMIDE 20 MG TABLET PO SCH (08:43)
[2017-05-01] MEDS: OMEGA 3 ACID ETHYL ESTERS 1 GM CAPSULE PO SCH ×2 (08:43→21:36)
[2017-05-01] MEDS: BACITRACIN OINT 0.9 GM PACK TOP SCH ×3 (11:37→22:32)
[2017-05-01] MEDS ORDERED: ACETAMINOPHEN 325 MG TABLET PO PRN (11:42)
--- NOTE | 2017-05-01 11:42 | Hospitalist Progress Note ---
Assessment and Plan (1) Acute posthemorrhagic anemia Status: Acute Assessment and plan: due to hypercoagulation. INR is slowly trending downwards. Epistaxis has improved. ENT has made some recommendations. GI bleed has resolved. H/H-stable. He has had 2units of packed cells and a unit of FFP so far Plan cbc in am daily INR check, continue to hold all anticoagulants Current Visit: Yes (2) Anterior epistaxis Status: Resolved Assessment and plan: Improved, follow ENT's recommendations. Current Visit: No (3) Chronic anticoagulation Status: Acute Assessment and plan: Patient was on multiple anticoagulant agents including aspirin, Plavix, Brilinta , and Coumadin. INR is supratherapeutic Plan Cardiology wants plavix to continue due to CAD/CABG, will consider starting once the INR becomes therapeutic .We will continue to allow free fall. Current Visit: Yes (4) Right shoulder pain Status: Acute Assessment and plan: Xray showed Moderate to severe degenerative change of the acromioclavicular joint.Patient is happy with heating pad Plan continue conservative care, PT consult Current Visit: Yes Qualifiers: Chronicity: acute Qualified Code(s): M25.511 - Pain in right shoulder (5) Status post aortic valve replacement Status: Chronic Assessment and plan: Coumadin will be restarted when INR drops less than 2.5. Appreciates Cardiology' s input Current Visit: No (6) CAD (coronary artery disease) Status: Chronic Assessment and plan: S/P PCI of insertion site of ISBELL to LAD March 31, 2017. He is s/p CABG as well. Cardiology wants him to continue with plavix.We will start once INR comes down Current Visit: No Qualifiers: [place] vs. transplanted heart: [place] heart Associated angina: without angina (7) CKD (chronic kidney disease) Status: Acute Assessment and plan: Continue outpatient Nephrology's input. Current Visit: Yes Qualifiers: Chronic kidney disease stage: stage 4 (severe) Qualified Code(s): N18.4 - Chronic kidney disease, stage 4 (severe) (8) Diabetes Status: Acute Assessment and plan: continue sliding scale insulin, HbA1c level-9.9. Current Visit: Yes (9) Hyperlipidemia Status: Acute Assessment and plan: continue with statins Current Visit: Yes (10) Abnormal EKG Status: Acute Assessment and plan: Cardiology is following Current Visit: No (11) HTN (hypertension) Status: Acute Assessment and plan: stable Current Visit: Yes Hospitalist: Subjective Interval history: Patient seen with no new constraints. Epistaxis has really improved. Patient is also no longer bleeding from his IV sites.INR is still high. H/H-stable. He is happy with his shoulder heating pad and wants to take it home on dc. Exam - Constitutional Vitals: Period Temp Pulse Resp BP Sys/Pérez Pulse Ox Last 24 Hr 97.7 F-99.0 F 64-75 18-20 107-151/57-88 90-96 General appearance: no acute distress - Head Head exam: Present: normal inspection - Eye Eye exam: Present: EOMI - Respiratory Respiratory exam: Present: clear to auscultation bilaterally - Cardiovascular Cardiovascular exam: Present: regular rate and rhythm - GI/Abdominal GI/Abdominal exam: Present: normal bowel sounds - Extremities Exam Extremities exam: Present: normal inspection Results - Labs CBC & BMP: 05/01/17 05:20 05/01/17 05:20 Lab Results: I have reviewed the past 24 hour labs Quality Measures - Stroke Symptom Onset Unknown: No
--- NOTE | 2017-05-01 11:44 | Cardiology Progress Note ---
Assessment and Plan (1) Hx of CABG Status: Chronic Assessment and plan: 71-year-old male, mechanical aortic valve, presenting with shoulder pain, lower GI bleed, supratherapeutic INR. Prior admission for lung bleed, benign mass, CHF. -INR improved, but still supratherapeutic. Continue to hold Coumadin, will aim for an INR of 2-3, with a mechanical aVR -Given his recent epistaxis, I recommend to hold Plavix, until he gets below 3. -The melena was thought to be due to epistaxis. No GI workup planned -He is a CAD stable, not symptomatic from angina or CHF at this time. -Right shoulder pain. 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 His right upper lobe lung disease was felt to be benign, I doubt progression/radicular origin of pain. Treatment options are limited due to his comorbidities. Start Tylenol prn Current Visit: No (2) Anterior epistaxis Status: Resolved Current Visit: No (3) Coagulopathy Status: Acute Current Visit: No Cardiology - PN: Subj Interval history: He is still complaining of right shoulder pain, which is not affected by motion. It is radiating to his right neck. Blood pressure stable, INR still 5. No chest pain shortness of breath. No recurrence of nosebleed. Exam (Progress Note) - Constitutional Vitals: Period Temp Pulse Resp BP Sys/Pérez Pulse Ox Last 24 Hr 97.7 F-99.0 F 64-75 18-20 107-151/57-88 90-96 General appearance: normal weight, over weight - Head Head exam: Present: normal inspection. Absent: contusion - Eye Eye exam: Absent: periorbital swelling, scleral icterus Pupils: Absent: dilated - ENT ENT exam: Present: normal external ear exam - Neck Neck exam: Present: normal inspection - Respiratory Respiratory exam: Present: clear to auscultation bilaterally. Absent: chest wall tenderness - Cardiovascular Cardiovascular exam: Present: regular rate and rhythm, systolic murmur. Absent : JVD, tachycardia - GI/Abdominal GI/Abdominal exam: Present: normal bowel sounds. Absent: distended - Extremities Exam Extremities exam: Present: normal inspection, normal capillary refill, other ( Right shoulder pain, no erythema or swelling). Absent: edema - Back Exam Back exam: Present: normal inspection - Neurological Exam Neurological exam: Present: alert, oriented X3 - Psychiatric Psychiatric exam: Present: normal affect, normal mood - Skin Skin exam: Present: normal color, warm. Absent: cyanosis, diaphoretic Result/EKG - Labs CBC & BMP: 05/01/17 05:20 05/01/17 05:20 Lab Results: I have reviewed the past 24 hour labs Labs: Laboratory Results - last 24 hr 04/30/17 04/30/17 04/30/17 12:10 15:11 20:31 WBC RBC Hgb Hct MCV MCH MCHC RDW Plt Count MPV Neut % (Auto) Lymph % (Auto) [place] % (Auto) Eos % (Auto) Baso % (Auto) Neut # (Auto) Lymph # (Auto) [place] # (Auto) Eos # (Auto) Baso # (Auto) Immature Gran % Nucleated RBC % Immature Gran # Nucleated RBCs # Immature Plt Fraction INR PT Patient/Control Mix Sodium Potassium Chloride Carbon Dioxide Anion Gap BUN Creatinine GFR Calculation BUN/Creatinine Ratio Glucose POC Glucose 178 H 303 H 316 H Calculated Osmolality Calcium Magnesium 05/01/17 05/01/17 05/01/17 05:20 05:20 05:20 WBC 7.1 RBC 3.16 L Hgb 9.4 L Hct 27.5 L MCV 87.0 MCH 30 MCHC 34.2 RDW 13.5 Plt Count 235 MPV 10.7 Neut % (Auto) 68.4 Lymph % (Auto) 13.8 L [place] % (Auto) 13.5 H Eos % (Auto) 3.5 Baso % (Auto) 0.4 Neut # (Auto) 4.9 Lymph # (Auto) 1.0 L [place] # (Auto) 1.0 H Eos # (Auto) 0.3 Baso # (Auto) 0.0 Immature Gran % 0.4 Nucleated RBC % 0.0 Immature Gran # 0.03 Nucleated RBCs # 0.00 Immature Plt Fraction 0.0 INR 5.6 H* PT Patient/Control Mix 55.4 Sodium 136 Potassium 4.4 Chloride 102 Carbon Dioxide 26 Anion Gap 12.4 BUN 60 H Creatinine 3.50 H GFR Calculation 21 BUN/Creatinine Ratio 17.00 Glucose 134 H POC Glucose Calculated Osmolality 290.0 Calcium 7.6 L Magnesium 2.6 H 05/01/17 05/01/17 07:34 11:26 WBC RBC Hgb Hct MCV MCH MCHC RDW Plt Count MPV Neut % (Auto) Lymph % (Auto) [place] % (Auto) Eos % (Auto) Baso % (Auto) Neut # (Auto) Lymph # (Auto) [place] # (Auto) Eos # (Auto) Baso # (Auto) Immature Gran % Nucleated RBC % Immature Gran # Nucleated RBCs # Immature Plt Fraction INR PT Patient/Control Mix Sodium Potassium Chloride Carbon Dioxide Anion Gap BUN Creatinine GFR Calculation BUN/Creatinine Ratio Glucose POC Glucose 150 H 311 H Calculated Osmolality Calcium Magnesium - EKG EKG results: interpreted by me Quality Measures - Stroke Symptom Onset Unknown: No
--- NOTE | 2017-05-01 12:08 | Hospitalist Progress Note ---
Assessment and Plan (1) Chronic anticoagulation Status: Acute Assessment and plan: INR was noted at 12.6 at the time of admission. Upon review of the patient's medical records, the patient was taken multiple anticoagulant agents including aspirin, Plavix, Brilinta, and Coumadin. Fresh frozen plasma transfusions have been initiated in the ED. We will continue transfusions and hold all anticoagulation agents; except Plavix. We will continue the Plavix due to the recent stent placement on last month. 05/01-INR remains elevated at 5.6; unchanged from yesterday. We will continue to hold Coumadin and allow free fall. Current Visit: Yes (2) GI bleed Status: Acute Assessment and plan: Hemoglobin hematocrit stable at 9.3/25.8. We expect this to decline. Type and screen has been performed. We will monitor hemoglobin/ hematocrit and recheck CBC in a.m. 05/02-hemoglobin and hematocrit remained stable at 9.4/27.5. No further episodes of gastrointestinal bleed noted. Current Visit: Yes (3) Right shoulder pain Status: Acute Assessment and plan: X-ray right shoulder was essentially unremarkable for the presence of any acute fracture however, the patient was noted to have moderate to severe degenerative changes of the acromioclavicular joint. We will provide supportive care. Start Lidoderm patches to affected area. Current Visit: Yes Qualifiers: Chronicity: acute Qualified Code(s): M25.511 - Pain in right shoulder (4) Abnormal EKG Status: Chronic Assessment and plan: Echocardiogram reported sinus rhythm with a rate of 62, T-wave inversion laterally and inferiorly consistent with ischemia. Cardiology consult has been requested. The patient has been seen in the ED. We appreciate the input. Current Visit: Yes Hospitalist: Subjective Interval history: Patient seen and examined; chart reviewed. No significant overnight events reported per staff. INR remains elevated at 5.6. Exam - Constitutional Vitals: Period Temp Pulse Resp BP Sys/Pérez Pulse Ox Last 24 Hr 97.7 F-99.0 F 64-75 18-20 107-151/57-88 90-96 General appearance: normal weight, no acute distress - Head Head exam: Present: normal inspection, normocephalic, atraumatic - Eye Eye exam: Present: EOMI. Absent: conjunctival injection Pupils: Present: MAL[place], normal accommodation - ENT ENT exam: Present: normal exam, normal external ear exam, normal oropharynx - Neck Neck exam: Present: normal inspection. Absent: lymphadenopathy, meningismus, tenderness, thyromegaly - Respiratory Respiratory exam: Present: clear to auscultation bilaterally. Absent: rales, rhonchi, stridor, wheezes - Cardiovascular Cardiovascular exam: Present: regular rate and rhythm. Absent: carotid bruit, diastolic murmur, gallop, JVD, rubs, systolic murmur - GI/Abdominal GI/Abdominal exam: Present: normal bowel sounds, soft - Extremities Exam Extremities exam: Present: normal inspection, normal capillary refill, full ROM. Absent: edema - Back Exam Back exam: Present: normal inspection - Neurological Exam Neurological exam: Present: alert, oriented X3, CN II-XII intact - Psychiatric Psychiatric exam: Present: flat affect - Skin Skin exam: Present: normal color, warm, dry Results - Labs CBC & BMP: 05/01/17 05:20 05/01/17 05:20 Lab Results: I have reviewed the past 24 hour labs Quality Measures - Stroke Symptom Onset Unknown: No
[2017-05-01] MEDS: LIDOCAINE 5% PATCH TRANSDERM SCH (13:30)
[2017-05-01] MEDS: ATORVASTATIN 40 MG TABLET PO SCH (21:34)
[2017-05-02 05:51] LABS: Basophils % 0.3 % (0.0-0.8); Eosinophils # 0.2 10*3/uL (0.0-0.87); Eosinophils % 2.8 % (0.00-10.9); Hemoglobin 9.5 GM/DL (14.0-18.0); Immature Granulocytes % 0.4 %; Immature Granulocytes Absolute 0.03 #; Lymphocytes % 13.3 % (21.2-54.2); Mean Corpuscular HGB Conc 35.2 GM/DL (32-36); Mean Corpuscular Hemoglobin 30 PG (27-34); Mean Corpuscular Volume 86.3 FL (87-102); Mean Platelet Volume 10.2 FL (9.6-12.0); Monocytes # 0.9 10*3/uL (0.11-0.8); Monocytes % 10.9 % (1.7-12.7); Neutrophils # 5.6 10*3/uL (1.4-7.4); Neutrophils % 72.3 % (38.7-73.9); Platelet Count 232 T/CUMM (130-400); Red Blood Count 3.13 MC/CUMM (3.8-5.5); Red Cell Distribution Width 13.4 % (9.3-17.3); White Blood Count 7.8 T/CUMM (4-12)
[2017-05-02 06:04] LABS: INR 4.5
[2017-05-02 06:17] LABS: PT Patient Result 45.4 SECS
[2017-05-02 06:59] LABS: Albumin 2.1 G/DL (3.4-5.0); Bilirubin,Total 0.6 MG/DL (0.2-1.0); Calcium 7.9 MG/DL (8.5-10.1); Magnesium 2.4 MG/DL (1.8-2.4); Phosphorous 3.8 MG/DL (2.5-4.9); Potassium 3.8 MMOL/L (3.5-5.1); Total Protein 5.5 G/DL (6.4-8.3)
[2017-05-02] MEDS: INSULIN REGULAR 100 UNIT/ML SUBCUT SCH ×4 (08:29→22:44)
[2017-05-02] MEDS: FUROSEMIDE 20 MG TABLET PO SCH (08:32)
[2017-05-02] MEDS: CARVEDILOL 25 MG TABLET PO SCH ×2 (08:32→20:55)
[2017-05-02] MEDS: hydrALAZINE 25 MG TABLET PO SCH ×3 (08:32→20:56)
[2017-05-02] MEDS: PANTOPRAZOLE 40 MG TABLET PO SCH ×2 (08:32→20:55)
[2017-05-02] MEDS: CALCIUM (CARBONATE)/VITAMIN D 600 MG-400 UNIT TABLET PO SCH ×2 (08:32→20:56)
[2017-05-02] MEDS: OMEGA 3 ACID ETHYL ESTERS 1 GM CAPSULE PO SCH ×2 (08:32→20:56)
[2017-05-02] MEDS: LIDOCAINE 5% PATCH TRANSDERM SCH (08:33)
[2017-05-02] MEDS: BACITRACIN OINT 0.9 GM PACK TOP SCH ×3 (08:34→20:55)
[2017-05-02] MEDS: FLUTICASONE 50 MCG NASAL SPRAY 16 GM BOTTLE BOTH NARES SCH ×2 (08:34→20:59)
--- NOTE | 2017-05-02 11:04 | Hospitalist Progress Note ---
Assessment and Plan (1) Acute posthemorrhagic anemia Status: Acute Assessment and plan: due to hypercoagulation. INR is slowly trending downwards. Epistaxis has improved. ENT has made some recommendations. GI bleed has resolved. H/H-stable. He has had 2units of packed cells and a unit of FFP so far Plan cbc in am daily INR check, continue to hold all anticoagulants Current Visit: Yes (2) Anterior epistaxis Status: Resolved Assessment and plan: Improved, follow ENT's recommendations. Current Visit: No (3) Chronic anticoagulation Status: Acute Assessment and plan: Patient was on multiple anticoagulant agents including aspirin, Plavix, Brilinta , and Coumadin. INR is supratherapeutic Plan Cardiology wants plavix to continue due to CAD/CABG, will consider starting once the INR becomes therapeutic .We will continue to allow free fall. Current Visit: Yes (4) Right shoulder pain Status: Acute Assessment and plan: Xray showed Moderate to severe degenerative change of the acromioclavicular joint.Patient is happy with heating pad Plan continue conservative care, PT consult Current Visit: Yes Qualifiers: Chronicity: acute Qualified Code(s): M25.511 - Pain in right shoulder (5) Status post aortic valve replacement Status: Chronic Assessment and plan: Coumadin will be restarted when INR drops less than 2.5. Appreciates Cardiology' s input Current Visit: Yes (6) CAD (coronary artery disease) Status: Chronic Assessment and plan: S/P PCI of insertion site of ISBELL to LAD March 31, 2017. He is s/p CABG as well. Cardiology wants him to continue with plavix.We will start once INR comes down Current Visit: No Qualifiers: [place] vs. transplanted heart: [place] heart Associated angina: without angina (7) CKD (chronic kidney disease) Status: Acute Assessment and plan: Continue outpatient Nephrology's input. Current Visit: Yes Qualifiers: Chronic kidney disease stage: stage 4 (severe) Qualified Code(s): N18.4 - Chronic kidney disease, stage 4 (severe) (8) Diabetes Status: Acute Assessment and plan: continue sliding scale insulin, HbA1c level-9.9.Will start Lantus 15units qhs, follow response Current Visit: Yes (9) Hyperlipidemia Status: Acute Assessment and plan: continue with statins Current Visit: Yes (10) Abnormal EKG Status: Acute Assessment and plan: Cardiology is following Current Visit: No (11) HTN (hypertension) Status: Acute Assessment and plan: stable Current Visit: Yes Hospitalist: Subjective Interval history: Patient seen this am. No new complaints. INR has dropped to 4.5 from 5.6. Exam - Constitutional Vitals: Period Temp Pulse Resp BP Sys/Pérez Pulse Ox Last 24 Hr 97.9 F-99.4 F 68-83 16-20 114-136/62-79 90-98 General appearance: no acute distress - Head Head exam: Present: normal inspection - Respiratory Respiratory exam: Present: clear to auscultation bilaterally - Cardiovascular Cardiovascular exam: Present: regular rate and rhythm - GI/Abdominal GI/Abdominal exam: Present: normal bowel sounds - Extremities Exam Extremities exam: Present: normal inspection - Neurological Exam Neurological exam: Present: alert, oriented X3 Results - Labs CBC & BMP: 05/02/17 05:32 05/02/17 05:32 Lab Results: I have reviewed the past 24 hour labs Quality Measures - Stroke Symptom Onset Unknown: No
[2017-05-02] MEDS: ATORVASTATIN 40 MG TABLET PO SCH (20:55)
[2017-05-02] MEDS: INSULIN GLARGINE 100 UNIT/ML SUBCUT SCH (20:56)
--- NOTE | 2017-05-02 22:37 | Cardiology Progress Note ---
Tana Meza April RN, am scribing for, and in the presence of, Frankie Felder MD 22:37. Assessment and Plan (1) Coagulopathy Status: Acute Assessment and plan: Initial assessment and plan May 02, 2017: No chest pain or shortness of breath He always has an abnormal baseline EKG which appears to be acute MA We will recheck INR in the a.m. 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 Jiménez, 61ChM, with risk factors significant for: Known CAD ( April 2016 CABG: ISBELL - LAD, SVG - OM, SVG - RCA), hypertension, dyslipidemia , diabetes, sedentary lifestyle and noncompliance. History of aortic valve replacement (mechanical valve), chronic anticoagulation (Coumadin), chronic kidney disease. Patient was admitted March 31, 2017 with complaints of chest pain. Initially, there was thought this may be STEMI (in March) and patient was taken emergently to the cardiac catheterization lab where Dr. Felder performed PCI with PHYLLIS to the insertion site of the ISBELL to LAD. This WAS NOT a STEMI rather a NSTEMI. During that admission patient was found to be significantly anemic with a hemoglobin of 6.9, INR 7.7. He required fresh frozen plasma to correct the INR to 2.8. Required transfusions packed red blood cells. April 01, 2017 underwent EGD, performed by Dr. Tavera, which revealed no obvious bleed, unrevealing upper GI workup. Because his GI issues improved, Dr. Tavera felt as if eventual future colonoscopy would be beneficial but could be performed outpatient. During the March hospitalization, also had anterior epistaxis, significant. Dr. Estrada followed and treated accordingly. His chest x-ray was abnormal with a history of prior lung mass. Dr. Quiñones performed FOB to remove the vast majority of thrombi in the right upper lobe thought to be related to significant epistaxis. Patient was eventually discharged home. INR at discharge was 2.5. He was scheduled for and was evaluated at [facility] within 1 week for PT/INR. His daughter tells me it was in therapeutic range and had it also had it rechecked last week. He WAS NOT discharged home on Aspirin given the need for Brilinta and Warfarin combination. (Of note, patient's Brilinta was changed to Plavix outpatient). Patient was admitted April 27, 2017 after being sent via [facility] from [facility] with concern regarding abnormal EKG initially thought to be STEMI. However, after reevaluation at [place] EKG was noted to be similar to prior EKGs, cardiac biomarkers negative, patient was having no chest pain. This was NOT STEMI or NSTEMI. Patient had actually sought attention in the [facility] ED for right shoulder pain with movement and at rest. Also, patient found to be in hypercoagulable state with INR 12.6. It is also reported he had a significant BM with bright red blood in his stool prior to leaving [facility]. May 02, 2017: Mr. Jiménez is seen sitting up in chair in no acute distress. He denies any chest pain or shortness of breath. He does complain of some right shoulder discomfort, but states the pain patch has helped. Vital signs have been stable. INR continues to trend down, today it is 4.5. Warfarin and Plavix continue to be on hold. Creatinine is slightly improved at 3.1. Review of systems: Cardiovascular: Denies chest pain. Gastrointestinal: Denies abdominal tenderness. Musculoskeletal: Right shoulder tenderness. Exam (Progress Note) - Constitutional Vitals: Period Temp Pulse Resp BP Sys/Pérez Pulse Ox Last 24 Hr 97.9 F-99.4 F 68-83 16-20 114-136/62-79 90-98 General appearance: no acute distress, over weight - Head Head exam: Absent: abrasion, hematoma - Eye Eye exam: Absent: periorbital swelling, laceration to eyelids Pupils: Present: MALORIE - Neck Neck exam: Absent: lymphadenopathy, tenderness - Respiratory Respiratory exam: Present: clear to auscultation bilaterally. Absent: accessory muscle use, chest wall tenderness - Cardiovascular Cardiovascular exam: Present: regular rate and rhythm, other (Aortic valve click noted) - GI/Abdominal GI/Abdominal exam: Present: normal bowel sounds, soft. Absent: distended, tenderness - Extremities Exam Extremities exam: Present: normal capillary refill. Absent: edema - Neurological Exam Neurological exam: Present: alert, oriented X3 - Psychiatric Psychiatric exam: Present: normal affect, normal mood - Skin Skin exam: Present: warm, dry Result/EKG - Labs CBC & BMP: 05/02/17 05:32 05/02/17 05:32 Lab Results: I have reviewed the past 24 hour labs Labs: Laboratory Results - last 24 hr 05/01/17 05/01/17 05/01/17 11:26 15:34 19:42 WBC RBC Hgb Hct MCV MCH MCHC RDW Plt Count MPV Neut % (Auto) Lymph % (Auto) [place] % (Auto) Eos % (Auto) Baso % (Auto) Neut # (Auto) Lymph # (Auto) [place] # (Auto) Eos # (Auto) Baso # (Auto) Immature Gran % Nucleated RBC % Immature Gran # Nucleated RBCs # Immature Plt Fraction INR PT Patient/Control Mix Sodium Potassium Chloride Carbon Dioxide Anion Gap BUN Creatinine GFR Calculation BUN/Creatinine Ratio Glucose POC Glucose 311 H 319 H 261 H Calculated Osmolality Calcium Phosphorus Magnesium Total Bilirubin AST ALT Alkaline Phosphatase Total Protein Albumin Globulin Albumin/Globulin Ratio 05/02/17 05/02/17 05/02/17 05:32 05:32 05:32 WBC 7.8 RBC 3.13 L Hgb 9.5 L Hct 27.0 L MCV 86.3 L MCH 30 MCHC 35.2 RDW 13.4 Plt Count 232 MPV 10.2 Neut % (Auto) 72.3 Lymph % (Auto) 13.3 L [place] % (Auto) 10.9 Eos % (Auto) 2.8 Baso % (Auto) 0.3 Neut # (Auto) 5.6 Lymph # (Auto) 1.0 L [place] # (Auto) 0.9 H Eos # (Auto) 0.2 Baso # (Auto) 0.0 Immature Gran % 0.4 Nucleated RBC % 0.0 Immature Gran # 0.03 Nucleated RBCs # 0.00 Immature Plt Fraction 0.0 INR 4.5 PT Patient/Control Mix 45.4 Sodium 136 Potassium 3.8 Chloride 102 Carbon Dioxide 25 Anion Gap 12.8 BUN 53 H Creatinine 3.10 H GFR Calculation 25 BUN/Creatinine Ratio 17.00 Glucose 119 H POC Glucose Calculated Osmolality 286.0 Calcium 7.9 L Phosphorus 3.8 Magnesium 2.4 Total Bilirubin 0.60 AST 13 ALT 12 L Alkaline Phosphatase 100 Total Protein 5.5 L Albumin 2.1 L Globulin 3.4 Albumin/Globulin Ratio 0.6 L 05/02/17 07:27 WBC RBC Hgb Hct MCV MCH MCHC RDW Plt Count MPV Neut % (Auto) Lymph % (Auto) [place] % (Auto) Eos % (Auto) Baso % (Auto) Neut # (Auto) Lymph # (Auto) [place] # (Auto) Eos # (Auto) Baso # (Auto) Immature Gran % Nucleated RBC % Immature Gran # Nucleated RBCs # Immature Plt Fraction INR PT Patient/Control Mix Sodium Potassium Chloride Carbon Dioxide Anion Gap BUN Creatinine GFR Calculation BUN/Creatinine Ratio Glucose POC Glucose 133 H Calculated Osmolality Calcium Phosphorus Magnesium Total Bilirubin AST ALT Alkaline Phosphatase Total Protein Albumin Globulin Albumin/Globulin Ratio Quality Measures - Stroke Symptom Onset Unknown: No I, Frankie Felder MD, personally performed the services described in this documentation, ascribed by Alix Fajardo RN in my presence, and it is both accurate and complete .
[2017-05-03 06:26] LABS: Basophils % 0.3 % (0.0-0.8); Eosinophils # 0.3 10*3/uL (0.0-0.87); Eosinophils % 5.4 % (0.00-10.9); Hematocrit 24.9 VOL% (42.0-52.0); Hemoglobin 8.6 GM/DL (14.0-18.0); Immature Granulocytes % 0.5 %; Immature Granulocytes Absolute 0.03 #; Lymphocytes # 1.1 10*3/uL (1.4-4.0); Lymphocytes % 18.5 % (21.2-54.2); Mean Corpuscular HGB Conc 34.5 GM/DL (32-36); Mean Corpuscular Hemoglobin 30 PG (27-34); Mean Corpuscular Volume 86.5 FL (87-102); Mean Platelet Volume 9.7 FL (9.6-12.0); Monocytes # 0.9 10*3/uL (0.11-0.8); Monocytes % 14.1 % (1.7-12.7); Neutrophils # 3.8 10*3/uL (1.4-7.4); Neutrophils % 61.2 % (38.7-73.9); Platelet Count 210 T/CUMM (130-400); Red Blood Count 2.88 MC/CUMM (3.8-5.5); Red Cell Distribution Width 13.4 % (9.3-17.3); White Blood Count 6.2 T/CUMM (4-12)
[2017-05-03 06:46] LABS: INR 3.8
[2017-05-03 06:49] LABS: PT Patient Result 37.8 SECS
[2017-05-03 07:19] LABS: Calcium 7.5 MG/DL (8.5-10.1); Magnesium 2.5 MG/DL (1.8-2.4); Osmolality,Calculated 290.5 MOS/KG (273-304)
[2017-05-03] MEDS: INSULIN REGULAR 100 UNIT/ML SUBCUT SCH ×4 (08:29→21:26)
[2017-05-03] MEDS: LIDOCAINE 5% PATCH TRANSDERM SCH (08:36)
[2017-05-03] MEDS: OMEGA 3 ACID ETHYL ESTERS 1 GM CAPSULE PO SCH ×2 (08:38→21:23)
[2017-05-03] MEDS: hydrALAZINE 25 MG TABLET PO SCH ×3 (08:39→21:34)
[2017-05-03] MEDS: FLUTICASONE 50 MCG NASAL SPRAY 16 GM BOTTLE BOTH NARES SCH ×2 (08:39→21:35)
[2017-05-03] MEDS: CARVEDILOL 25 MG TABLET PO SCH ×2 (08:39→21:34)
[2017-05-03] MEDS: CALCIUM (CARBONATE)/VITAMIN D 600 MG-400 UNIT TABLET PO SCH ×2 (08:39→21:23)
[2017-05-03] MEDS: PANTOPRAZOLE 40 MG TABLET PO SCH ×2 (08:39→21:36)
[2017-05-03] MEDS: FUROSEMIDE 20 MG TABLET PO SCH (08:39)
[2017-05-03] MEDS: BACITRACIN OINT 0.9 GM PACK TOP SCH ×3 (08:39→21:23)
--- NOTE | 2017-05-03 10:26 | Cardiology Progress Note ---
Assessment and Plan - Time spent with patient Time spent with patient: Greater than 30 minutes (1) Coagulopathy Status: Acute Assessment and plan: SEE PLAN OF CARE LISTED BELOW Current Visit: Yes (2) Right shoulder pain Status: Acute Assessment and plan: SEE PLAN OF CARE LISTED BELOW Current Visit: Yes Qualifiers: Chronicity: acute Qualified Code(s): M25.511 - Pain in right shoulder (3) Abnormal EKG Status: Chronic Assessment and plan: SEE PLAN OF CARE LISTED BELOW Current Visit: Yes (4) GI bleed Status: Acute Assessment and plan: SEE PLAN OF CARE LISTED BELOW Current Visit: Yes (5) Chronic renal failure Status: Chronic Assessment and plan: SEE PLAN OF CARE LISTED BELOW Current Visit: No Qualifiers: Chronic kidney disease stage: stage 4 (severe) Qualified Code(s): N18.4 - Chronic kidney disease, stage 4 (severe) (6) Diabetes Status: Chronic Assessment and plan: SEE PLAN OF CARE LISTED BELOW Current Visit: No Qualifiers: Diabetes mellitus type: type 2 Diabetes mellitus complication detail: with chronic kidney disease Diabetes mellitus dehydrator operator insulin use: without dehydrator operator use Chronic kidney disease stage: stage 3 (moderate) (7) Hypertension Status: Chronic Assessment and plan: SEE PLAN OF CARE LISTED BELOW Current Visit: No Qualifiers: Hypertension type: essential hypertension Qualified Code(s): I10 - Essential (primary) hypertension (8) Dyslipidemia Status: Chronic Assessment and plan: SEE PLAN OF CARE LISTED BELOW Current Visit: No (9) CAD (coronary artery disease) Status: Chronic Assessment and plan: SEE PLAN OF CARE LISTED BELOW Current Visit: No Qualifiers: [place] vs. 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 Jiménez, 61ChM, with risk factors significant for: Known CAD ( April 2016 CABG: ISBELL - LAD, SVG - OM, SVG - RCA), hypertension, dyslipidemia , diabetes, sedentary lifestyle and noncompliance. History of aortic valve replacement (mechanical valve), chronic anticoagulation (Coumadin), chronic kidney disease. Patient was admitted March 31, 2017 with complaints of chest pain. Initially, there was thought this may be STEMI (in March) and patient was taken emergently to the cardiac catheterization lab where Dr. Felder performed PCI with PHYLLIS to the insertion site of the ISBELL to LAD. This WAS NOT a STEMI rather a NSTEMI. During that admission patient was found to be significantly anemic with a hemoglobin of 6.9, INR 7.7. He required fresh frozen plasma to correct the INR to 2.8. Required transfusions packed red blood cells. April 01, 2017 underwent EGD, performed by Dr. Tavera, which revealed no obvious bleed, unrevealing upper GI workup. Because his GI issues improved, Dr. Tavera felt as if eventual future colonoscopy would be beneficial but could be performed outpatient. During the March hospitalization, also had anterior epistaxis, significant. Dr. Estrada followed and treated accordingly. His chest x-ray was abnormal with a history of prior lung mass. Dr. Quiñones performed FOB to remove the vast majority of thrombi in the right upper lobe thought to be related to significant epistaxis. Patient was eventually discharged home. INR at discharge was 2.5. He was scheduled for and was evaluated at [facility] within 1 week for PT/INR. His daughter tells me it was in therapeutic range and had it also had it rechecked last week. He WAS NOT discharged home on Aspirin given the need for Brilinta and Warfarin combination. (Of note, patient's Brilinta was changed to Plavix outpatient). Patient was admitted April 27, 2017 after being sent via [facility] from [facility] with concern regarding abnormal EKG initially thought to be STEMI. However, after reevaluation at [place] EKG was noted to be similar to prior EKGs, cardiac biomarkers negative, patient was having no chest pain. This was NOT STEMI or NSTEMI. Patient had actually sought attention in the [facility] ED for right shoulder pain with movement and at rest. Also, patient found to be in hypercoagulable state with INR 12.6. It is also reported he had a significant BM with bright red blood in his stool prior to leaving [facility]. Patient has been housed in the CCU. MAY 03, 2017: Patient is followed for stable, chronic conditions to include CAD, hypertension, dyslipidemia, aortic valve replacement (mechanical valve) and chronic anticoagulation. He is also being followed for more acute conditions to include hypercoagulable state (elevated INR). INR 3.8 today. Patient denies chest pain, heaviness, tightness. Denies shortness of breath, orthopnea or PND. He is not requiring oxygen and is lying flat sleeping comfortably, wakes and follows commands appropriately. In fact, patient is sitting up in the bedside chair. Still having moderate right shoulder pain but this is improved since his severe DJD). Hemoglobin and hematocrit 8.6 and 24.9 Creatinine 3.0, slightly improved. No additional bright red bleeding from the rectum noted. From a cardiology standpoint, Plavix will need to be reinitiated as soon as possible given the recent PHYLLIS. Once his INR becomes closer to the normal range, will introduce Plavix. Hopefully this will be tomorrow. I will further discuss with Dr. Felder and await additional recommendations. MAY 03, 2017 REVIEW OF SYSTEMS: Cardiovascular: Denies chest pain, heaviness, tightness. Denies palpitations or heart racing Pulmonary: Denies shortness of breath, orthopnea or PND Abdomen: Denies abdominal pain, nausea or vomiting IMPRESSION/PLAN: 1. RIGHT SHOULDER PAIN - severe DJD. Will defer to attending for treatment. Continue Tylenol as needed. 2. SUPRATHERAPEUTIC INR - Coumadin continues to be held at this time. FFP was given initially. INR still slow to resolve but is 3.8 this morning. We will need to start Plavix soon, hopefully tomorrow. He will need additional assistance outpatient (possible home health) to manage his Coumadin wants he is ready for discharge. I will verify case management is already seeing and planning to assist at discharge 3. GI BLEED - no additional bright red bleeding from the rectum since arrival. Continue to follow his labs daily. S 4. ANEMIA - continue to follow hemoglobin and hematocrit closely. Avoid Aspirin. Unfortunately, we will have to reintroduce Plavix soon when INR improves. 5. CAD - S/P PCI of insertion site of ISBELL to LAD March 31, 2017. Will initiate Plavix, hopefully tomorrow. History of CABG 6. HYPERTENSION - adequately controlled overnight. Continue Carvedilol. Avoiding TEODORO inhibitors for fear of worsening renal insufficiency. We will continue to follow along and adjust medications accordingly during hospital stay. 7. DYSLIPIDEMIA - no need for repeat FLP. Patient had fasting lipid profile during last admission and is currently on lipid-lowering agent 8. CKD, STAGE IV - creatinine is actually better than when he was discharged yet still high. Avoiding TEODORO inhibitors for fear of worsening his renal insufficiency. Dialy BMP. Dr. Paredes has been consulted. 9. DIABETES - adjust medications accordingly during the hospital stay 10. AVR (MECHANICAL VALVE) - must continue Coumadin when INR stable. Daily INRs. 11. HISTORY OF LUNG MASS - this is been followed by Dr. Quiñones. He did undergo FOB in the last 2 months with biopsy with benign results noted. During the last hospital stay, he underwent repeat bronchoscopy to clean out emboli in the right upper lobe from severe epistaxis. 12. EPISTAXIS - recurrent during the night. Dr. Estrada has previously followed. Continuing to monitor this closely. Exam (Progress Note) - Constitutional Vitals: Period Temp Pulse Resp BP Sys/Pérez Pulse Ox Last 24 Hr 97.3 F-98.7 F 65-75 18-20 122-140/62-71 91-96 Exam: General: [Appears well with no apparent distress.] [Pleasant and cooperative. ] [Appears comfortable.] HEENT: [PERRL, normocephalic, atraumatic. Mucous membranes moist. No jaundice noted. Poor dentition noted. Conjunctiva moist and clear, sclerae anicteric] Neck: No JVD/HJR, no thyromegaly or lymphadenopathy noted. No carotid bruit appreciated Cardiac: [Regular rate and rhythm.] [Click of aortic valve noted] Lungs: [Clear to auscultation without accessory muscle use to assist the respiratory pattern.] Not using oxygen Abdomen: Soft, bowel sounds normoactive. Nontender and nondistended. No abdominal bruit or thrill noted. No masses noted. Musculoskeletal: Right shoulder pain with minimal movement and at rest. Decreased range of motion is noted. Extremities: No clubbing, cyanosis noted. [ No edema noted.] Upper extremity pulses 2+. Lower extremity pulses 2+. Capillary refill less than 3 seconds. Skin: No unusual lesions or rashes. No skin breakdown appreciated. Neuro: Awake, alert and oriented 3. Moves all extremities well without hemiparesis or paralysis. No essential tremor is appreciated. Result/EKG - Labs CBC & BMP: 05/03/17 06:14 05/03/17 06:14 Lab Results: I have reviewed the past 24 hour labs Labs: Laboratory Results - last 24 hr 05/02/17 05/02/17 05/02/17 12:05 15:12 20:23 WBC RBC Hgb Hct MCV MCH MCHC RDW Plt Count MPV Neut % (Auto) Lymph % (Auto) [place] % (Auto) Eos % (Auto) Baso % (Auto) Neut # (Auto) Lymph # (Auto) [place] # (Auto) Eos # (Auto) Baso # (Auto) Immature Gran % Nucleated RBC % Immature Gran # Nucleated RBCs # Immature Plt Fraction INR PT Patient/Control Mix Sodium Potassium Chloride Carbon Dioxide Anion Gap BUN Creatinine GFR Calculation BUN/Creatinine Ratio Glucose POC Glucose 310 H 313 H 189 H Calculated Osmolality Calcium Magnesium 05/03/17 05/03/17 05/03/17 06:14 06:14 06:14 WBC 6.2 RBC 2.88 L Hgb 8.6 L Hct 24.9 L MCV 86.5 L MCH 30 MCHC 34.5 RDW 13.4 Plt Count 210 MPV 9.7 Neut % (Auto) 61.2 Lymph % (Auto) 18.5 L [place] % (Auto) 14.1 H Eos % (Auto) 5.4 Baso % (Auto) 0.3 Neut # (Auto) 3.8 Lymph # (Auto) 1.1 L [place] # (Auto) 0.9 H Eos # (Auto) 0.3 Baso # (Auto) 0.0 Immature Gran % 0.5 Nucleated RBC % 0.0 Immature Gran # 0.03 Nucleated RBCs # 0.00 Immature Plt Fraction 0.0 INR 3.8 PT Patient/Control Mix 37.8 Sodium 139 Potassium 4.0 Chloride 104 Carbon Dioxide 26 Anion Gap 13.0 BUN 52 H Creatinine 3.00 H GFR Calculation 26 BUN/Creatinine Ratio 17.00 Glucose 98 POC Glucose Calculated Osmolality 290.5 Calcium 7.5 L Magnesium 2.5 H 05/03/17 07:29 WBC RBC Hgb Hct MCV MCH MCHC RDW Plt Count MPV Neut % (Auto) Lymph % (Auto) [place] % (Auto) Eos % (Auto) Baso % (Auto) Neut # (Auto) Lymph # (Auto) [place] # (Auto) Eos # (Auto) Baso # (Auto) Immature Gran % Nucleated RBC % Immature Gran # Nucleated RBCs # Immature Plt Fraction INR PT Patient/Control Mix Sodium Potassium Chloride Carbon Dioxide Anion Gap BUN Creatinine GFR Calculation BUN/Creatinine Ratio Glucose POC Glucose 101 Calculated Osmolality Calcium Magnesium Quality Measures - Stroke Symptom Onset Unknown: No Specialty Discharge - Follow Up or Referrals Follow up with: Frankie Felder MD [Physician] - (follow up in 4 weeks after discharge )
--- NOTE | 2017-05-03 12:34 | Hospitalist Progress Note ---
Assessment and Plan (1) Acute posthemorrhagic anemia Status: Acute Assessment and plan: due to hypercoagulation. INR is slowly trending downwards. Epistaxis has improved. ENT has made some recommendations. GI bleed has resolved. H/H-stable. He has had 2units of packed cells and a unit of FFP so far Plan cbc in am daily INR check, continue to hold all anticoagulants Current Visit: Yes (2) Anterior epistaxis Status: Resolved Assessment and plan: Improved, follow ENT's recommendations. Current Visit: No (3) Chronic anticoagulation Status: Acute Assessment and plan: Patient was on multiple anticoagulant agents including aspirin, Plavix, Brilinta , and Coumadin. INR is supratherapeutic Plan Cardiology wants plavix to continue due to CAD/CABG, will consider starting once the INR becomes therapeutic .We will continue to allow free fall. Current Visit: Yes (4) Right shoulder pain Status: Acute Assessment and plan: Xray showed Moderate to severe degenerative change of the acromioclavicular joint.Patient is happy with heating pad Plan continue conservative care, PT consult Current Visit: Yes Qualifiers: Chronicity: acute Qualified Code(s): M25.511 - Pain in right shoulder (5) Status post aortic valve replacement Status: Chronic Assessment and plan: Coumadin will be restarted when INR drops less than 2.5. Appreciates Cardiology' s input. Case manger working on home health to assist with outpt coumadin management. Current Visit: Yes (6) CAD (coronary artery disease) Status: Chronic Assessment and plan: S/P PCI of insertion site of ISBELL to LAD March 31, 2017. He is s/p CABG as well. Cardiology wants him to continue with plavix.We will start once INR comes down, possibly in am Current Visit: No Qualifiers: [place] vs. transplanted heart: [place] heart Associated angina: without angina (7) CKD (chronic kidney disease) Status: Acute Assessment and plan: Continue outpatient Nephrology's input. Current Visit: Yes Qualifiers: Chronic kidney disease stage: stage 4 (severe) Qualified Code(s): N18.4 - Chronic kidney disease, stage 4 (severe) (8) Diabetes Status: Acute Assessment and plan: continue sliding scale insulin, HbA1c level-9.9.continue current regime Current Visit: Yes (9) Hyperlipidemia Status: Acute Assessment and plan: continue with statins Current Visit: Yes (10) Abnormal EKG Status: Acute Assessment and plan: Cardiology is following Current Visit: No (11) HTN (hypertension) Status: Acute Assessment and plan: stable Current Visit: Yes Hospitalist: Subjective Interval history: Patient seen. He was sitting up on the chair and had no new complaints. INR was 3.8 from 4.5 yesterday. cardiology wants to start plavix tomorrow. We have also started dc planning, hopefully will go home in am Exam - Constitutional Vitals: Period Temp Pulse Resp BP Sys/Pérez Pulse Ox Last 24 Hr 97.3 F-98.7 F 51-75 18-20 102-140/59-71 91-97 General appearance: no acute distress - Head Head exam: Present: normal inspection - Respiratory Respiratory exam: Present: clear to auscultation bilaterally - Cardiovascular Cardiovascular exam: Present: regular rate and rhythm - GI/Abdominal GI/Abdominal exam: Present: normal bowel sounds - Back Exam Back exam: Present: normal inspection - Neurological Exam Neurological exam: Present: alert, oriented X3 Results - Labs CBC & BMP: 05/03/17 06:14 05/03/17 06:14 Lab Results: I have reviewed the past 24 hour labs Quality Measures - Stroke Symptom Onset Unknown: No Specialty Discharge - Follow Up or Referrals Follow up with: Frnakie Felder MD [Physician] - (follow up in 4 weeks after discharge )
[2017-05-03] MEDS: ATORVASTATIN 40 MG TABLET PO SCH (21:24)
[2017-05-03] MEDS: INSULIN GLARGINE 100 UNIT/ML SUBCUT SCH (21:35)
[2017-05-04 06:44] LABS: Basophils % 0.5 % (0.0-0.8); Eosinophils # 0.3 10*3/uL (0.0-0.87); Hematocrit 24.9 VOL% (42.0-52.0); Hemoglobin 8.5 GM/DL (14.0-18.0); Immature Granulocytes % 0.3 %; Immature Granulocytes Absolute 0.02 #; Lymphocytes # 0.9 10*3/uL (1.4-4.0); Lymphocytes % 15.7 % (21.2-54.2); Mean Corpuscular HGB Conc 34.1 GM/DL (32-36); Mean Corpuscular Hemoglobin 30 PG (27-34); Mean Corpuscular Volume 87.1 FL (87-102); Mean Platelet Volume 10.4 FL (9.6-12.0); Monocytes # 0.7 10*3/uL (0.11-0.8); Monocytes % 11.7 % (1.7-12.7); Neutrophils % 66.8 % (38.7-73.9); Platelet Count 232 T/CUMM (130-400); Red Blood Count 2.86 MC/CUMM (3.8-5.5); Red Cell Distribution Width 13.5 % (9.3-17.3)
[2017-05-04 06:55] LABS: INR 3.6
[2017-05-04 06:56] LABS: PT Patient Result 35.8 SECS
[2017-05-04 07:14] LABS: Magnesium 2.5 MG/DL (1.8-2.4); Osmolality,Calculated 290.3 MOS/KG (273-304); Potassium 3.8 MMOL/L (3.5-5.1)
[2017-05-04] MEDS: INSULIN REGULAR 100 UNIT/ML SUBCUT SCH ×2 (07:39→12:23)
--- NOTE | 2017-05-04 07:59 | Cardiology Progress Note ---
Addendum entered and electronically signed by Emmie Conway NP 05/04/17 09: 23: This morning, I discussed this case with Dr. Felder. Today he will be loaded with Plavix (150 mg) then start with daily 75 mg orally daily (starting tomorrow). He MUST have assistance with management of his Coumadin at discharge. Case management has been asked to arrange home health. Original Note: Assessment and Plan (1) Coagulopathy Status: Acute Assessment and plan: SEE PLAN OF CARE LISTED BELOW Current Visit: Yes (2) Right shoulder pain Status: Acute Assessment and plan: SEE PLAN OF CARE LISTED BELOW Current Visit: Yes Qualifiers: Chronicity: acute Qualified Code(s): M25.511 - Pain in right shoulder (3) Abnormal EKG Status: Chronic Assessment and plan: SEE PLAN OF CARE LISTED BELOW Current Visit: Yes (4) GI bleed Status: Acute Assessment and plan: SEE PLAN OF CARE LISTED BELOW Current Visit: Yes (5) Chronic renal failure Status: Chronic Assessment and plan: SEE PLAN OF CARE LISTED BELOW Current Visit: No Qualifiers: Chronic kidney disease stage: stage 4 (severe) Qualified Code(s): N18.4 - Chronic kidney disease, stage 4 (severe) (6) Diabetes Status: Chronic Assessment and plan: SEE PLAN OF CARE LISTED BELOW Current Visit: No Qualifiers: Diabetes mellitus type: type 2 Diabetes mellitus complication detail: with chronic kidney disease Diabetes mellitus long winder tender insulin use: without long winder tender use Chronic kidney disease stage: stage 3 (moderate) (7) Hypertension Status: Chronic Assessment and plan: SEE PLAN OF CARE LISTED BELOW Current Visit: No Qualifiers: Hypertension type: essential hypertension Qualified Code(s): I10 - Essential (primary) hypertension (8) Dyslipidemia Status: Chronic Assessment and plan: SEE PLAN OF CARE LISTED BELOW Current Visit: No (9) CAD (coronary artery disease) Status: Chronic Assessment and plan: SEE PLAN OF CARE LISTED BELOW Current Visit: No Qualifiers: [place] vs. transplanted heart: [place] heart Associated angina: without angina (10) Chronic anticoagulation Status: Chronic Assessment and plan: SEE PLAN OF CARE LISTED BELOW Current Visit: Yes (11) Status post aortic valve replacement Status: Chronic Assessment and plan: SEE PLAN OF CARE LISTED BELOW Current Visit: Yes (12) Epistaxis Status: Resolved Assessment and plan: SEE PLAN OF CARE LISTED BELOW Current Visit: Yes (13) DJD of right shoulder Status: Acute Assessment and plan: SEE PLAN OF CARE LISTED BELOW Current Visit: Yes Cardiology - PN: Subj Interval history: LEATHER SORTER: DR. FELDER PCP: [facility] SUMMARY: Mr. Jiménez, 61ChM, with risk factors significant for: Known CAD ( April 2016 CABG: ISBELL - LAD, SVG - OM, SVG - RCA), hypertension, dyslipidemia , diabetes, sedentary lifestyle and noncompliance. History of aortic valve replacement (mechanical valve), chronic anticoagulation (Coumadin), chronic kidney disease. Patient was admitted March 31, 2017 with complaints of chest pain. Initially, there was thought this may be STEMI (in March) and patient was taken emergently to the cardiac catheterization lab where Dr. Felder performed PCI with PHYLLIS to the insertion site of the ISBELL to LAD. This WAS NOT a STEMI rather a NSTEMI. During that admission patient was found to be significantly anemic with a hemoglobin of 6.9, INR 7.7. He required fresh frozen plasma to correct the INR to 2.8. Required transfusions packed red blood cells. April 01, 2017 underwent EGD, performed by Dr. Tavera, which revealed no obvious bleed, unrevealing upper GI workup. Because his GI issues improved, Dr. Tavera felt as if eventual future colonoscopy would be beneficial but could be performed outpatient. During the March hospitalization, also had anterior epistaxis, significant. Dr. Estrada followed and treated accordingly. His chest x-ray was abnormal with a history of prior lung mass. Dr. Quiñones performed FOB to remove the vast majority of thrombi in the right upper lobe thought to be related to significant epistaxis. Patient was eventually discharged home. INR at discharge was 2.5. He was scheduled for and was evaluated at [facility] within 1 week for PT/INR. His daughter tells me it was in therapeutic range and had it also had it rechecked last week. He WAS NOT discharged home on Aspirin given the need for Brilinta and Warfarin combination. (Of note, patient's Brilinta was changed to Plavix outpatient). Patient was admitted April 27, 2017 after being sent via [facility] from [facility] with concern regarding abnormal EKG initially thought to be STEMI. However, after reevaluation at [place] EKG was noted to be similar to prior EKGs, cardiac biomarkers negative, patient was having no chest pain. This was NOT STEMI or NSTEMI. Patient had actually sought attention in the [facility] ED for right shoulder pain with movement and at rest. Also, patient found to be in hypercoagulable state with INR 12.6. It is also reported he had a significant BM with bright red blood in his stool prior to leaving [facility]. Patient has been housed in the CCU. MAY 04, 2017: Patient is followed for stable, chronic conditions to include CAD, hypertension, dyslipidemia, aortic valve replacement (mechanical valve) and chronic anticoagulation. He is also being followed for more acute conditions to include hypercoagulable state (elevated INR). INR 3.6 today ( SLOWLY IMPROVING). Sitting up bedside chair, he denies chest pain, heaviness, tightness. Denies shortness of breath, orthopnea or PND. Right shoulder pain has improved. Hemoglobin and hematocrit 8.5 and 24.9 Creatinine 2.7 (ALSO SLOWLY IMPROVING). No additional bright red bleeding from the rectum noted. From a cardiology standpoint, Plavix will need to be reinitiated as soon as possible given the recent PHYLLIS. Once his INR becomes closer to the normal range , will introduce Plavix. Hopefully this will be TOMORROW. I will further discuss with Dr. Felder and await additional recommendations. MAY 04, 2017 REVIEW OF SYSTEMS: Cardiovascular: Denies chest pain, heaviness, tightness. Denies palpitations or heart racing Pulmonary: Denies shortness of breath, orthopnea or PND Abdomen: Denies abdominal pain, nausea or vomiting IMPRESSION/PLAN: 1. RIGHT SHOULDER PAIN - severe DJD. Will defer to attending for treatment. Continue Tylenol as needed. Seems to be better. 2. SUPRATHERAPEUTIC INR - Coumadin continues to be held at this time. INR slowly normalizing (3.6 today). Start Plavix soon, hopefully tomorrow. He will need additional assistance outpatient (possible home health) to manage his Coumadin wants he is ready for discharge. Case management working to assist patient. 3. GI BLEED - no additional bright red bleeding from the rectum since arrival. Continue to follow his labs daily. 4. ANEMIA - continue to follow hemoglobin and hematocrit closely. Avoid Aspirin. Unfortunately, we will have to reintroduce Plavix soon when INR improves. 5. CAD - S/P PCI of insertion site of ISBELL to LAD March 31, 2017. Will initiate Plavix, hopefully tomorrow. History of CABG 6. HYPERTENSION - adequately controlled overnight. Continue Carvedilol. Avoiding TEODORO inhibitors for fear of worsening renal insufficiency. We will continue to follow along and adjust medications accordingly during hospital stay. 7. DYSLIPIDEMIA - no need for repeat FLP. Patient had fasting lipid profile during last admission and is currently on lipid-lowering agent 8. CKD, STAGE IV - creatinine is actually better than when he was discharged yet still high. Avoiding TEODORO inhibitors for fear of worsening his renal insufficiency. Daily BMP. Dr. Paredes has been following. 9. DIABETES - adjust medications accordingly during the hospital stay. Glucose levels stable 10. AVR (MECHANICAL VALVE) - must continue Coumadin when INR stable. Daily INRs. 11. HISTORY OF LUNG MASS - this is been followed by Dr. Quiñones. He did undergo FOB in the last 2 months with biopsy with benign results noted. During the last hospital stay, he underwent repeat bronchoscopy to clean out emboli in the right upper lobe from severe epistaxis. 12. EPISTAXIS - Stable. Continuing to monitor this closely. Exam (Progress Note) - Constitutional Vitals: Period Temp Pulse Resp BP Sys/Pérez Pulse Ox Last 24 Hr 97.6 F-98.8 F 51-69 18-20 102-140/59-78 92-98 Exam: General: [Appears well with no apparent distress.] [Pleasant and cooperative. ] [Appears comfortable.] HEENT: [PERRL, normocephalic, atraumatic. Mucous membranes moist. No jaundice noted. Poor dentition noted. Conjunctiva moist and clear, sclerae anicteric] Neck: No JVD/HJR, no thyromegaly or lymphadenopathy noted. No carotid bruit appreciated Cardiac: [Regular rate and rhythm.] [Click of aortic valve noted] Lungs: [Clear to auscultation without accessory muscle use to assist the respiratory pattern.] Not using oxygen Abdomen: Soft, bowel sounds normoactive. Nontender and nondistended. No abdominal bruit or thrill noted. No masses noted. Musculoskeletal: Right shoulder pain with minimal movement and at rest. Decreased range of motion is noted. Extremities: No clubbing, cyanosis noted. [ No edema noted.] Upper extremity pulses 2+. Lower extremity pulses 2+. Capillary refill less than 3 seconds. Skin: No unusual lesions or rashes. No skin breakdown appreciated. Neuro: Awake, alert and oriented 3. Moves all extremities well without hemiparesis or paralysis. No essential tremor is appreciated. Result/EKG - Labs CBC & BMP: 05/04/17 05:36 05/04/17 05:36 Lab Results: I have reviewed the past 24 hour labs Labs: Laboratory Results - last 24 hr 05/03/17 05/03/17 05/03/17 11:22 15:30 19:21 WBC RBC Hgb Hct MCV MCH MCHC RDW Plt Count MPV Neut % (Auto) Lymph % (Auto) [place] % (Auto) Eos % (Auto) Baso % (Auto) Neut # (Auto) Lymph # (Auto) [place] # (Auto) Eos # (Auto) Baso # (Auto) Immature Gran % Nucleated RBC % Immature Gran # Nucleated RBCs # Immature Plt Fraction INR PT Patient/Control Mix Sodium Potassium Chloride Carbon Dioxide Anion Gap BUN Creatinine GFR Calculation BUN/Creatinine Ratio Glucose POC Glucose 176 H 166 H 150 H Calculated Osmolality Calcium Magnesium 05/04/17 05/04/17 05/04/17 05:36 05:36 05:36 WBC 6.0 RBC 2.86 L Hgb 8.5 L Hct 24.9 L MCV 87.1 MCH 30 MCHC 34.1 RDW 13.5 Plt Count 232 MPV 10.4 Neut % (Auto) 66.8 Lymph % (Auto) 15.7 L [place] % (Auto) 11.7 Eos % (Auto) 5.0 Baso % (Auto) 0.5 Neut # (Auto) 4.0 Lymph # (Auto) 0.9 L [place] # (Auto) 0.7 Eos # (Auto) 0.3 Baso # (Auto) 0.0 Immature Gran % 0.3 Nucleated RBC % 0.0 Immature Gran # 0.02 Nucleated RBCs # 0.00 Immature Plt Fraction 0.0 INR 3.6 PT Patient/Control Mix 35.8 Sodium 141 Potassium 3.8 Chloride 107 Carbon Dioxide 26 Anion Gap 11.8 BUN 43 H Creatinine 2.70 H GFR Calculation 29 BUN/Creatinine Ratio 15.00 Glucose 77 POC Glucose Calculated Osmolality 290.3 Calcium 8.0 L Magnesium 2.5 H 05/04/17 07:20 WBC RBC Hgb Hct MCV MCH MCHC RDW Plt Count MPV Neut % (Auto) Lymph % (Auto) [place] % (Auto) Eos % (Auto) Baso % (Auto) Neut # (Auto) Lymph # (Auto) [place] # (Auto) Eos # (Auto) Baso # (Auto) Immature Gran % Nucleated RBC % Immature Gran # Nucleated RBCs # Immature Plt Fraction INR PT Patient/Control Mix Sodium Potassium Chloride Carbon Dioxide Anion Gap BUN Creatinine GFR Calculation BUN/Creatinine Ratio Glucose POC Glucose 90 Calculated Osmolality Calcium Magnesium Quality Measures - Stroke Symptom Onset Unknown: No Specialty Discharge - Follow Up or Referrals Follow up with: Frankie Felder MD [Physician] - (follow up in 4 weeks after discharge )
[2017-05-04] MEDS: CALCIUM (CARBONATE)/VITAMIN D 600 MG-400 UNIT TABLET PO SCH (08:08)
[2017-05-04] MEDS: PANTOPRAZOLE 40 MG TABLET PO SCH (08:08)
[2017-05-04] MEDS: OMEGA 3 ACID ETHYL ESTERS 1 GM CAPSULE PO SCH (08:08)
[2017-05-04] MEDS: hydrALAZINE 25 MG TABLET PO SCH (08:08)
[2017-05-04] MEDS: CARVEDILOL 25 MG TABLET PO SCH (08:08)
[2017-05-04] MEDS: LIDOCAINE 5% PATCH TRANSDERM SCH (08:09)
[2017-05-04] MEDS: BACITRACIN OINT 0.9 GM PACK TOP SCH (08:09)
[2017-05-04] MEDS: FLUTICASONE 50 MCG NASAL SPRAY 16 GM BOTTLE BOTH NARES SCH (08:09)
[2017-05-04] MEDS: FUROSEMIDE 20 MG TABLET PO SCH (08:09)
[2017-05-04] MEDS ORDERED: CLOPIDOGREL 75 MG TABLET PO ONE (09:24)
[2017-05-04 12:14] VITALS: BP 126/67
--- NOTE | 2017-05-04 13:24 | Discharge Summary ---
<Maday Saleh - Last Filed: 05/04/17 13:25> Hospital Course - Hospital Course Hospital Course: Mr Jiménez 61 y/o w/PMHx CAD, HTN, [place], TIA, IDDM, Asthma, GERD presented to the ED from [facility] for further evaluation of right shoulder pain and hx of recent s/p stent placement. IN ED: LABS: H&H 9.3 &25.8. INR 12.6. PTT 320.0. PT 134.0. Troponin 0.027. BUN 48. Creatinine 3.40. Glucose 236. Shoulder XR: right: no acute fracture or dislocation, Moderate to severe degenerative change of the acromioclavicular joint. Low lung volume with mild right infrahilar atelectasis/consolidation. Prior sternotomy. Hospital Medicine consulted. Admit, multiple anticoagulant agents including aspirin, Plavix, Brilinta, and Coumadin, will hold anticoagulant agents. Fresh frozen plasma transfusions have been initiated in the ED and cardiology consulted. -Cardiology consult/plan/recommendations: Resume Plavix at 75mg daily. Avoid TEODORO inhibitors related to renal insufficiency. He will need to continue Coumadin related to AVR mechanical valve. He will need to follow up with [facility] for assistance with Coumadin at discharge. -No upper GI bleed noted and Dr. Tavera felt eventual future colonoscopy would be beneficial, continue Protonix daily for stress irritation. Today 05/04/17 patient is stable. Labs improving and remain stable. He will be discharged home with outpatient Physical Therapy. He will need to follow up with [facility] for Coumadin management and follow up appointments.We will start plavix today and patient promises to keep an eye on his INR. He will follow with PCP in 1week. His INR today is 3.6.Patient to resume Coumadin tomorrow. Specialty Discharge - Follow Up or Referrals Follow up with: Frankie Felder MD [Physician] - 06/01/17 3:30 pm (follow up in 4 weeks after discharge ) Discharge Plan - Discharge Data Disposition: Disch To Home/Self Care - Discharge Medications New Clopidogrel [Plavix] 75 mg PO DAILY tablet Fluticasone 50 Mcg Nasal Unity [Flonase Nasal Unity] 1 spray BOTH NARES BID # 1 spray hydrALAZINE TAB [Apresoline Tab] 25 mg PO TID #90 tablet Insulin Glargine [Lantus] 15 unit SUBCUT BEDTIME #7 unit Lidocaine 5% Patch [Lidoderm 5% Patch] 2 patch TRANSDERM DAILY patch Oxymetazoline 0.05% Nasal Spr [Afrin Nasal Unity] 2 spray BOTH NARES BID PRN #1 bottle PRN Reason: active anterior epistaxis Sodium Chloride 0.65% Nasal Sp [[place] Nasal Unity] 3 spray BOTH NARES QID PRN #1 bottle PRN Reason: Nasal Congestion Acetaminophen Tab [Tylenol Tab] 650 mg PO Q4H PRN tablet PRN Reason: Fever, Headache, Mild Pain Furosemide Tab [Lasix Tab] 20 mg PO QAM tablet HYDROcodone/ACETAMIN 7.5-325 [[place] 7.5-325] 1 tablet PO Q4H PRN #20 tablet PRN Reason: Pain Moderate (4-7) Continue Atorvastatin [Lipitor] 40 mg PO BEDTIME #30 tablet Carvedilol [Coreg] 25 mg PO BID #60 tablet [place] 3 Acid Ethyl Esters [Lovaza] 2 gm PO BID #60 capsule Pantoprazole Tab [Protonix Tab] 40 mg PO BID #60 tablet Fluorometholone 0.1% Oph Susp [FML 0.1% Oph Susp] 1 drop BOTH EYES TID PRN PRN Reason: SHEREE CATARACT [place]-3/Dha/Epa/Fish Oil [Fish Oil 1,000 mg Softgel] 1,000 mg PO BID Fluorometholone [Fluorometholone 0.1% Oph Susp] 1 drop INTRAOCULR TID Tramadol HCl [Tramadol Tab] 50 mg PO Q12HR PRN PRN Reason: Pain Calcium (Carb)/Vit D 600-400 [Caltrate 600 + D] 600 mg PO BID Clopidogrel Bisulfate [Clopidogrel] 75 mg PO QAM Ferrous Sulfate Tab [Feosol Original Tab] 325 mg PO DAILY Oxymetazoline 0.05% Nasal Spr [Afrin Nasal Unity] 1 spray BOTH NARES BID PRN PRN Reason: EPISTAXIS Warfarin [Coumadin] 2 mg PO DAILY@1800 #30 tablet Discontinued Furosemide Tab [Lasix Tab] 20 mg PO DIRECTED Insulin Detemir [Levemir FlexPen] 10 units SUBCUT PC BREAKFAST - Follow Up or Referral Follow Up: Frankie Felder MD [Physician] - 06/01/17 3:30 pm (follow up in 4 weeks after discharge ) - Forms/Instructions Instructions: Clopidogrel (By mouth) Exam - Constitutional Vitals: Period Temp Pulse Resp BP Sys/Pérez Pulse Ox Last 24 Hr 97.3 F-98.8 F 58-69 18-20 114-152/61-80 92-98 Discharge Results Procedures and tests throughout hospitalization: Pending Orders 04/27/17 14:47 Fresh Frozen Plasma Stat 05/05/17 04:00 BMP w/ Mg [Basic Metabolic Panel w/Mg] IN AM CBC [Comp Blood Count Auto Diff] IN AM Prothrombin Time INR IN AM 05/06/17 04:00 BMP w/ Mg [Basic Metabolic Panel w/Mg] IN AM CBC [Comp Blood Count Auto Diff] IN AM Prothrombin Time INR IN AM Labs on day of discharge: Labs from last 24 hours 05/04/17 05/04/17 05/04/17 11:43 07:20 05:36 WBC RBC Hgb Hct MCV MCH MCHC RDW Plt Count MPV Neut % (Auto) Lymph % (Auto) [place] % (Auto) Eos % (Auto) Baso % (Auto) Neut # (Auto) Lymph # (Auto) [place] # (Auto) Eos # (Auto) Baso # (Auto) Immature Gran % Nucleated RBC % Immature Gran # Nucleated RBCs # Immature Plt Fraction INR PT Patient/Control Mix Sodium 141 Potassium 3.8 Chloride 107 Carbon Dioxide 26 Anion Gap 11.8 BUN 43 H Creatinine 2.70 H GFR Calculation 29 BUN/Creatinine Ratio 15.00 Glucose 77 POC Glucose 159 H 90 Calculated Osmolality 290.3 Calcium 8.0 L Magnesium 2.5 H 05/04/17 05/04/17 05/03/17 05:36 05:36 19:21 WBC 6.0 RBC 2.86 L Hgb 8.5 L Hct 24.9 L MCV 87.1 MCH 30 MCHC 34.1 RDW 13.5 Plt Count 232 MPV 10.4 Neut % (Auto) 66.8 Lymph % (Auto) 15.7 L [place] % (Auto) 11.7 Eos % (Auto) 5.0 Baso % (Auto) 0.5 Neut # (Auto) 4.0 Lymph # (Auto) 0.9 L [place] # (Auto) 0.7 Eos # (Auto) 0.3 Baso # (Auto) 0.0 Immature Gran % 0.3 Nucleated RBC % 0.0 Immature Gran # 0.02 Nucleated RBCs # 0.00 Immature Plt Fraction 0.0 INR 3.6 PT Patient/Control Mix 35.8 Sodium Potassium Chloride Carbon Dioxide Anion Gap BUN Creatinine GFR Calculation BUN/Creatinine Ratio Glucose POC Glucose 150 H Calculated Osmolality Calcium Magnesium 05/03/17 15:30 WBC RBC Hgb Hct MCV MCH MCHC RDW Plt Count MPV Neut % (Auto) Lymph % (Auto) [place] % (Auto) Eos % (Auto) Baso % (Auto) Neut # (Auto) Lymph # (Auto) [place] # (Auto) Eos # (Auto) Baso # (Auto) Immature Gran % Nucleated RBC % Immature Gran # Nucleated RBCs # Immature Plt Fraction INR PT Patient/Control Mix Sodium Potassium Chloride Carbon Dioxide Anion Gap BUN Creatinine GFR Calculation BUN/Creatinine Ratio Glucose POC Glucose 166 H Calculated Osmolality Calcium Magnesium DS: Provider Date of admission: 04/27/17 16:36 Primary care physician: Werner Spangler MD Attending physician on admission: Katherine Douglas MD Consults: 04/27/17 16:57 Consult to Physician [CONS] Routine Comment: Consulting Provider: Lit Phillips When should Consulting Provider be notified: In am 04/27/17 18:10 Consult to Dietitian [CONS] Routine Reason for Dietitian: Dietary Consult 04/28/17 10:21 Consult to Physical Therapy [CONS] Routine Reason for Physical Therapy: Evaluate and Treat Consult Comment: rt shoulder pain 04/29/17 11:20 Consult to Physician [CONS] Routine Comment: Nose bleeding when blows nose, INR Elevated Consulting Provider: Kenn Roberts Person Notified: Dr. Roberts Date Notified: 04/29/17 Time Notified: 12:00 Consult Notification Comment: Spoke to Dr. Roberts on phone. 05/03/17 12:38 Consult to Case Mgmt/Social Srvs [CONS] Routine Reason for Case Mgmt/Social Srvs: Discharge Planning Consult Comment: needs HH to help with Coumadin at disc Discharging clinician: Maday Saleh NP <Katherine Douglas - Last Filed: 05/04/17 13:41> Hospital Course - Time spent with patient Time with patient DS: Greater than 30 minutes (time spent greater than 35mins) Diagnosis - Discharge Diagnosis (1) Acute posthemorrhagic anemia Status: Acute (2) Anterior epistaxis Status: Resolved (3) Chronic anticoagulation Status: Acute (4) Right shoulder pain Status: Acute (5) Status post aortic valve replacement Status: Chronic (6) CAD (coronary artery disease) Status: Chronic (7) CKD (chronic kidney disease) Status: Acute (8) Diabetes Status: Acute (9) Hyperlipidemia Status: Acute (10) Abnormal EKG Status: Acute (11) HTN (hypertension) Status: Acute Discharge Plan - Discharge Data Condition at Discharge: Stable Discharge Diet: advance to your usual diet Activity: resume usual activities as tolerated Exam - Constitutional General appearance: no acute distress - Head Head exam: Present: normal inspection - Neck Neck exam: Present: normal inspection - Respiratory Respiratory exam: Present: clear to auscultation bilaterally - Cardiovascular Cardiovascular exam: Present: regular rate and rhythm - Extremities Exam Extremities exam: Present: normal inspection
[2017-05-05] MEDS ORDERED: CLOPIDOGREL 75 MG TABLET PO SCH (09:00)
== END 2017-05-04 15:10 | disposition home or self-care (01) | DRG 813 ==
LOC: EDBD → EDUNIT# → N.ED 14:30 → N.EDINP 16:36 → N.CC 17:55 → N.5E 04-30 11:33
PROVIDERS: ADMIT Internal Medicine; ATTEND Internal Medicine

== ENCOUNTER 2017-05-13 16:09 | Inpatient (IN) ==
[2017-05-13] MEDS ORDERED: SODIUM CHLORIDE 0.9% 250 ML IV PRN (16:12)
[2017-05-13] MEDS ORDERED: DEXTROSE 50% 25 GM/50 ML VIAL IV PRN ×2 (18:22)
[2017-05-13] MEDS ORDERED: GLUCAGON 1 MG VIAL IM PRN ×2 (18:22)
[2017-05-13] MEDS ORDERED: ZALEPLON 5 MG CAPSULE PO PRN (18:25)
[2017-05-13] MEDS ORDERED: ONDANSETRON 4 MG/2 ML VIAL IV PRN (18:25)
[2017-05-13] MEDS ORDERED: FUROSEMIDE 40 MG/4 ML VIAL IV ONE (18:27)
[2017-05-13] MEDS ORDERED: POTASSIUM CHLORIDE RIDER 10 MEQ in PREMIX 1 EACH IV PRN (18:28)
[2017-05-13] MEDS ORDERED: MAGNESIUM SULF RIDER 2 GM in PREMIX 1 EACH IV PRN (18:28)
[2017-05-13] MEDS ORDERED: MAGNESIUM SULF RIDER 4 GM in PREMIX 1 EACH IV PRN (18:28)
[2017-05-13] MEDS: SODIUM CHLORIDE 0.9% 1,000 ML IV SCH (18:30)
[2017-05-13] MEDS: hydrALAZINE 25 MG TABLET PO SCH (22:02)
[2017-05-13] MEDS: ATORVASTATIN 40 MG TABLET PO SCH (22:02)
[2017-05-13] MEDS: CARVEDILOL 25 MG TABLET PO SCH (22:02)
[2017-05-13] MEDS: CALCIUM (CARBONATE)/VITAMIN D 600 MG-400 UNIT TABLET PO SCH (22:03)
[2017-05-13] MEDS: INSULIN GLARGINE 100 UNIT/ML SUBCUT SCH (22:04)
[2017-05-13] MEDS: INSULIN REGULAR 100 UNIT/ML SUBCUT SCH (22:04)
[2017-05-13] MEDS: PANTOPRAZOLE 40 MG VIAL IV SCH (22:05)
[2017-05-14] MEDS: SODIUM CHLORIDE 0.9% 1,000 ML IV SCH ×2 (03:44→09:00)
[2017-05-14 05:07] LABS: Basophils % 0.1 % (0.0-0.8); Eosinophils # 0.1 10*3/uL (0.0-0.87); Eosinophils % 1.6 % (0.00-10.9); Immature Granulocytes % 0.7 %; Immature Granulocytes Absolute 0.06 #; Lymphocytes # 1.2 10*3/uL (1.4-4.0); Lymphocytes % 14.9 % (21.2-54.2); Mean Corpuscular HGB Conc 34.5 GM/DL (32-36); Mean Corpuscular Hemoglobin 30 PG (27-34); Mean Corpuscular Volume 88.1 FL (87-102); Mean Platelet Volume 10.2 FL (9.6-12.0); Monocytes # 0.7 10*3/uL (0.11-0.8); Monocytes % 8.9 % (1.7-12.7); Neutrophils # 6.1 10*3/uL (1.4-7.4); Neutrophils % 73.8 % (38.7-73.9); Platelet Count 150 T/CUMM (130-400); Red Blood Count 1.94 MC/CUMM (3.8-5.5); Red Cell Distribution Width 14.9 % (9.3-17.3); White Blood Count 8.2 T/CUMM (4-12)
[2017-05-14 05:10] LABS: Hematocrit 17.1 VOL% (42.0-52.0); Hemoglobin 5.9 GM/DL (14.0-18.0)
[2017-05-14 05:18] LABS: INR 4.4
[2017-05-14 05:23] LABS: PT Patient Result 43.8 SECS
[2017-05-14 05:44] LABS: Albumin 2.2 G/DL (3.4-5.0); Bilirubin,Total 0.5 MG/DL (0.2-1.0); Calcium 7.1 MG/DL (8.5-10.1); Magnesium 2.4 MG/DL (1.8-2.4); Osmolality,Calculated 308.8 MOS/KG (273-304); Phosphorous 3.4 MG/DL (2.5-4.9); Potassium 4.2 MMOL/L (3.5-5.1); Total Protein 4.8 G/DL (6.4-8.3)
[2017-05-14 06:29] LABS: Hematocrit 16.8 VOL% (42.0-52.0); Hemoglobin 5.6 GM/DL (14.0-18.0)
[2017-05-14] MEDS: INSULIN REGULAR 100 UNIT/ML SUBCUT SCH ×4 (08:15→22:06)
[2017-05-14] MEDS: CALCIUM (CARBONATE)/VITAMIN D 600 MG-400 UNIT TABLET PO SCH ×2 (09:45→22:06)
[2017-05-14] MEDS: CARVEDILOL 25 MG TABLET PO SCH ×2 (09:45→22:06)
[2017-05-14] MEDS: hydrALAZINE 25 MG TABLET PO SCH ×3 (09:45→22:06)
[2017-05-14] MEDS: FUROSEMIDE 20 MG TABLET PO SCH (09:45)
[2017-05-14] MEDS: FERROUS SULFATE 325 MG TABLET PO SCH (09:45)
[2017-05-14] MEDS: OMEGA 3 ACID ETHYL ESTERS 1 GM CAPSULE PO SCH (09:45)
[2017-05-14] MEDS: PANTOPRAZOLE 40 MG VIAL IV SCH ×2 (09:45→22:07)
[2017-05-14] MEDS: LIDOCAINE 5% PATCH TRANSDERM SCH (09:45)
[2017-05-14 13:43] LABS: Hematocrit 20.6 VOL% (42.0-52.0); Hemoglobin 7.1 GM/DL (14.0-18.0)
[2017-05-14 20:42] LABS: Hematocrit 20.1 VOL% (42.0-52.0)
[2017-05-14] MEDS ORDERED: SODIUM CHLORIDE 0.9% 250 ML IV PRN (21:04)
[2017-05-14] MEDS ORDERED: PHYTONADIONE 10 MG/1 ML AMP IV ONE (21:04)
[2017-05-14] MEDS: ATORVASTATIN 40 MG TABLET PO SCH (22:07)
[2017-05-14] MEDS: INSULIN GLARGINE 100 UNIT/ML SUBCUT SCH (22:07)
[2017-05-15 05:36] LABS: INR 2.1
[2017-05-15 05:42] LABS: PT Patient Result 21.1 SECS
[2017-05-15 06:01] LABS: Calcium 7.4 MG/DL (8.5-10.1); Magnesium 2.3 MG/DL (1.8-2.4); Osmolality,Calculated 298.4 MOS/KG (273-304); Potassium 4.5 MMOL/L (3.5-5.1)
[2017-05-15 06:42] LABS: Basophils % 0.2 % (0.0-0.8); Eosinophils # 0.3 10*3/uL (0.0-0.87); Eosinophils % 3.8 % (0.00-10.9); Hematocrit 24.1 VOL% (42.0-52.0); Hemoglobin 8.5 GM/DL (14.0-18.0); Immature Granulocytes % 0.6 %; Immature Granulocytes Absolute 0.05 #; Lymphocytes # 1.1 10*3/uL (1.4-4.0); Lymphocytes % 12.5 % (21.2-54.2); Mean Corpuscular HGB Conc 35.3 GM/DL (32-36); Mean Corpuscular Hemoglobin 30 PG (27-34); Mean Corpuscular Volume 84.9 FL (87-102); Monocytes # 0.6 10*3/uL (0.11-0.8); Monocytes % 7.6 % (1.7-12.7); Neutrophils # 6.3 10*3/uL (1.4-7.4); Neutrophils % 75.3 % (38.7-73.9); Platelet Count 142 T/CUMM (130-400); Red Blood Count 2.84 MC/CUMM (3.8-5.5); Red Cell Distribution Width 16.2 % (9.3-17.3); White Blood Count 8.4 T/CUMM (4-12)
[2017-05-15] MEDS ORDERED: SODIUM CHLORIDE 0.9% 250 ML IV PRN (06:46)
[2017-05-15] MEDS: INSULIN REGULAR 100 UNIT/ML SUBCUT SCH ×4 (08:20→21:46)
[2017-05-15] MEDS: PANTOPRAZOLE 40 MG VIAL IV SCH ×2 (09:17→21:45)
[2017-05-15] MEDS: CALCIUM (CARBONATE)/VITAMIN D 600 MG-400 UNIT TABLET PO SCH ×2 (09:17→21:46)
[2017-05-15] MEDS: FERROUS SULFATE 325 MG TABLET PO SCH (09:17)
[2017-05-15] MEDS: CLOPIDOGREL 75 MG TABLET PO SCH (09:18)
[2017-05-15] MEDS: OMEGA 3 ACID ETHYL ESTERS 1 GM CAPSULE PO SCH (09:18)
[2017-05-15] MEDS: FUROSEMIDE 20 MG TABLET PO SCH (09:18)
[2017-05-15] MEDS: CARVEDILOL 25 MG TABLET PO SCH ×2 (09:18→21:46)
[2017-05-15] MEDS: hydrALAZINE 25 MG TABLET PO SCH ×3 (09:18→21:46)
[2017-05-15] MEDS: LIDOCAINE 5% PATCH TRANSDERM SCH (09:21)
[2017-05-15] MEDS ORDERED: WARFARIN 1 MG TABLET PO SCH (18:00)
[2017-05-15 18:17] LABS: Hematocrit 29.9 VOL% (42.0-52.0); Hemoglobin 10.4 GM/DL (14.0-18.0)
[2017-05-15] MEDS: ATORVASTATIN 40 MG TABLET PO SCH (21:45)
[2017-05-15] MEDS: INSULIN GLARGINE 100 UNIT/ML SUBCUT SCH (21:46)
[2017-05-16 06:18] LABS: Basophils % 0.3 % (0.0-0.8); Eosinophils # 0.3 10*3/uL (0.0-0.87); Eosinophils % 4.9 % (0.00-10.9); Hematocrit 26.8 VOL% (42.0-52.0); Hemoglobin 9.1 GM/DL (14.0-18.0); Immature Granulocytes % 1.1 %; Immature Granulocytes Absolute 0.07 #; Lymphocytes # 0.9 10*3/uL (1.4-4.0); Lymphocytes % 14.8 % (21.2-54.2); Mean Corpuscular Hemoglobin 29 PG (27-34); Mean Corpuscular Volume 86.7 FL (87-102); Mean Platelet Volume 10.8 FL (9.6-12.0); Monocytes # 0.7 10*3/uL (0.11-0.8); Monocytes % 11.9 % (1.7-12.7); Neutrophils # 4.1 10*3/uL (1.4-7.4); Platelet Count 129 T/CUMM (130-400); Red Blood Count 3.09 MC/CUMM (3.8-5.5); Red Cell Distribution Width 15.7 % (9.3-17.3); White Blood Count 6.2 T/CUMM (4-12)
[2017-05-16 06:25] LABS: INR 1.5; PT Patient Result 15.7 SECS
[2017-05-16 06:48] LABS: Magnesium 2.5 MG/DL (1.8-2.4); Potassium 3.9 MMOL/L (3.5-5.1)
[2017-05-16] MEDS: INSULIN REGULAR 100 UNIT/ML SUBCUT SCH ×2 (07:51→11:35)
[2017-05-16] MEDS: CLOPIDOGREL 75 MG TABLET PO SCH (08:12)
[2017-05-16] MEDS: PANTOPRAZOLE 40 MG VIAL IV SCH (08:12)
[2017-05-16] MEDS: FUROSEMIDE 20 MG TABLET PO SCH (08:12)
[2017-05-16] MEDS: CALCIUM (CARBONATE)/VITAMIN D 600 MG-400 UNIT TABLET PO SCH (08:12)
[2017-05-16] MEDS: hydrALAZINE 25 MG TABLET PO SCH (08:12)
[2017-05-16] MEDS: OMEGA 3 ACID ETHYL ESTERS 1 GM CAPSULE PO SCH (08:12)
[2017-05-16] MEDS: CARVEDILOL 25 MG TABLET PO SCH (08:12)
[2017-05-16] MEDS: FERROUS SULFATE 325 MG TABLET PO SCH (08:12)
[2017-05-16] MEDS: LIDOCAINE 5% PATCH TRANSDERM SCH (08:13)
[2017-05-16 11:54] VITALS: BP 133/66
[2017-05-16] MEDS ORDERED: SODIUM CHLORIDE 0.65% NASAL SPRAY 45 ML BOTTLE BOTH NARES PRN (12:55)
== END 2017-05-16 15:02 | disposition home or self-care (01) | DRG 813 ==
LOC: N.ICU 17:50 → N.5E 05-15 10:17
PROVIDERS: ADMIT Internal Medicine; ATTEND Internal Medicine

== ENCOUNTER 2017-05-20 15:25 | Inpatient (IN) ==
[2017-05-20] MEDS ORDERED: SODIUM CHLORIDE 0.9% 1,000 ML IV STA (15:39)
[2017-05-20 17:11] LABS: Basophils % 0.1 % (0.0-0.8); Eosinophils # 0.1 10*3/uL (0.0-0.87); Eosinophils % 1.3 % (0.00-10.9); Immature Granulocytes % 0.8 %; Immature Granulocytes Absolute 0.06 #; Lymphocytes # 0.8 10*3/uL (1.4-4.0); Lymphocytes % 10.6 % (21.2-54.2); Mean Corpuscular HGB Conc 33.5 GM/DL (32-36); Mean Corpuscular Hemoglobin 31 PG (27-34); Mean Corpuscular Volume 91.1 FL (87-102); Mean Platelet Volume 10.6 FL (9.6-12.0); Monocytes # 0.5 10*3/uL (0.11-0.8); Neutrophils # 6.2 10*3/uL (1.4-7.4); Neutrophils % 80.2 % (38.7-73.9); Platelet Count 142 T/CUMM (130-400); Red Cell Distribution Width 16.2 % (9.3-17.3); White Blood Count 7.7 T/CUMM (4-12)
[2017-05-20 17:15] LABS: Hematocrit 16.4 VOL% (42.0-52.0); Hemoglobin 5.5 GM/DL (14.0-18.0)
[2017-05-20 17:30] LABS: INR 6.7
[2017-05-20 17:34] LABS: PT Patient Result 65.5 SECS; Partial Thromboplastin Time 41.1 SECS (0-40)
[2017-05-20] MEDS ORDERED: SODIUM CHLORIDE 0.9% 250 ML IV PRN (17:35)
[2017-05-20] MEDS ORDERED: DEXTROSE 50% 25 GM/50 ML VIAL IV PRN (17:43)
[2017-05-20] MEDS ORDERED: GLUCAGON 1 MG VIAL IM PRN (17:43)
[2017-05-20 17:52] LABS: % Iron Saturation 40.3 % (18-50); Albumin 2.1 G/DL (3.4-5.0); Bilirubin,Total 0.6 MG/DL (0.2-1.0); Calcium 6.8 MG/DL (8.5-10.1); Ferritin 267.9 ng/ml (26-388); Free T4 (Free Thyroxine) 0.86 NG/DL (0.76-1.46); Osmolality,Calculated 309.8 MOS/KG (273-304); Potassium 4.5 MMOL/L (3.5-5.1); Thyroid Stimulating Hormone 1.82 uIU/ml (0.358-3.74); Total Protein 4.4 G/DL (6.4-8.3)
[2017-05-20 17:55] LABS: Folate 11.4 NG/ML (5.4-24.0)
[2017-05-20] MEDS: SODIUM CHLORIDE 0.9% 1,000 ML IV SCH (18:51)
[2017-05-20 18:59] LABS: Hematocrit 15.8 VOL% (42.0-52.0); Hemoglobin 5.1 GM/DL (14.0-18.0)
[2017-05-20] MEDS: INSULIN LISPRO 100 UNIT/ML SUBCUT SCH (20:18)
[2017-05-21] MEDS: SODIUM CHLORIDE 0.9% 1,000 ML IV SCH ×3 (03:46→18:08)
[2017-05-21 06:19] LABS: Hematocrit 20.1 VOL% (42.0-52.0); Hemoglobin 6.8 GM/DL (14.0-18.0)
[2017-05-21 06:20] LABS: Basophils % 0.1 % (0.0-0.8); Eosinophils # 0.2 10*3/uL (0.0-0.87); Eosinophils % 2.3 % (0.00-10.9); Hematocrit 19.8 VOL% (42.0-52.0); Hemoglobin 6.6 GM/DL (14.0-18.0); Immature Granulocytes % 0.5 %; Immature Granulocytes Absolute 0.04 #; Lymphocytes # 0.9 10*3/uL (1.4-4.0); Lymphocytes % 11.2 % (21.2-54.2); Mean Corpuscular HGB Conc 33.3 GM/DL (32-36); Mean Corpuscular Hemoglobin 30 PG (27-34); Mean Corpuscular Volume 90.8 FL (87-102); Monocytes # 0.6 10*3/uL (0.11-0.8); Monocytes % 7.5 % (1.7-12.7); Neutrophils # 6.1 10*3/uL (1.4-7.4); Neutrophils % 78.4 % (38.7-73.9); Platelet Count 130 T/CUMM (130-400); Red Blood Count 2.18 MC/CUMM (3.8-5.5); Red Cell Distribution Width 15.4 % (9.3-17.3); White Blood Count 7.8 T/CUMM (4-12)
[2017-05-21 06:50] LABS: Albumin 1.9 G/DL (3.4-5.0); Bilirubin,Total 0.9 MG/DL (0.2-1.0); Calcium 6.9 MG/DL (8.5-10.1); Osmolality,Calculated 315.4 MOS/KG (273-304); Potassium 4.3 MMOL/L (3.5-5.1); Total Protein 4.1 G/DL (6.4-8.3)
[2017-05-21] MEDS ORDERED: SODIUM CHLORIDE 0.9% 250 ML IV PRN (07:47)
[2017-05-21 08:52] LABS: PT Patient Result 59.1 SECS
[2017-05-21] MEDS: INSULIN LISPRO 100 UNIT/ML SUBCUT SCH ×4 (09:00→21:35)
[2017-05-21] MEDS: hydrALAZINE 25 MG TABLET PO SCH ×3 (09:01→21:37)
[2017-05-21] MEDS: CARVEDILOL 25 MG TABLET PO SCH ×2 (09:01→21:35)
[2017-05-21] MEDS: PANTOPRAZOLE 40 MG TABLET PO SCH (09:01)
[2017-05-21] MEDS: FERROUS SULFATE 325 MG TABLET PO SCH (09:01)
[2017-05-21] MEDS ORDERED: oxyCODONE/ACETAMINOPHEN 5-325 MG TABLET PO PRN (09:55)
[2017-05-21] MEDS ORDERED: ACETAMINOPHEN 325 MG TABLET PO PRN (10:40)
[2017-05-21 19:39] LABS: Hematocrit 22.3 VOL% (42.0-52.0); Hemoglobin 7.8 GM/DL (14.0-18.0)
[2017-05-21] MEDS: INSULIN GLARGINE 100 UNIT/ML SUBCUT SCH (21:34)
[2017-05-21] MEDS: ATORVASTATIN 40 MG TABLET PO SCH (21:37)
[2017-05-22] MEDS: SODIUM CHLORIDE 0.9% 1,000 ML IV SCH ×4 (00:09→17:01)
[2017-05-22 06:30] LABS: Basophils % 0.5 % (0.0-0.8); Eosinophils # 0.5 10*3/uL (0.0-0.87); Eosinophils % 6.4 % (0.00-10.9); Hematocrit 22.1 VOL% (42.0-52.0); Hemoglobin 7.4 GM/DL (14.0-18.0); Immature Granulocytes % 0.5 %; Immature Granulocytes Absolute 0.04 #; Lymphocytes # 1.1 10*3/uL (1.4-4.0); Mean Corpuscular HGB Conc 33.5 GM/DL (32-36); Mean Corpuscular Hemoglobin 31 PG (27-34); Mean Corpuscular Volume 92.5 FL (87-102); Mean Platelet Volume 11.4 FL (9.6-12.0); Monocytes # 0.6 10*3/uL (0.11-0.8); Monocytes % 7.9 % (1.7-12.7); Neutrophils # 5.3 10*3/uL (1.4-7.4); Neutrophils % 70.7 % (38.7-73.9); Platelet Count 155 T/CUMM (130-400); Red Blood Count 2.39 MC/CUMM (3.8-5.5); Red Cell Distribution Width 15.5 % (9.3-17.3); White Blood Count 7.5 T/CUMM (4-12)
[2017-05-22 06:48] LABS: Albumin 1.9 G/DL (3.4-5.0); Bilirubin,Total 0.5 MG/DL (0.2-1.0); Calcium 7.2 MG/DL (8.5-10.1); Osmolality,Calculated 312.4 MOS/KG (273-304); Potassium 4.8 MMOL/L (3.5-5.1); Total Protein 4.1 G/DL (6.4-8.3)
[2017-05-22] MEDS ORDERED: SODIUM CHLORIDE 0.9% 250 ML IV PRN (08:37)
[2017-05-22] MEDS ORDERED: diphenhydrAMINE CAP 25 MG CAPSULE PO PRN (08:37)
[2017-05-22] MEDS ORDERED: ACETAMINOPHEN 325 MG TABLET PO PRN (08:37)
[2017-05-22] MEDS: INSULIN LISPRO 100 UNIT/ML SUBCUT SCH ×4 (09:22→20:35)
[2017-05-22] MEDS: FERROUS SULFATE 325 MG TABLET PO SCH (10:03)
[2017-05-22] MEDS: CARVEDILOL 25 MG TABLET PO SCH ×2 (10:04→20:35)
[2017-05-22] MEDS: hydrALAZINE 25 MG TABLET PO SCH ×3 (10:04→20:35)
[2017-05-22] MEDS: PANTOPRAZOLE 40 MG TABLET PO SCH (10:04)
[2017-05-22 16:18] LABS: Hematocrit 24.6 VOL% (42.0-52.0); Hemoglobin 8.3 GM/DL (14.0-18.0)
[2017-05-22] MEDS: ATORVASTATIN 40 MG TABLET PO SCH (20:35)
[2017-05-22] MEDS: INSULIN GLARGINE 100 UNIT/ML SUBCUT SCH (20:35)
[2017-05-23] MEDS: SODIUM CHLORIDE 0.9% 1,000 ML IV SCH ×2 (01:29→09:02)
[2017-05-23 05:09] LABS: Basophils % 0.3 % (0.0-0.8); Eosinophils # 0.2 10*3/uL (0.0-0.87); Eosinophils % 3.1 % (0.00-10.9); Hematocrit 21.2 VOL% (42.0-52.0); Immature Granulocytes % 0.4 %; Immature Granulocytes Absolute 0.03 #; Lymphocytes # 0.7 10*3/uL (1.4-4.0); Lymphocytes % 10.1 % (21.2-54.2); Mean Corpuscular Hemoglobin 31 PG (27-34); Mean Corpuscular Volume 89.8 FL (87-102); Mean Platelet Volume 11.3 FL (9.6-12.0); Monocytes # 0.6 10*3/uL (0.11-0.8); Monocytes % 8.2 % (1.7-12.7); Neutrophils # 5.2 10*3/uL (1.4-7.4); Neutrophils % 77.9 % (38.7-73.9); Platelet Count 129 T/CUMM (130-400); Red Blood Count 2.36 MC/CUMM (3.8-5.5); Red Cell Distribution Width 15.6 % (9.3-17.3); White Blood Count 6.7 T/CUMM (4-12)
[2017-05-23 05:12] LABS: Hemoglobin 7.2 GM/DL (14.0-18.0)
[2017-05-23 05:33] LABS: Albumin 1.7 G/DL (3.4-5.0); Bilirubin,Total 0.6 MG/DL (0.2-1.0); Calcium 6.9 MG/DL (8.5-10.1); Osmolality,Calculated 306.7 MOS/KG (273-304); Potassium 4.2 MMOL/L (3.5-5.1); Total Protein 3.5 G/DL (6.4-8.3)
[2017-05-23] MEDS: INSULIN LISPRO 100 UNIT/ML SUBCUT SCH ×4 (07:36→20:50)
[2017-05-23] MEDS ORDERED: SODIUM CHLORIDE 0.9% 250 ML IV PRN (07:55)
[2017-05-23 08:52] LABS: INR 8.1
[2017-05-23] MEDS: FERROUS SULFATE 325 MG TABLET PO SCH (09:01)
[2017-05-23] MEDS: hydrALAZINE 25 MG TABLET PO SCH ×3 (09:01→20:49)
[2017-05-23] MEDS: PANTOPRAZOLE 40 MG TABLET PO SCH (09:01)
[2017-05-23] MEDS: CARVEDILOL 25 MG TABLET PO SCH ×2 (09:01→20:49)
[2017-05-23] MEDS: MUPIROCIN 2% OINT 22 GM TUBE TOP SCH ×2 (16:21→20:50)
[2017-05-23] MEDS ORDERED: PHYTONADIONE 10 MG/1 ML AMP SUBCUT ONE (16:27)
[2017-05-23 17:30] LABS: Hematocrit 27.3 VOL% (42.0-52.0)
[2017-05-23 17:32] LABS: Hemoglobin 9.4 GM/DL (14.0-18.0)
[2017-05-23] MEDS: ATORVASTATIN 40 MG TABLET PO SCH (20:49)
[2017-05-23] MEDS: INSULIN GLARGINE 100 UNIT/ML SUBCUT SCH (20:49)
[2017-05-24 07:03] LABS: PT Patient Result 57.5 SECS
[2017-05-24 07:05] LABS: INR 5.8
[2017-05-24 07:24] LABS: Calcium 6.9 MG/DL (8.5-10.1); Magnesium 2.1 MG/DL (1.8-2.4); Osmolality,Calculated 304.8 MOS/KG (273-304); Potassium 4.1 MMOL/L (3.5-5.1)
[2017-05-24 08:32] LABS: Basophils % 0.4 % (0.0-0.8); Eosinophils # 0.3 10*3/uL (0.0-0.87); Eosinophils % 4.5 % (0.00-10.9); Hemoglobin 8.1 GM/DL (14.0-18.0); Immature Granulocytes % 0.4 %; Immature Granulocytes Absolute 0.03 #; Lymphocytes # 1.1 10*3/uL (1.4-4.0); Lymphocytes % 15.9 % (21.2-54.2); Mean Corpuscular HGB Conc 33.8 GM/DL (32-36); Mean Corpuscular Hemoglobin 31 PG (27-34); Mean Corpuscular Volume 90.2 FL (87-102); Mean Platelet Volume 10.6 FL (9.6-12.0); Monocytes # 0.8 10*3/uL (0.11-0.8); Monocytes % 11.2 % (1.7-12.7); Neutrophils # 4.6 10*3/uL (1.4-7.4); Neutrophils % 67.6 % (38.7-73.9); Platelet Count 152 T/CUMM (130-400); Red Blood Count 2.66 MC/CUMM (3.8-5.5); Red Cell Distribution Width 15.3 % (9.3-17.3); White Blood Count 6.9 T/CUMM (4-12)
[2017-05-24] MEDS ORDERED: PHYTONADIONE 10 MG/1 ML AMP SUBCUT ONE (09:00)
[2017-05-24] MEDS: hydrALAZINE 25 MG TABLET PO SCH ×3 (09:06→20:36)
[2017-05-24] MEDS: CARVEDILOL 25 MG TABLET PO SCH ×2 (09:06→20:36)
[2017-05-24] MEDS: FERROUS SULFATE 325 MG TABLET PO SCH (09:07)
[2017-05-24] MEDS: PANTOPRAZOLE 40 MG TABLET PO SCH (09:07)
[2017-05-24] MEDS: INSULIN LISPRO 100 UNIT/ML SUBCUT SCH ×4 (09:15→20:36)
[2017-05-24] MEDS: MUPIROCIN 2% OINT 22 GM TUBE TOP SCH ×3 (13:00→20:42)
[2017-05-24] MEDS: ATORVASTATIN 40 MG TABLET PO SCH (20:36)
[2017-05-24] MEDS: INSULIN GLARGINE 100 UNIT/ML SUBCUT SCH (20:37)
[2017-05-25 06:02] LABS: Basophils % 0.2 % (0.0-0.8); Eosinophils # 0.3 10*3/uL (0.0-0.87); Eosinophils % 4.2 % (0.00-10.9); Hematocrit 20.5 VOL% (42.0-52.0); Hemoglobin 6.9 GM/DL (14.0-18.0); Immature Granulocytes % 0.3 %; Immature Granulocytes Absolute 0.02 #; Lymphocytes # 0.9 10*3/uL (1.4-4.0); Mean Corpuscular HGB Conc 33.7 GM/DL (32-36); Mean Corpuscular Hemoglobin 30 PG (27-34); Mean Corpuscular Volume 89.9 FL (87-102); Mean Platelet Volume 10.2 FL (9.6-12.0); Monocytes # 0.7 10*3/uL (0.11-0.8); Monocytes % 11.9 % (1.7-12.7); Neutrophils # 4.3 10*3/uL (1.4-7.4); Neutrophils % 69.4 % (38.7-73.9); Platelet Count 140 T/CUMM (130-400); Red Blood Count 2.28 MC/CUMM (3.8-5.5); Red Cell Distribution Width 15.1 % (9.3-17.3); White Blood Count 6.1 T/CUMM (4-12)
[2017-05-25 06:22] LABS: INR 2.1
[2017-05-25 06:27] LABS: PT Patient Result 21.4 SECS
[2017-05-25 06:35] LABS: Calcium 6.9 MG/DL (8.5-10.1); Magnesium 2.5 MG/DL (1.8-2.4); Osmolality,Calculated 303.7 MOS/KG (273-304); Potassium 4.2 MMOL/L (3.5-5.1)
[2017-05-25 06:50] LABS: Folate 11.6 NG/ML (5.4-24.0)
[2017-05-25] MEDS: INSULIN LISPRO 100 UNIT/ML SUBCUT SCH ×4 (07:40→21:43)
[2017-05-25] MEDS: hydrALAZINE 25 MG TABLET PO SCH ×3 (09:49→21:43)
[2017-05-25] MEDS: MUPIROCIN 2% OINT 22 GM TUBE TOP SCH ×3 (09:49→21:43)
[2017-05-25] MEDS: FERROUS SULFATE 325 MG TABLET PO SCH (09:49)
[2017-05-25] MEDS: PANTOPRAZOLE 40 MG TABLET PO SCH (09:49)
[2017-05-25] MEDS: CARVEDILOL 25 MG TABLET PO SCH ×2 (09:49→21:43)
[2017-05-25] MEDS ORDERED: SODIUM CHLORIDE 0.9% 250 ML IV PRN (10:55)
[2017-05-25] MEDS: ATORVASTATIN 40 MG TABLET PO SCH (21:42)
[2017-05-25] MEDS: INSULIN GLARGINE 100 UNIT/ML SUBCUT SCH (21:43)
[2017-05-26 06:37] LABS: Basophils % 0.6 % (0.0-0.8); Eosinophils # 0.4 10*3/uL (0.0-0.87); Eosinophils % 4.9 % (0.00-10.9); Hematocrit 26.1 VOL% (42.0-52.0); Immature Granulocytes % 0.3 %; Immature Granulocytes Absolute 0.02 #; Lymphocytes # 0.9 10*3/uL (1.4-4.0); Mean Corpuscular HGB Conc 34.1 GM/DL (32-36); Mean Corpuscular Hemoglobin 30 PG (27-34); Mean Corpuscular Volume 88.8 FL (87-102); Mean Platelet Volume 10.9 FL (9.6-12.0); Monocytes # 0.8 10*3/uL (0.11-0.8); Neutrophils # 5.1 10*3/uL (1.4-7.4); Neutrophils % 71.2 % (38.7-73.9); Platelet Count 147 T/CUMM (130-400); Red Cell Distribution Width 15.7 % (9.3-17.3); White Blood Count 7.1 T/CUMM (4-12)
[2017-05-26 06:52] LABS: Hemoglobin 8.9 GM/DL (14.0-18.0); Red Blood Count 2.94 MC/CUMM (3.8-5.5)
[2017-05-26] MEDS: PANTOPRAZOLE 40 MG TABLET PO SCH (09:32)
[2017-05-26] MEDS: INSULIN LISPRO 100 UNIT/ML SUBCUT SCH ×2 (09:32→12:28)
[2017-05-26] MEDS: FERROUS SULFATE 325 MG TABLET PO SCH (09:32)
[2017-05-26] MEDS: CARVEDILOL 25 MG TABLET PO SCH (09:32)
[2017-05-26] MEDS: MUPIROCIN 2% OINT 22 GM TUBE TOP SCH (09:33)
[2017-05-26] MEDS: hydrALAZINE 25 MG TABLET PO SCH (10:18)
[2017-05-26 11:35] VITALS: BP 135/74
== END 2017-05-26 12:41 | disposition home or self-care (01) | DRG 813 ==
LOC: EDUNIT# → EDBD → N.ED 15:25 → SUATTDRO 16:27 → N.EDINP 16:27 → N.CC 17:51 → N.2E 05-23 16:29
PROVIDERS: ADMIT Internal Medicine; ATTEND Internal Medicine Geriatric Medicine

== ENCOUNTER 2017-06-12 02:51 | Inpatient (IN) ==
[2017-06-12 05:09] LABS: Basophils % 0.2 % (0.0-0.8); Eosinophils # 0.2 10*3/uL (0.0-0.87); Eosinophils % 3.5 % (0.00-10.9); Hematocrit 22.4 VOL% (42.0-52.0); Hemoglobin 7.5 GM/DL (14.0-18.0); Immature Granulocytes % 0.6 %; Immature Granulocytes Absolute 0.04 #; Lymphocytes # 0.6 10*3/uL (1.4-4.0); Lymphocytes % 8.9 % (21.2-54.2); Mean Corpuscular HGB Conc 33.5 GM/DL (32-36); Mean Corpuscular Hemoglobin 31 PG (27-34); Mean Corpuscular Volume 91.8 FL (87-102); Monocytes # 0.8 10*3/uL (0.11-0.8); Neutrophils # 4.9 10*3/uL (1.4-7.4); Neutrophils % 74.8 % (38.7-73.9); Platelet Count 173 T/CUMM (130-400); Red Blood Count 2.44 MC/CUMM (3.8-5.5); Red Cell Distribution Width 15.9 % (9.3-17.3); White Blood Count 6.5 T/CUMM (4-12)
[2017-06-12 05:35] LABS: Alanine Aminotransferase 21 U/L (16-61); Albumin 2.4 G/DL (3.4-5.0); Alkaline Phosphatase 111 U/L (45-117); Aspartate Amino Transferase 13 U/L (0-37); Bilirubin,Total < 0.39 MG/DL (0.2-1.0); Blood Urea Nitrogen 48 MG/DL (7-18); Calcium 7.5 MG/DL (8.5-10.1); Glucose 173 MG/DL (74-106); Magnesium 2.2 MG/DL (1.8-2.4); Osmolality,Calculated 299.1 MOS/KG (273-304); Potassium 3.6 MMOL/L (3.5-5.1); Sodium 142 MMOL/L (136-145); Total Protein 5.8 G/DL (6.4-8.3); Troponin I Only 0.034 NG/ML (0.00-0.045)
[2017-06-12 08:00] LABS: INR 1.1; PT Patient Result 11.6 SECS
[2017-06-12] MEDS ORDERED: diphenhydrAMINE CAP 25 MG CAPSULE PO PRN (08:29)
[2017-06-12] MEDS ORDERED: HEPARIN 5,000 UNIT/1 ML VIAL IV ONE (08:29)
[2017-06-12] MEDS ORDERED: MORPHINE 2 MG/1 ML SYRINGE IV PRN (08:29)
[2017-06-12] MEDS ORDERED: guaiFENesin/DM ER 600-30 MG TABLET PO PRN (08:29)
[2017-06-12] MEDS ORDERED: GLUCAGON 1 MG VIAL IM PRN (08:29)
[2017-06-12] MEDS ORDERED: DOCUSATE SODIUM 100 MG CAPSULE PO PRN (08:29)
[2017-06-12] MEDS ORDERED: ACETAMINOPHEN 325 MG TABLET PO PRN ×3 (08:29→08:48)
[2017-06-12] MEDS ORDERED: ONDANSETRON 4 MG/2 ML VIAL IV PRN (08:29)
[2017-06-12] MEDS ORDERED: DEXTROSE 50% 25 GM/50 ML VIAL IV PRN (08:29)
[2017-06-12] MEDS ORDERED: SODIUM CHLORIDE 0.65% NASAL SPRAY 45 ML BOTTLE BOTH NARES PRN (08:48)
[2017-06-12] MEDS ORDERED: PANTOPRAZOLE 40 MG TABLET PO SCH (09:00)
[2017-06-12] MEDS: FERROUS SULFATE 325 MG TABLET PO SCH (10:34)
[2017-06-12] MEDS: OMEGA 3 ACID ETHYL ESTERS 1 GM CAPSULE PO SCH (10:34)
[2017-06-12] MEDS: CALCIUM (CARBONATE)/VITAMIN D 600 MG-400 UNIT TABLET PO SCH ×2 (10:34→20:14)
[2017-06-12] MEDS: CLOPIDOGREL 75 MG TABLET PO SCH (10:35)
[2017-06-12] MEDS: CARVEDILOL 25 MG TABLET PO SCH ×2 (10:35→20:14)
[2017-06-12] MEDS: PANTOPRAZOLE 40 MG TABLET PO SCH ×2 (10:35→20:15)
[2017-06-12] MEDS: MUPIROCIN 2% OINT 22 GM TUBE TOP SCH ×3 (10:36→20:15)
[2017-06-12] MEDS: FUROSEMIDE 40 MG/4 ML VIAL IV SCH ×2 (10:36→16:22)
[2017-06-12] MEDS: hydrALAZINE 25 MG TABLET PO SCH ×3 (10:36→20:14)
[2017-06-12] MEDS: LIDOCAINE 5% PATCH TRANSDERM SCH (10:39)
[2017-06-12] MEDS: HEPARIN DRIP 25,000 UNITS/500 ML PREMIX IV SCH (11:36)
[2017-06-12] MEDS: INSULIN LISPRO 100 UNIT/ML SUBCUT SCH (17:19)
[2017-06-12] MEDS ORDERED: HEPARIN 5,000 UNIT/1 ML VIAL IV PRN (18:26)
[2017-06-12] MEDS ORDERED: WARFARIN 5 MG TABLET PO ONE (18:55)
[2017-06-12] MEDS ORDERED: SPIRONOLACTONE 25 MG TABLET PO ONE (18:58)
[2017-06-12] MEDS: ATORVASTATIN 40 MG TABLET PO SCH (20:14)
[2017-06-12] MEDS: INSULIN GLARGINE 100 UNIT/ML SUBCUT SCH (20:15)
[2017-06-13] MEDS: FUROSEMIDE 40 MG/4 ML VIAL IV SCH ×3 (00:42→17:23)
[2017-06-13 06:05] LABS: Basophils % 0.3 % (0.0-0.8); Eosinophils # 0.3 10*3/uL (0.0-0.87); Eosinophils % 4.3 % (0.00-10.9); Hematocrit 22.4 VOL% (42.0-52.0); Hemoglobin 7.5 GM/DL (14.0-18.0); Immature Granulocytes % 0.8 %; Immature Granulocytes Absolute 0.05 #; Lymphocytes # 0.6 10*3/uL (1.4-4.0); Lymphocytes % 9.8 % (21.2-54.2); Mean Corpuscular HGB Conc 33.5 GM/DL (32-36); Mean Corpuscular Hemoglobin 30 PG (27-34); Mean Corpuscular Volume 90.7 FL (87-102); Mean Platelet Volume 10.5 FL (9.6-12.0); Monocytes # 0.8 10*3/uL (0.11-0.8); Monocytes % 11.6 % (1.7-12.7); Neutrophils # 4.7 10*3/uL (1.4-7.4); Neutrophils % 73.2 % (38.7-73.9); Platelet Count 185 T/CUMM (130-400); Red Blood Count 2.47 MC/CUMM (3.8-5.5); Red Cell Distribution Width 16.1 % (9.3-17.3); White Blood Count 6.5 T/CUMM (4-12)
[2017-06-13 06:13] LABS: INR 1.1; PT Patient Result 11.7 SECS
[2017-06-13 07:00] LABS: Albumin 2.5 G/DL (3.4-5.0); Bilirubin,Total 0.4 MG/DL (0.2-1.0); Calcium 7.6 MG/DL (8.5-10.1); Magnesium 2.3 MG/DL (1.8-2.4); Potassium 3.7 MMOL/L (3.5-5.1); Total Protein 5.2 G/DL (6.4-8.3)
[2017-06-13] MEDS: INSULIN LISPRO 100 UNIT/ML SUBCUT SCH ×2 (08:45→17:23)
[2017-06-13] MEDS: PANTOPRAZOLE 40 MG TABLET PO SCH ×2 (09:15→20:07)
[2017-06-13] MEDS: MUPIROCIN 2% OINT 22 GM TUBE TOP SCH ×3 (09:15→20:07)
[2017-06-13] MEDS: SPIRONOLACTONE 25 MG TABLET PO SCH (09:15)
[2017-06-13] MEDS: CALCIUM (CARBONATE)/VITAMIN D 600 MG-400 UNIT TABLET PO SCH ×2 (09:15→20:07)
[2017-06-13] MEDS: CARVEDILOL 25 MG TABLET PO SCH ×2 (09:15→20:07)
[2017-06-13] MEDS: LIDOCAINE 5% PATCH TRANSDERM SCH (09:16)
[2017-06-13] MEDS: OMEGA 3 ACID ETHYL ESTERS 1 GM CAPSULE PO SCH (09:16)
[2017-06-13] MEDS: HEPARIN DRIP 25,000 UNITS/500 ML PREMIX IV SCH (09:16)
[2017-06-13] MEDS: hydrALAZINE 25 MG TABLET PO SCH ×3 (09:16→20:07)
[2017-06-13] MEDS: CLOPIDOGREL 75 MG TABLET PO SCH (09:16)
[2017-06-13] MEDS: FERROUS SULFATE 325 MG TABLET PO SCH (09:16)
[2017-06-13] MEDS: METHYL SALICYLATE TOP SCH (09:26)
[2017-06-13] MEDS: MENTHOL TOP SCH (09:26)
[2017-06-13] MEDS: CAMPHOR TOP SCH (09:26)
[2017-06-13] MEDS ORDERED: SODIUM CHLORIDE 0.9% 1,000 ML IV PRN (13:50)
[2017-06-13] MEDS: BACITRACIN OINT 0.9 GM PACK TOP SCH (16:19)
[2017-06-13] MEDS ORDERED: WARFARIN 1 MG TABLET PO SCH (18:00)
[2017-06-13] MEDS: INSULIN GLARGINE 100 UNIT/ML SUBCUT SCH (20:07)
[2017-06-13] MEDS: ATORVASTATIN 40 MG TABLET PO SCH (20:07)
[2017-06-14 00:10] LABS: Hematocrit 27.1 VOL% (42.0-52.0); Hemoglobin 9.1 GM/DL (14.0-18.0)
[2017-06-14] MEDS: FUROSEMIDE 40 MG/4 ML VIAL IV SCH ×3 (00:26→15:52)
[2017-06-14] MEDS: HEPARIN DRIP 25,000 UNITS/500 ML PREMIX IV SCH ×3 (03:58→23:33)
[2017-06-14 06:26] LABS: INR 1.3
[2017-06-14] MEDS ORDERED: WARFARIN 1 MG TABLET PO SCH (08:48)
[2017-06-14] MEDS: INSULIN LISPRO 100 UNIT/ML SUBCUT SCH ×2 (09:13→17:43)
[2017-06-14] MEDS: LIDOCAINE 5% PATCH TRANSDERM SCH (09:43)
[2017-06-14] MEDS: PANTOPRAZOLE 40 MG TABLET PO SCH ×2 (09:44→20:36)
[2017-06-14] MEDS: SPIRONOLACTONE 25 MG TABLET PO SCH (09:44)
[2017-06-14] MEDS: hydrALAZINE 25 MG TABLET PO SCH ×3 (09:44→20:36)
[2017-06-14] MEDS: FERROUS SULFATE 325 MG TABLET PO SCH (09:44)
[2017-06-14] MEDS: CLOPIDOGREL 75 MG TABLET PO SCH (09:44)
[2017-06-14] MEDS: CARVEDILOL 25 MG TABLET PO SCH ×2 (09:44→20:36)
[2017-06-14] MEDS: CALCIUM (CARBONATE)/VITAMIN D 600 MG-400 UNIT TABLET PO SCH ×2 (09:44→20:36)
[2017-06-14] MEDS: OMEGA 3 ACID ETHYL ESTERS 1 GM CAPSULE PO SCH (09:44)
[2017-06-14] MEDS: METHYL SALICYLATE TOP SCH (09:47)
[2017-06-14] MEDS: MENTHOL TOP SCH (09:47)
[2017-06-14] MEDS: MUPIROCIN 2% OINT 22 GM TUBE TOP SCH ×3 (09:47→20:40)
[2017-06-14] MEDS: CAMPHOR TOP SCH (09:47)
[2017-06-14] MEDS: BACITRACIN OINT 0.9 GM PACK TOP SCH (09:54)
[2017-06-14] MEDS: WARFARIN 3 MG TABLET PO SCH (17:43)
[2017-06-14] MEDS: ATORVASTATIN 40 MG TABLET PO SCH (20:36)
[2017-06-14] MEDS: INSULIN GLARGINE 100 UNIT/ML SUBCUT SCH (20:49)
[2017-06-15 02:05] LABS: Calcium 7.6 MG/DL (8.5-10.1); Magnesium 2.2 MG/DL (1.8-2.4); Osmolality,Calculated 296.4 MOS/KG (273-304); Potassium 3.7 MMOL/L (3.5-5.1)
[2017-06-15 05:59] LABS: Basophils % 0.3 % (0.0-0.8); Eosinophils # 0.3 10*3/uL (0.0-0.87); Eosinophils % 4.6 % (0.00-10.9); Hemoglobin 9.1 GM/DL (14.0-18.0); Immature Granulocytes % 0.5 %; Immature Granulocytes Absolute 0.03 #; Lymphocytes # 0.6 10*3/uL (1.4-4.0); Lymphocytes % 10.8 % (21.2-54.2); Mean Corpuscular HGB Conc 33.7 GM/DL (32-36); Mean Corpuscular Hemoglobin 30 PG (27-34); Mean Corpuscular Volume 89.7 FL (87-102); Mean Platelet Volume 10.9 FL (9.6-12.0); Monocytes # 0.8 10*3/uL (0.11-0.8); Monocytes % 14.2 % (1.7-12.7); Neutrophils # 4.1 10*3/uL (1.4-7.4); Neutrophils % 69.6 % (38.7-73.9); Platelet Count 182 T/CUMM (130-400); Red Blood Count 3.01 MC/CUMM (3.8-5.5); Red Cell Distribution Width 15.9 % (9.3-17.3); White Blood Count 5.9 T/CUMM (4-12)
[2017-06-15 06:05] LABS: INR 1.8; PT Patient Result 18.5 SECS
[2017-06-15] MEDS: INSULIN LISPRO 100 UNIT/ML SUBCUT SCH ×2 (07:40→17:33)
[2017-06-15] MEDS: FUROSEMIDE 40 MG/4 ML VIAL IV SCH ×2 (09:42→15:24)
[2017-06-15] MEDS: CARVEDILOL 25 MG TABLET PO SCH ×2 (09:43→21:25)
[2017-06-15] MEDS: hydrALAZINE 25 MG TABLET PO SCH ×3 (09:43→21:25)
[2017-06-15] MEDS: PANTOPRAZOLE 40 MG TABLET PO SCH ×2 (09:43→21:25)
[2017-06-15] MEDS: FERROUS SULFATE 325 MG TABLET PO SCH (09:43)
[2017-06-15] MEDS: BACITRACIN OINT 0.9 GM PACK TOP SCH (09:43)
[2017-06-15] MEDS: CLOPIDOGREL 75 MG TABLET PO SCH (09:43)
[2017-06-15] MEDS: SPIRONOLACTONE 25 MG TABLET PO SCH (09:43)
[2017-06-15] MEDS: OMEGA 3 ACID ETHYL ESTERS 1 GM CAPSULE PO SCH (09:43)
[2017-06-15] MEDS: LIDOCAINE 5% PATCH TRANSDERM SCH (09:44)
[2017-06-15] MEDS: CALCIUM (CARBONATE)/VITAMIN D 600 MG-400 UNIT TABLET PO SCH ×2 (09:44→21:25)
[2017-06-15] MEDS: MUPIROCIN 2% OINT 22 GM TUBE TOP SCH ×3 (09:44→21:26)
[2017-06-15] MEDS: MENTHOL TOP SCH (09:44)
[2017-06-15] MEDS: METHYL SALICYLATE TOP SCH (09:44)
[2017-06-15] MEDS: CAMPHOR TOP SCH (09:44)
[2017-06-15] MEDS: HEPARIN DRIP 25,000 UNITS/500 ML PREMIX IV SCH (09:55)
[2017-06-15] MEDS: LIDOCAINE 2% TOP JELLY 5 ML TUBE TOP SCH (15:24)
[2017-06-15] MEDS: WARFARIN 3 MG TABLET PO SCH (18:13)
[2017-06-15] MEDS: ATORVASTATIN 40 MG TABLET PO SCH (21:25)
[2017-06-15] MEDS: INSULIN GLARGINE 100 UNIT/ML SUBCUT SCH (21:25)
[2017-06-16 05:57] LABS: Basophils % 0.5 % (0.0-0.8); Eosinophils # 0.2 10*3/uL (0.0-0.87); Eosinophils % 3.8 % (0.00-10.9); Hematocrit 27.2 VOL% (42.0-52.0); Immature Granulocytes % 0.5 %; Immature Granulocytes Absolute 0.03 #; Lymphocytes # 0.5 10*3/uL (1.4-4.0); Lymphocytes % 8.5 % (21.2-54.2); Mean Corpuscular HGB Conc 33.1 GM/DL (32-36); Mean Corpuscular Hemoglobin 30 PG (27-34); Mean Corpuscular Volume 91.6 FL (87-102); Mean Platelet Volume 11.9 FL (9.6-12.0); Monocytes # 0.9 10*3/uL (0.11-0.8); Monocytes % 14.2 % (1.7-12.7); Neutrophils # 4.3 10*3/uL (1.4-7.4); Neutrophils % 72.5 % (38.7-73.9); Platelet Count 198 T/CUMM (130-400); Red Blood Count 2.97 MC/CUMM (3.8-5.5)
[2017-06-16 06:34] LABS: Calcium 7.4 MG/DL (8.5-10.1); Magnesium 2.2 MG/DL (1.8-2.4); Osmolality,Calculated 298.1 MOS/KG (273-304); Potassium 3.6 MMOL/L (3.5-5.1)
[2017-06-16] MEDS: INSULIN LISPRO 100 UNIT/ML SUBCUT SCH ×2 (08:20→17:03)
[2017-06-16] MEDS: OMEGA 3 ACID ETHYL ESTERS 1 GM CAPSULE PO SCH (08:46)
[2017-06-16] MEDS: CALCIUM (CARBONATE)/VITAMIN D 600 MG-400 UNIT TABLET PO SCH ×2 (08:46→20:55)
[2017-06-16] MEDS: CARVEDILOL 25 MG TABLET PO SCH ×2 (08:47→20:56)
[2017-06-16] MEDS: SPIRONOLACTONE 25 MG TABLET PO SCH (08:47)
[2017-06-16] MEDS: FERROUS SULFATE 325 MG TABLET PO SCH (08:47)
[2017-06-16] MEDS: PANTOPRAZOLE 40 MG TABLET PO SCH ×2 (08:47→20:55)
[2017-06-16] MEDS: LIDOCAINE 5% PATCH TRANSDERM SCH (08:48)
[2017-06-16] MEDS: CLOPIDOGREL 75 MG TABLET PO SCH (08:48)
[2017-06-16] MEDS: hydrALAZINE 25 MG TABLET PO SCH ×3 (08:48→20:56)
[2017-06-16] MEDS: FUROSEMIDE 40 MG/4 ML VIAL IV SCH ×2 (08:51→17:02)
[2017-06-16] MEDS: BACITRACIN OINT 0.9 GM PACK TOP SCH (08:55)
[2017-06-16] MEDS: MUPIROCIN 2% OINT 22 GM TUBE TOP SCH ×3 (08:56→20:56)
[2017-06-16] MEDS: LIDOCAINE 2% TOP JELLY 5 ML TUBE TOP SCH (08:56)
[2017-06-16 09:49] LABS: INR 2.4
[2017-06-16 09:54] LABS: PT Patient Result 24.8 SECS
[2017-06-16] MEDS: METHYL SALICYLATE TOP SCH (11:55)
[2017-06-16] MEDS: CAMPHOR TOP SCH (11:55)
[2017-06-16] MEDS: MENTHOL TOP SCH (11:55)
[2017-06-16] MEDS: HEPARIN DRIP 25,000 UNITS/500 ML PREMIX IV SCH (13:12)
[2017-06-16] MEDS: WARFARIN 3 MG TABLET PO SCH (17:02)
[2017-06-16] MEDS: INSULIN GLARGINE 100 UNIT/ML SUBCUT SCH (20:56)
[2017-06-16] MEDS: ATORVASTATIN 40 MG TABLET PO SCH (20:57)
[2017-06-17 07:34] LABS: Basophils % 0.3 % (0.0-0.8); Eosinophils # 0.2 10*3/uL (0.0-0.87); Eosinophils % 3.7 % (0.00-10.9); Hematocrit 28.8 VOL% (42.0-52.0); Hemoglobin 9.4 GM/DL (14.0-18.0); Immature Granulocytes % 0.5 %; Immature Granulocytes Absolute 0.03 #; Lymphocytes # 0.6 10*3/uL (1.4-4.0); Lymphocytes % 9.7 % (21.2-54.2); Mean Corpuscular HGB Conc 32.6 GM/DL (32-36); Mean Corpuscular Hemoglobin 30 PG (27-34); Mean Corpuscular Volume 92.3 FL (87-102); Mean Platelet Volume 11.1 FL (9.6-12.0); Monocytes # 0.8 10*3/uL (0.11-0.8); Monocytes % 13.9 % (1.7-12.7); Neutrophils # 4.1 10*3/uL (1.4-7.4); Neutrophils % 71.9 % (38.7-73.9); Platelet Count 196 T/CUMM (130-400); Red Blood Count 3.12 MC/CUMM (3.8-5.5); Red Cell Distribution Width 15.9 % (9.3-17.3); White Blood Count 5.8 T/CUMM (4-12)
[2017-06-17 07:55] LABS: INR 2.9
[2017-06-17 08:00] LABS: PT Patient Result 29.4 SECS
[2017-06-17 08:03] LABS: Calcium 8.2 MG/DL (8.5-10.1); Magnesium 2.3 MG/DL (1.8-2.4); Osmolality,Calculated 300.8 MOS/KG (273-304); Potassium 4.3 MMOL/L (3.5-5.1)
[2017-06-17] MEDS: INSULIN LISPRO 100 UNIT/ML SUBCUT SCH ×2 (08:56→16:23)
[2017-06-17] MEDS: PANTOPRAZOLE 40 MG TABLET PO SCH (09:18)
[2017-06-17] MEDS: hydrALAZINE 25 MG TABLET PO SCH ×2 (09:18→15:44)
[2017-06-17] MEDS: CALCIUM (CARBONATE)/VITAMIN D 600 MG-400 UNIT TABLET PO SCH (09:18)
[2017-06-17] MEDS: CARVEDILOL 25 MG TABLET PO SCH (09:18)
[2017-06-17] MEDS: CLOPIDOGREL 75 MG TABLET PO SCH (09:19)
[2017-06-17] MEDS: SPIRONOLACTONE 25 MG TABLET PO SCH (09:19)
[2017-06-17] MEDS: FERROUS SULFATE 325 MG TABLET PO SCH (09:19)
[2017-06-17] MEDS: OMEGA 3 ACID ETHYL ESTERS 1 GM CAPSULE PO SCH (09:19)
[2017-06-17] MEDS: BACITRACIN OINT 0.9 GM PACK TOP SCH (09:19)
[2017-06-17] MEDS: LIDOCAINE 5% PATCH TRANSDERM SCH (09:34)
[2017-06-17] MEDS: FUROSEMIDE 40 MG/4 ML VIAL IV SCH ×2 (09:35→15:43)
[2017-06-17] MEDS: METHYL SALICYLATE TOP SCH (09:58)
[2017-06-17] MEDS: CAMPHOR TOP SCH (09:58)
[2017-06-17] MEDS: MENTHOL TOP SCH (09:58)
[2017-06-17] MEDS: LIDOCAINE 2% TOP JELLY 5 ML TUBE TOP SCH (09:59)
[2017-06-17] MEDS: MUPIROCIN 2% OINT 22 GM TUBE TOP SCH ×2 (09:59→15:44)
[2017-06-17 15:38] VITALS: BP 154/88
[2017-06-17] MEDS: WARFARIN 3 MG TABLET PO SCH (17:00)
== END 2017-06-17 17:05 | disposition home or self-care (01) | DRG 291 ==
LOC: EDBD → EDUNIT# → N.ED 02:51 → N.EDINP 07:42 → N.5E 09:33
PROVIDERS: ADMIT Internal Medicine; ATTEND Internal Medicine

== ENCOUNTER 2017-07-10 19:53 | Inpatient (IN) ==
[2017-07-10 20:59] LABS: Basophils % 0.2 % (0.0-0.8); Eosinophils # 0.2 10*3/uL (0.0-0.87); Eosinophils % 1.8 % (0.00-10.9); Hematocrit 25.1 VOL% (42.0-52.0); Hemoglobin 8.7 GM/DL (14.0-18.0); Immature Granulocytes % 0.5 %; Immature Granulocytes Absolute 0.04 #; Lymphocytes # 0.6 10*3/uL (1.4-4.0); Lymphocytes % 6.8 % (21.2-54.2); Mean Corpuscular HGB Conc 34.7 GM/DL (32-36); Mean Corpuscular Hemoglobin 31 PG (27-34); Mean Platelet Volume 10.3 FL (9.6-12.0); Monocytes % 11.1 % (1.7-12.7); Neutrophils # 7.1 10*3/uL (1.4-7.4); Neutrophils % 79.6 % (38.7-73.9); Platelet Count 190 T/CUMM (130-400); Red Blood Count 2.82 MC/CUMM (3.8-5.5); Red Cell Distribution Width 14.3 % (9.3-17.3); White Blood Count 8.9 T/CUMM (4-12)
[2017-07-10 21:07] LABS: INR 1.5; PT Patient Result 15.4 SECS
[2017-07-10] MEDS ORDERED: PHENYLEPHRINE 0.5% NASAL SPRAY 15 ML BOTTLE BOTH NARES STA (22:16)
[2017-07-10] MEDS ORDERED: ALBUTEROL/IPRATROPIUM 3 ML NEB RESP TX STA (22:27)
[2017-07-10] MEDS ORDERED: methylPREDNISolone SOD SUC 125 MG/2 ML VIAL IV STA (22:27)
[2017-07-10] MEDS ORDERED: MORPHINE 2 MG/1 ML SYRINGE IV STA (22:33)
[2017-07-10] MEDS ORDERED: FUROSEMIDE 100 MG/10 ML VIAL IV STA (22:33)
[2017-07-10] MEDS ORDERED: ONDANSETRON 4 MG/2 ML VIAL IV STA (22:33)
[2017-07-10] MEDS ORDERED: NITROGLYCERIN 2% OINT 1 INCH/GM PACK TOP STA (22:33)
[2017-07-10 22:57] LABS: Albumin 3.1 G/DL (3.4-5.0); Bilirubin,Total 0.6 MG/DL (0.2-1.0); Calcium 7.9 MG/DL (8.5-10.1); Magnesium 2.3 MG/DL (1.8-2.4); Osmolality,Calculated 294.3 MOS/KG (273-304); Potassium 3.8 MMOL/L (3.5-5.1); Total Protein 6.3 G/DL (6.4-8.3); Troponin I Only 0.018 NG/ML (0.00-0.045)
[2017-07-10] MEDS ORDERED: NITROGLYCERIN 2% OINT 1 INCH/GM PACK TOP ONE (23:07)
[2017-07-10] MEDS ORDERED: FUROSEMIDE 100 MG/10 ML VIAL ONE (23:07)
[2017-07-10] MEDS ORDERED: MORPHINE 2 MG/1 ML SYRINGE ONE (23:07)
[2017-07-10] MEDS ORDERED: ONDANSETRON 4 MG/2 ML VIAL ONE (23:07)
[2017-07-10] MEDS ORDERED: methylPREDNISolone SOD SUC 125 MG/2 ML VIAL ONE (23:08)
[2017-07-10 23:10] LABS: ABG Base Excess 0.2 MMOL/L (-2.5-2.5); ABG HCO3 24.5 MMOL/L (20-26); ABG Oxygen Saturation 95.7 % (95-100); ABG PCO2 39.5 MM HG (35-48); ABG PH 7.406 (7.35-7.45); ABG PO2 80.5 MM HG (80-95); ABG TCO2 22.9 MMOL/L (23-27); Allen Test Positive
[2017-07-11] MEDS ORDERED: DEXTROSE 50% 25 GM/50 ML VIAL IV PRN (00:44)
[2017-07-11] MEDS ORDERED: ONDANSETRON 4 MG/2 ML VIAL IV PRN (00:44)
[2017-07-11] MEDS ORDERED: ALBUTEROL/IPRATROPIUM 3 ML NEB RESP TX PRN (00:44)
[2017-07-11] MEDS ORDERED: GLUCAGON 1 MG VIAL IM PRN (00:44)
[2017-07-11] MEDS ORDERED: SODIUM CHLORIDE 0.65% NASAL SPRAY 45 ML BOTTLE BOTH NARES PRN (00:49)
[2017-07-11] MEDS ORDERED: OXYMETAZOLINE 0.05% NASAL SPRAY 15 ML BOTTLE BOTH NARES PRN (00:49)
[2017-07-11] MEDS ORDERED: ACETAMINOPHEN 325 MG TABLET PO PRN (00:49)
[2017-07-11] MEDS ORDERED: MAGNESIUM SULF RIDER 2 GM in PREMIX 1 EACH IV PRN (00:58)
[2017-07-11] MEDS ORDERED: MAGNESIUM SULF RIDER 4 GM in PREMIX 1 EACH IV PRN (00:58)
[2017-07-11 02:03] LABS: Apearance,Urine CLEAR (Clear); Bilirubin,Urine Negative (Negative); Blood, Urine Negative (Negative); Glucose,Urine (UA) 50 mg/dL (Negative); Hyaline Casts,Urine 2 /LPF (0-3); Ketones,Urine Negative (Negative); Nitrite,Urine Negative (Negative); Protein,Urine 100 MG/DL; RBC,Urine <1 /HPF (0-4); Squamous Epithelial Cell,Urine Occasional /HPF (0-10); Urine Color Straw (Yellow); Urine Specific Gravity 1.006 (1.001-1.035); Urine Urobilinogen < 2.0 EU/DL (0.2-1.0); WBC,Urine <1 /HPF (0-6)
[2017-07-11] MEDS: cefTRIAXone 1,000 MG in SYRINGE 1 EACH IV SCH (02:48)
[2017-07-11] MEDS: AZITHROMYCIN INJ 500 MG in SODIUM CHLORIDE 0.9% 250 ML IV SCH (04:30)
[2017-07-11 06:40] LABS: Basophils % 0.4 % (0.0-0.8); Eosinophils % 0.1 % (0.00-10.9); Hematocrit 26.5 VOL% (42.0-52.0); Hemoglobin 9.1 GM/DL (14.0-18.0); Immature Granulocytes % 0.8 %; Immature Granulocytes Absolute 0.07 #; Lymphocytes # 0.4 10*3/uL (1.4-4.0); Lymphocytes % 4.3 % (21.2-54.2); Mean Corpuscular HGB Conc 34.3 GM/DL (32-36); Mean Corpuscular Hemoglobin 31 PG (27-34); Mean Corpuscular Volume 89.5 FL (87-102); Mean Platelet Volume 10.5 FL (9.6-12.0); Monocytes # 0.1 10*3/uL (0.11-0.8); Monocytes % 1.6 % (1.7-12.7); Neutrophils # 7.8 10*3/uL (1.4-7.4); Neutrophils % 92.8 % (38.7-73.9); Platelet Count 186 T/CUMM (130-400); Red Blood Count 2.96 MC/CUMM (3.8-5.5); Red Cell Distribution Width 14.2 % (9.3-17.3); White Blood Count 8.4 T/CUMM (4-12)
[2017-07-11 06:50] LABS: INR 1.5; PT Patient Result 15.2 SECS
[2017-07-11 07:08] LABS: Giant Platelets Few; Hypochromasia 1+; Lymphocytes 7 % (20-55); Ovalocytes Slight; Platelet Estimate Normal; Segmented Neutrophils 92 % (50-85); Total Cells Counted 100
[2017-07-11 07:09] LABS: Albumin 2.9 G/DL (3.4-5.0); Bilirubin,Total 0.7 MG/DL (0.2-1.0); Calcium 7.8 MG/DL (8.5-10.1); Osmolality,Calculated 298.4 MOS/KG (273-304); Potassium 4.1 MMOL/L (3.5-5.1); Total Protein 6.1 G/DL (6.4-8.3)
[2017-07-11] MEDS: INSULIN REGULAR 100 UNIT/ML SUBCUT SCH ×4 (08:34→20:48)
[2017-07-11] MEDS: FUROSEMIDE 40 MG/4 ML VIAL IV SCH ×2 (08:34→15:18)
[2017-07-11] MEDS: CARVEDILOL 25 MG TABLET PO SCH ×2 (08:35→20:49)
[2017-07-11] MEDS: FLUTICASONE 50 MCG NASAL SPRAY 16 GM BOTTLE BOTH NARES SCH ×2 (08:35→21:00)
[2017-07-11] MEDS: hydrALAZINE 25 MG TABLET PO SCH ×3 (08:35→20:49)
[2017-07-11] MEDS: OMEGA 3 ACID ETHYL ESTERS 1 GM CAPSULE PO SCH ×2 (08:35→20:49)
[2017-07-11] MEDS: PANTOPRAZOLE 40 MG TABLET PO SCH (08:35)
[2017-07-11] MEDS: FERROUS SULFATE 325 MG TABLET PO SCH (08:35)
[2017-07-11] MEDS: CALCIUM (CARBONATE) 600 MG TABLET PO SCH ×2 (08:35→20:49)
[2017-07-11] MEDS: MUPIROCIN 2% OINT 22 GM TUBE TOP SCH ×3 (08:35→20:50)
[2017-07-11] MEDS: CLOPIDOGREL 75 MG TABLET PO SCH (08:35)
[2017-07-11] MEDS ORDERED: LIDOCAINE TOP SCH (09:00)
[2017-07-11] MEDS: ATORVASTATIN 40 MG TABLET PO SCH (20:49)
[2017-07-12] MEDS: cefTRIAXone 1,000 MG in SYRINGE 1 EACH IV SCH (03:04)
[2017-07-12] MEDS: AZITHROMYCIN INJ 500 MG in SODIUM CHLORIDE 0.9% 250 ML IV SCH (04:00)
[2017-07-12 07:34] LABS: Basophils % 0.3 % (0.0-0.8); Eosinophils % 0.4 % (0.00-10.9); Hematocrit 23.9 VOL% (42.0-52.0); Immature Granulocytes % 0.8 %; Immature Granulocytes Absolute 0.07 #; Lymphocytes # 0.8 10*3/uL (1.4-4.0); Lymphocytes % 8.2 % (21.2-54.2); Mean Corpuscular HGB Conc 33.5 GM/DL (32-36); Mean Corpuscular Hemoglobin 31 PG (27-34); Mean Corpuscular Volume 91.6 FL (87-102); Monocytes # 1.1 10*3/uL (0.11-0.8); Monocytes % 11.3 % (1.7-12.7); Neutrophils # 7.3 10*3/uL (1.4-7.4); Platelet Count 188 T/CUMM (130-400); Red Blood Count 2.61 MC/CUMM (3.8-5.5); Red Cell Distribution Width 14.5 % (9.3-17.3); White Blood Count 9.3 T/CUMM (4-12)
[2017-07-12 08:06] LABS: Calcium 7.1 MG/DL (8.5-10.1); Magnesium 2.6 MG/DL (1.8-2.4); Osmolality,Calculated 301.7 MOS/KG (273-304); Potassium 4.5 MMOL/L (3.5-5.1)
[2017-07-12] MEDS: hydrALAZINE 25 MG TABLET PO SCH (08:59)
[2017-07-12] MEDS: OMEGA 3 ACID ETHYL ESTERS 1 GM CAPSULE PO SCH ×2 (09:00→20:32)
[2017-07-12] MEDS: MUPIROCIN 2% OINT 22 GM TUBE TOP SCH ×3 (09:00→20:34)
[2017-07-12] MEDS: CARVEDILOL 25 MG TABLET PO SCH ×2 (09:00→20:32)
[2017-07-12] MEDS: PANTOPRAZOLE 40 MG TABLET PO SCH (09:00)
[2017-07-12] MEDS: FERROUS SULFATE 325 MG TABLET PO SCH (09:00)
[2017-07-12] MEDS: CALCIUM (CARBONATE) 600 MG TABLET PO SCH ×2 (09:00→20:32)
[2017-07-12] MEDS: FLUTICASONE 50 MCG NASAL SPRAY 16 GM BOTTLE BOTH NARES SCH ×2 (09:00→20:34)
[2017-07-12] MEDS: INSULIN REGULAR 100 UNIT/ML SUBCUT SCH ×4 (09:00→20:33)
[2017-07-12] MEDS: CLOPIDOGREL 75 MG TABLET PO SCH ×2 (09:00→17:38)
[2017-07-12] MEDS: FUROSEMIDE 40 MG/4 ML VIAL IV SCH ×2 (09:02→16:37)
[2017-07-12] MEDS ORDERED: hydrALAZINE 25 MG TABLET PO PRN (09:36)
[2017-07-12 10:34] LABS: INR 1.6; PT Patient Result 17.1 SECS
[2017-07-12] MEDS ORDERED: WARFARIN 4 MG TABLET ONE (17:24)
[2017-07-12] MEDS ORDERED: WARFARIN 2 MG TABLET PO SCH (18:00)
[2017-07-12] MEDS ORDERED: WARFARIN 4 MG TABLET PO SCH (18:00)
[2017-07-12] MEDS: ATORVASTATIN 40 MG TABLET PO SCH (20:32)
[2017-07-13] MEDS: cefTRIAXone 1,000 MG in SYRINGE 1 EACH IV SCH (03:34)
[2017-07-13 07:25] LABS: Basophils % 0.4 % (0.0-0.8); Eosinophils # 0.3 10*3/uL (0.0-0.87); Eosinophils % 3.3 % (0.00-10.9); Hematocrit 25.5 VOL% (42.0-52.0); Hemoglobin 8.6 GM/DL (14.0-18.0); Immature Granulocytes % 0.8 %; Immature Granulocytes Absolute 0.06 #; Lymphocytes # 0.8 10*3/uL (1.4-4.0); Lymphocytes % 9.9 % (21.2-54.2); Mean Corpuscular HGB Conc 33.7 GM/DL (32-36); Mean Corpuscular Hemoglobin 31 PG (27-34); Mean Corpuscular Volume 91.4 FL (87-102); Mean Platelet Volume 10.6 FL (9.6-12.0); Monocytes # 0.7 10*3/uL (0.11-0.8); Monocytes % 9.5 % (1.7-12.7); Neutrophils # 5.8 10*3/uL (1.4-7.4); Neutrophils % 76.1 % (38.7-73.9); Platelet Count 192 T/CUMM (130-400); Red Blood Count 2.79 MC/CUMM (3.8-5.5); Red Cell Distribution Width 14.6 % (9.3-17.3); White Blood Count 7.6 T/CUMM (4-12)
[2017-07-13 07:33] LABS: INR 1.6; PT Patient Result 16.8 SECS
[2017-07-13 07:52] LABS: Calcium 7.8 MG/DL (8.5-10.1); Magnesium 2.6 MG/DL (1.8-2.4); Osmolality,Calculated 297.8 MOS/KG (273-304); Potassium 4.4 MMOL/L (3.5-5.1)
[2017-07-13] MEDS: INSULIN REGULAR 100 UNIT/ML SUBCUT SCH ×2 (09:08→13:04)
[2017-07-13] MEDS: FLUTICASONE 50 MCG NASAL SPRAY 16 GM BOTTLE BOTH NARES SCH (09:37)
[2017-07-13] MEDS: MUPIROCIN 2% OINT 22 GM TUBE TOP SCH (09:37)
[2017-07-13] MEDS: CALCIUM (CARBONATE) 600 MG TABLET PO SCH (09:38)
[2017-07-13] MEDS: OMEGA 3 ACID ETHYL ESTERS 1 GM CAPSULE PO SCH (09:38)
[2017-07-13] MEDS: FUROSEMIDE 40 MG/4 ML VIAL IV SCH (09:38)
[2017-07-13] MEDS: PANTOPRAZOLE 40 MG TABLET PO SCH (09:39)
[2017-07-13] MEDS: FERROUS SULFATE 325 MG TABLET PO SCH (09:39)
[2017-07-13] MEDS: CARVEDILOL 25 MG TABLET PO SCH (09:39)
[2017-07-13] MEDS: CLOPIDOGREL 75 MG TABLET PO SCH (09:39)
[2017-07-13 12:03] VITALS: BP 142/75
== END 2017-07-13 14:57 | disposition home or self-care (01) | DRG 150 ==
LOC: EDBD → EDUNIT# → N.ED 19:53 → N.EDINP 07-11 00:44 → SUATTDRO 07-11 00:44 → N.EDINP 07-11 01:57 → N.5E 07-11 02:09
PROVIDERS: ADMIT Internal Medicine; ATTEND Internal Medicine

== ENCOUNTER 2017-12-09 13:03 | Inpatient (IN) ==
[2017-12-09] MEDS ORDERED: GLUCAGON 1 MG VIAL IM PRN (18:09)
[2017-12-09] MEDS ORDERED: DEXTROSE 50% 25 GM/50 ML VIAL IV PRN (18:09)
[2017-12-09] MEDS ORDERED: ONDANSETRON 4 MG/2 ML VIAL IV PRN (18:09)
[2017-12-09] MEDS ORDERED: MORPHINE 4 MG/1 ML VIAL IV PRN (18:09)
[2017-12-09] MEDS ORDERED: SODIUM CHLORIDE 0.65% NASAL SPRAY 45 ML BOTTLE BOTH NARES PRN (18:16)
[2017-12-09] MEDS ORDERED: LOTION (LUBRIDERM) 177 ML BOTTLE TOP PRN (18:16)
[2017-12-09] MEDS ORDERED: SODIUM CHLORIDE 0.9% 1,000 ML IV SCH (18:30)
[2017-12-09] MEDS ORDERED: INSULIN LISPRO 100 UNIT/ML SUBCUT SCH (20:00)
[2017-12-09 20:10] LABS: Basophils % 0.3 % (0.0-0.8); Eosinophils # 0.1 10*3/uL (0.0-0.87); Eosinophils % 0.4 % (0.00-10.9); Hematocrit 26.7 VOL% (42.0-52.0); Hemoglobin 9.8 GM/DL (14.0-18.0); Immature Granulocytes % 0.9 %; Immature Granulocytes Absolute 0.12 #; Lymphocytes # 0.7 10*3/uL (1.4-4.0); Lymphocytes % 5.5 % (21.2-54.2); Mean Corpuscular HGB Conc 36.7 GM/DL (32-36); Mean Corpuscular Hemoglobin 32 PG (27-34); Mean Corpuscular Volume 86.7 FL (87-102); Mean Platelet Volume 10.6 FL (9.6-12.0); Monocytes # 0.9 10*3/uL (0.11-0.8); Monocytes % 7.2 % (1.7-12.7); Neutrophils # 11.1 10*3/uL (1.4-7.4); Neutrophils % 85.7 % (38.7-73.9); Platelet Count 301 T/CUMM (130-400); Red Blood Count 3.08 MC/CUMM (3.8-5.5); Red Cell Distribution Width 12.8 % (9.3-17.3)
[2017-12-09 20:31] LABS: INR 2.1; PT Patient Result 21.3 SECS; Partial Thromboplastin Time 49.7 SECS (0-40)
[2017-12-09 20:39] LABS: Albumin 2.8 G/DL (3.4-5.0); Bilirubin,Total 0.8 MG/DL (0.2-1.0); Calcium 8.8 MG/DL (8.5-10.1); Osmolality,Calculated 308.5 MOS/KG (273-304); Potassium 3.8 MMOL/L (3.5-5.1); Total Protein 7.7 G/DL (6.4-8.3)
[2017-12-09] MEDS: PIPERACILLIN/TAZOBACTAM 3,375 MG in SODIUM CHLORIDE 0.9% 100 ML IV SCH (21:33)
[2017-12-09] MEDS: CARVEDILOL 25 MG TABLET PO SCH (21:36)
[2017-12-09] MEDS: hydrALAZINE 25 MG TABLET PO SCH (21:36)
[2017-12-09] MEDS: ATORVASTATIN 40 MG TABLET PO SCH (21:36)
[2017-12-09] MEDS: FUROSEMIDE 40 MG TABLET PO SCH (21:36)
[2017-12-09] MEDS: CALCIUM (CARBONATE) 600 MG TABLET PO SCH (21:36)
[2017-12-09] MEDS ORDERED: INSULIN GLARGINE 100 UNIT/ML SUBCUT ONE (23:00)
[2017-12-09] MEDS: INSULIN REGULAR 100 UNIT/ML SUBCUT SCH (23:08)
[2017-12-10] MEDS: LINEZOLID INJ 600 MG in PREMIX 1 EACH IV SCH ×2 (00:55→21:11)
[2017-12-10 04:50] LABS: Basophils % 0.3 % (0.0-0.8); Eosinophils # 0.1 10*3/uL (0.0-0.87); Hematocrit 25.4 VOL% (42.0-52.0); Hemoglobin 9.4 GM/DL (14.0-18.0); Immature Granulocytes % 1.1 %; Immature Granulocytes Absolute 0.13 #; Lymphocytes # 0.7 10*3/uL (1.4-4.0); Mean Corpuscular Hemoglobin 31 PG (27-34); Mean Corpuscular Volume 84.4 FL (87-102); Mean Platelet Volume 10.5 FL (9.6-12.0); Monocytes % 8.3 % (1.7-12.7); Neutrophils # 9.9 10*3/uL (1.4-7.4); Neutrophils % 83.3 % (38.7-73.9); Platelet Count 299 T/CUMM (130-400); Red Blood Count 3.01 MC/CUMM (3.8-5.5); Red Cell Distribution Width 12.5 % (9.3-17.3); White Blood Count 11.9 T/CUMM (4-12)
[2017-12-10 05:29] LABS: Calcium 8.9 MG/DL (8.5-10.1); Osmolality,Calculated 297.4 MOS/KG (273-304); Potassium 3.3 MMOL/L (3.5-5.1)
[2017-12-10] MEDS: FUROSEMIDE 40 MG TABLET PO SCH ×2 (09:53→21:13)
[2017-12-10] MEDS: INSULIN REGULAR 100 UNIT/ML SUBCUT SCH ×4 (10:03→21:12)
[2017-12-10] MEDS: PIPERACILLIN/TAZOBACTAM 3,375 MG in SODIUM CHLORIDE 0.9% 100 ML IV SCH ×2 (10:06→21:12)
[2017-12-10] MEDS: CARVEDILOL 25 MG TABLET PO SCH ×2 (10:07→21:13)
[2017-12-10] MEDS: hydrALAZINE 25 MG TABLET PO SCH ×2 (10:07→17:15)
[2017-12-10] MEDS: INSULIN GLARGINE 100 UNIT/ML SUBCUT SCH (12:45)
[2017-12-10] MEDS: POTASSIUM CHLORIDE RIDER 10 MEQ in PREMIX 1 EACH IV PRN ×4 (13:37→19:08)
[2017-12-10] MEDS: CALCIUM (CARBONATE) 600 MG TABLET PO SCH ×2 (17:14→21:13)
[2017-12-10] MEDS: PANTOPRAZOLE 40 MG TABLET PO SCH (17:14)
[2017-12-10] MEDS: CLOPIDOGREL 75 MG TABLET PO SCH (17:14)
[2017-12-10] MEDS: WARFARIN 1 MG TABLET PO SCH (19:07)
[2017-12-10] MEDS: ATORVASTATIN 40 MG TABLET PO SCH (21:13)
[2017-12-11] MEDS: LINEZOLID INJ 600 MG in PREMIX 1 EACH IV SCH ×2 (01:20→21:55)
[2017-12-11] MEDS: hydrALAZINE 25 MG TABLET PO SCH ×3 (03:23→21:56)
[2017-12-11] MEDS: POTASSIUM CHLORIDE RIDER 10 MEQ in PREMIX 1 EACH IV PRN ×3 (06:35→10:37)
[2017-12-11] MEDS: INSULIN REGULAR 100 UNIT/ML SUBCUT SCH ×4 (07:50→21:56)
[2017-12-11 10:15] LABS: Calcium 8.9 MG/DL (8.5-10.1); Osmolality,Calculated 296.1 MOS/KG (273-304); Potassium 3.8 MMOL/L (3.5-5.1)
[2017-12-11] MEDS: CARVEDILOL 25 MG TABLET PO SCH ×2 (10:38→21:56)
[2017-12-11 11:51] LABS: INR 2.3
[2017-12-11 11:52] LABS: PT Patient Result 23.4 SECS
[2017-12-11] MEDS: INSULIN GLARGINE 100 UNIT/ML SUBCUT SCH ×2 (13:03→21:56)
[2017-12-11] MEDS: PIPERACILLIN/TAZOBACTAM 3,375 MG in SODIUM CHLORIDE 0.9% 100 ML IV SCH (15:50)
[2017-12-11] MEDS: CALCIUM (CARBONATE) 600 MG TABLET PO SCH ×2 (16:32→21:56)
[2017-12-11] MEDS: FUROSEMIDE 40 MG TABLET PO SCH ×2 (16:32→21:56)
[2017-12-11] MEDS: CLOPIDOGREL 75 MG TABLET PO SCH (16:33)
[2017-12-11] MEDS: PANTOPRAZOLE 40 MG TABLET PO SCH (16:33)
[2017-12-11] MEDS: WARFARIN 1 MG TABLET PO SCH (18:55)
[2017-12-11] MEDS: ATORVASTATIN 40 MG TABLET PO SCH (21:56)
[2017-12-12] MEDS: LINEZOLID INJ 600 MG in PREMIX 1 EACH IV SCH ×2 (01:25→12:34)
[2017-12-12] MEDS: PIPERACILLIN/TAZOBACTAM 3,375 MG in SODIUM CHLORIDE 0.9% 100 ML IV SCH ×2 (03:40→16:42)
[2017-12-12 05:01] LABS: INR 2.4
[2017-12-12 05:05] LABS: PT Patient Result 24.2 SECS
[2017-12-12 05:16] LABS: Calcium 8.4 MG/DL (8.5-10.1); Osmolality,Calculated 293.8 MOS/KG (273-304); Potassium 3.7 MMOL/L (3.5-5.1)
[2017-12-12] MEDS: INSULIN REGULAR 100 UNIT/ML SUBCUT SCH ×4 (08:07→20:47)
[2017-12-12] MEDS: hydrALAZINE 25 MG TABLET PO SCH ×3 (08:27→20:47)
[2017-12-12] MEDS: CALCIUM (CARBONATE) 600 MG TABLET PO SCH ×2 (08:27→20:46)
[2017-12-12] MEDS: PANTOPRAZOLE 40 MG TABLET PO SCH (08:28)
[2017-12-12] MEDS: CLOPIDOGREL 75 MG TABLET PO SCH (08:28)
[2017-12-12] MEDS: CARVEDILOL 25 MG TABLET PO SCH ×2 (08:28→20:47)
[2017-12-12] MEDS: FUROSEMIDE 40 MG TABLET PO SCH ×2 (08:35→20:47)
[2017-12-12] MEDS: INSULIN GLARGINE 100 UNIT/ML SUBCUT SCH ×2 (08:35→20:35)
[2017-12-12] MEDS: WARFARIN 1 MG TABLET PO SCH (18:11)
[2017-12-12] MEDS: ATORVASTATIN 40 MG TABLET PO SCH (20:50)
[2017-12-13] MEDS: LINEZOLID INJ 600 MG in PREMIX 1 EACH IV SCH ×2 (00:23→13:05)
[2017-12-13] MEDS: PIPERACILLIN/TAZOBACTAM 3,375 MG in SODIUM CHLORIDE 0.9% 100 ML IV SCH ×2 (04:53→15:50)
[2017-12-13 05:18] LABS: Basophils % 0.3 % (0.0-0.8); Eosinophils # 0.2 10*3/uL (0.0-0.87); Eosinophils % 1.5 % (0.00-10.9); Hematocrit 25.1 VOL% (42.0-52.0); Immature Granulocytes % 1.2 %; Immature Granulocytes Absolute 0.13 #; Lymphocytes # 0.9 10*3/uL (1.4-4.0); Lymphocytes % 8.2 % (21.2-54.2); Mean Corpuscular HGB Conc 35.9 GM/DL (32-36); Mean Corpuscular Hemoglobin 31 PG (27-34); Mean Corpuscular Volume 87.2 FL (87-102); Mean Platelet Volume 10.2 FL (9.6-12.0); Monocytes # 1.1 10*3/uL (0.11-0.8); Monocytes % 9.6 % (1.7-12.7); Neutrophils # 8.7 10*3/uL (1.4-7.4); Neutrophils % 79.2 % (38.7-73.9); Platelet Count 338 T/CUMM (130-400); Red Blood Count 2.88 MC/CUMM (3.8-5.5); Red Cell Distribution Width 12.8 % (9.3-17.3); White Blood Count 10.9 T/CUMM (4-12)
[2017-12-13 05:40] LABS: Calcium 7.9 MG/DL (8.5-10.1); Osmolality,Calculated 287.1 MOS/KG (273-304); Potassium 3.5 MMOL/L (3.5-5.1)
[2017-12-13] MEDS: INSULIN REGULAR 100 UNIT/ML SUBCUT SCH ×4 (07:30→20:55)
[2017-12-13] MEDS: hydrALAZINE 25 MG TABLET PO SCH ×3 (10:50→20:54)
[2017-12-13] MEDS: CLOPIDOGREL 75 MG TABLET PO SCH (10:50)
[2017-12-13] MEDS: CALCIUM (CARBONATE) 600 MG TABLET PO SCH ×2 (10:50→20:54)
[2017-12-13] MEDS: CARVEDILOL 25 MG TABLET PO SCH ×2 (10:50→20:54)
[2017-12-13] MEDS: FUROSEMIDE 40 MG TABLET PO SCH ×2 (10:50→20:54)
[2017-12-13] MEDS: PANTOPRAZOLE 40 MG TABLET PO SCH (10:50)
[2017-12-13] MEDS: INSULIN GLARGINE 100 UNIT/ML SUBCUT SCH ×2 (10:50→20:55)
[2017-12-13] MEDS ORDERED: LIDOCAINE 1% 50 ML VIAL ONE (11:04)
[2017-12-13] MEDS ORDERED: ePHEDrine 50 MG/ML AMP ONE (12:25)
[2017-12-13] MEDS ORDERED: fentaNYL 100 MCG/2 ML VIAL ONE (12:28)
[2017-12-13] MEDS ORDERED: SODIUM CHLORIDE 0.9% 100 ML IV ONE (12:28)
[2017-12-13] MEDS ORDERED: PROPOFOL 200 MG/20 ML VIAL IV ONE (12:28)
[2017-12-13] MEDS ORDERED: MIDAZOLAM 2 MG/2 ML VIAL ONE (12:28)
[2017-12-13] MEDS: WARFARIN 1 MG TABLET PO SCH (17:18)
[2017-12-13] MEDS: ATORVASTATIN 40 MG TABLET PO SCH (20:54)
[2017-12-14] MEDS: LINEZOLID INJ 600 MG in PREMIX 1 EACH IV SCH ×2 (00:12→11:25)
[2017-12-14 03:48] LABS: Calcium 7.7 MG/DL (8.5-10.1); Osmolality,Calculated 284.4 MOS/KG (273-304); Potassium 3.6 MMOL/L (3.5-5.1)
[2017-12-14] MEDS: PIPERACILLIN/TAZOBACTAM 3,375 MG in SODIUM CHLORIDE 0.9% 100 ML IV SCH ×2 (04:53→16:00)
[2017-12-14] MEDS: PANTOPRAZOLE 40 MG TABLET PO SCH (08:10)
[2017-12-14] MEDS: FUROSEMIDE 40 MG TABLET PO SCH ×2 (08:10→21:36)
[2017-12-14] MEDS: INSULIN REGULAR 100 UNIT/ML SUBCUT SCH ×5 (08:10→21:37)
[2017-12-14] MEDS: CALCIUM (CARBONATE) 600 MG TABLET PO SCH ×2 (08:10→21:36)
[2017-12-14] MEDS: hydrALAZINE 25 MG TABLET PO SCH ×3 (08:10→21:36)
[2017-12-14] MEDS: INSULIN GLARGINE 100 UNIT/ML SUBCUT SCH ×2 (08:10→21:36)
[2017-12-14] MEDS: CLOPIDOGREL 75 MG TABLET PO SCH (08:10)
[2017-12-14] MEDS: CARVEDILOL 25 MG TABLET PO SCH ×2 (08:10→21:36)
[2017-12-14] MEDS: WARFARIN 1 MG TABLET PO SCH (18:20)
[2017-12-14] MEDS: ATORVASTATIN 40 MG TABLET PO SCH (21:36)
[2017-12-15] MEDS: LINEZOLID INJ 600 MG in PREMIX 1 EACH IV SCH ×2 (00:34→11:25)
[2017-12-15] MEDS: PIPERACILLIN/TAZOBACTAM 3,375 MG in SODIUM CHLORIDE 0.9% 100 ML IV SCH ×2 (04:37→17:30)
[2017-12-15] MEDS: INSULIN GLARGINE 100 UNIT/ML SUBCUT SCH ×2 (09:00→21:24)
[2017-12-15] MEDS: PANTOPRAZOLE 40 MG TABLET PO SCH (09:00)
[2017-12-15] MEDS: CALCIUM (CARBONATE) 600 MG TABLET PO SCH ×2 (09:00→21:25)
[2017-12-15] MEDS: INSULIN REGULAR 100 UNIT/ML SUBCUT SCH ×4 (09:00→21:25)
[2017-12-15] MEDS: hydrALAZINE 25 MG TABLET PO SCH ×3 (09:00→21:25)
[2017-12-15] MEDS: CLOPIDOGREL 75 MG TABLET PO SCH (09:00)
[2017-12-15] MEDS: CARVEDILOL 25 MG TABLET PO SCH ×2 (09:00→21:25)
[2017-12-15] MEDS: FUROSEMIDE 40 MG TABLET PO SCH ×2 (11:20→21:25)
[2017-12-15] MEDS: WARFARIN 1 MG TABLET PO SCH (17:50)
[2017-12-15] MEDS: ATORVASTATIN 40 MG TABLET PO SCH (21:25)
[2017-12-16] MEDS: LINEZOLID INJ 600 MG in PREMIX 1 EACH IV SCH ×2 (00:47→12:55)
[2017-12-16] MEDS: PIPERACILLIN/TAZOBACTAM 3,375 MG in SODIUM CHLORIDE 0.9% 100 ML IV SCH ×2 (04:06→18:34)
[2017-12-16 06:14] LABS: Calcium 7.7 MG/DL (8.5-10.1); Osmolality,Calculated 280.8 MOS/KG (273-304); Potassium 3.5 MMOL/L (3.5-5.1)
[2017-12-16] MEDS: INSULIN REGULAR 100 UNIT/ML SUBCUT SCH ×4 (09:21→20:45)
[2017-12-16] MEDS: FUROSEMIDE 40 MG TABLET PO SCH ×2 (09:50→20:54)
[2017-12-16] MEDS: PANTOPRAZOLE 40 MG TABLET PO SCH (09:50)
[2017-12-16] MEDS: CALCIUM (CARBONATE) 600 MG TABLET PO SCH ×2 (09:50→20:54)
[2017-12-16] MEDS: CLOPIDOGREL 75 MG TABLET PO SCH (09:50)
[2017-12-16] MEDS: CARVEDILOL 25 MG TABLET PO SCH ×2 (09:50→20:54)
[2017-12-16] MEDS: hydrALAZINE 25 MG TABLET PO SCH ×3 (09:50→20:55)
[2017-12-16] MEDS: INSULIN GLARGINE 100 UNIT/ML SUBCUT SCH ×2 (10:08→20:54)
[2017-12-16] MEDS: ATORVASTATIN 40 MG TABLET PO SCH (20:54)
[2017-12-16] MEDS: POTASSIUM CHLORIDE RIDER 10 MEQ in PREMIX 1 EACH IV PRN (22:30)
[2017-12-17] MEDS: LINEZOLID INJ 600 MG in PREMIX 1 EACH IV SCH ×2 (00:14→14:49)
[2017-12-17] MEDS: POTASSIUM CHLORIDE RIDER 10 MEQ in PREMIX 1 EACH IV PRN ×2 (01:48→04:15)
[2017-12-17 03:29] LABS: Basophils % 0.1 % (0.0-0.8); Eosinophils # 0.2 10*3/uL (0.0-0.87); Eosinophils % 2.3 % (0.00-10.9); Hemoglobin 8.4 GM/DL (14.0-18.0); Immature Granulocytes % 0.5 %; Immature Granulocytes Absolute 0.04 #; Lymphocytes # 0.6 10*3/uL (1.4-4.0); Lymphocytes % 8.1 % (21.2-54.2); Mean Corpuscular Hemoglobin 30 PG (27-34); Mean Corpuscular Volume 86.6 FL (87-102); Mean Platelet Volume 9.3 FL (9.6-12.0); Monocytes # 0.5 10*3/uL (0.11-0.8); Monocytes % 6.7 % (1.7-12.7); Neutrophils # 6.3 10*3/uL (1.4-7.4); Neutrophils % 82.3 % (38.7-73.9); Platelet Count 275 T/CUMM (130-400); Red Blood Count 2.77 MC/CUMM (3.8-5.5); Red Cell Distribution Width 12.7 % (9.3-17.3); White Blood Count 7.7 T/CUMM (4-12)
[2017-12-17 03:57] LABS: Osmolality,Calculated 281.1 MOS/KG (273-304); Potassium 3.8 MMOL/L (3.5-5.1)
[2017-12-17] MEDS: PIPERACILLIN/TAZOBACTAM 3,375 MG in SODIUM CHLORIDE 0.9% 100 ML IV SCH ×2 (04:10→17:30)
[2017-12-17] MEDS: INSULIN REGULAR 100 UNIT/ML SUBCUT SCH ×4 (09:29→21:19)
[2017-12-17] MEDS: CALCIUM (CARBONATE) 600 MG TABLET PO SCH ×2 (09:30→21:17)
[2017-12-17] MEDS: FUROSEMIDE 40 MG TABLET PO SCH ×2 (09:30→21:17)
[2017-12-17] MEDS: PANTOPRAZOLE 40 MG TABLET PO SCH (09:30)
[2017-12-17] MEDS: hydrALAZINE 25 MG TABLET PO SCH ×3 (09:30→21:17)
[2017-12-17] MEDS: CLOPIDOGREL 75 MG TABLET PO SCH (09:30)
[2017-12-17] MEDS: INSULIN GLARGINE 100 UNIT/ML SUBCUT SCH ×2 (09:30→21:17)
[2017-12-17] MEDS: CARVEDILOL 25 MG TABLET PO SCH ×2 (09:30→21:17)
[2017-12-17] MEDS: WARFARIN 1 MG TABLET PO SCH (17:37)
[2017-12-17] MEDS: ATORVASTATIN 40 MG TABLET PO SCH (21:17)
[2017-12-18] MEDS: LINEZOLID INJ 600 MG in PREMIX 1 EACH IV SCH ×3 (00:03→23:51)
[2017-12-18] MEDS: PIPERACILLIN/TAZOBACTAM 3,375 MG in SODIUM CHLORIDE 0.9% 100 ML IV SCH ×2 (04:23→17:20)
[2017-12-18 06:19] LABS: Basophils % 0.2 % (0.0-0.8); Eosinophils # 0.2 10*3/uL (0.0-0.87); Eosinophils % 2.4 % (0.00-10.9); Hematocrit 24.9 VOL% (42.0-52.0); Hemoglobin 8.4 GM/DL (14.0-18.0); Immature Granulocytes % 0.5 %; Immature Granulocytes Absolute 0.04 #; Lymphocytes # 0.8 10*3/uL (1.4-4.0); Mean Corpuscular HGB Conc 33.7 GM/DL (32-36); Mean Corpuscular Hemoglobin 30 PG (27-34); Mean Corpuscular Volume 88.9 FL (87-102); Mean Platelet Volume 9.3 FL (9.6-12.0); Monocytes # 0.7 10*3/uL (0.11-0.8); Monocytes % 7.4 % (1.7-12.7); Neutrophils % 80.5 % (38.7-73.9); Platelet Count 263 T/CUMM (130-400); Red Cell Distribution Width 12.6 % (9.3-17.3); White Blood Count 8.7 T/CUMM (4-12)
[2017-12-18 06:33] LABS: INR 4.7
[2017-12-18 06:38] LABS: PT Patient Result 47.3 SECS
[2017-12-18 06:44] LABS: Calcium 7.9 MG/DL (8.5-10.1); Osmolality,Calculated 282.1 MOS/KG (273-304)
[2017-12-18] MEDS: INSULIN GLARGINE 100 UNIT/ML SUBCUT SCH ×2 (10:28→20:46)
[2017-12-18] MEDS: FUROSEMIDE 40 MG TABLET PO SCH ×2 (10:28→20:44)
[2017-12-18] MEDS: INSULIN REGULAR 100 UNIT/ML SUBCUT SCH ×4 (10:28→20:46)
[2017-12-18] MEDS: CLOPIDOGREL 75 MG TABLET PO SCH (10:29)
[2017-12-18] MEDS: hydrALAZINE 25 MG TABLET PO SCH ×3 (10:29→20:44)
[2017-12-18] MEDS: PANTOPRAZOLE 40 MG TABLET PO SCH (10:29)
[2017-12-18] MEDS: CALCIUM (CARBONATE) 600 MG TABLET PO SCH ×2 (10:29→20:44)
[2017-12-18] MEDS: CARVEDILOL 25 MG TABLET PO SCH ×2 (10:29→20:45)
[2017-12-18] MEDS: ACETAMINOPHEN 325 MG TABLET PO PRN (19:24)
[2017-12-18] MEDS: ATORVASTATIN 40 MG TABLET PO SCH (20:44)
[2017-12-19] MEDS: PIPERACILLIN/TAZOBACTAM 3,375 MG in SODIUM CHLORIDE 0.9% 100 ML IV SCH ×2 (04:17→15:55)
[2017-12-19 05:41] LABS: Basophils % 0.2 % (0.0-0.8); Eosinophils # 0.3 10*3/uL (0.0-0.87); Hematocrit 22.4 VOL% (42.0-52.0); Hemoglobin 7.8 GM/DL (14.0-18.0); Immature Granulocytes % 0.7 %; Immature Granulocytes Absolute 0.06 #; Lymphocytes # 0.7 10*3/uL (1.4-4.0); Lymphocytes % 7.7 % (21.2-54.2); Mean Corpuscular HGB Conc 34.8 GM/DL (32-36); Mean Corpuscular Hemoglobin 31 PG (27-34); Mean Corpuscular Volume 88.9 FL (87-102); Mean Platelet Volume 9.3 FL (9.6-12.0); Monocytes # 0.7 10*3/uL (0.11-0.8); Monocytes % 7.1 % (1.7-12.7); Neutrophils # 7.4 10*3/uL (1.4-7.4); Neutrophils % 81.3 % (38.7-73.9); Platelet Count 240 T/CUMM (130-400); Red Blood Count 2.52 MC/CUMM (3.8-5.5); Red Cell Distribution Width 12.7 % (9.3-17.3); White Blood Count 9.1 T/CUMM (4-12)
[2017-12-19 05:57] LABS: INR 4.5
[2017-12-19 06:03] LABS: Calcium 7.9 MG/DL (8.5-10.1); Osmolality,Calculated 283.8 MOS/KG (273-304); Potassium 3.8 MMOL/L (3.5-5.1)
[2017-12-19] MEDS: INSULIN REGULAR 100 UNIT/ML SUBCUT SCH ×4 (08:00→20:41)
[2017-12-19] MEDS: FUROSEMIDE 40 MG TABLET PO SCH ×2 (09:30→22:12)
[2017-12-19] MEDS: CLOPIDOGREL 75 MG TABLET PO SCH (09:30)
[2017-12-19] MEDS: CALCIUM (CARBONATE) 600 MG TABLET PO SCH ×2 (09:30→22:12)
[2017-12-19] MEDS: PANTOPRAZOLE 40 MG TABLET PO SCH (09:30)
[2017-12-19] MEDS: INSULIN GLARGINE 100 UNIT/ML SUBCUT SCH ×2 (09:30→22:17)
[2017-12-19] MEDS: hydrALAZINE 25 MG TABLET PO SCH ×3 (09:30→22:12)
[2017-12-19] MEDS: CARVEDILOL 25 MG TABLET PO SCH ×2 (09:30→22:12)
[2017-12-19] MEDS: ACETAMINOPHEN 325 MG TABLET PO PRN ×2 (11:10→22:16)
[2017-12-19] MEDS: LINEZOLID INJ 600 MG in PREMIX 1 EACH IV SCH (11:30)
[2017-12-19] MEDS: ATORVASTATIN 40 MG TABLET PO SCH (22:13)
[2017-12-20] MEDS: LINEZOLID INJ 600 MG in PREMIX 1 EACH IV SCH ×2 (00:55→11:30)
[2017-12-20] MEDS: PIPERACILLIN/TAZOBACTAM 3,375 MG in SODIUM CHLORIDE 0.9% 100 ML IV SCH (03:41)
[2017-12-20 06:47] LABS: Basophils % 0.3 % (0.0-0.8); Eosinophils # 0.3 10*3/uL (0.0-0.87); Eosinophils % 3.1 % (0.00-10.9); Hematocrit 23.4 VOL% (42.0-52.0); Hemoglobin 8.1 GM/DL (14.0-18.0); Immature Granulocytes % 0.3 %; Immature Granulocytes Absolute 0.03 #; Lymphocytes # 0.8 10*3/uL (1.4-4.0); Lymphocytes % 9.5 % (21.2-54.2); Mean Corpuscular HGB Conc 34.6 GM/DL (32-36); Mean Corpuscular Hemoglobin 31 PG (27-34); Mean Platelet Volume 9.7 FL (9.6-12.0); Monocytes # 0.7 10*3/uL (0.11-0.8); Monocytes % 8.2 % (1.7-12.7); Neutrophils # 6.9 10*3/uL (1.4-7.4); Neutrophils % 78.6 % (38.7-73.9); Platelet Count 264 T/CUMM (130-400); Red Blood Count 2.66 MC/CUMM (3.8-5.5); White Blood Count 8.8 T/CUMM (4-12)
[2017-12-20 06:57] LABS: INR 4.1
[2017-12-20 07:04] LABS: PT Patient Result 40.9 SECS
[2017-12-20 07:24] LABS: Calcium 8.2 MG/DL (8.5-10.1); Osmolality,Calculated 279.7 MOS/KG (273-304); Potassium 3.8 MMOL/L (3.5-5.1)
[2017-12-20] MEDS: INSULIN REGULAR 100 UNIT/ML SUBCUT SCH ×2 (08:10→11:30)
[2017-12-20] MEDS: CALCIUM (CARBONATE) 600 MG TABLET PO SCH (08:45)
[2017-12-20] MEDS: FUROSEMIDE 40 MG TABLET PO SCH (08:45)
[2017-12-20] MEDS: INSULIN GLARGINE 100 UNIT/ML SUBCUT SCH (08:45)
[2017-12-20] MEDS: hydrALAZINE 25 MG TABLET PO SCH (08:45)
[2017-12-20] MEDS: CARVEDILOL 25 MG TABLET PO SCH (08:45)
[2017-12-20] MEDS: CLOPIDOGREL 75 MG TABLET PO SCH (08:45)
[2017-12-20] MEDS: PANTOPRAZOLE 40 MG TABLET PO SCH (08:45)
[2017-12-20 13:11] VITALS: BP 139/70
[2017-12-20] MEDS: ACETAMINOPHEN 325 MG TABLET PO PRN (13:23)
== END 2017-12-20 13:47 | disposition home or self-care (01) | DRG 240 ==
LOC: N.3E 15:54 → SUATTDRO 15:54
PROVIDERS: ADMIT Internal Medicine; ATTEND Family Medicine

== ENCOUNTER 2017-12-25 23:33 | Inpatient (IN) ==
[2017-12-26] MEDS ORDERED: SODIUM CHLORIDE 0.9% 1,000 ML IV PRN (01:30)
[2017-12-26] MEDS ORDERED: DEXTROSE 50% 25 GM/50 ML VIAL IV PRN (01:41)
[2017-12-26] MEDS ORDERED: GLUCAGON 1 MG VIAL IM PRN (01:41)
[2017-12-26 02:13] LABS: Basophils # 0.1 10*3/uL (0.0-0.2); Basophils % 0.3 % (0.0-0.8); Eosinophils # 0.2 10*3/uL (0.0-0.87); Eosinophils % 1.2 % (0.00-10.9); Hematocrit 20.4 VOL% (42.0-52.0); Hemoglobin 7.4 GM/DL (14.0-18.0); Immature Granulocytes % 2.4 %; Immature Granulocytes Absolute 0.37 #; Lymphocytes # 1.2 10*3/uL (1.4-4.0); Lymphocytes % 7.9 % (21.2-54.2); Mean Corpuscular HGB Conc 36.3 GM/DL (32-36); Mean Corpuscular Hemoglobin 33 PG (27-34); Mean Corpuscular Volume 90.3 FL (87-102); Mean Platelet Volume 9.7 FL (9.6-12.0); Monocytes # 1.5 10*3/uL (0.11-0.8); Monocytes % 10.2 % (1.7-12.7); Neutrophils # 11.8 10*3/uL (1.4-7.4); Platelet Count 254 T/CUMM (130-400); Red Blood Count 2.26 MC/CUMM (3.8-5.5); Red Cell Distribution Width 12.9 % (9.3-17.3); White Blood Count 15.1 T/CUMM (4-12)
[2017-12-26 02:53] LABS: Alanine Aminotransferase 26 U/L (16-61); Albumin 2.4 G/DL (3.4-5.0); Alkaline Phosphatase 129 U/L (45-117); Aspartate Amino Transferase 24 U/L (0-37); Bilirubin,Total < 0.39 MG/DL (0.2-1.0); Blood Urea Nitrogen 44 MG/DL (7-18); Calcium 7.8 MG/DL (8.5-10.1); Folate 6.8 NG/ML (5.4-24.0); Glucose 225 MG/DL (74-106); Osmolality,Calculated 285.2 MOS/KG (273-304); Sodium 134 MMOL/L (136-145); Total Protein 6.6 G/DL (6.4-8.3); Vitamin B12 311 PG/ML (211-911)
[2017-12-26 03:20] LABS: Sedimentation Rate-Westergren 140 MM/HR (0-20)
[2017-12-26] MEDS ORDERED: MENTHOL TOP PRN (04:36)
[2017-12-26] MEDS ORDERED: SODIUM CHLORIDE 0.65% NASAL SPRAY 45 ML BOTTLE BOTH NARES PRN (04:36)
[2017-12-26] MEDS ORDERED: LOTION (LUBRIDERM) 177 ML BOTTLE TOP PRN (04:36)
[2017-12-26] MEDS ORDERED: METHYL SALICYLATE TOP PRN (04:36)
[2017-12-26] MEDS ORDERED: LOTION (KERI) 236 ML BOTTLE TOP PRN (05:00)
[2017-12-26] MEDS ORDERED: FUROSEMIDE 40 MG/4 ML VIAL IV ONE (06:28)
[2017-12-26 08:38] LABS: INR 1.8; PT Patient Result 19.1 SECS
[2017-12-26] MEDS: INSULIN REGULAR 100 UNIT/ML SUBCUT SCH ×4 (08:44→20:47)
[2017-12-26] MEDS: CLOPIDOGREL 75 MG TABLET PO SCH (08:45)
[2017-12-26] MEDS: OMEGA 3 ACID ETHYL ESTERS 1 GM CAPSULE PO SCH ×2 (08:45→20:46)
[2017-12-26] MEDS: MECLIZINE 25 MG TABLET PO SCH ×3 (08:45→20:45)
[2017-12-26] MEDS: PANTOPRAZOLE 40 MG TABLET PO SCH (08:45)
[2017-12-26] MEDS: CALCIUM (CARBONATE) 600 MG TABLET PO SCH ×2 (08:45→20:45)
[2017-12-26] MEDS: CARVEDILOL 25 MG TABLET PO SCH ×2 (08:45→16:45)
[2017-12-26] MEDS: FUROSEMIDE 40 MG TABLET PO SCH ×2 (08:45→15:18)
[2017-12-26] MEDS: hydrALAZINE 25 MG TABLET PO SCH ×3 (08:45→20:46)
[2017-12-26 15:07] LABS: Hematocrit 25.6 VOL% (42.0-52.0); Hemoglobin 8.7 GM/DL (14.0-18.0)
[2017-12-26] MEDS: ATORVASTATIN 40 MG TABLET PO SCH (20:46)
[2017-12-26] MEDS: ACETAMINOPHEN 325 MG TABLET PO PRN (23:52)
[2017-12-27] MEDS: hydrALAZINE 25 MG TABLET PO SCH ×3 (08:12→20:43)
[2017-12-27] MEDS: ACETAMINOPHEN 325 MG TABLET PO PRN ×2 (08:12→23:43)
[2017-12-27] MEDS: CLOPIDOGREL 75 MG TABLET PO SCH (08:13)
[2017-12-27] MEDS: CARVEDILOL 25 MG TABLET PO SCH ×2 (08:13→16:53)
[2017-12-27] MEDS: MECLIZINE 25 MG TABLET PO SCH ×3 (08:13→20:43)
[2017-12-27] MEDS: FUROSEMIDE 40 MG TABLET PO SCH ×2 (08:13→15:12)
[2017-12-27] MEDS: CALCIUM (CARBONATE) 600 MG TABLET PO SCH ×2 (08:13→20:44)
[2017-12-27] MEDS: OMEGA 3 ACID ETHYL ESTERS 1 GM CAPSULE PO SCH ×2 (08:13→20:43)
[2017-12-27] MEDS: PANTOPRAZOLE 40 MG TABLET PO SCH (08:13)
[2017-12-27] MEDS: INSULIN REGULAR 100 UNIT/ML SUBCUT SCH ×4 (08:14→20:44)
[2017-12-27 09:11] LABS: Basophils % 0.3 % (0.0-0.8); Eosinophils # 0.2 10*3/uL (0.0-0.87); Hematocrit 23.2 VOL% (42.0-52.0); Hemoglobin 7.9 GM/DL (14.0-18.0); Immature Granulocytes % 2.1 %; Immature Granulocytes Absolute 0.32 #; Lymphocytes # 0.8 10*3/uL (1.4-4.0); Lymphocytes % 5.3 % (21.2-54.2); Mean Corpuscular HGB Conc 34.1 GM/DL (32-36); Mean Corpuscular Hemoglobin 30 PG (27-34); Mean Corpuscular Volume 88.2 FL (87-102); Mean Platelet Volume 9.7 FL (9.6-12.0); Monocytes # 1.4 10*3/uL (0.11-0.8); Monocytes % 9.2 % (1.7-12.7); Neutrophils # 12.6 10*3/uL (1.4-7.4); Neutrophils % 82.1 % (38.7-73.9); Platelet Count 257 T/CUMM (130-400); Red Blood Count 2.63 MC/CUMM (3.8-5.5); Red Cell Distribution Width 13.7 % (9.3-17.3); White Blood Count 15.3 T/CUMM (4-12)
[2017-12-27] MEDS: INSULIN GLARGINE 100 UNIT/ML SUBCUT SCH (09:27)
[2017-12-27] MEDS: LIDOCAINE 5% PATCH TRANSDERM SCH (09:29)
[2017-12-27] MEDS ORDERED: LEVOFLOXACIN 750 MG TABLET PO SCH (10:30)
[2017-12-27 11:53] LABS: Hematocrit 24.3 VOL% (42.0-52.0); Hemoglobin 8.4 GM/DL (14.0-18.0)
[2017-12-27 16:00] LABS: Apearance,Urine Slightly Hazy (Clear); Bacteria,Urine Few /HPF (Few); Bilirubin,Urine Negative (Negative); Blood, Urine Negative (Negative); Glucose,Urine (UA) 150 mg/dL (Negative); Hyaline Casts,Urine 2 /LPF (0-3); Ketones,Urine Negative (Negative); Mucus,Urine Occasional /LPF (Occasional); Nitrite,Urine Negative (Negative); Protein,Urine >=500 MG/DL; RBC,Urine 6 /HPF (0-4); Sperm,Urine Occasional /HPF (Negative); Squamous Epithelial Cell,Urine Occasional /HPF (0-10); Urine Color Yellow (Yellow); Urine Specific Gravity 1.011 (1.001-1.035); Urine Urobilinogen < 2.0 EU/DL (0.2-1.0); WBC,Urine 2 /HPF (0-6)
[2017-12-27] MEDS ORDERED: WARFARIN 1 MG TABLET PO SCH (18:00)
[2017-12-27 19:10] LABS: Hematocrit 23.6 VOL% (42.0-52.0); Hemoglobin 8.1 GM/DL (14.0-18.0)
[2017-12-27] MEDS: ATORVASTATIN 40 MG TABLET PO SCH (20:44)
[2017-12-28 05:08] LABS: Basophils % 0.3 % (0.0-0.8); Eosinophils # 0.1 10*3/uL (0.0-0.87); Eosinophils % 0.5 % (0.00-10.9); Hematocrit 24.9 VOL% (42.0-52.0); Hemoglobin 8.3 GM/DL (14.0-18.0); Immature Granulocytes % 1.4 %; Immature Granulocytes Absolute 0.19 #; Lymphocytes # 0.9 10*3/uL (1.4-4.0); Lymphocytes % 6.6 % (21.2-54.2); Mean Corpuscular HGB Conc 33.3 GM/DL (32-36); Mean Corpuscular Hemoglobin 30 PG (27-34); Mean Corpuscular Volume 89.9 FL (87-102); Mean Platelet Volume 10.1 FL (9.6-12.0); Monocytes # 1.5 10*3/uL (0.11-0.8); Monocytes % 10.6 % (1.7-12.7); Neutrophils # 11.2 10*3/uL (1.4-7.4); Neutrophils % 80.6 % (38.7-73.9); Platelet Count 273 T/CUMM (130-400); Red Blood Count 2.77 MC/CUMM (3.8-5.5); Red Cell Distribution Width 13.5 % (9.3-17.3); White Blood Count 13.9 T/CUMM (4-12)
[2017-12-28 05:18] LABS: INR 1.9; PT Patient Result 19.5 SECS
[2017-12-28 05:41] LABS: Calcium 8.2 MG/DL (8.5-10.1); Osmolality,Calculated 286.8 MOS/KG (273-304); Potassium 3.9 MMOL/L (3.5-5.1)
[2017-12-28] MEDS: INSULIN REGULAR 100 UNIT/ML SUBCUT SCH ×4 (08:26→22:53)
[2017-12-28] MEDS: INSULIN GLARGINE 100 UNIT/ML SUBCUT SCH (08:53)
[2017-12-28] MEDS: OMEGA 3 ACID ETHYL ESTERS 1 GM CAPSULE PO SCH ×2 (08:54→22:54)
[2017-12-28] MEDS: CALCIUM (CARBONATE) 600 MG TABLET PO SCH ×2 (08:54→22:54)
[2017-12-28] MEDS: CARVEDILOL 25 MG TABLET PO SCH ×2 (08:54→16:30)
[2017-12-28] MEDS: ASPIRIN CHEW 81 MG TABLET PO SCH (08:54)
[2017-12-28] MEDS: PANTOPRAZOLE 40 MG TABLET PO SCH (08:54)
[2017-12-28] MEDS: hydrALAZINE 25 MG TABLET PO SCH ×3 (08:54→22:54)
[2017-12-28] MEDS: FUROSEMIDE 40 MG TABLET PO SCH ×2 (08:54→16:30)
[2017-12-28] MEDS: MECLIZINE 25 MG TABLET PO SCH ×3 (08:54→22:54)
[2017-12-28] MEDS: LIDOCAINE 5% PATCH TRANSDERM SCH (08:58)
[2017-12-28 12:14] LABS: Hematocrit 21.9 VOL% (42.0-52.0); Hemoglobin 7.5 GM/DL (14.0-18.0)
[2017-12-28] MEDS ORDERED: PHYTONADIONE 5 MG/5 ML ORAL.SYR PO ONE (16:40)
[2017-12-28] MEDS: ACETAMINOPHEN 325 MG TABLET PO PRN (17:09)
[2017-12-28] MEDS ORDERED: WARFARIN 1 MG TABLET PO SCH (18:00)
[2017-12-28] MEDS: ATORVASTATIN 40 MG TABLET PO SCH (22:54)
[2017-12-29 06:00] LABS: INR 1.4; PT Patient Result 14.8 SECS
[2017-12-29 06:08] LABS: Basophils % 0.2 % (0.0-0.8); Eosinophils # 0.1 10*3/uL (0.0-0.87); Eosinophils % 0.4 % (0.00-10.9); Hemoglobin 7.1 GM/DL (14.0-18.0); Immature Granulocytes Absolute 0.17 #; Lymphocytes # 0.7 10*3/uL (1.4-4.0); Lymphocytes % 4.4 % (21.2-54.2); Mean Corpuscular HGB Conc 33.8 GM/DL (32-36); Mean Corpuscular Hemoglobin 30 PG (27-34); Mean Corpuscular Volume 89.7 FL (87-102); Mean Platelet Volume 10.1 FL (9.6-12.0); Monocytes # 1.4 10*3/uL (0.11-0.8); Monocytes % 8.7 % (1.7-12.7); Neutrophils # 14.1 10*3/uL (1.4-7.4); Neutrophils % 85.3 % (38.7-73.9); Platelet Count 322 T/CUMM (130-400); Red Blood Count 2.34 MC/CUMM (3.8-5.5); Red Cell Distribution Width 13.6 % (9.3-17.3); White Blood Count 16.5 T/CUMM (4-12)
[2017-12-29 06:17] LABS: Osmolality,Calculated 288.1 MOS/KG (273-304); Potassium 3.7 MMOL/L (3.5-5.1)
[2017-12-29 06:24] LABS: Osmolality,Calculated 288.1 MOS/KG (273-304); Potassium 3.6 MMOL/L (3.5-5.1)
[2017-12-29] MEDS: CARVEDILOL 25 MG TABLET PO SCH ×2 (08:35→16:13)
[2017-12-29] MEDS: ASPIRIN CHEW 81 MG TABLET PO SCH (08:35)
[2017-12-29] MEDS: BISACODYL 5 MG TABLET PO SCH ×2 (08:35→16:12)
[2017-12-29] MEDS: PANTOPRAZOLE 40 MG TABLET PO SCH (08:36)
[2017-12-29] MEDS: hydrALAZINE 25 MG TABLET PO SCH ×3 (08:36→21:35)
[2017-12-29] MEDS: FUROSEMIDE 40 MG TABLET PO SCH ×2 (08:36→16:13)
[2017-12-29] MEDS: CALCIUM (CARBONATE) 600 MG TABLET PO SCH ×2 (08:36→21:35)
[2017-12-29] MEDS: MECLIZINE 25 MG TABLET PO SCH ×3 (08:36→21:35)
[2017-12-29] MEDS: INSULIN GLARGINE 100 UNIT/ML SUBCUT SCH (08:36)
[2017-12-29] MEDS: OMEGA 3 ACID ETHYL ESTERS 1 GM CAPSULE PO SCH ×2 (08:36→21:35)
[2017-12-29] MEDS: INSULIN REGULAR 100 UNIT/ML SUBCUT SCH ×4 (09:42→21:38)
[2017-12-29] MEDS ORDERED: SODIUM CHLORIDE 0.9% 1,000 ML IV PRN ×2 (10:42→11:25)
[2017-12-29] MEDS: LEVOFLOXACIN 500 MG TABLET PO SCH (11:55)
[2017-12-29] MEDS: LIDOCAINE 5% PATCH TRANSDERM SCH (12:00)
[2017-12-29] MEDS ORDERED: HEPARIN 5,000 UNIT/1 ML VIAL IV ONE (15:00)
[2017-12-29] MEDS ORDERED: HEPARIN DRIP 25,000 UNITS/500 ML PREMIX IV SCH (17:30)
[2017-12-29] MEDS ORDERED: POLYETHYLENE GLYCOL POWDER 255 GM BOTTLE PO ONE (18:00)
[2017-12-29] MEDS ORDERED: MAGNESIUM CITRATE 300 ML BOTTLE PO ONE (21:00)
[2017-12-29] MEDS: ATORVASTATIN 40 MG TABLET PO SCH (21:35)
[2017-12-30] MEDS: BISACODYL 5 MG TABLET PO SCH (00:29)
[2017-12-30] MEDS: ACETAMINOPHEN 325 MG TABLET PO PRN (00:33)
[2017-12-30 00:38] LABS: Basophils % 0.2 % (0.0-0.8); Eosinophils % 0.1 % (0.00-10.9); Hematocrit 30.1 VOL% (42.0-52.0); Immature Granulocytes % 0.6 %; Immature Granulocytes Absolute 0.09 #; Lymphocytes # 0.5 10*3/uL (1.4-4.0); Lymphocytes % 3.3 % (21.2-54.2); Mean Corpuscular HGB Conc 32.9 GM/DL (32-36); Mean Corpuscular Hemoglobin 29 PG (27-34); Mean Corpuscular Volume 87.2 FL (87-102); Mean Platelet Volume 9.6 FL (9.6-12.0); Monocytes # 1.1 10*3/uL (0.11-0.8); Monocytes % 7.5 % (1.7-12.7); Neutrophils # 13.1 10*3/uL (1.4-7.4); Neutrophils % 88.3 % (38.7-73.9); Platelet Count 304 T/CUMM (130-400); Red Blood Count 3.45 MC/CUMM (3.8-5.5); White Blood Count 14.8 T/CUMM (4-12)
[2017-12-30 00:40] LABS: Hemoglobin 9.9 GM/DL (14.0-18.0)
[2017-12-30 00:52] LABS: Calcium 8.2 MG/DL (8.5-10.1); Osmolality,Calculated 296.1 MOS/KG (273-304); Potassium 3.5 MMOL/L (3.5-5.1)
[2017-12-30 05:32] LABS: Lymphocytes 2 % (20-55); Platelet Estimate Normal; Segmented Neutrophils 95 % (50-85); Total Cells Counted 100
[2017-12-30] MEDS: INSULIN REGULAR 100 UNIT/ML SUBCUT SCH ×4 (08:21→20:47)
[2017-12-30] MEDS ORDERED: PROPOFOL 200 MG/20 ML VIAL IV ONE (09:38)
[2017-12-30] MEDS ORDERED: LIDOCAINE 2% 5 ML VIAL ONE (09:38)
[2017-12-30] MEDS ORDERED: GLUCAGON 1 MG VIAL IM PRN (12:07)
[2017-12-30] MEDS ORDERED: DEXTROSE 50% 25 GM/50 ML VIAL IV PRN (12:07)
[2017-12-30] MEDS: INSULIN GLARGINE 100 UNIT/ML SUBCUT SCH (12:13)
[2017-12-30] MEDS: CARVEDILOL 25 MG TABLET PO SCH ×2 (12:36→16:59)
[2017-12-30] MEDS: OMEGA 3 ACID ETHYL ESTERS 1 GM CAPSULE PO SCH ×2 (12:36→20:47)
[2017-12-30] MEDS: FUROSEMIDE 40 MG TABLET PO SCH ×2 (12:36→16:58)
[2017-12-30] MEDS: CALCIUM (CARBONATE) 600 MG TABLET PO SCH ×2 (12:36→20:46)
[2017-12-30] MEDS: ASPIRIN CHEW 81 MG TABLET PO SCH (12:37)
[2017-12-30] MEDS: PANTOPRAZOLE 40 MG TABLET PO SCH (12:37)
[2017-12-30] MEDS: hydrALAZINE 25 MG TABLET PO SCH ×3 (12:38→20:47)
[2017-12-30] MEDS: MECLIZINE 25 MG TABLET PO SCH ×3 (12:38→20:46)
[2017-12-30] MEDS: LIDOCAINE 5% PATCH TRANSDERM SCH (12:38)
[2017-12-30] MEDS ORDERED: HEPARIN 5,000 UNIT/1 ML VIAL IV SCH (16:00)
[2017-12-30] MEDS: ATORVASTATIN 40 MG TABLET PO SCH (20:46)
[2017-12-31] MEDS: ACETAMINOPHEN 325 MG TABLET PO PRN (02:46)
[2017-12-31] MEDS ORDERED: HEPARIN DRIP 25,000 UNITS/500 ML PREMIX IV SCH (09:00)
[2017-12-31 09:40] LABS: Hematocrit 23.5 VOL% (42.0-52.0); Hemoglobin 8.1 GM/DL (14.0-18.0)
[2017-12-31] MEDS: SODIUM CHLORIDE 0.9% 1,000 ML IV SCH (09:43)
[2017-12-31] MEDS: MECLIZINE 25 MG TABLET PO SCH ×3 (09:47→20:43)
[2017-12-31] MEDS: INSULIN REGULAR 100 UNIT/ML SUBCUT SCH ×4 (09:48→20:44)
[2017-12-31] MEDS: INSULIN GLARGINE 100 UNIT/ML SUBCUT SCH (09:48)
[2017-12-31] MEDS: OMEGA 3 ACID ETHYL ESTERS 1 GM CAPSULE PO SCH ×2 (09:49→20:44)
[2017-12-31] MEDS: CARVEDILOL 25 MG TABLET PO SCH ×2 (09:49→17:46)
[2017-12-31] MEDS: LIDOCAINE 5% PATCH TRANSDERM SCH ×2 (09:49→16:32)
[2017-12-31] MEDS: FUROSEMIDE 40 MG TABLET PO SCH ×2 (09:49→15:57)
[2017-12-31] MEDS: PANTOPRAZOLE 40 MG TABLET PO SCH (09:49)
[2017-12-31] MEDS: CALCIUM (CARBONATE) 600 MG TABLET PO SCH ×2 (09:49→20:44)
[2017-12-31] MEDS: hydrALAZINE 25 MG TABLET PO SCH ×3 (09:49→20:44)
[2017-12-31] MEDS: ASPIRIN CHEW 81 MG TABLET PO SCH (10:44)
[2017-12-31] MEDS: LEVOFLOXACIN 500 MG TABLET PO SCH (12:44)
[2017-12-31] MEDS: ATORVASTATIN 40 MG TABLET PO SCH (20:43)
[2018-01-01] MEDS: SODIUM CHLORIDE 0.9% 1,000 ML IV SCH ×2 (05:05→23:14)
[2018-01-01 07:16] LABS: Basophils % 0.3 % (0.0-0.8); Eosinophils # 0.3 10*3/uL (0.0-0.87); Eosinophils % 2.4 % (0.00-10.9); Hematocrit 26.5 VOL% (42.0-52.0); Hemoglobin 9.1 GM/DL (14.0-18.0); Immature Granulocytes % 0.7 %; Immature Granulocytes Absolute 0.08 #; Lymphocytes # 0.6 10*3/uL (1.4-4.0); Lymphocytes % 5.2 % (21.2-54.2); Mean Corpuscular HGB Conc 34.3 GM/DL (32-36); Mean Corpuscular Hemoglobin 29 PG (27-34); Mean Corpuscular Volume 84.1 FL (87-102); Mean Platelet Volume 9.7 FL (9.6-12.0); Monocytes # 1.2 10*3/uL (0.11-0.8); Monocytes % 10.1 % (1.7-12.7); Neutrophils # 9.7 10*3/uL (1.4-7.4); Neutrophils % 81.3 % (38.7-73.9); Platelet Count 314 T/CUMM (130-400); Red Blood Count 3.15 MC/CUMM (3.8-5.5); Red Cell Distribution Width 14.6 % (9.3-17.3); White Blood Count 11.9 T/CUMM (4-12)
[2018-01-01 07:38] LABS: Calcium 7.9 MG/DL (8.5-10.1); Osmolality,Calculated 293.5 MOS/KG (273-304); Potassium 3.3 MMOL/L (3.5-5.1)
[2018-01-01 07:41] LABS: Albumin 2.2 G/DL (3.4-5.0); Bilirubin,Total 0.7 MG/DL (0.2-1.0); Calcium 7.7 MG/DL (8.5-10.1); Osmolality,Calculated 291.7 MOS/KG (273-304); Potassium 3.3 MMOL/L (3.5-5.1); Total Protein 6.9 G/DL (6.4-8.3)
[2018-01-01] MEDS: INSULIN REGULAR 100 UNIT/ML SUBCUT SCH ×4 (07:44→20:46)
[2018-01-01] MEDS: FUROSEMIDE 40 MG TABLET PO SCH ×2 (09:29→15:47)
[2018-01-01] MEDS: CARVEDILOL 25 MG TABLET PO SCH ×2 (09:29→17:10)
[2018-01-01] MEDS: MECLIZINE 25 MG TABLET PO SCH ×3 (09:29→20:46)
[2018-01-01] MEDS: hydrALAZINE 25 MG TABLET PO SCH ×3 (09:30→20:46)
[2018-01-01] MEDS: CALCIUM (CARBONATE) 600 MG TABLET PO SCH ×2 (09:30→20:45)
[2018-01-01] MEDS: LIDOCAINE 5% PATCH TRANSDERM SCH (09:30)
[2018-01-01] MEDS: INSULIN GLARGINE 100 UNIT/ML SUBCUT SCH (09:30)
[2018-01-01] MEDS: OMEGA 3 ACID ETHYL ESTERS 1 GM CAPSULE PO SCH ×2 (09:31→20:45)
[2018-01-01] MEDS: PANTOPRAZOLE 40 MG TABLET PO SCH (09:32)
[2018-01-01] MEDS: POTASSIUM CHLORIDE 20 MEQ TABLET PO SCH ×3 (12:07→23:11)
[2018-01-01] MEDS: ATORVASTATIN 40 MG TABLET PO SCH (20:46)
[2018-01-02 06:37] LABS: Basophils % 0.4 % (0.0-0.8); Eosinophils # 0.3 10*3/uL (0.0-0.87); Hematocrit 26.3 VOL% (42.0-52.0); Hemoglobin 9.2 GM/DL (14.0-18.0); Immature Granulocytes % 0.7 %; Immature Granulocytes Absolute 0.08 #; Lymphocytes # 0.8 10*3/uL (1.4-4.0); Mean Corpuscular Hemoglobin 30 PG (27-34); Mean Corpuscular Volume 84.3 FL (87-102); Mean Platelet Volume 9.3 FL (9.6-12.0); Monocytes # 1.4 10*3/uL (0.11-0.8); Monocytes % 12.4 % (1.7-12.7); Neutrophils # 8.3 10*3/uL (1.4-7.4); Neutrophils % 76.5 % (38.7-73.9); Platelet Count 337 T/CUMM (130-400); Red Blood Count 3.12 MC/CUMM (3.8-5.5); Red Cell Distribution Width 14.7 % (9.3-17.3); White Blood Count 10.9 T/CUMM (4-12)
[2018-01-02 07:02] LABS: Osmolality,Calculated 292.3 MOS/KG (273-304); Potassium 3.9 MMOL/L (3.5-5.1)
[2018-01-02] MEDS: hydrALAZINE 25 MG TABLET PO SCH ×3 (09:46→22:13)
[2018-01-02] MEDS: INSULIN REGULAR 100 UNIT/ML SUBCUT SCH ×4 (09:46→22:15)
[2018-01-02] MEDS: FUROSEMIDE 40 MG TABLET PO SCH ×2 (09:46→16:33)
[2018-01-02] MEDS: MECLIZINE 25 MG TABLET PO SCH ×3 (09:46→22:13)
[2018-01-02] MEDS: PANTOPRAZOLE 40 MG TABLET PO SCH (09:46)
[2018-01-02] MEDS: CARVEDILOL 25 MG TABLET PO SCH ×2 (09:46→16:32)
[2018-01-02] MEDS: CALCIUM (CARBONATE) 600 MG TABLET PO SCH ×2 (09:46→22:13)
[2018-01-02] MEDS: OMEGA 3 ACID ETHYL ESTERS 1 GM CAPSULE PO SCH ×2 (09:47→22:14)
[2018-01-02] MEDS: LIDOCAINE 5% PATCH TRANSDERM SCH (09:48)
[2018-01-02] MEDS: INSULIN GLARGINE 100 UNIT/ML SUBCUT SCH (09:48)
[2018-01-02] MEDS: LEVOFLOXACIN 500 MG TABLET PO SCH (12:16)
[2018-01-02] MEDS: BISACODYL 5 MG TABLET PO SCH ×2 (14:15→22:13)
[2018-01-02] MEDS ORDERED: ASPIRIN CHEW 81 MG TABLET PO ONE (15:22)
[2018-01-02] MEDS ORDERED: POLYETHYLENE GLYCOL POWDER 255 GM BOTTLE PO ONE (18:00)
[2018-01-02] MEDS ORDERED: MAGNESIUM CITRATE 300 ML BOTTLE PO ONE (21:00)
[2018-01-02] MEDS: ATORVASTATIN 40 MG TABLET PO SCH (22:13)
[2018-01-03] MEDS: BISACODYL 5 MG TABLET PO SCH (05:03)
[2018-01-03] MEDS: SODIUM CHLORIDE 0.9% 1,000 ML IV SCH (05:03)
[2018-01-03 07:43] LABS: Basophils # 0.1 10*3/uL (0.0-0.2); Basophils % 0.5 % (0.0-0.8); Eosinophils # 0.3 10*3/uL (0.0-0.87); Hematocrit 27.7 VOL% (42.0-52.0); Hemoglobin 9.2 GM/DL (14.0-18.0); Immature Granulocytes % 0.8 %; Lymphocytes # 0.7 10*3/uL (1.4-4.0); Lymphocytes % 5.6 % (21.2-54.2); Mean Corpuscular HGB Conc 33.2 GM/DL (32-36); Mean Corpuscular Hemoglobin 29 PG (27-34); Mean Corpuscular Volume 87.1 FL (87-102); Mean Platelet Volume 9.4 FL (9.6-12.0); Monocytes # 1.3 10*3/uL (0.11-0.8); Monocytes % 10.7 % (1.7-12.7); Neutrophils % 80.4 % (38.7-73.9); Platelet Count 366 T/CUMM (130-400); Red Blood Count 3.18 MC/CUMM (3.8-5.5); Red Cell Distribution Width 14.7 % (9.3-17.3); White Blood Count 12.4 T/CUMM (4-12)
[2018-01-03] MEDS: INSULIN REGULAR 100 UNIT/ML SUBCUT SCH ×4 (08:01→21:28)
[2018-01-03 08:15] LABS: Calcium 8.3 MG/DL (8.5-10.1); Osmolality,Calculated 295.3 MOS/KG (273-304); Potassium 3.3 MMOL/L (3.5-5.1)
[2018-01-03] MEDS ORDERED: PROPOFOL 200 MG/20 ML VIAL IV ONE (09:01)
[2018-01-03] MEDS ORDERED: LIDOCAINE 2% 5 ML VIAL ONE (09:01)
[2018-01-03] MEDS ORDERED: PHENYLEPHRINE 1 MG/10 ML SYRINGE IV ONE (09:01)
[2018-01-03] MEDS: INSULIN GLARGINE 100 UNIT/ML SUBCUT SCH (10:39)
[2018-01-03] MEDS: MECLIZINE 25 MG TABLET PO SCH ×3 (11:07→21:28)
[2018-01-03] MEDS: OMEGA 3 ACID ETHYL ESTERS 1 GM CAPSULE PO SCH ×2 (11:07→21:28)
[2018-01-03] MEDS: FUROSEMIDE 40 MG TABLET PO SCH ×2 (11:07→16:08)
[2018-01-03] MEDS: CARVEDILOL 25 MG TABLET PO SCH ×2 (11:07→16:08)
[2018-01-03] MEDS: ASPIRIN CHEW 81 MG TABLET PO SCH (11:07)
[2018-01-03] MEDS: hydrALAZINE 25 MG TABLET PO SCH ×3 (11:07→21:28)
[2018-01-03] MEDS: CALCIUM (CARBONATE) 600 MG TABLET PO SCH ×2 (11:13→21:28)
[2018-01-03] MEDS: LIDOCAINE 5% PATCH TRANSDERM SCH (11:13)
[2018-01-03] MEDS: PANTOPRAZOLE 40 MG TABLET PO SCH (11:13)
[2018-01-03] MEDS ORDERED: CLINDAMYCIN INJ 900 MG in PREMIX 1 EACH IV ONE (15:55)
[2018-01-03] MEDS ORDERED: VANCOMYCIN INJ 1,250 MG in SODIUM CHLORIDE 0.9% 250 ML IV PRN (16:20)
[2018-01-03] MEDS ORDERED: POTASSIUM CHLORIDE 20 MEQ TABLET PO ONE (17:02)
[2018-01-03] MEDS ORDERED: VANCOMYCIN INJ 1,250 MG in SODIUM CHLORIDE 0.9% 250 ML IV ONE (18:00)
[2018-01-03] MEDS: ATORVASTATIN 40 MG TABLET PO SCH (21:28)
[2018-01-04 05:46] LABS: Basophils % 0.4 % (0.0-0.8); Eosinophils # 0.2 10*3/uL (0.0-0.87); Eosinophils % 1.4 % (0.00-10.9); Hematocrit 27.1 VOL% (42.0-52.0); Hemoglobin 8.9 GM/DL (14.0-18.0); Immature Granulocytes % 1.5 %; Immature Granulocytes Absolute 0.17 #; Lymphocytes # 0.6 10*3/uL (1.4-4.0); Lymphocytes % 5.5 % (21.2-54.2); Mean Corpuscular HGB Conc 32.8 GM/DL (32-36); Mean Corpuscular Hemoglobin 29 PG (27-34); Mean Corpuscular Volume 87.4 FL (87-102); Mean Platelet Volume 9.6 FL (9.6-12.0); Monocytes % 8.8 % (1.7-12.7); Neutrophils # 9.3 10*3/uL (1.4-7.4); Neutrophils % 82.4 % (38.7-73.9); Platelet Count 363 T/CUMM (130-400); Red Cell Distribution Width 15.2 % (9.3-17.3); White Blood Count 11.3 T/CUMM (4-12)
[2018-01-04 05:58] LABS: Osmolality,Calculated 296.4 MOS/KG (273-304); Potassium 3.6 MMOL/L (3.5-5.1)
[2018-01-04] MEDS: SODIUM CHLORIDE 0.9% 1,000 ML IV SCH ×3 (06:45→16:39)
[2018-01-04] MEDS ORDERED: ceFAZolin 2,000 MG in PREMIX 1 EACH IV ONE (07:20)
[2018-01-04] MEDS: CARVEDILOL 25 MG TABLET PO SCH ×2 (09:43→16:37)
[2018-01-04] MEDS: MECLIZINE 25 MG TABLET PO SCH ×3 (09:43→21:12)
[2018-01-04] MEDS: hydrALAZINE 25 MG TABLET PO SCH ×3 (09:43→21:12)
[2018-01-04] MEDS: ASPIRIN CHEW 81 MG TABLET PO SCH (09:43)
[2018-01-04] MEDS: CALCIUM (CARBONATE) 600 MG TABLET PO SCH ×2 (09:43→21:12)
[2018-01-04] MEDS: PANTOPRAZOLE 40 MG TABLET PO SCH (09:44)
[2018-01-04] MEDS: FUROSEMIDE 40 MG TABLET PO SCH ×2 (09:45→16:37)
[2018-01-04] MEDS: INSULIN GLARGINE 100 UNIT/ML SUBCUT SCH (09:45)
[2018-01-04] MEDS: INSULIN REGULAR 100 UNIT/ML SUBCUT SCH ×5 (09:46→21:31)
[2018-01-04] MEDS: LIDOCAINE 5% PATCH TRANSDERM SCH (09:47)
[2018-01-04] MEDS: OMEGA 3 ACID ETHYL ESTERS 1 GM CAPSULE PO SCH ×2 (09:48→21:13)
[2018-01-04] MEDS: ATORVASTATIN 40 MG TABLET PO SCH (21:12)
[2018-01-05] MEDS: SODIUM CHLORIDE 0.9% 1,000 ML IV SCH (05:46)
[2018-01-05 05:56] LABS: Basophils % 0.4 % (0.0-0.8); Eosinophils # 0.3 10*3/uL (0.0-0.87); Eosinophils % 2.6 % (0.00-10.9); Hematocrit 26.6 VOL% (42.0-52.0); Hemoglobin 8.8 GM/DL (14.0-18.0); Immature Granulocytes % 1.9 %; Immature Granulocytes Absolute 0.21 #; Lymphocytes # 0.9 10*3/uL (1.4-4.0); Lymphocytes % 7.8 % (21.2-54.2); Mean Corpuscular HGB Conc 33.1 GM/DL (32-36); Mean Corpuscular Hemoglobin 29 PG (27-34); Mean Corpuscular Volume 88.1 FL (87-102); Mean Platelet Volume 9.7 FL (9.6-12.0); Monocytes # 1.2 10*3/uL (0.11-0.8); Monocytes % 10.4 % (1.7-12.7); Neutrophils # 8.6 10*3/uL (1.4-7.4); Neutrophils % 76.9 % (38.7-73.9); Platelet Count 388 T/CUMM (130-400); Red Blood Count 3.02 MC/CUMM (3.8-5.5); Red Cell Distribution Width 14.8 % (9.3-17.3); White Blood Count 11.2 T/CUMM (4-12)
[2018-01-05 06:02] LABS: Calcium 8.1 MG/DL (8.5-10.1); Osmolality,Calculated 296.1 MOS/KG (273-304); Potassium 3.4 MMOL/L (3.5-5.1)
[2018-01-05] MEDS: INSULIN REGULAR 100 UNIT/ML SUBCUT SCH ×4 (07:38→21:19)
[2018-01-05] MEDS ORDERED: ceFAZolin 2,000 MG in PREMIX 1 EACH IV ONE (08:00)
[2018-01-05] MEDS ORDERED: POTASSIUM CHLORIDE 20 MEQ TABLET PO ONE (08:30)
[2018-01-05] MEDS ORDERED: VANCOMYCIN INJ 1,250 MG in SODIUM CHLORIDE 0.9% 250 ML IV ONE (12:00)
[2018-01-05] MEDS: hydrALAZINE 25 MG TABLET PO SCH ×3 (12:06→21:22)
[2018-01-05] MEDS: CARVEDILOL 25 MG TABLET PO SCH ×2 (12:06→19:27)
[2018-01-05] MEDS: PANTOPRAZOLE 40 MG TABLET PO SCH (12:11)
[2018-01-05] MEDS ORDERED: fentaNYL 100 MCG/2 ML VIAL ONE (14:05)
[2018-01-05] MEDS ORDERED: SEVOFLURANE 1 UNIT/15 MINUTE INH ONE (14:05)
[2018-01-05] MEDS ORDERED: MIDAZOLAM 2 MG/2 ML VIAL ONE (14:05)
[2018-01-05] MEDS ORDERED: PROPOFOL 200 MG/20 ML VIAL IV ONE (14:05)
[2018-01-05] MEDS ORDERED: EPINEPHrine 1 MG/ML VIAL ONE (14:06)
[2018-01-05] MEDS ORDERED: PHENYLEPHRINE 1 MG/10 ML SYRINGE IV ONE (14:06)
[2018-01-05] MEDS ORDERED: ePHEDrine 50 MG/ML AMP ONE (14:06)
[2018-01-05] MEDS: LIDOCAINE 5% PATCH TRANSDERM SCH (15:48)
[2018-01-05] MEDS ORDERED: GLUCAGON 1 MG VIAL IM PRN (16:34)
[2018-01-05] MEDS ORDERED: DEXTROSE 50% 25 GM/50 ML VIAL IV PRN (16:34)
[2018-01-05] MEDS: CALCIUM (CARBONATE) 600 MG TABLET PO SCH ×2 (19:27→21:23)
[2018-01-05] MEDS: ASPIRIN CHEW 81 MG TABLET PO SCH (19:28)
[2018-01-05] MEDS: MECLIZINE 25 MG TABLET PO SCH ×3 (19:28→21:22)
[2018-01-05] MEDS: FUROSEMIDE 40 MG TABLET PO SCH ×2 (19:30)
[2018-01-05] MEDS: OMEGA 3 ACID ETHYL ESTERS 1 GM CAPSULE PO SCH ×2 (19:31→21:18)
[2018-01-05] MEDS: INSULIN GLARGINE 100 UNIT/ML SUBCUT SCH (19:32)
[2018-01-05] MEDS: ATORVASTATIN 40 MG TABLET PO SCH (21:18)
[2018-01-06] MEDS: SODIUM CHLORIDE 0.9% 1,000 ML IV SCH ×2 (00:53→21:25)
[2018-01-06 04:04] LABS: Basophils % 0.3 % (0.0-0.8); Eosinophils # 0.4 10*3/uL (0.0-0.87); Eosinophils % 3.2 % (0.00-10.9); Hematocrit 26.6 VOL% (42.0-52.0); Hemoglobin 8.7 GM/DL (14.0-18.0); Immature Granulocytes % 1.5 %; Immature Granulocytes Absolute 0.17 #; Lymphocytes # 0.6 10*3/uL (1.4-4.0); Lymphocytes % 5.3 % (21.2-54.2); Mean Corpuscular HGB Conc 32.7 GM/DL (32-36); Mean Corpuscular Hemoglobin 29 PG (27-34); Mean Corpuscular Volume 88.7 FL (87-102); Mean Platelet Volume 9.4 FL (9.6-12.0); Monocytes % 8.5 % (1.7-12.7); Neutrophils # 9.3 10*3/uL (1.4-7.4); Neutrophils % 81.2 % (38.7-73.9); Platelet Count 347 T/CUMM (130-400); Red Cell Distribution Width 14.9 % (9.3-17.3); White Blood Count 11.4 T/CUMM (4-12)
[2018-01-06] MEDS: MECLIZINE 25 MG TABLET PO SCH ×3 (10:01→22:22)
[2018-01-06] MEDS: PANTOPRAZOLE 40 MG TABLET PO SCH (10:02)
[2018-01-06] MEDS: CALCIUM (CARBONATE) 600 MG TABLET PO SCH ×2 (10:02→22:22)
[2018-01-06] MEDS: CARVEDILOL 25 MG TABLET PO SCH ×2 (10:03→17:31)
[2018-01-06] MEDS: FUROSEMIDE 40 MG TABLET PO SCH ×2 (10:03→17:31)
[2018-01-06] MEDS: ASPIRIN CHEW 81 MG TABLET PO SCH (10:03)
[2018-01-06] MEDS: hydrALAZINE 25 MG TABLET PO SCH ×3 (10:03→22:23)
[2018-01-06] MEDS: LIDOCAINE 5% PATCH TRANSDERM SCH (10:04)
[2018-01-06] MEDS: OMEGA 3 ACID ETHYL ESTERS 1 GM CAPSULE PO SCH ×2 (10:04→22:22)
[2018-01-06] MEDS: INSULIN REGULAR 100 UNIT/ML SUBCUT SCH ×4 (10:04→22:23)
[2018-01-06] MEDS: INSULIN GLARGINE 100 UNIT/ML SUBCUT SCH (10:04)
[2018-01-06] MEDS: ACETAMINOPHEN 325 MG TABLET PO PRN (11:44)
[2018-01-06 11:53] LABS: PT Patient Result 20.4 SECS
[2018-01-06 12:00] LABS: Partial Thromboplastin Time 50.2 SECS (0-40)
[2018-01-06] MEDS: HEPARIN DRIP 25,000 UNITS/500 ML PREMIX IV SCH (12:16)
[2018-01-06] MEDS ORDERED: WARFARIN 5 MG TABLET PO ONE (12:45)
[2018-01-06] MEDS ORDERED: chlordiazePOXIDE 25 MG CAPSULE PO SCH (16:00)
[2018-01-06 18:34] LABS: INR 2.2
[2018-01-06 18:39] LABS: PT Patient Result 22.6 SECS; Partial Thromboplastin Time 72.5 SECS (0-40)
[2018-01-06] MEDS: ATORVASTATIN 40 MG TABLET PO SCH (22:22)
[2018-01-07 01:17] LABS: INR 2.6
[2018-01-07 01:30] LABS: PT Patient Result 26.6 SECS; Partial Thromboplastin Time 71.1 SECS (0-40)
[2018-01-07] MEDS: ACETAMINOPHEN 325 MG TABLET PO PRN ×2 (05:08→16:05)
[2018-01-07 06:46] LABS: Calcium 7.9 MG/DL (8.5-10.1); Osmolality,Calculated 289.5 MOS/KG (273-304); Potassium 3.5 MMOL/L (3.5-5.1)
[2018-01-07 06:56] LABS: INR 2.8
[2018-01-07 06:58] LABS: Basophils % 0.3 % (0.0-0.8); Eosinophils # 0.2 10*3/uL (0.0-0.87); Eosinophils % 1.1 % (0.00-10.9); Hematocrit 23.5 VOL% (42.0-52.0); Hemoglobin 7.8 GM/DL (14.0-18.0); Immature Granulocytes Absolute 0.16 #; Lymphocytes # 0.7 10*3/uL (1.4-4.0); Lymphocytes % 4.4 % (21.2-54.2); Mean Corpuscular HGB Conc 33.2 GM/DL (32-36); Mean Corpuscular Hemoglobin 29 PG (27-34); Mean Platelet Volume 10.7 FL (9.6-12.0); Monocytes # 1.2 10*3/uL (0.11-0.8); Monocytes % 7.7 % (1.7-12.7); Neutrophils # 13.6 10*3/uL (1.4-7.4); Neutrophils % 85.5 % (38.7-73.9); Platelet Count 362 T/CUMM (130-400); Red Blood Count 2.67 MC/CUMM (3.8-5.5); Red Cell Distribution Width 14.9 % (9.3-17.3)
[2018-01-07 07:07] LABS: White Blood Count 15.9 T/CUMM (4-12)
[2018-01-07 08:18] LABS: Anisocytosis 1+; Hypochromasia 1+
[2018-01-07] MEDS: INSULIN REGULAR 100 UNIT/ML SUBCUT SCH ×4 (08:21→21:07)
[2018-01-07] MEDS: CARVEDILOL 25 MG TABLET PO SCH ×2 (08:52→16:04)
[2018-01-07] MEDS: HEPARIN DRIP 25,000 UNITS/500 ML PREMIX IV SCH (08:52)
[2018-01-07] MEDS: PANTOPRAZOLE 40 MG TABLET PO SCH (08:52)
[2018-01-07] MEDS: OMEGA 3 ACID ETHYL ESTERS 1 GM CAPSULE PO SCH ×2 (08:52→21:05)
[2018-01-07] MEDS: FUROSEMIDE 40 MG TABLET PO SCH ×2 (08:53→16:03)
[2018-01-07] MEDS: MECLIZINE 25 MG TABLET PO SCH ×3 (08:53→21:05)
[2018-01-07] MEDS: ASPIRIN CHEW 81 MG TABLET PO SCH (08:53)
[2018-01-07] MEDS: LIDOCAINE 5% PATCH TRANSDERM SCH (08:53)
[2018-01-07] MEDS: CALCIUM (CARBONATE) 600 MG TABLET PO SCH ×2 (08:53→21:05)
[2018-01-07] MEDS: INSULIN GLARGINE 100 UNIT/ML SUBCUT SCH (08:53)
[2018-01-07] MEDS: hydrALAZINE 25 MG TABLET PO SCH ×3 (08:53→21:05)
[2018-01-07] MEDS ORDERED: VANCOMYCIN INJ 1,250 MG in SODIUM CHLORIDE 0.9% 250 ML IV ONE (12:00)
[2018-01-07] MEDS ORDERED: WARFARIN 1 MG TABLET PO SCH (18:00)
[2018-01-07] MEDS: ATORVASTATIN 40 MG TABLET PO SCH (21:05)
[2018-01-08 07:32] LABS: Basophils # 0.1 10*3/uL (0.0-0.2); Basophils % 0.3 % (0.0-0.8); Eosinophils # 0.4 10*3/uL (0.0-0.87); Eosinophils % 2.1 % (0.00-10.9); Hematocrit 24.8 VOL% (42.0-52.0); Hemoglobin 8.2 GM/DL (14.0-18.0); Immature Granulocytes % 1.7 %; Lymphocytes # 0.8 10*3/uL (1.4-4.0); Lymphocytes % 4.5 % (21.2-54.2); Mean Corpuscular HGB Conc 33.1 GM/DL (32-36); Mean Corpuscular Hemoglobin 29 PG (27-34); Mean Corpuscular Volume 87.3 FL (87-102); Mean Platelet Volume 10.2 FL (9.6-12.0); Monocytes # 1.3 10*3/uL (0.11-0.8); Monocytes % 7.2 % (1.7-12.7); Neutrophils % 84.2 % (38.7-73.9); Platelet Count 367 T/CUMM (130-400); Red Blood Count 2.84 MC/CUMM (3.8-5.5); Red Cell Distribution Width 15.1 % (9.3-17.3); White Blood Count 17.8 T/CUMM (4-12)
[2018-01-08 07:51] LABS: Osmolality,Calculated 288.7 MOS/KG (273-304); Potassium 3.6 MMOL/L (3.5-5.1)
[2018-01-08 08:09] LABS: Band Neutrophils 1 % (0-10); Eosinophils 1 % (0-10); Lymphocytes 2 % (20-55); Metamyelocytes 1 %; Segmented Neutrophils 92 % (50-85); Total Cells Counted 100
[2018-01-08 08:10] LABS: Hypochromasia 1+; Microcytosis 1+; Platelet Estimate Normal
[2018-01-08 08:54] LABS: INR 3.6
[2018-01-08 08:55] LABS: PT Patient Result 36.6 SECS
[2018-01-08] MEDS: hydrALAZINE 25 MG TABLET PO SCH ×3 (09:04→21:18)
[2018-01-08] MEDS: FUROSEMIDE 40 MG TABLET PO SCH ×2 (09:04→16:10)
[2018-01-08] MEDS: PANTOPRAZOLE 40 MG TABLET PO SCH (09:04)
[2018-01-08] MEDS: CALCIUM (CARBONATE) 600 MG TABLET PO SCH ×2 (09:04→21:18)
[2018-01-08] MEDS: ASPIRIN CHEW 81 MG TABLET PO SCH (09:04)
[2018-01-08] MEDS: CARVEDILOL 25 MG TABLET PO SCH ×2 (09:04→16:10)
[2018-01-08] MEDS: OMEGA 3 ACID ETHYL ESTERS 1 GM CAPSULE PO SCH ×2 (09:04→21:18)
[2018-01-08] MEDS: INSULIN REGULAR 100 UNIT/ML SUBCUT SCH ×4 (09:04→21:18)
[2018-01-08] MEDS: INSULIN GLARGINE 100 UNIT/ML SUBCUT SCH (09:05)
[2018-01-08] MEDS: HEPARIN DRIP 25,000 UNITS/500 ML PREMIX IV SCH (09:05)
[2018-01-08] MEDS: LIDOCAINE 5% PATCH TRANSDERM SCH (09:06)
[2018-01-08] MEDS: MECLIZINE 25 MG TABLET PO SCH ×3 (09:06→21:20)
[2018-01-08] MEDS ORDERED: WARFARIN 2 MG TABLET PO SCH (18:00)
[2018-01-08] MEDS: ATORVASTATIN 40 MG TABLET PO SCH (21:18)
[2018-01-09 07:25] LABS: Basophils % 0.2 % (0.0-0.8); Eosinophils # 0.5 10*3/uL (0.0-0.87); Eosinophils % 2.8 % (0.00-10.9); Hemoglobin 8.4 GM/DL (14.0-18.0); Immature Granulocytes Absolute 0.34 #; Lymphocytes % 5.7 % (21.2-54.2); Mean Corpuscular HGB Conc 33.6 GM/DL (32-36); Mean Corpuscular Hemoglobin 29 PG (27-34); Mean Corpuscular Volume 85.3 FL (87-102); Mean Platelet Volume 10.4 FL (9.6-12.0); Monocytes # 1.4 10*3/uL (0.11-0.8); Monocytes % 8.4 % (1.7-12.7); Neutrophils # 13.5 10*3/uL (1.4-7.4); Neutrophils % 80.9 % (38.7-73.9); Platelet Count 391 T/CUMM (130-400); Red Blood Count 2.93 MC/CUMM (3.8-5.5); Red Cell Distribution Width 15.5 % (9.3-17.3); White Blood Count 16.7 T/CUMM (4-12)
[2018-01-09 07:53] LABS: INR 2.9
[2018-01-09 07:54] LABS: PT Patient Result 29.5 SECS
[2018-01-09 07:57] LABS: Osmolality,Calculated 290.5 MOS/KG (273-304); Potassium 3.5 MMOL/L (3.5-5.1)
[2018-01-09] MEDS: INSULIN REGULAR 100 UNIT/ML SUBCUT SCH ×4 (08:10→20:46)
[2018-01-09] MEDS: ASPIRIN CHEW 81 MG TABLET PO SCH (08:46)
[2018-01-09] MEDS: PANTOPRAZOLE 40 MG TABLET PO SCH (08:46)
[2018-01-09] MEDS: MECLIZINE 25 MG TABLET PO SCH ×3 (08:46→20:38)
[2018-01-09] MEDS: OMEGA 3 ACID ETHYL ESTERS 1 GM CAPSULE PO SCH ×2 (08:46→20:38)
[2018-01-09] MEDS: hydrALAZINE 25 MG TABLET PO SCH ×3 (08:46→20:38)
[2018-01-09] MEDS: FUROSEMIDE 40 MG TABLET PO SCH ×2 (08:46→15:17)
[2018-01-09] MEDS: CARVEDILOL 25 MG TABLET PO SCH ×2 (08:46→16:12)
[2018-01-09] MEDS: INSULIN GLARGINE 100 UNIT/ML SUBCUT SCH (08:46)
[2018-01-09] MEDS: CALCIUM (CARBONATE) 600 MG TABLET PO SCH ×2 (08:46→20:46)
[2018-01-09] MEDS: LIDOCAINE 5% PATCH TRANSDERM SCH (08:47)
[2018-01-09] MEDS: VANCOMYCIN INJ 1,250 MG in SODIUM CHLORIDE 0.9% 250 ML IV SCH (09:50)
[2018-01-09] MEDS: PIPERACILLIN/TAZOBACTAM 3,375 MG in SODIUM CHLORIDE 0.9% 100 ML IV SCH (12:14)
[2018-01-09] MEDS: ATORVASTATIN 40 MG TABLET PO SCH (20:38)
[2018-01-09] MEDS: ACETAMINOPHEN 325 MG TABLET PO PRN (21:39)
[2018-01-10] MEDS: PIPERACILLIN/TAZOBACTAM 3,375 MG in SODIUM CHLORIDE 0.9% 100 ML IV SCH ×3 (00:51→23:37)
[2018-01-10] MEDS: INSULIN REGULAR 100 UNIT/ML SUBCUT SCH ×4 (07:21→20:59)
[2018-01-10 07:22] LABS: Basophils # 0.1 10*3/uL (0.0-0.2); Basophils % 0.3 % (0.0-0.8); Eosinophils # 0.4 10*3/uL (0.0-0.87); Eosinophils % 2.7 % (0.00-10.9); Hematocrit 25.3 VOL% (42.0-52.0); Hemoglobin 8.6 GM/DL (14.0-18.0); Immature Granulocytes % 1.6 %; Immature Granulocytes Absolute 0.26 #; Lymphocytes % 6.2 % (21.2-54.2); Mean Corpuscular Hemoglobin 29 PG (27-34); Mean Corpuscular Volume 85.2 FL (87-102); Monocytes # 1.3 10*3/uL (0.11-0.8); Monocytes % 7.9 % (1.7-12.7); Neutrophils # 13.1 10*3/uL (1.4-7.4); Neutrophils % 81.3 % (38.7-73.9); Platelet Count 383 T/CUMM (130-400); Red Blood Count 2.97 MC/CUMM (3.8-5.5); Red Cell Distribution Width 15.5 % (9.3-17.3); White Blood Count 16.1 T/CUMM (4-12)
[2018-01-10 07:31] LABS: INR 3.1
[2018-01-10 07:32] LABS: PT Patient Result 31.3 SECS
[2018-01-10 07:49] LABS: Eosinophils 1 % (0-10); Hypochromasia 2+; Lymphocytes 15 % (20-55); Macrocytosis 1+; Platelet Estimate Adequate; Promyelocytes 1 %; Segmented Neutrophils 77 % (50-85); Total Cells Counted 100
[2018-01-10 07:56] LABS: Osmolality,Calculated 293.5 MOS/KG (273-304); Potassium 3.6 MMOL/L (3.5-5.1)
[2018-01-10] MEDS: ACETAMINOPHEN 325 MG TABLET PO PRN ×2 (08:56→23:33)
[2018-01-10] MEDS: OMEGA 3 ACID ETHYL ESTERS 1 GM CAPSULE PO SCH ×2 (08:56→20:59)
[2018-01-10] MEDS: INSULIN GLARGINE 100 UNIT/ML SUBCUT SCH (08:57)
[2018-01-10] MEDS: PANTOPRAZOLE 40 MG TABLET PO SCH (08:57)
[2018-01-10] MEDS: ASPIRIN CHEW 81 MG TABLET PO SCH (08:57)
[2018-01-10] MEDS: CARVEDILOL 25 MG TABLET PO SCH ×2 (08:57→16:46)
[2018-01-10] MEDS: hydrALAZINE 25 MG TABLET PO SCH ×3 (08:57→20:59)
[2018-01-10] MEDS: MECLIZINE 25 MG TABLET PO SCH ×3 (08:57→20:59)
[2018-01-10] MEDS: FUROSEMIDE 40 MG TABLET PO SCH ×2 (08:57→15:07)
[2018-01-10] MEDS: CALCIUM (CARBONATE) 600 MG TABLET PO SCH ×2 (08:57→20:59)
[2018-01-10] MEDS: LIDOCAINE 5% PATCH TRANSDERM SCH (08:58)
[2018-01-10] MEDS ORDERED: MORPHINE 4 MG/1 ML VIAL IV PRN (11:01)
[2018-01-10] MEDS: ATORVASTATIN 40 MG TABLET PO SCH (20:59)
[2018-01-11 05:50] LABS: Basophils # 0.1 10*3/uL (0.0-0.2); Basophils % 0.3 % (0.0-0.8); Eosinophils # 0.3 10*3/uL (0.0-0.87); Eosinophils % 1.5 % (0.00-10.9); Hematocrit 27.1 VOL% (42.0-52.0); Hemoglobin 8.8 GM/DL (14.0-18.0); Immature Granulocytes % 1.5 %; Immature Granulocytes Absolute 0.28 #; Lymphocytes # 0.8 10*3/uL (1.4-4.0); Lymphocytes % 4.2 % (21.2-54.2); Mean Corpuscular HGB Conc 32.5 GM/DL (32-36); Mean Corpuscular Hemoglobin 29 PG (27-34); Mean Corpuscular Volume 88.9 FL (87-102); Mean Platelet Volume 9.9 FL (9.6-12.0); Monocytes % 5.3 % (1.7-12.7); Neutrophils # 16.4 10*3/uL (1.4-7.4); Neutrophils % 87.2 % (38.7-73.9); Platelet Count 400 T/CUMM (130-400); Red Blood Count 3.05 MC/CUMM (3.8-5.5); Red Cell Distribution Width 15.5 % (9.3-17.3); White Blood Count 18.9 T/CUMM (4-12)
[2018-01-11 06:02] LABS: INR 3.6
[2018-01-11 06:05] LABS: Osmolality,Calculated 293.7 MOS/KG (273-304); Potassium 3.8 MMOL/L (3.5-5.1)
[2018-01-11 06:06] LABS: PT Patient Result 36.6 SECS
[2018-01-11 06:13] LABS: Eosinophils 2 % (0-10); Lymphocytes 2 % (20-55); Segmented Neutrophils 90 % (50-85); Total Cells Counted 100
[2018-01-11 06:14] LABS: Hypochromasia 1+; Microcytosis 1+
[2018-01-11] MEDS: OMEGA 3 ACID ETHYL ESTERS 1 GM CAPSULE PO SCH ×2 (08:49→21:04)
[2018-01-11] MEDS: ASPIRIN CHEW 81 MG TABLET PO SCH (08:49)
[2018-01-11] MEDS: FUROSEMIDE 40 MG TABLET PO SCH ×2 (08:49→16:21)
[2018-01-11] MEDS: CALCIUM (CARBONATE) 600 MG TABLET PO SCH ×2 (08:49→21:03)
[2018-01-11] MEDS: INSULIN GLARGINE 100 UNIT/ML SUBCUT SCH (08:49)
[2018-01-11] MEDS: MECLIZINE 25 MG TABLET PO SCH ×3 (08:49→21:03)
[2018-01-11] MEDS: CARVEDILOL 25 MG TABLET PO SCH ×2 (08:49→16:21)
[2018-01-11] MEDS: PANTOPRAZOLE 40 MG TABLET PO SCH (08:49)
[2018-01-11] MEDS: hydrALAZINE 25 MG TABLET PO SCH ×3 (08:49→21:03)
[2018-01-11] MEDS: INSULIN REGULAR 100 UNIT/ML SUBCUT SCH ×5 (08:50→22:28)
[2018-01-11] MEDS: LIDOCAINE 5% PATCH TRANSDERM SCH (08:50)
[2018-01-11] MEDS: VANCOMYCIN INJ 1,250 MG in SODIUM CHLORIDE 0.9% 250 ML IV SCH (09:39)
[2018-01-11] MEDS: PIPERACILLIN/TAZOBACTAM 3,375 MG in SODIUM CHLORIDE 0.9% 100 ML IV SCH (12:53)
[2018-01-11] MEDS ORDERED: PHYTONADIONE 5 MG/5 ML ORAL.SYR PO ONE (15:34)
[2018-01-11] MEDS: ACETAMINOPHEN 325 MG TABLET PO PRN (16:24)
[2018-01-11] MEDS: ATORVASTATIN 40 MG TABLET PO SCH (21:04)
[2018-01-12] MEDS: PIPERACILLIN/TAZOBACTAM 3,375 MG in SODIUM CHLORIDE 0.9% 100 ML IV SCH ×2 (00:08→12:37)
[2018-01-12 06:33] LABS: Basophils % 0.3 % (0.0-0.8); Eosinophils # 0.4 10*3/uL (0.0-0.87); Eosinophils % 2.6 % (0.00-10.9); Hematocrit 22.1 VOL% (42.0-52.0); Hemoglobin 7.2 GM/DL (14.0-18.0); Immature Granulocytes % 1.6 %; Immature Granulocytes Absolute 0.23 #; Lymphocytes # 0.8 10*3/uL (1.4-4.0); Lymphocytes % 5.4 % (21.2-54.2); Mean Corpuscular HGB Conc 32.6 GM/DL (32-36); Mean Corpuscular Hemoglobin 29 PG (27-34); Mean Corpuscular Volume 87.7 FL (87-102); Mean Platelet Volume 9.9 FL (9.6-12.0); Monocytes # 1.1 10*3/uL (0.11-0.8); Monocytes % 7.6 % (1.7-12.7); Neutrophils # 11.9 10*3/uL (1.4-7.4); Neutrophils % 82.5 % (38.7-73.9); Platelet Count 342 T/CUMM (130-400); Red Blood Count 2.52 MC/CUMM (3.8-5.5); Red Cell Distribution Width 15.7 % (9.3-17.3); White Blood Count 14.4 T/CUMM (4-12)
[2018-01-12 07:14] LABS: Calcium 7.7 MG/DL (8.5-10.1); Potassium 3.8 MMOL/L (3.5-5.1)
[2018-01-12] MEDS ORDERED: SODIUM CHLORIDE 0.9% 1,000 ML IV PRN (07:19)
[2018-01-12] MEDS ORDERED: FUROSEMIDE 20 MG/2 ML VIAL IV ONE (07:19)
[2018-01-12 07:56] LABS: INR 2.3
[2018-01-12 08:05] LABS: PT Patient Result 23.1 SECS; Partial Thromboplastin Time 56.5 SECS (0-40)
[2018-01-12] MEDS: INSULIN REGULAR 100 UNIT/ML SUBCUT SCH ×4 (09:01→20:56)
[2018-01-12] MEDS: LIDOCAINE 5% PATCH TRANSDERM SCH (09:02)
[2018-01-12] MEDS ORDERED: LACTATED RINGERS 1,000 ML IV SCH (10:00)
[2018-01-12] MEDS ORDERED: PROPOFOL 200 MG/20 ML VIAL IV ONE (11:48)
[2018-01-12] MEDS ORDERED: SUCCINYLCHOLINE 200 MG/10 ML VIAL ONE (11:49)
[2018-01-12] MEDS ORDERED: ROCURONIUM 100 MG/10 ML VIAL IV ONE (11:49)
[2018-01-12] MEDS ORDERED: FUROSEMIDE 20 MG/2 ML VIAL ONE (11:49)
[2018-01-12] MEDS: INSULIN GLARGINE 100 UNIT/ML SUBCUT SCH (12:15)
[2018-01-12] MEDS: MECLIZINE 25 MG TABLET PO SCH ×3 (12:32→20:56)
[2018-01-12] MEDS: OMEGA 3 ACID ETHYL ESTERS 1 GM CAPSULE PO SCH ×2 (12:32→20:56)
[2018-01-12] MEDS: hydrALAZINE 25 MG TABLET PO SCH ×3 (12:32→20:56)
[2018-01-12] MEDS: CALCIUM (CARBONATE) 600 MG TABLET PO SCH ×2 (12:32→20:56)
[2018-01-12] MEDS: PANTOPRAZOLE 40 MG TABLET PO SCH (12:33)
[2018-01-12] MEDS: CARVEDILOL 25 MG TABLET PO SCH ×2 (12:33→16:34)
[2018-01-12] MEDS: ASPIRIN CHEW 81 MG TABLET PO SCH (12:33)
[2018-01-12] MEDS: FUROSEMIDE 40 MG TABLET PO SCH ×2 (12:33→15:06)
[2018-01-12 13:16] LABS: PT Patient Result 20.5 SECS
[2018-01-12 18:24] LABS: Hematocrit 24.4 VOL% (42.0-52.0); Hemoglobin 7.9 GM/DL (14.0-18.0)
[2018-01-12] MEDS: MORPHINE 4 MG/1 ML VIAL IV PRN (20:01)
[2018-01-12] MEDS: ATORVASTATIN 40 MG TABLET PO SCH (20:56)
[2018-01-13] MEDS: PIPERACILLIN/TAZOBACTAM 3,375 MG in SODIUM CHLORIDE 0.9% 100 ML IV SCH ×3 (00:59→23:15)
[2018-01-13 06:20] LABS: Basophils % 0.4 % (0.0-0.8); Eosinophils # 0.4 10*3/uL (0.0-0.87); Eosinophils % 3.3 % (0.00-10.9); Hematocrit 22.3 VOL% (42.0-52.0); Hemoglobin 7.4 GM/DL (14.0-18.0); Immature Granulocytes % 2.2 %; Immature Granulocytes Absolute 0.24 #; Lymphocytes # 0.8 10*3/uL (1.4-4.0); Lymphocytes % 7.7 % (21.2-54.2); Mean Corpuscular HGB Conc 33.2 GM/DL (32-36); Mean Corpuscular Hemoglobin 29 PG (27-34); Mean Corpuscular Volume 85.8 FL (87-102); Mean Platelet Volume 10.3 FL (9.6-12.0); Monocytes # 0.9 10*3/uL (0.11-0.8); Monocytes % 8.3 % (1.7-12.7); Neutrophils # 8.4 10*3/uL (1.4-7.4); Neutrophils % 78.1 % (38.7-73.9); Platelet Count 339 T/CUMM (130-400); Red Cell Distribution Width 16.1 % (9.3-17.3); White Blood Count 10.8 T/CUMM (4-12)
[2018-01-13 06:37] LABS: INR 1.7; PT Patient Result 18.1 SECS
[2018-01-13] MEDS: INSULIN GLARGINE 100 UNIT/ML SUBCUT SCH ×2 (08:49→21:09)
[2018-01-13] MEDS: INSULIN REGULAR 100 UNIT/ML SUBCUT SCH ×4 (08:49→21:10)
[2018-01-13] MEDS: CARVEDILOL 25 MG TABLET PO SCH ×2 (08:49→16:15)
[2018-01-13] MEDS: FUROSEMIDE 40 MG TABLET PO SCH (08:49)
[2018-01-13] MEDS: MECLIZINE 25 MG TABLET PO SCH ×3 (08:49→20:35)
[2018-01-13] MEDS: LIDOCAINE 5% PATCH TRANSDERM SCH (08:50)
[2018-01-13] MEDS: CALCIUM (CARBONATE) 600 MG TABLET PO SCH ×2 (08:50→20:35)
[2018-01-13] MEDS: MORPHINE 4 MG/1 ML VIAL IV PRN ×2 (08:50→23:13)
[2018-01-13] MEDS: PANTOPRAZOLE 40 MG TABLET PO SCH (08:50)
[2018-01-13] MEDS: OMEGA 3 ACID ETHYL ESTERS 1 GM CAPSULE PO SCH ×2 (08:50→20:35)
[2018-01-13] MEDS: ASPIRIN CHEW 81 MG TABLET PO SCH (08:50)
[2018-01-13] MEDS: hydrALAZINE 25 MG TABLET PO SCH ×3 (08:50→20:35)
[2018-01-13] MEDS ORDERED: SODIUM CHLORIDE 0.9% 1,000 ML IV PRN (09:54)
[2018-01-13] MEDS ORDERED: HEPARIN DRIP 25,000 UNITS/500 ML PREMIX IV SCH (13:30)
[2018-01-13 17:21] LABS: Hematocrit 26.4 VOL% (42.0-52.0); Hemoglobin 8.9 GM/DL (14.0-18.0)
[2018-01-13] MEDS: ATORVASTATIN 40 MG TABLET PO SCH (20:35)
[2018-01-14] MEDS: INSULIN GLARGINE 100 UNIT/ML SUBCUT SCH ×2 (08:08→21:08)
[2018-01-14] MEDS: INSULIN REGULAR 100 UNIT/ML SUBCUT SCH ×4 (08:08→21:09)
[2018-01-14] MEDS: CALCIUM (CARBONATE) 600 MG TABLET PO SCH ×2 (08:09→21:09)
[2018-01-14] MEDS: CARVEDILOL 25 MG TABLET PO SCH ×2 (08:09→17:08)
[2018-01-14] MEDS: OMEGA 3 ACID ETHYL ESTERS 1 GM CAPSULE PO SCH ×2 (08:09→21:09)
[2018-01-14] MEDS: FUROSEMIDE 40 MG TABLET PO SCH (08:10)
[2018-01-14] MEDS: LIDOCAINE 5% PATCH TRANSDERM SCH (08:10)
[2018-01-14] MEDS: PANTOPRAZOLE 40 MG TABLET PO SCH (08:10)
[2018-01-14] MEDS: hydrALAZINE 25 MG TABLET PO SCH ×3 (08:10→21:09)
[2018-01-14] MEDS: ASPIRIN CHEW 81 MG TABLET PO SCH (08:10)
[2018-01-14] MEDS: MECLIZINE 25 MG TABLET PO SCH ×3 (08:10→21:09)
[2018-01-14] MEDS: PIPERACILLIN/TAZOBACTAM 3,375 MG in SODIUM CHLORIDE 0.9% 100 ML IV SCH (13:03)
[2018-01-14] MEDS: MORPHINE 4 MG/1 ML VIAL IV PRN ×2 (13:11→21:15)
[2018-01-14] MEDS: PRAMIPEXOLE 0.25 MG TABLET PO PRN (15:21)
[2018-01-14] MEDS: ATORVASTATIN 40 MG TABLET PO SCH (21:09)
[2018-01-15] MEDS: PIPERACILLIN/TAZOBACTAM 3,375 MG in SODIUM CHLORIDE 0.9% 100 ML IV SCH ×2 (00:05→12:43)
[2018-01-15] MEDS: INSULIN REGULAR 100 UNIT/ML SUBCUT SCH ×4 (08:39→20:53)
[2018-01-15] MEDS: CARVEDILOL 25 MG TABLET PO SCH ×2 (08:40→16:20)
[2018-01-15] MEDS: MECLIZINE 25 MG TABLET PO SCH ×3 (08:40→20:52)
[2018-01-15] MEDS: hydrALAZINE 25 MG TABLET PO SCH ×3 (08:40→20:51)
[2018-01-15] MEDS: INSULIN GLARGINE 100 UNIT/ML SUBCUT SCH ×2 (08:41→20:52)
[2018-01-15] MEDS: ASPIRIN CHEW 81 MG TABLET PO SCH (08:41)
[2018-01-15] MEDS: CALCIUM (CARBONATE) 600 MG TABLET PO SCH ×2 (08:41→20:52)
[2018-01-15] MEDS: LIDOCAINE 5% PATCH TRANSDERM SCH (08:41)
[2018-01-15] MEDS: FUROSEMIDE 40 MG TABLET PO SCH (08:41)
[2018-01-15] MEDS: OMEGA 3 ACID ETHYL ESTERS 1 GM CAPSULE PO SCH ×2 (08:42→20:52)
[2018-01-15] MEDS: PANTOPRAZOLE 40 MG TABLET PO SCH (08:42)
[2018-01-15 09:38] LABS: Basophils # 0.1 10*3/uL (0.0-0.2); Basophils % 0.4 % (0.0-0.8); Eosinophils # 0.5 10*3/uL (0.0-0.87); Eosinophils % 3.9 % (0.00-10.9); Hematocrit 24.9 VOL% (42.0-52.0); Immature Granulocytes % 2.1 %; Immature Granulocytes Absolute 0.24 #; Lymphocytes # 0.7 10*3/uL (1.4-4.0); Lymphocytes % 6.2 % (21.2-54.2); Mean Corpuscular HGB Conc 32.1 GM/DL (32-36); Mean Corpuscular Hemoglobin 29 PG (27-34); Mean Corpuscular Volume 89.6 FL (87-102); Mean Platelet Volume 9.8 FL (9.6-12.0); Monocytes # 0.8 10*3/uL (0.11-0.8); Monocytes % 6.4 % (1.7-12.7); Neutrophils # 9.4 10*3/uL (1.4-7.4); Platelet Count 380 T/CUMM (130-400); Red Blood Count 2.78 MC/CUMM (3.8-5.5); Red Cell Distribution Width 15.2 % (9.3-17.3); White Blood Count 11.7 T/CUMM (4-12)
[2018-01-15] MEDS: MORPHINE 4 MG/1 ML VIAL IV PRN (10:36)
[2018-01-15] MEDS ORDERED: SENNA 8.6 MG TABLET PO SCH (16:16)
[2018-01-15] MEDS ORDERED: BISACODYL 10 MG SUPP RECTAL ONE (16:17)
[2018-01-15] MEDS ORDERED: LACTULOSE 20 GM/30 ML UDCUP PO PRN (16:18)
[2018-01-15] MEDS: DOCUSATE/SENNA 50-8.6 MG TABLET PO SCH ×2 (17:22→20:52)
[2018-01-15 18:48] LABS: Hemoglobin 6.3 GM/DL (14.0-18.0)
[2018-01-15 19:04] LABS: Basophils % 0.3 % (0.0-0.8); Eosinophils # 0.3 10*3/uL (0.0-0.87); Immature Granulocytes % 1.7 %; Immature Granulocytes Absolute 0.18 #; Lymphocytes # 0.8 10*3/uL (1.4-4.0); Lymphocytes % 7.2 % (21.2-54.2); Mean Corpuscular HGB Conc 33.7 GM/DL (32-36); Mean Corpuscular Hemoglobin 30 PG (27-34); Mean Corpuscular Volume 89.2 FL (87-102); Mean Platelet Volume 10.3 FL (9.6-12.0); Monocytes # 0.7 10*3/uL (0.11-0.8); Monocytes % 6.5 % (1.7-12.7); Neutrophils # 8.8 10*3/uL (1.4-7.4); Neutrophils % 81.3 % (38.7-73.9); Platelet Count 316 T/CUMM (130-400); Red Blood Count 2.13 MC/CUMM (3.8-5.5); Red Cell Distribution Width 15.3 % (9.3-17.3); White Blood Count 10.8 T/CUMM (4-12)
[2018-01-15 19:13] LABS: INR 2.3
[2018-01-15 19:16] LABS: PT Patient Result 23.9 SECS
[2018-01-15] MEDS ORDERED: SODIUM CHLORIDE 0.9% 1,000 ML IV PRN ×2 (19:28→22:15)
[2018-01-15] MEDS ORDERED: FUROSEMIDE 20 MG/2 ML VIAL IV ONE (19:30)
[2018-01-15] MEDS: ATORVASTATIN 40 MG TABLET PO SCH (20:52)
[2018-01-16] MEDS: PIPERACILLIN/TAZOBACTAM 3,375 MG in SODIUM CHLORIDE 0.9% 100 ML IV SCH (01:06)
[2018-01-16 09:43] LABS: Basophils # 0.1 10*3/uL (0.0-0.2); Basophils % 0.4 % (0.0-0.8); Eosinophils # 0.3 10*3/uL (0.0-0.87); Hematocrit 21.5 VOL% (42.0-52.0); Hemoglobin 7.4 GM/DL (14.0-18.0); Immature Granulocytes % 4.5 %; Immature Granulocytes Absolute 0.58 #; Lymphocytes # 0.9 10*3/uL (1.4-4.0); Lymphocytes % 6.7 % (21.2-54.2); Mean Corpuscular HGB Conc 34.4 GM/DL (32-36); Mean Corpuscular Hemoglobin 31 PG (27-34); Mean Platelet Volume 9.9 FL (9.6-12.0); Monocytes # 0.7 10*3/uL (0.11-0.8); Monocytes % 5.5 % (1.7-12.7); Neutrophils # 10.4 10*3/uL (1.4-7.4); Neutrophils % 80.9 % (38.7-73.9); Platelet Count 287 T/CUMM (130-400); Red Blood Count 2.39 MC/CUMM (3.8-5.5); Red Cell Distribution Width 14.3 % (9.3-17.3); White Blood Count 12.9 T/CUMM (4-12)
[2018-01-16 09:55] LABS: INR 2.6
[2018-01-16 09:56] LABS: PT Patient Result 26.5 SECS
[2018-01-16] MEDS ORDERED: SODIUM CHLORIDE 0.9% 1,000 ML IV PRN ×3 (10:04→23:58)
[2018-01-16 10:10] LABS: Band Neutrophils 1 % (0-10); Eosinophils 3 % (0-10); Lymphocytes 7 % (20-55); Segmented Neutrophils 84 % (50-85); Total Cells Counted 100
[2018-01-16 10:11] LABS: Platelet Estimate Adequate
[2018-01-16 10:13] LABS: Hypochromasia 1+; Ovalocytes Slight
[2018-01-16 10:16] LABS: Calcium 7.5 MG/DL (8.5-10.1); Osmolality,Calculated 304.1 MOS/KG (273-304); Potassium 5.9 MMOL/L (3.5-5.1)
[2018-01-16] MEDS ORDERED: MIDAZOLAM 2 MG/2 ML VIAL IV ONE (10:27)
[2018-01-16] MEDS ORDERED: fentaNYL 100 MCG/2 ML VIAL IV ONE (10:27)
[2018-01-16] MEDS ORDERED: DIAZEPAM 5 MG TABLET PO ONE (10:27)
[2018-01-16] MEDS ORDERED: HEPARIN/NACL 0.9% 2 UNITS/ML 2,000 ML IV ONE (11:11)
[2018-01-16] MEDS ORDERED: MIDAZOLAM 2 MG/2 ML VIAL ONE (11:19)
[2018-01-16] MEDS ORDERED: fentaNYL 100 MCG/2 ML VIAL ONE (11:19)
[2018-01-16] MEDS: INSULIN REGULAR 100 UNIT/ML SUBCUT SCH ×4 (11:49→21:17)
[2018-01-16] MEDS: MECLIZINE 25 MG TABLET PO SCH ×3 (11:49→21:09)
[2018-01-16] MEDS: CALCIUM (CARBONATE) 600 MG TABLET PO SCH ×2 (11:53→21:09)
[2018-01-16] MEDS: LIDOCAINE 5% PATCH TRANSDERM SCH (11:53)
[2018-01-16] MEDS: INSULIN GLARGINE 100 UNIT/ML SUBCUT SCH ×2 (11:53→21:18)
[2018-01-16] MEDS: POLYETHYLENE GLYCOL POWDER 17 GM PACK PO SCH ×3 (11:54→16:07)
[2018-01-16] MEDS: OMEGA 3 ACID ETHYL ESTERS 1 GM CAPSULE PO SCH ×2 (11:54→21:09)
[2018-01-16] MEDS: DOCUSATE/SENNA 50-8.6 MG TABLET PO SCH (11:54)
[2018-01-16] MEDS: PANTOPRAZOLE 40 MG TABLET PO SCH (11:54)
[2018-01-16] MEDS ORDERED: miSOPROStol 200 MCG TABLET PO SCH (17:00)
[2018-01-16] MEDS: SODIUM CHLORIDE 0.9% 1,000 ML IV SCH (18:18)
[2018-01-16 20:03] LABS: Hemoglobin 8.2 GM/DL (14.0-18.0)
[2018-01-16] MEDS: hydrALAZINE 25 MG TABLET PO SCH (21:09)
[2018-01-16] MEDS: ATORVASTATIN 40 MG TABLET PO SCH (21:09)
[2018-01-16 22:43] LABS: Hemoglobin 7.2 GM/DL (14.0-18.0)
[2018-01-16] MEDS ORDERED: FUROSEMIDE 40 MG/4 ML VIAL IV PRN (23:58)
[2018-01-17] MEDS: hydrALAZINE 20 MG/1 ML VIAL IV PRN ×2 (00:06→06:10)
[2018-01-17 01:39] LABS: Alanine Aminotransferase 17 U/L (16-61); Albumin 2.1 G/DL (3.4-5.0); Alkaline Phosphatase 98 U/L (45-117); Aspartate Amino Transferase 13 U/L (0-37); Bilirubin,Total < 0.39 MG/DL (0.2-1.0); Blood Urea Nitrogen 66 MG/DL (7-18); Calcium 7.2 MG/DL (8.5-10.1); Glucose 170 MG/DL (74-106); Osmolality,Calculated 305.1 MOS/KG (273-304); Sodium 142 MMOL/L (136-145); Total Protein 5.7 G/DL (6.4-8.3)
[2018-01-17] MEDS ORDERED: CALCIUM GLUCONATE 2,000 MG in SODIUM CHLORIDE 0.9% 100 ML IV ONE (01:44)
[2018-01-17] MEDS ORDERED: ALBUMIN 25% 50 GM in PREMIX 1 EACH IV ONE ×2 (01:44→03:30)
[2018-01-17] MEDS: SODIUM CHLORIDE 0.9% 1,000 ML IV SCH (04:41)
[2018-01-17] MEDS: MORPHINE 4 MG/1 ML VIAL IV PRN (05:10)
[2018-01-17] MEDS ORDERED: PHYTONADIONE 10 MG/1 ML AMP IV ONE (06:37)
[2018-01-17 07:12] LABS: Basophils % 0.3 % (0.0-0.8); Eosinophils # 0.4 10*3/uL (0.0-0.87); Hematocrit 24.3 VOL% (42.0-52.0); Hemoglobin 8.5 GM/DL (14.0-18.0); Immature Granulocytes Absolute 0.29 #; Lymphocytes # 0.9 10*3/uL (1.4-4.0); Lymphocytes % 6.3 % (21.2-54.2); Mean Corpuscular Hemoglobin 30 PG (27-34); Mean Corpuscular Volume 85.9 FL (87-102); Mean Platelet Volume 9.5 FL (9.6-12.0); Monocytes # 0.9 10*3/uL (0.11-0.8); Monocytes % 5.8 % (1.7-12.7); Neutrophils # 12.2 10*3/uL (1.4-7.4); Neutrophils % 82.6 % (38.7-73.9); Platelet Count 222 T/CUMM (130-400); Red Blood Count 2.83 MC/CUMM (3.8-5.5); Red Cell Distribution Width 14.8 % (9.3-17.3); White Blood Count 14.8 T/CUMM (4-12)
[2018-01-17 07:23] LABS: INR 1.8; PT Patient Result 18.3 SECS
[2018-01-17 08:06] LABS: Hematocrit 24.7 VOL% (42.0-52.0); Hemoglobin 8.4 GM/DL (14.0-18.0)
[2018-01-17] MEDS: MECLIZINE 25 MG TABLET PO SCH ×3 (09:57→21:22)
[2018-01-17] MEDS: hydrALAZINE 25 MG TABLET PO SCH ×3 (09:57→21:22)
[2018-01-17] MEDS: CALCIUM (CARBONATE) 600 MG TABLET PO SCH ×2 (09:57→21:22)
[2018-01-17] MEDS: CARVEDILOL 25 MG TABLET PO SCH ×2 (09:57→20:31)
[2018-01-17] MEDS: LIDOCAINE 5% PATCH TRANSDERM SCH (09:58)
[2018-01-17] MEDS: FUROSEMIDE 40 MG TABLET PO SCH (09:58)
[2018-01-17] MEDS: OMEGA 3 ACID ETHYL ESTERS 1 GM CAPSULE PO SCH (09:59)
[2018-01-17] MEDS: POLYETHYLENE GLYCOL POWDER 17 GM PACK PO SCH ×3 (10:00→21:22)
[2018-01-17] MEDS: INSULIN GLARGINE 100 UNIT/ML SUBCUT SCH ×2 (10:01→21:22)
[2018-01-17] MEDS ORDERED: SILVER NITRATE STICK 1 EACH TOP ONE ×2 (10:34→10:46)
[2018-01-17] MEDS: PANTOPRAZOLE 40 MG TABLET PO SCH (10:52)
[2018-01-17] MEDS: INSULIN REGULAR 100 UNIT/ML SUBCUT SCH ×4 (10:52→21:22)
[2018-01-17] MEDS ORDERED: SODIUM CHLORIDE 0.9% 1,000 ML IV PRN (11:49)
[2018-01-17] MEDS: amLODIPine 10 MG TABLET PO SCH (12:20)
[2018-01-17 12:29] LABS: Osmolality,Calculated 306.7 MOS/KG (273-304); Potassium 4.9 MMOL/L (3.5-5.1)
[2018-01-17 14:23] LABS: Hematocrit 18.2 VOL% (42.0-52.0)
[2018-01-17 14:27] LABS: Hemoglobin 6.4 GM/DL (14.0-18.0)
[2018-01-17] MEDS: PHYTONADIONE 5 MG/5 ML ORAL.SYR PO SCH (15:16)
[2018-01-17] MEDS: ATORVASTATIN 40 MG TABLET PO SCH (21:22)
[2018-01-17] MEDS ORDERED: BACITRACIN OINT 0.9 GM PACK TOP PRN (21:54)
[2018-01-18 04:53] LABS: Basophils % 0.2 % (0.0-0.8); Eosinophils # 0.7 10*3/uL (0.0-0.87); Eosinophils % 4.4 % (0.00-10.9); Hematocrit 21.4 VOL% (42.0-52.0); Hemoglobin 7.5 GM/DL (14.0-18.0); Immature Granulocytes % 2.1 %; Immature Granulocytes Absolute 0.33 #; Lymphocytes # 0.9 10*3/uL (1.4-4.0); Lymphocytes % 5.5 % (21.2-54.2); Mean Corpuscular Hemoglobin 30 PG (27-34); Mean Corpuscular Volume 85.3 FL (87-102); Mean Platelet Volume 10.3 FL (9.6-12.0); Monocytes # 1.1 10*3/uL (0.11-0.8); Monocytes % 6.8 % (1.7-12.7); Neutrophils # 12.5 10*3/uL (1.4-7.4); Platelet Count 209 T/CUMM (130-400); Red Blood Count 2.51 MC/CUMM (3.8-5.5); Red Cell Distribution Width 14.6 % (9.3-17.3); White Blood Count 15.5 T/CUMM (4-12)
[2018-01-18 04:57] LABS: Hematocrit 21.5 VOL% (42.0-52.0); Hemoglobin 7.3 GM/DL (14.0-18.0)
[2018-01-18 05:19] LABS: INR 1.1; PT Patient Result 11.6 SECS
[2018-01-18 05:20] LABS: Calcium 7.9 MG/DL (8.5-10.1); Potassium 4.2 MMOL/L (3.5-5.1)
[2018-01-18] MEDS: INSULIN REGULAR 100 UNIT/ML SUBCUT SCH ×4 (08:53→21:53)
[2018-01-18] MEDS: MECLIZINE 25 MG TABLET PO SCH ×3 (09:51→21:52)
[2018-01-18] MEDS: hydrALAZINE 25 MG TABLET PO SCH ×3 (09:51→21:52)
[2018-01-18] MEDS: CALCIUM (CARBONATE) 600 MG TABLET PO SCH ×2 (09:51→21:52)
[2018-01-18] MEDS: POLYETHYLENE GLYCOL POWDER 17 GM PACK PO SCH ×3 (09:51→21:53)
[2018-01-18] MEDS: CARVEDILOL 25 MG TABLET PO SCH ×2 (09:51→16:44)
[2018-01-18] MEDS: FUROSEMIDE 40 MG TABLET PO SCH (09:51)
[2018-01-18] MEDS: amLODIPine 10 MG TABLET PO SCH (09:51)
[2018-01-18] MEDS: LIDOCAINE 5% PATCH TRANSDERM SCH (09:52)
[2018-01-18] MEDS: INSULIN GLARGINE 100 UNIT/ML SUBCUT SCH ×2 (09:52→21:52)
[2018-01-18] MEDS: PHYTONADIONE 5 MG/5 ML ORAL.SYR PO SCH (09:55)
[2018-01-18] MEDS: PANTOPRAZOLE 40 MG TABLET PO SCH (09:55)
[2018-01-18 14:56] LABS: Hematocrit 27.1 VOL% (42.0-52.0); Hemoglobin 9.4 GM/DL (14.0-18.0)
[2018-01-18 18:38] LABS: Hematocrit 26.2 VOL% (42.0-52.0); Hemoglobin 9.2 GM/DL (14.0-18.0)
[2018-01-18] MEDS: PRAMIPEXOLE 0.25 MG TABLET PO PRN (21:52)
[2018-01-18] MEDS: ATORVASTATIN 40 MG TABLET PO SCH (21:52)
[2018-01-19 06:46] LABS: Hematocrit 28.1 VOL% (42.0-52.0); Hemoglobin 9.8 GM/DL (14.0-18.0)
[2018-01-19 06:47] LABS: Basophils % 0.3 % (0.0-0.8); Eosinophils # 0.5 10*3/uL (0.0-0.87); Eosinophils % 3.9 % (0.00-10.9); Hematocrit 28.1 VOL% (42.0-52.0); Hemoglobin 9.9 GM/DL (14.0-18.0); Immature Granulocytes % 1.9 %; Immature Granulocytes Absolute 0.26 #; Lymphocytes # 0.8 10*3/uL (1.4-4.0); Lymphocytes % 5.5 % (21.2-54.2); Mean Corpuscular HGB Conc 35.2 GM/DL (32-36); Mean Corpuscular Hemoglobin 30 PG (27-34); Mean Corpuscular Volume 86.2 FL (87-102); Mean Platelet Volume 10.1 FL (9.6-12.0); Monocytes # 0.9 10*3/uL (0.11-0.8); Monocytes % 6.8 % (1.7-12.7); Neutrophils # 11.1 10*3/uL (1.4-7.4); Neutrophils % 81.6 % (38.7-73.9); Platelet Count 232 T/CUMM (130-400); Red Blood Count 3.26 MC/CUMM (3.8-5.5); Red Cell Distribution Width 14.4 % (9.3-17.3); White Blood Count 13.6 T/CUMM (4-12)
[2018-01-19 07:09] LABS: Calcium 8.3 MG/DL (8.5-10.1); Potassium 4.1 MMOL/L (3.5-5.1)
[2018-01-19 07:17] LABS: Calcium 8.3 MG/DL (8.5-10.1); Osmolality,Calculated 297.8 MOS/KG (273-304); Potassium 4.2 MMOL/L (3.5-5.1)
[2018-01-19] MEDS: INSULIN REGULAR 100 UNIT/ML SUBCUT SCH ×4 (07:25→20:45)
[2018-01-19] MEDS: POLYETHYLENE GLYCOL POWDER 17 GM PACK PO SCH ×3 (08:31→20:46)
[2018-01-19] MEDS: LIDOCAINE 5% PATCH TRANSDERM SCH (08:31)
[2018-01-19] MEDS: PANTOPRAZOLE 40 MG TABLET PO SCH (08:35)
[2018-01-19] MEDS: CALCIUM (CARBONATE) 600 MG TABLET PO SCH ×2 (08:35→20:45)
[2018-01-19] MEDS: FUROSEMIDE 40 MG TABLET PO SCH (08:35)
[2018-01-19] MEDS: PRAMIPEXOLE 0.25 MG TABLET PO PRN ×2 (08:35→20:45)
[2018-01-19] MEDS: MECLIZINE 25 MG TABLET PO SCH ×3 (08:35→20:44)
[2018-01-19] MEDS: amLODIPine 10 MG TABLET PO SCH (08:35)
[2018-01-19] MEDS: CARVEDILOL 25 MG TABLET PO SCH ×2 (08:35→16:36)
[2018-01-19] MEDS: hydrALAZINE 25 MG TABLET PO SCH ×3 (08:35→20:45)
[2018-01-19] MEDS: INSULIN GLARGINE 100 UNIT/ML SUBCUT SCH ×2 (10:06→20:43)
[2018-01-19 11:03] LABS: Hematocrit 28.5 VOL% (42.0-52.0); Hemoglobin 9.9 GM/DL (14.0-18.0)
[2018-01-19] MEDS: SODIUM CHLORIDE 0.9% 250 ML IV SCH (11:10)
[2018-01-19] MEDS ORDERED: CLINDAMYCIN INJ 50 ML IV ONE (11:43)
[2018-01-19] MEDS ORDERED: EPINEPHrine 1 MG/10 ML SYRINGE ONE (12:47)
[2018-01-19] MEDS ORDERED: PROPOFOL 200 MG/20 ML VIAL IV ONE (12:47)
[2018-01-19] MEDS ORDERED: SEVOFLURANE 1 UNIT/15 MINUTE INH ONE (12:48)
[2018-01-19] MEDS ORDERED: ONDANSETRON 4 MG/2 ML VIAL ONE ×2 (12:48→12:49)
[2018-01-19] MEDS ORDERED: MIDAZOLAM 2 MG/2 ML VIAL ONE (12:48)
[2018-01-19] MEDS ORDERED: PHENYLEPHRINE 10 MG/1 ML VIAL IV ONE (12:48)
[2018-01-19] MEDS ORDERED: fentaNYL 100 MCG/2 ML VIAL ONE (12:48)
[2018-01-19] MEDS ORDERED: PHENYLEPHRINE 1 MG/10 ML SYRINGE IV ONE (12:49)
[2018-01-19] MEDS ORDERED: ePHEDrine 50 MG/ML AMP ONE (12:49)
[2018-01-19] MEDS ORDERED: HYDROmorphone 2 MG/1 ML VIAL ONE (12:49)
[2018-01-19] MEDS ORDERED: SODIUM CHLORIDE 0.9% 200 ML IV ONE (12:49)
[2018-01-19] MEDS ORDERED: GLYCOPYRROLATE 0.4 MG/2 ML VIAL ONE (12:49)
[2018-01-19] MEDS ORDERED: ONDANSETRON 4 MG/2 ML VIAL IV PRN (12:50)
[2018-01-19] MEDS ORDERED: HYDROmorphone 2 MG/1 ML VIAL IV PRN (12:50)
[2018-01-19] MEDS: MORPHINE 4 MG/1 ML VIAL IV PRN ×2 (14:27→21:58)
[2018-01-19] MEDS: ZINC OXIDE PASTE 113 GM TUBE TOP SCH ×2 (16:34→20:45)
[2018-01-19] MEDS: ASPIRIN EC 81 MG TABLET PO SCH (16:34)
[2018-01-19] MEDS: ATORVASTATIN 40 MG TABLET PO SCH (20:45)
[2018-01-20] MEDS: MORPHINE 4 MG/1 ML VIAL IV PRN ×2 (03:11→10:43)
[2018-01-20 03:46] LABS: Basophils # 0.1 10*3/uL (0.0-0.2); Basophils % 0.2 % (0.0-0.8); Hematocrit 26.4 VOL% (42.0-52.0); Hemoglobin 8.8 GM/DL (14.0-18.0); Immature Granulocytes % 0.9 %; Immature Granulocytes Absolute 0.25 #; Lymphocytes # 0.4 10*3/uL (1.4-4.0); Lymphocytes % 1.2 % (21.2-54.2); Mean Corpuscular HGB Conc 33.3 GM/DL (32-36); Mean Corpuscular Hemoglobin 30 PG (27-34); Mean Corpuscular Volume 89.2 FL (87-102); Mean Platelet Volume 10.2 FL (9.6-12.0); Monocytes % 3.4 % (1.7-12.7); Neutrophils # 26.5 10*3/uL (1.4-7.4); Neutrophils % 94.3 % (38.7-73.9); Platelet Count 229 T/CUMM (130-400); Red Blood Count 2.96 MC/CUMM (3.8-5.5); Red Cell Distribution Width 14.6 % (9.3-17.3); White Blood Count 28.1 T/CUMM (4-12)
[2018-01-20 03:52] LABS: INR 1.1; PT Patient Result 11.3 SECS
[2018-01-20 04:12] LABS: Calcium 7.7 MG/DL (8.5-10.1); Osmolality,Calculated 293.3 MOS/KG (273-304); Potassium 4.9 MMOL/L (3.5-5.1)
[2018-01-20 05:29] LABS: Band Neutrophils 2 % (0-10); Lymphocytes 1 % (20-55); Platelet Estimate Adequate; Segmented Neutrophils 96 % (50-85); Total Cells Counted 100
[2018-01-20] MEDS: SODIUM CHLORIDE 0.9% 250 ML IV SCH ×2 (07:35→11:32)
[2018-01-20] MEDS: INSULIN REGULAR 100 UNIT/ML SUBCUT SCH ×4 (07:36→22:51)
[2018-01-20] MEDS: MECLIZINE 25 MG TABLET PO SCH ×3 (08:03→20:33)
[2018-01-20] MEDS: PANTOPRAZOLE 40 MG TABLET PO SCH (08:03)
[2018-01-20] MEDS: FUROSEMIDE 40 MG TABLET PO SCH (08:03)
[2018-01-20] MEDS: ASPIRIN EC 81 MG TABLET PO SCH (08:03)
[2018-01-20] MEDS: hydrALAZINE 25 MG TABLET PO SCH ×3 (08:03→20:34)
[2018-01-20] MEDS: LIDOCAINE 5% PATCH TRANSDERM SCH (08:03)
[2018-01-20] MEDS: POLYETHYLENE GLYCOL POWDER 17 GM PACK PO SCH ×3 (08:03→20:34)
[2018-01-20] MEDS: CALCIUM (CARBONATE) 600 MG TABLET PO SCH ×2 (08:03→20:34)
[2018-01-20] MEDS: CARVEDILOL 25 MG TABLET PO SCH ×2 (08:03→16:25)
[2018-01-20] MEDS: INSULIN GLARGINE 100 UNIT/ML SUBCUT SCH ×2 (08:04→21:57)
[2018-01-20] MEDS: ZINC OXIDE PASTE 113 GM TUBE TOP SCH ×2 (08:07→20:34)
[2018-01-20] MEDS: amLODIPine 10 MG TABLET PO SCH (08:11)
[2018-01-20] MEDS: ATORVASTATIN 40 MG TABLET PO SCH (20:34)
[2018-01-21] MEDS ORDERED: SODIUM CHLORIDE 0.9% 1,000 ML IV ONE (02:08)
[2018-01-21] MEDS: MORPHINE 4 MG/1 ML VIAL IV PRN (02:57)
[2018-01-21] MEDS: SODIUM CHLORIDE 0.9% 1,000 ML IV SCH (03:17)
[2018-01-21 03:29] LABS: Basophils % 0.2 % (0.0-0.8); Eosinophils # 0.4 10*3/uL (0.0-0.87); Eosinophils % 2.7 % (0.00-10.9); Hematocrit 24.9 VOL% (42.0-52.0); Hemoglobin 8.1 GM/DL (14.0-18.0); Immature Granulocytes % 0.7 %; Immature Granulocytes Absolute 0.09 #; Lymphocytes # 0.6 10*3/uL (1.4-4.0); Lymphocytes % 4.2 % (21.2-54.2); Mean Corpuscular HGB Conc 32.5 GM/DL (32-36); Mean Corpuscular Hemoglobin 31 PG (27-34); Mean Platelet Volume 10.3 FL (9.6-12.0); Monocytes % 7.6 % (1.7-12.7); Neutrophils # 11.6 10*3/uL (1.4-7.4); Neutrophils % 84.6 % (38.7-73.9); Platelet Count 205 T/CUMM (130-400); Red Blood Count 2.65 MC/CUMM (3.8-5.5); Red Cell Distribution Width 14.8 % (9.3-17.3); White Blood Count 13.7 T/CUMM (4-12)
[2018-01-21 03:38] LABS: INR 1.1; PT Patient Result 11.1 SECS
[2018-01-21 04:15] LABS: Calcium 7.4 MG/DL (8.5-10.1); Osmolality,Calculated 292.4 MOS/KG (273-304); Potassium 4.4 MMOL/L (3.5-5.1)
[2018-01-21 04:56] LABS: Band Neutrophils 1 % (0-10); Eosinophils 1 % (0-10); Hypochromasia 1+; Lymphocytes 2 % (20-55); Segmented Neutrophils 93 % (50-85); Total Cells Counted 100
[2018-01-21 04:57] LABS: Platelet Estimate Normal
[2018-01-21] MEDS: INSULIN REGULAR 100 UNIT/ML SUBCUT SCH ×4 (07:32→21:43)
[2018-01-21] MEDS: SODIUM CHLORIDE 0.9% 250 ML IV SCH (07:33)
[2018-01-21] MEDS: POLYETHYLENE GLYCOL POWDER 17 GM PACK PO SCH ×3 (08:03→21:43)
[2018-01-21] MEDS: CALCIUM (CARBONATE) 600 MG TABLET PO SCH ×2 (08:35→21:37)
[2018-01-21] MEDS: FUROSEMIDE 40 MG TABLET PO SCH (08:35)
[2018-01-21] MEDS: CARVEDILOL 25 MG TABLET PO SCH ×2 (08:36→16:50)
[2018-01-21] MEDS: PANTOPRAZOLE 40 MG TABLET PO SCH (08:36)
[2018-01-21] MEDS: ASPIRIN EC 81 MG TABLET PO SCH (08:36)
[2018-01-21] MEDS: amLODIPine 10 MG TABLET PO SCH (08:36)
[2018-01-21] MEDS: hydrALAZINE 25 MG TABLET PO SCH ×3 (08:36→21:37)
[2018-01-21] MEDS: MECLIZINE 25 MG TABLET PO SCH ×3 (08:37→21:37)
[2018-01-21] MEDS: LIDOCAINE 5% PATCH TRANSDERM SCH (08:39)
[2018-01-21] MEDS: INSULIN GLARGINE 100 UNIT/ML SUBCUT SCH ×2 (08:45→21:45)
[2018-01-21] MEDS: ZINC OXIDE PASTE 113 GM TUBE TOP SCH ×2 (10:34→21:44)
[2018-01-21] MEDS: ATORVASTATIN 40 MG TABLET PO SCH (21:37)
[2018-01-22 04:53] LABS: PT Patient Result 10.7 SECS
[2018-01-22] MEDS: SODIUM CHLORIDE 0.9% 1,000 ML IV SCH (05:43)
[2018-01-22] MEDS: SODIUM CHLORIDE 0.9% 250 ML IV SCH (05:43)
[2018-01-22] MEDS: INSULIN REGULAR 100 UNIT/ML SUBCUT SCH ×4 (07:02→20:54)
[2018-01-22] MEDS: CARVEDILOL 25 MG TABLET PO SCH ×2 (07:45→17:24)
[2018-01-22] MEDS: ZINC OXIDE PASTE 113 GM TUBE TOP SCH ×2 (09:01→20:54)
[2018-01-22] MEDS ORDERED: MORPHINE 4 MG/1 ML VIAL IV PRN (09:32)
[2018-01-22] MEDS: HEPARIN DRIP 25,000 UNITS/500 ML PREMIX IV SCH (09:50)
[2018-01-22] MEDS: INSULIN GLARGINE 100 UNIT/ML SUBCUT SCH ×2 (09:52→20:55)
[2018-01-22] MEDS: CALCIUM (CARBONATE) 600 MG TABLET PO SCH ×2 (09:52→20:54)
[2018-01-22] MEDS: PANTOPRAZOLE 40 MG TABLET PO SCH (09:52)
[2018-01-22] MEDS: POLYETHYLENE GLYCOL POWDER 17 GM PACK PO SCH ×2 (09:52→15:31)
[2018-01-22] MEDS: amLODIPine 10 MG TABLET PO SCH (09:52)
[2018-01-22] MEDS: PRAMIPEXOLE 0.25 MG TABLET PO PRN (09:52)
[2018-01-22] MEDS: MECLIZINE 25 MG TABLET PO SCH ×3 (09:52→20:54)
[2018-01-22] MEDS: ASPIRIN EC 81 MG TABLET PO SCH (09:52)
[2018-01-22] MEDS: FUROSEMIDE 40 MG TABLET PO SCH (09:52)
[2018-01-22] MEDS: LIDOCAINE 5% PATCH TRANSDERM SCH (09:55)
[2018-01-22] MEDS: hydrALAZINE 25 MG TABLET PO SCH ×3 (10:43→20:55)
[2018-01-22] MEDS: ACETAMINOPHEN 325 MG TABLET PO PRN (12:58)
[2018-01-22] MEDS: PIPERACILLIN/TAZOBACTAM 3,375 MG in SODIUM CHLORIDE 0.9% 100 ML IV SCH (14:25)
[2018-01-22 14:39] LABS: Apearance,Urine Slightly Hazy (Clear); Bacteria,Urine Occasional /HPF (Few); Bilirubin,Urine Negative (Negative); Blood, Urine Small mg/dL (Negative); Glucose,Urine (UA) Negative (Negative); Ketones,Urine Negative (Negative); Mucus,Urine Occasional /LPF (Occasional); Nitrite,Urine Negative (Negative); Protein,Urine 100 MG/DL; RBC,Urine 3 /HPF (0-4); Squamous Epithelial Cell,Urine Occasional /HPF (0-10); Urine Color Yellow (Yellow); Urine Specific Gravity 1.008 (1.001-1.035); Urine Urobilinogen < 2.0 EU/DL (0.2-1.0); WBC,Urine 21 /HPF (0-6)
[2018-01-22] MEDS: GABAPENTIN 100 MG CAPSULE PO SCH ×2 (15:32→20:54)
[2018-01-22] MEDS ORDERED: HEPARIN 5,000 UNIT/1 ML VIAL IV ONE (17:28)
[2018-01-22] MEDS: ATORVASTATIN 40 MG TABLET PO SCH (20:54)
[2018-01-23] MEDS: PIPERACILLIN/TAZOBACTAM 3,375 MG in SODIUM CHLORIDE 0.9% 100 ML IV SCH ×3 (01:01→23:33)
[2018-01-23] MEDS: POLYETHYLENE GLYCOL POWDER 17 GM PACK PO SCH ×4 (01:01→21:08)
[2018-01-23 01:08] LABS: Basophils % 0.2 % (0.0-0.8); Eosinophils # 0.2 10*3/uL (0.0-0.87); Eosinophils % 1.3 % (0.00-10.9); Hematocrit 22.5 VOL% (42.0-52.0); Hemoglobin 7.5 GM/DL (14.0-18.0); Immature Granulocytes % 0.6 %; Immature Granulocytes Absolute 0.08 #; Lymphocytes # 0.6 10*3/uL (1.4-4.0); Lymphocytes % 5.1 % (21.2-54.2); Mean Corpuscular HGB Conc 33.3 GM/DL (32-36); Mean Corpuscular Hemoglobin 30 PG (27-34); Mean Platelet Volume 10.8 FL (9.6-12.0); Monocytes # 0.9 10*3/uL (0.11-0.8); Monocytes % 7.1 % (1.7-12.7); Neutrophils # 10.8 10*3/uL (1.4-7.4); Neutrophils % 85.7 % (38.7-73.9); Platelet Count 203 T/CUMM (130-400); Red Cell Distribution Width 14.3 % (9.3-17.3); White Blood Count 12.6 T/CUMM (4-12)
[2018-01-23 01:15] LABS: PT Patient Result 10.9 SECS
[2018-01-23 01:22] LABS: Calcium 7.7 MG/DL (8.5-10.1); Osmolality,Calculated 285.7 MOS/KG (273-304); Potassium 4.5 MMOL/L (3.5-5.1)
[2018-01-23] MEDS: PANTOPRAZOLE 40 MG TABLET PO SCH (09:46)
[2018-01-23] MEDS: MECLIZINE 25 MG TABLET PO SCH ×3 (09:46→21:06)
[2018-01-23] MEDS: CARVEDILOL 25 MG TABLET PO SCH ×2 (09:46→16:15)
[2018-01-23] MEDS: GABAPENTIN 100 MG CAPSULE PO SCH ×3 (09:46→21:06)
[2018-01-23] MEDS: CALCIUM (CARBONATE) 600 MG TABLET PO SCH ×2 (09:46→21:06)
[2018-01-23] MEDS: ASPIRIN EC 81 MG TABLET PO SCH (09:46)
[2018-01-23] MEDS: amLODIPine 10 MG TABLET PO SCH (09:46)
[2018-01-23] MEDS: FUROSEMIDE 40 MG TABLET PO SCH (09:46)
[2018-01-23] MEDS: LIDOCAINE 5% PATCH TRANSDERM SCH (09:46)
[2018-01-23] MEDS: ZINC OXIDE PASTE 113 GM TUBE TOP SCH ×2 (09:47→21:08)
[2018-01-23] MEDS: INSULIN REGULAR 100 UNIT/ML SUBCUT SCH ×4 (09:47→21:07)
[2018-01-23] MEDS: INSULIN GLARGINE 100 UNIT/ML SUBCUT SCH ×2 (09:47→21:07)
[2018-01-23] MEDS: hydrALAZINE 25 MG TABLET PO SCH ×3 (09:47→21:06)
[2018-01-23] MEDS: HEPARIN 5,000 UNIT/1 ML VIAL IV PRN (09:48)
[2018-01-23] MEDS: HEPARIN DRIP 25,000 UNITS/500 ML PREMIX IV SCH (11:32)
[2018-01-23] MEDS ORDERED: SODIUM CHLORIDE 0.9% 1,000 ML IV PRN (15:49)
[2018-01-23] MEDS: ACETAMINOPHEN 325 MG TABLET PO PRN (17:24)
[2018-01-23] MEDS ORDERED: diphenhydrAMINE 50 MG/1 ML VIAL IV ONE (18:19)
[2018-01-23] MEDS: FAMOTIDINE INJ 40 MG in SODIUM CHLORIDE 0.9% 100 ML IV SCH (21:02)
[2018-01-23] MEDS: ATORVASTATIN 40 MG TABLET PO SCH (21:07)
[2018-01-24 00:43] LABS: Amorphous Crystals,Urine Occasional /HPF (Few); Apearance,Urine Slightly Hazy (Clear); Bilirubin,Urine Negative (Negative); Blood, Urine Small mg/dL (Negative); Glucose,Urine (UA) 150 mg/dL (Negative); Ketones,Urine Negative (Negative); Nitrite,Urine Negative (Negative); Protein,Urine 100 MG/DL; RBC,Urine 6 /HPF (0-4); Sperm,Urine Many /HPF (Negative); Squamous Epithelial Cell,Urine Occasional /HPF (0-10); Urine Color Yellow (Yellow); Urine Urobilinogen < 2.0 EU/DL (0.2-1.0); WBC,Urine 31 /HPF (0-6)
[2018-01-24 05:16] LABS: Basophils % 0.3 % (0.0-0.8); Eosinophils # 0.3 10*3/uL (0.0-0.87); Eosinophils % 1.7 % (0.00-10.9); Hematocrit 23.7 VOL% (42.0-52.0); Hemoglobin 7.5 GM/DL (14.0-18.0); Immature Granulocytes % 0.8 %; Immature Granulocytes Absolute 0.13 #; Lymphocytes # 0.7 10*3/uL (1.4-4.0); Lymphocytes % 4.8 % (21.2-54.2); Mean Corpuscular HGB Conc 31.6 GM/DL (32-36); Mean Corpuscular Hemoglobin 29 PG (27-34); Mean Corpuscular Volume 92.9 FL (87-102); Mean Platelet Volume 10.6 FL (9.6-12.0); Monocytes # 1.4 10*3/uL (0.11-0.8); Monocytes % 9.1 % (1.7-12.7); Neutrophils # 12.8 10*3/uL (1.4-7.4); Neutrophils % 83.3 % (38.7-73.9); Platelet Count 207 T/CUMM (130-400); Red Blood Count 2.55 MC/CUMM (3.8-5.5); Red Cell Distribution Width 14.2 % (9.3-17.3); White Blood Count 15.4 T/CUMM (4-12)
[2018-01-24 05:51] LABS: Eosinophils 3 % (0-10); Hypochromasia 1+; Lymphocytes 2 % (20-55); Ovalocytes Slight; Platelet Estimate Adequate; Segmented Neutrophils 90 % (50-85); Total Cells Counted 100
[2018-01-24 05:55] LABS: Calcium 7.5 MG/DL (8.5-10.1); Osmolality,Calculated 287.7 MOS/KG (273-304); Potassium 4.6 MMOL/L (3.5-5.1)
[2018-01-24] MEDS: FAMOTIDINE INJ 40 MG in SODIUM CHLORIDE 0.9% 100 ML IV SCH (05:58)
[2018-01-24] MEDS: FUROSEMIDE 40 MG TABLET PO SCH (08:29)
[2018-01-24] MEDS: INSULIN GLARGINE 100 UNIT/ML SUBCUT SCH (08:29)
[2018-01-24] MEDS: ASPIRIN EC 81 MG TABLET PO SCH (08:29)
[2018-01-24] MEDS: MECLIZINE 25 MG TABLET PO SCH ×2 (08:29→17:13)
[2018-01-24] MEDS: amLODIPine 10 MG TABLET PO SCH (08:29)
[2018-01-24] MEDS: CALCIUM (CARBONATE) 600 MG TABLET PO SCH (08:29)
[2018-01-24] MEDS: CARVEDILOL 25 MG TABLET PO SCH ×2 (08:29→17:15)
[2018-01-24] MEDS: POLYETHYLENE GLYCOL POWDER 17 GM PACK PO SCH ×2 (08:30→17:13)
[2018-01-24] MEDS: INSULIN REGULAR 100 UNIT/ML SUBCUT SCH ×3 (08:30→17:14)
[2018-01-24] MEDS: hydrALAZINE 25 MG TABLET PO SCH ×2 (08:30→17:13)
[2018-01-24] MEDS: LIDOCAINE 5% PATCH TRANSDERM SCH (08:30)
[2018-01-24] MEDS: ZINC OXIDE PASTE 113 GM TUBE TOP SCH (08:30)
[2018-01-24] MEDS: HEPARIN DRIP 25,000 UNITS/500 ML PREMIX IV SCH (08:54)
[2018-01-24] MEDS: PANTOPRAZOLE 40 MG TABLET PO SCH (09:02)
[2018-01-24] MEDS: GABAPENTIN 100 MG CAPSULE PO SCH ×2 (09:02→17:13)
[2018-01-24] MEDS: PIPERACILLIN/TAZOBACTAM 3,375 MG in SODIUM CHLORIDE 0.9% 100 ML IV SCH (13:14)
[2018-01-24] MEDS: HEPARIN 5,000 UNIT/1 ML VIAL IV PRN (13:21)
[2018-01-24] MEDS ORDERED: MEROPENEM 500 MG in SYRINGE 1 EACH IV SCH (14:00)
[2018-01-24] MEDS: ACETAMINOPHEN 325 MG TABLET PO PRN (15:08)
[2018-01-24 16:33] VITALS: BP 108/68
== END 2018-01-24 17:20 | DRG 950 ==
LOC: N.2E 12-26 01:02 → SUATTDRO 12-26 01:02 → N.CC 01-16 19:21 → N.3E 01-21 16:06
PROVIDERS: ADMIT Internal Medicine; ATTEND Internal Medicine
PROC: COLONHP (2018-01-03 08:20)
PROC: COLSIRP (2018-01-03 08:20)
PROC: IRAGMES (2018-01-16 11:45)

== ENCOUNTER 2018-11-02 01:50 | Inpatient (IN) ==
[2018-11-02 02:52] LABS: Basophils % 0.3 % (0.0-0.8); Eosinophils % 0.3 % (0.00-10.9); Hematocrit 22.3 VOL% (42.0-52.0); Hemoglobin 6.7 GM/DL (14.0-18.0); Immature Granulocytes % 0.9 %; Immature Granulocytes Absolute 0.11 #; Lymphocytes # 0.3 10*3/uL (1.4-4.0); Lymphocytes % 2.6 % (21.2-54.2); Mean Corpuscular Hemoglobin 29 PG (27-34); Mean Corpuscular Volume 96.5 FL (87-102); Mean Platelet Volume 10.3 FL (9.6-12.0); Monocytes # 0.8 10*3/uL (0.11-0.8); Monocytes % 7.1 % (1.7-12.7); Neutrophils # 10.3 10*3/uL (1.4-7.4); Neutrophils % 88.8 % (38.7-73.9); Platelet Count 254 T/CUMM (130-400); Red Blood Count 2.31 MC/CUMM (3.8-5.5); Red Cell Distribution Width 14.1 % (9.3-17.3); White Blood Count 11.6 T/CUMM (4-12)
[2018-11-02 03:01] LABS: Partial Thromboplastin Time 37.6 SECS (0-40)
[2018-11-02 03:06] LABS: INR 2.2
[2018-11-02 03:08] LABS: PT Patient Result 23.9 SECS
[2018-11-02] MEDS ORDERED: ALBUTEROL/IPRATROPIUM 3 ML NEB RESP TX STA (03:15)
[2018-11-02 03:17] LABS: Alanine Aminotransferase 22 U/L (16-61); Albumin 2.2 G/DL (3.4-5.0); Alkaline Phosphatase 141 U/L (45-117); Aspartate Amino Transferase 21 U/L (0-37); Bilirubin,Total < 0.39 MG/DL (0.2-1.0); Blood Urea Nitrogen 105 MG/DL (7-18); Calcium 7.5 MG/DL (8.5-10.1); Glucose 388 MG/DL (74-106); Osmolality,Calculated 323.7 MOS/KG (273-304); Potassium 5.1 MMOL/L (3.5-5.1); Sodium 138 MMOL/L (136-145); Total Protein 6.3 G/DL (6.4-8.3)
[2018-11-02] MEDS ORDERED: CEFEPIME 2,000 MG in SODIUM CHLORIDE 0.9% 100 ML IV STA (03:19)
[2018-11-02] MEDS ORDERED: VANCOMYCIN INJ 1,000 MG in SODIUM CHLORIDE 0.9% 250 ML IV STA (03:20)
[2018-11-02 03:59] LABS: Band Neutrophils 3 % (0-10); Eosinophils 1 % (0-10); Lymphocytes 2 % (20-55); Platelet Estimate Normal; Segmented Neutrophils 87 % (50-85); Total Cells Counted 100
[2018-11-02 04:14] LABS: VBG Base Excess -6.4 MEQ/L (0-4); VBG HCO3 19.1 MEQ/L (24-28); VBG Oxygen Saturation 99.3 %; VBG PH 7.297
[2018-11-02 04:41] LABS: Apearance,Urine CLOUDY (Clear); Bacteria,Urine Moderate /HPF (Few); Bilirubin,Urine Negative (Negative); Blood, Urine Small mg/dL (Negative); Glucose,Urine (UA) >=500 mg/dL (Negative); Granular Casts,Urine 24 /LPF (0-1); Hyaline Casts,Urine 24 /LPF (0-3); Ketones,Urine Negative (Negative); Nitrite,Urine Negative (Negative); Protein,Urine >=500 MG/DL; RBC,Urine 31 /HPF (0-4); Sperm,Urine Few /HPF (Negative); Squamous Epithelial Cell,Urine Few /HPF (0-10); Urine Specific Gravity 1.013 (1.001-1.035); Urine Urobilinogen < 2.0 EU/DL (0.2-1.0); WBC,Urine 163 /HPF (0-6)
[2018-11-02 04:42] LABS: Urine Color Yellow (Yellow)
[2018-11-02] MEDS ORDERED: SODIUM CHLORIDE 0.9% 1,000 ML IV PRN (05:01)
[2018-11-02] MEDS ORDERED: ALBUTEROL 2.5 MG/3 ML NEB RESP TX PRN (05:47)
[2018-11-02] MEDS ORDERED: DEXTROSE 50% 25 GM/50 ML SYRINGE IV PRN (05:47)
[2018-11-02] MEDS ORDERED: GLUCAGON 1 MG VIAL IM PRN (05:47)
[2018-11-02] MEDS ORDERED: LORazepam 0.5 MG TABLET PO PRN (06:07)
[2018-11-02] MEDS ORDERED: PIPERACILLIN/TAZOBACTAM 3,375 MG in SODIUM CHLORIDE 0.9% 100 ML IV SCH (06:30)
[2018-11-02] MEDS: ALBUTEROL/IPRATROPIUM 3 ML NEB RESP TX SCH ×3 (07:35→19:33)
[2018-11-02 08:26] LABS: Albumin 2.2 G/DL (3.4-5.0); Total Protein 7.2 G/DL (6.4-8.3)
[2018-11-02] MEDS: INSULIN REGULAR 100 UNIT/ML SUBCUT SCH ×4 (09:22→20:08)
[2018-11-02] MEDS: INSULIN GLARGINE 100 UNIT/ML SUBCUT SCH (09:22)
[2018-11-02] MEDS: amLODIPine 5 MG TABLET PO SCH (11:29)
[2018-11-02] MEDS: PANTOPRAZOLE 40 MG TABLET PO SCH (11:29)
[2018-11-02] MEDS: GABAPENTIN 100 MG CAPSULE PO SCH ×3 (11:29→20:08)
[2018-11-02] MEDS: CETIRIZINE 10 MG TABLET PO SCH (11:29)
[2018-11-02] MEDS: CARVEDILOL 25 MG TABLET PO SCH ×2 (11:29→20:08)
[2018-11-02] MEDS: CALCIUM (CARBONATE) 600 MG TABLET PO SCH ×2 (11:30→20:08)
[2018-11-02] MEDS: PIPERACILLIN/TAZOBACTAM 3,375 MG in SODIUM CHLORIDE 0.9% 100 ML IV SCH (13:07)
[2018-11-02] MEDS ORDERED: PNEUMOCOCCAL VACCINE (13 VALENT) 0.5 ML SYRINGE IM ONE (15:48)
[2018-11-02] MEDS: WARFARIN 1 MG TABLET PO SCH (16:29)
[2018-11-02] MEDS: ASPIRIN EC 81 MG TABLET PO SCH (16:29)
[2018-11-02] MEDS: FLUTICASONE 50 MCG NASAL SPRAY 16 GM BOTTLE BOTH NARES SCH ×2 (16:30→20:09)
[2018-11-02 18:35] LABS: Amylase,Body Fluid 17 U/L; LDH,Body Fluid 190 U/L; Total Protein,Body Fluid 3.7 G/DL; Triglycerides,Body Fluid 46 MG/DL
[2018-11-02] MEDS: ATORVASTATIN 40 MG TABLET PO SCH (20:10)
[2018-11-02 20:22] LABS: Lymphocytes,Pleural Fluid 1 %; Monocytes,Pleural Fluid 14 %; Neutrophils,Pleural Fluid 85 %
[2018-11-02 20:23] LABS: RBC,Pleural Fluid < 1 T/CUMM
[2018-11-03] MEDS: ALBUTEROL/IPRATROPIUM 3 ML NEB RESP TX SCH ×4 (00:30→18:15)
[2018-11-03] MEDS: PIPERACILLIN/TAZOBACTAM 3,375 MG in SODIUM CHLORIDE 0.9% 100 ML IV SCH ×2 (02:00→14:15)
[2018-11-03 02:24] LABS: Apearance,Urine CLOUDY (Clear); Bacteria,Urine Occasional /HPF (Few); Bilirubin,Urine Negative (Negative); Blood, Urine Small mg/dL (Negative); Glucose,Urine (UA) >=500 mg/dL (Negative); Ketones,Urine Negative (Negative); Mucus,Urine Occasional /LPF (Occasional); Nitrite,Urine Negative (Negative); Protein,Urine >=500 MG/DL; RBC,Urine 1 /HPF (0-4); Squamous Epithelial Cell,Urine Occasional /HPF (0-10); Urine Color Yellow (Yellow); Urine Specific Gravity 1.012 (1.001-1.035); Urine Urobilinogen < 2.0 EU/DL (0.2-1.0); WBC,Urine 10 /HPF (0-6)
[2018-11-03 06:23] LABS: INR 2.8
[2018-11-03 06:34] LABS: Basophils % 0.4 % (0.0-0.8); Eosinophils # 0.3 10*3/uL (0.0-0.87); Eosinophils % 3.7 % (0.00-10.9); Hematocrit 24.5 VOL% (42.0-52.0); Hemoglobin 7.7 GM/DL (14.0-18.0); Immature Granulocytes % 0.5 %; Immature Granulocytes Absolute 0.04 #; Lymphocytes # 0.5 10*3/uL (1.4-4.0); Lymphocytes % 6.3 % (21.2-54.2); Mean Corpuscular HGB Conc 31.4 GM/DL (32-36); Mean Corpuscular Hemoglobin 29 PG (27-34); Mean Corpuscular Volume 92.8 FL (87-102); Mean Platelet Volume 10.9 FL (9.6-12.0); Monocytes # 0.8 10*3/uL (0.11-0.8); Monocytes % 10.4 % (1.7-12.7); Neutrophils # 6.2 10*3/uL (1.4-7.4); Neutrophils % 78.7 % (38.7-73.9); Platelet Count 272 T/CUMM (130-400); Red Blood Count 2.64 MC/CUMM (3.8-5.5); Red Cell Distribution Width 15.1 % (9.3-17.3); White Blood Count 7.8 T/CUMM (4-12)
[2018-11-03 06:51] LABS: Albumin 1.9 G/DL (3.4-5.0); Bilirubin,Total 0.6 MG/DL (0.2-1.0); Calcium 7.7 MG/DL (8.5-10.1); Osmolality,Calculated 313.3 MOS/KG (273-304); Potassium 4.5 MMOL/L (3.5-5.1); Total Protein 6.4 G/DL (6.4-8.3)
[2018-11-03 06:56] LABS: PT Patient Result 30.4 SECS
[2018-11-03] MEDS: INSULIN REGULAR 100 UNIT/ML SUBCUT SCH ×4 (07:30→20:37)
[2018-11-03] MEDS: amLODIPine 5 MG TABLET PO SCH (09:23)
[2018-11-03] MEDS: INSULIN GLARGINE 100 UNIT/ML SUBCUT SCH (09:23)
[2018-11-03] MEDS: PANTOPRAZOLE 40 MG TABLET PO SCH (09:24)
[2018-11-03] MEDS: WARFARIN 1 MG TABLET PO SCH (09:24)
[2018-11-03] MEDS: CARVEDILOL 25 MG TABLET PO SCH ×2 (09:24→20:35)
[2018-11-03] MEDS: CALCIUM (CARBONATE) 600 MG TABLET PO SCH ×2 (09:24→20:36)
[2018-11-03] MEDS: GABAPENTIN 100 MG CAPSULE PO SCH ×3 (09:24→20:36)
[2018-11-03] MEDS: ASPIRIN EC 81 MG TABLET PO SCH (09:24)
[2018-11-03] MEDS: CETIRIZINE 10 MG TABLET PO SCH (09:24)
[2018-11-03] MEDS: FLUTICASONE 50 MCG NASAL SPRAY 16 GM BOTTLE BOTH NARES SCH ×2 (09:25→20:37)
[2018-11-03] MEDS: DOCUSATE SODIUM 100 MG CAPSULE PO SCH ×2 (14:14→20:35)
[2018-11-03] MEDS: ATORVASTATIN 40 MG TABLET PO SCH (20:35)
[2018-11-03] MEDS: ACETAMINOPHEN 325 MG TABLET PO PRN (20:36)
[2018-11-03] MEDS: SENNA 8.6 MG TABLET PO SCH (20:37)
[2018-11-04] MEDS: ALBUTEROL/IPRATROPIUM 3 ML NEB RESP TX SCH ×4 (00:40→19:44)
[2018-11-04] MEDS: PIPERACILLIN/TAZOBACTAM 3,375 MG in SODIUM CHLORIDE 0.9% 100 ML IV SCH ×2 (00:52→15:48)
[2018-11-04 05:25] LABS: Basophils % 0.5 % (0.0-0.8); Eosinophils # 0.3 10*3/uL (0.0-0.87); Eosinophils % 3.5 % (0.00-10.9); Hematocrit 25.2 VOL% (42.0-52.0); Hemoglobin 7.7 GM/DL (14.0-18.0); Immature Granulocytes % 0.8 %; Immature Granulocytes Absolute 0.06 #; Lymphocytes # 0.4 10*3/uL (1.4-4.0); Lymphocytes % 5.4 % (21.2-54.2); Mean Corpuscular HGB Conc 30.6 GM/DL (32-36); Mean Corpuscular Hemoglobin 29 PG (27-34); Mean Corpuscular Volume 94.4 FL (87-102); Mean Platelet Volume 10.2 FL (9.6-12.0); Monocytes # 0.7 10*3/uL (0.11-0.8); Monocytes % 9.8 % (1.7-12.7); Neutrophils # 5.9 10*3/uL (1.4-7.4); Platelet Count 254 T/CUMM (130-400); Red Blood Count 2.67 MC/CUMM (3.8-5.5); Red Cell Distribution Width 14.9 % (9.3-17.3); White Blood Count 7.4 T/CUMM (4-12)
[2018-11-04 05:44] LABS: Calcium 7.3 MG/DL (8.5-10.1); Osmolality,Calculated 317.4 MOS/KG (273-304); Potassium 4.6 MMOL/L (3.5-5.1)
[2018-11-04 05:49] LABS: INR 3.2
[2018-11-04 05:52] LABS: PT Patient Result 34.7 SECS
[2018-11-04] MEDS: INSULIN GLARGINE 100 UNIT/ML SUBCUT SCH (09:19)
[2018-11-04] MEDS: INSULIN REGULAR 100 UNIT/ML SUBCUT SCH ×4 (09:20→22:35)
[2018-11-04] MEDS: CALCIUM (CARBONATE) 600 MG TABLET PO SCH ×2 (09:21→22:34)
[2018-11-04] MEDS: CARVEDILOL 25 MG TABLET PO SCH ×2 (09:21→22:35)
[2018-11-04] MEDS: amLODIPine 5 MG TABLET PO SCH (09:21)
[2018-11-04] MEDS: PANTOPRAZOLE 40 MG TABLET PO SCH (09:21)
[2018-11-04] MEDS: GABAPENTIN 100 MG CAPSULE PO SCH ×3 (09:21→22:36)
[2018-11-04] MEDS: SENNA 8.6 MG TABLET PO SCH ×2 (09:21→22:36)
[2018-11-04] MEDS: ASPIRIN EC 81 MG TABLET PO SCH (09:21)
[2018-11-04] MEDS: DOCUSATE SODIUM 100 MG CAPSULE PO SCH ×2 (09:22→22:34)
[2018-11-04] MEDS: FLUTICASONE 50 MCG NASAL SPRAY 16 GM BOTTLE BOTH NARES SCH ×2 (09:22→22:35)
[2018-11-04] MEDS: CETIRIZINE 10 MG TABLET PO SCH (09:23)
[2018-11-04] MEDS: WARFARIN 1 MG TABLET PO SCH (15:47)
[2018-11-04] MEDS: ATORVASTATIN 40 MG TABLET PO SCH (22:36)
[2018-11-05] MEDS: PIPERACILLIN/TAZOBACTAM 3,375 MG in SODIUM CHLORIDE 0.9% 100 ML IV SCH ×2 (00:01→13:58)
[2018-11-05] MEDS: ALBUTEROL/IPRATROPIUM 3 ML NEB RESP TX SCH ×4 (01:14→20:26)
[2018-11-05 05:42] LABS: Basophils % 0.4 % (0.0-0.8); Eosinophils # 0.3 10*3/uL (0.0-0.87); Eosinophils % 3.8 % (0.00-10.9); Hematocrit 26.2 VOL% (42.0-52.0); Hemoglobin 8.2 GM/DL (14.0-18.0); Immature Granulocytes % 0.6 %; Immature Granulocytes Absolute 0.05 #; Lymphocytes # 0.3 10*3/uL (1.4-4.0); Lymphocytes % 4.3 % (21.2-54.2); Mean Corpuscular HGB Conc 31.3 GM/DL (32-36); Mean Corpuscular Hemoglobin 29 PG (27-34); Mean Corpuscular Volume 93.2 FL (87-102); Mean Platelet Volume 10.2 FL (9.6-12.0); Monocytes # 0.7 10*3/uL (0.11-0.8); Monocytes % 8.8 % (1.7-12.7); Neutrophils # 6.6 10*3/uL (1.4-7.4); Neutrophils % 82.1 % (38.7-73.9); Platelet Count 284 T/CUMM (130-400); Red Blood Count 2.81 MC/CUMM (3.8-5.5); Red Cell Distribution Width 14.8 % (9.3-17.3)
[2018-11-05 05:47] LABS: INR 3.7
[2018-11-05 05:55] LABS: PT Patient Result 39.7 SECS
[2018-11-05 06:13] LABS: Calcium 7.5 MG/DL (8.5-10.1); Osmolality,Calculated 320.1 MOS/KG (273-304); Potassium 4.8 MMOL/L (3.5-5.1)
[2018-11-05 06:30] LABS: Anisocytosis 1+; Band Neutrophils 4 % (0-10); Hypochromasia 1+; Lymphocytes 4 % (20-55); Ovalocytes Few; Segmented Neutrophils 88 % (50-85); Total Cells Counted 100
[2018-11-05 06:31] LABS: Platelet Estimate Adequate
[2018-11-05] MEDS ORDERED: ALTEPLASE 5 MG in SYRINGE 1 EACH INTRAPLEUR ONE (08:32)
[2018-11-05] MEDS: INSULIN REGULAR 100 UNIT/ML SUBCUT SCH ×4 (09:50→22:55)
[2018-11-05] MEDS: INSULIN GLARGINE 100 UNIT/ML SUBCUT SCH (09:50)
[2018-11-05] MEDS: CALCIUM (CARBONATE) 600 MG TABLET PO SCH ×2 (09:50→22:48)
[2018-11-05] MEDS: ASPIRIN EC 81 MG TABLET PO SCH (09:51)
[2018-11-05] MEDS: GABAPENTIN 100 MG CAPSULE PO SCH ×3 (09:51→22:48)
[2018-11-05] MEDS: CETIRIZINE 10 MG TABLET PO SCH (09:51)
[2018-11-05] MEDS: amLODIPine 5 MG TABLET PO SCH (09:51)
[2018-11-05] MEDS: DOCUSATE SODIUM 100 MG CAPSULE PO SCH ×2 (09:51→22:48)
[2018-11-05] MEDS: PANTOPRAZOLE 40 MG TABLET PO SCH (09:51)
[2018-11-05] MEDS: SENNA 8.6 MG TABLET PO SCH ×2 (09:51→22:48)
[2018-11-05] MEDS: CARVEDILOL 25 MG TABLET PO SCH ×2 (09:51→22:56)
[2018-11-05] MEDS: FLUTICASONE 50 MCG NASAL SPRAY 16 GM BOTTLE BOTH NARES SCH ×2 (09:53→22:48)
[2018-11-05] MEDS: WARFARIN 1 MG TABLET PO SCH (14:34)
[2018-11-05] MEDS: ATORVASTATIN 40 MG TABLET PO SCH (22:48)
[2018-11-06] MEDS: ALBUTEROL/IPRATROPIUM 3 ML NEB RESP TX SCH ×4 (01:01→20:00)
[2018-11-06] MEDS: PIPERACILLIN/TAZOBACTAM 3,375 MG in SODIUM CHLORIDE 0.9% 100 ML IV SCH (01:15)
[2018-11-06 04:58] LABS: Basophils # 0.1 10*3/uL (0.0-0.2); Basophils % 0.5 % (0.0-0.8); Eosinophils # 0.4 10*3/uL (0.0-0.87); Eosinophils % 3.9 % (0.00-10.9); Hematocrit 28.3 VOL% (42.0-52.0); Hemoglobin 8.8 GM/DL (14.0-18.0); Immature Granulocytes % 0.6 %; Immature Granulocytes Absolute 0.06 #; Lymphocytes # 0.4 10*3/uL (1.4-4.0); Lymphocytes % 3.5 % (21.2-54.2); Mean Corpuscular HGB Conc 31.1 GM/DL (32-36); Mean Corpuscular Hemoglobin 29 PG (27-34); Mean Corpuscular Volume 92.8 FL (87-102); Mean Platelet Volume 10.2 FL (9.6-12.0); Monocytes # 0.8 10*3/uL (0.11-0.8); Monocytes % 8.3 % (1.7-12.7); Neutrophils # 8.3 10*3/uL (1.4-7.4); Neutrophils % 83.2 % (38.7-73.9); Platelet Count 303 T/CUMM (130-400); Red Blood Count 3.05 MC/CUMM (3.8-5.5); Red Cell Distribution Width 14.6 % (9.3-17.3)
[2018-11-06 04:59] LABS: INR 4.8
[2018-11-06 05:18] LABS: PT Patient Result 51.1 SECS
[2018-11-06 05:26] LABS: Calcium 7.2 MG/DL (8.5-10.1); Osmolality,Calculated 317.1 MOS/KG (273-304); Potassium 4.8 MMOL/L (3.5-5.1)
[2018-11-06 06:28] LABS: Eosinophils 6 % (0-10); Hypochromasia 1+; Lymphocytes 2 % (20-55); Platelet Estimate Adequate; Segmented Neutrophils 84 % (50-85); Total Cells Counted 100
[2018-11-06] MEDS: INSULIN REGULAR 100 UNIT/ML SUBCUT SCH ×4 (08:06→21:46)
[2018-11-06] MEDS: CETIRIZINE 10 MG TABLET PO SCH (08:28)
[2018-11-06] MEDS: SENNA 8.6 MG TABLET PO SCH ×2 (08:28→23:16)
[2018-11-06] MEDS: CARVEDILOL 25 MG TABLET PO SCH ×2 (08:28→21:48)
[2018-11-06] MEDS: amLODIPine 5 MG TABLET PO SCH (08:28)
[2018-11-06] MEDS: CALCIUM (CARBONATE) 600 MG TABLET PO SCH ×2 (08:28→21:48)
[2018-11-06] MEDS: DOCUSATE SODIUM 100 MG CAPSULE PO SCH ×2 (08:28→21:48)
[2018-11-06] MEDS: ASPIRIN EC 81 MG TABLET PO SCH (08:28)
[2018-11-06] MEDS: GABAPENTIN 100 MG CAPSULE PO SCH ×3 (08:28→21:48)
[2018-11-06] MEDS: INSULIN GLARGINE 100 UNIT/ML SUBCUT SCH (08:29)
[2018-11-06] MEDS: PANTOPRAZOLE 40 MG TABLET PO SCH (08:29)
[2018-11-06] MEDS: DOXYCYCLINE HYCLATE 100 MG CAPSULE PO SCH ×2 (10:54→21:48)
[2018-11-06] MEDS: FLUTICASONE 50 MCG NASAL SPRAY 16 GM BOTTLE BOTH NARES SCH ×2 (10:55→21:45)
[2018-11-06] MEDS ORDERED: LINEZOLID INJ 600 MG in PREMIX 1 EACH IV ONE (11:00)
[2018-11-06] MEDS: LINEZOLID INJ 600 MG in PREMIX 1 EACH IV SCH ×2 (11:25→23:55)
[2018-11-06] MEDS ORDERED: SODIUM CHLORIDE 0.9% 1,000 ML IV PRN (11:51)
[2018-11-06] MEDS: ATORVASTATIN 40 MG TABLET PO SCH (21:48)
[2018-11-07] MEDS: ALBUTEROL/IPRATROPIUM 3 ML NEB RESP TX SCH ×4 (00:06→19:13)
[2018-11-07 05:34] LABS: Calcium 7.6 MG/DL (8.5-10.1); Osmolality,Calculated 312.5 MOS/KG (273-304)
[2018-11-07 05:42] LABS: Basophils # 0.1 10*3/uL (0.0-0.2); Basophils % 0.6 % (0.0-0.8); Eosinophils # 0.5 10*3/uL (0.0-0.87); Eosinophils % 6.4 % (0.00-10.9); Hematocrit 24.9 VOL% (42.0-52.0); Hemoglobin 7.6 GM/DL (14.0-18.0); Immature Granulocytes % 0.6 %; Immature Granulocytes Absolute 0.05 #; Lymphocytes # 0.4 10*3/uL (1.4-4.0); Lymphocytes % 5.5 % (21.2-54.2); Mean Corpuscular HGB Conc 30.5 GM/DL (32-36); Mean Corpuscular Hemoglobin 29 PG (27-34); Mean Platelet Volume 10.1 FL (9.6-12.0); Monocytes # 0.8 10*3/uL (0.11-0.8); Monocytes % 10.3 % (1.7-12.7); Neutrophils # 6.1 10*3/uL (1.4-7.4); Neutrophils % 76.6 % (38.7-73.9); Platelet Count 282 T/CUMM (130-400); Red Blood Count 2.62 MC/CUMM (3.8-5.5); Red Cell Distribution Width 14.5 % (9.3-17.3)
[2018-11-07 05:44] LABS: INR 3.2
[2018-11-07 05:46] LABS: PT Patient Result 34.7 SECS
[2018-11-07] MEDS: DOXYCYCLINE HYCLATE 100 MG CAPSULE PO SCH (09:35)
[2018-11-07] MEDS: CETIRIZINE 10 MG TABLET PO SCH (09:36)
[2018-11-07] MEDS: ASPIRIN EC 81 MG TABLET PO SCH (09:36)
[2018-11-07] MEDS: PANTOPRAZOLE 40 MG TABLET PO SCH (09:37)
[2018-11-07] MEDS: CALCIUM (CARBONATE) 600 MG TABLET PO SCH ×2 (09:37→20:22)
[2018-11-07] MEDS: amLODIPine 5 MG TABLET PO SCH (09:37)
[2018-11-07] MEDS: GABAPENTIN 100 MG CAPSULE PO SCH ×3 (09:38→20:22)
[2018-11-07] MEDS: CARVEDILOL 25 MG TABLET PO SCH ×2 (09:38→20:22)
[2018-11-07] MEDS: DOCUSATE SODIUM 100 MG CAPSULE PO SCH ×2 (09:38→20:23)
[2018-11-07] MEDS: INSULIN REGULAR 100 UNIT/ML SUBCUT SCH ×4 (09:40→21:52)
[2018-11-07] MEDS: INSULIN GLARGINE 100 UNIT/ML SUBCUT SCH (09:41)
[2018-11-07] MEDS: FLUTICASONE 50 MCG NASAL SPRAY 16 GM BOTTLE BOTH NARES SCH ×2 (09:45→20:23)
[2018-11-07] MEDS: SENNA 8.6 MG TABLET PO SCH ×2 (13:07→20:22)
[2018-11-07] MEDS: MICAFUNGIN 100 MG in SODIUM CHLORIDE 0.9% 100 ML IV SCH (13:07)
[2018-11-07] MEDS: CEFEPIME 1,000 MG in SODIUM CHLORIDE 0.9% 100 ML IV SCH (14:55)
[2018-11-07] MEDS: MUPIROCIN 2% OINT 22 GM TUBE TOP SCH ×2 (15:02→20:23)
[2018-11-07] MEDS: ZINC OXIDE PASTE 113 GM TUBE TOP SCH ×2 (16:51→20:23)
[2018-11-07] MEDS: ATORVASTATIN 40 MG TABLET PO SCH (20:23)
[2018-11-08] MEDS: ALBUTEROL/IPRATROPIUM 3 ML NEB RESP TX SCH ×4 (01:12→21:04)
[2018-11-08 05:30] LABS: Basophils % 0.3 % (0.0-0.8); Eosinophils # 0.6 10*3/uL (0.0-0.87); Eosinophils % 6.3 % (0.00-10.9); Hematocrit 24.6 VOL% (42.0-52.0); Hemoglobin 7.4 GM/DL (14.0-18.0); Immature Granulocytes % 0.6 %; Immature Granulocytes Absolute 0.05 #; Lymphocytes # 0.5 10*3/uL (1.4-4.0); Lymphocytes % 5.1 % (21.2-54.2); Mean Corpuscular HGB Conc 30.1 GM/DL (32-36); Mean Corpuscular Hemoglobin 29 PG (27-34); Mean Corpuscular Volume 95.3 FL (87-102); Mean Platelet Volume 10.3 FL (9.6-12.0); Monocytes # 0.7 10*3/uL (0.11-0.8); Monocytes % 8.1 % (1.7-12.7); Neutrophils # 7.1 10*3/uL (1.4-7.4); Neutrophils % 79.6 % (38.7-73.9); Platelet Count 291 T/CUMM (130-400); Red Blood Count 2.58 MC/CUMM (3.8-5.5); Red Cell Distribution Width 14.6 % (9.3-17.3); White Blood Count 8.9 T/CUMM (4-12)
[2018-11-08 05:35] LABS: INR 2.9
[2018-11-08 05:37] LABS: PT Patient Result 31.6 SECS
[2018-11-08 06:04] LABS: Calcium 7.5 MG/DL (8.5-10.1); Osmolality,Calculated 320.7 MOS/KG (273-304); Potassium 5.1 MMOL/L (3.5-5.1)
[2018-11-08] MEDS: INSULIN REGULAR 100 UNIT/ML SUBCUT SCH ×4 (07:55→20:42)
[2018-11-08] MEDS: PANTOPRAZOLE 40 MG TABLET PO SCH (08:53)
[2018-11-08] MEDS: ASPIRIN EC 81 MG TABLET PO SCH (08:54)
[2018-11-08] MEDS: INSULIN GLARGINE 100 UNIT/ML SUBCUT SCH (08:54)
[2018-11-08] MEDS: SENNA 8.6 MG TABLET PO SCH ×2 (08:54→20:41)
[2018-11-08] MEDS: FLUTICASONE 50 MCG NASAL SPRAY 16 GM BOTTLE BOTH NARES SCH ×2 (08:54→20:41)
[2018-11-08] MEDS: CARVEDILOL 25 MG TABLET PO SCH ×2 (08:54→20:41)
[2018-11-08] MEDS: amLODIPine 5 MG TABLET PO SCH (08:54)
[2018-11-08] MEDS: CALCIUM (CARBONATE) 600 MG TABLET PO SCH ×2 (08:54→20:41)
[2018-11-08] MEDS: DOCUSATE SODIUM 100 MG CAPSULE PO SCH ×2 (08:54→20:41)
[2018-11-08] MEDS: CETIRIZINE 10 MG TABLET PO SCH (08:55)
[2018-11-08] MEDS: ZINC OXIDE PASTE 113 GM TUBE TOP SCH ×2 (08:55→20:41)
[2018-11-08] MEDS: MUPIROCIN 2% OINT 22 GM TUBE TOP SCH ×2 (08:55→20:41)
[2018-11-08] MEDS: MICAFUNGIN 100 MG in SODIUM CHLORIDE 0.9% 100 ML IV SCH (08:57)
[2018-11-08] MEDS ORDERED: PHYTONADIONE 5 MG/5 ML ORAL.SYR PO ONE (11:00)
[2018-11-08] MEDS: GABAPENTIN 100 MG CAPSULE PO SCH ×3 (11:21→20:41)
[2018-11-08] MEDS ORDERED: INSULIN GLARGINE 100 UNIT/ML SUBCUT ONE (15:00)
[2018-11-08] MEDS: CEFEPIME 1,000 MG in SODIUM CHLORIDE 0.9% 100 ML IV SCH (15:52)
[2018-11-08] MEDS: ENOXAPARIN 100 MG/ML SYRINGE SUBCUT SCH (20:41)
[2018-11-08] MEDS: ATORVASTATIN 40 MG TABLET PO SCH (21:22)
[2018-11-09] MEDS: ALBUTEROL/IPRATROPIUM 3 ML NEB RESP TX SCH ×4 (01:44→19:44)
[2018-11-09 06:11] LABS: Basophils % 0.3 % (0.0-0.8); Eosinophils # 0.5 10*3/uL (0.0-0.87); Eosinophils % 5.8 % (0.00-10.9); Hemoglobin 7.7 GM/DL (14.0-18.0); Immature Granulocytes % 0.8 %; Immature Granulocytes Absolute 0.07 #; Lymphocytes # 0.5 10*3/uL (1.4-4.0); Lymphocytes % 5.9 % (21.2-54.2); Mean Corpuscular HGB Conc 29.6 GM/DL (32-36); Mean Corpuscular Hemoglobin 29 PG (27-34); Mean Platelet Volume 10.3 FL (9.6-12.0); Monocytes # 0.7 10*3/uL (0.11-0.8); Monocytes % 7.3 % (1.7-12.7); Neutrophils # 7.1 10*3/uL (1.4-7.4); Neutrophils % 79.9 % (38.7-73.9); Platelet Count 290 T/CUMM (130-400); Red Blood Count 2.68 MC/CUMM (3.8-5.5); Red Cell Distribution Width 14.7 % (9.3-17.3); White Blood Count 8.9 T/CUMM (4-12)
[2018-11-09 06:28] LABS: Calcium 7.9 MG/DL (8.5-10.1); INR 1.4; Osmolality,Calculated 318.6 MOS/KG (273-304); PT Patient Result 14.7 SECS; Potassium 5.3 MMOL/L (3.5-5.1)
[2018-11-09] MEDS: INSULIN REGULAR 100 UNIT/ML SUBCUT SCH ×4 (07:30→21:39)
[2018-11-09] MEDS: WARFARIN 1 MG TABLET PO SCH ×3 (09:00→21:55)
[2018-11-09] MEDS: FLUTICASONE 50 MCG NASAL SPRAY 16 GM BOTTLE BOTH NARES SCH ×2 (10:24→21:13)
[2018-11-09] MEDS: MICAFUNGIN 100 MG in SODIUM CHLORIDE 0.9% 100 ML IV SCH (10:24)
[2018-11-09] MEDS: amLODIPine 5 MG TABLET PO SCH (10:25)
[2018-11-09] MEDS: CETIRIZINE 10 MG TABLET PO SCH (10:25)
[2018-11-09] MEDS: SENNA 8.6 MG TABLET PO SCH ×2 (10:25→20:50)
[2018-11-09] MEDS: CARVEDILOL 25 MG TABLET PO SCH ×2 (10:25→20:49)
[2018-11-09] MEDS: GABAPENTIN 100 MG CAPSULE PO SCH ×3 (10:25→20:48)
[2018-11-09] MEDS: CALCIUM (CARBONATE) 600 MG TABLET PO SCH ×2 (10:25→20:49)
[2018-11-09] MEDS: PANTOPRAZOLE 40 MG TABLET PO SCH (10:25)
[2018-11-09] MEDS: ASPIRIN EC 81 MG TABLET PO SCH (10:25)
[2018-11-09] MEDS: DOCUSATE SODIUM 100 MG CAPSULE PO SCH ×2 (10:25→20:48)
[2018-11-09] MEDS: MUPIROCIN 2% OINT 22 GM TUBE TOP SCH ×2 (10:26→20:49)
[2018-11-09] MEDS: ZINC OXIDE PASTE 113 GM TUBE TOP SCH ×2 (10:26→20:49)
[2018-11-09] MEDS: INSULIN GLARGINE 100 UNIT/ML SUBCUT SCH (12:04)
[2018-11-09] MEDS: ACETAMINOPHEN 325 MG TABLET PO PRN ×2 (16:53→20:48)
[2018-11-09] MEDS: CEFEPIME 1,000 MG in SODIUM CHLORIDE 0.9% 100 ML IV SCH (17:50)
[2018-11-09] MEDS: ENOXAPARIN 100 MG/ML SYRINGE SUBCUT SCH (20:49)
[2018-11-09] MEDS: ATORVASTATIN 40 MG TABLET PO SCH (20:50)
[2018-11-10] MEDS: ALBUTEROL/IPRATROPIUM 3 ML NEB RESP TX SCH ×5 (00:48→19:46)
[2018-11-10 04:45] LABS: Basophils % 0.3 % (0.0-0.8); Eosinophils # 0.4 10*3/uL (0.0-0.87); Eosinophils % 5.3 % (0.00-10.9); Hematocrit 21.9 VOL% (42.0-52.0); Hemoglobin 6.6 GM/DL (14.0-18.0); Immature Granulocytes % 0.6 %; Immature Granulocytes Absolute 0.05 #; Lymphocytes # 0.6 10*3/uL (1.4-4.0); Lymphocytes % 7.4 % (21.2-54.2); Mean Corpuscular HGB Conc 30.1 GM/DL (32-36); Mean Corpuscular Hemoglobin 29 PG (27-34); Mean Corpuscular Volume 96.9 FL (87-102); Mean Platelet Volume 10.1 FL (9.6-12.0); Monocytes # 0.7 10*3/uL (0.11-0.8); Monocytes % 9.3 % (1.7-12.7); Neutrophils # 6.1 10*3/uL (1.4-7.4); Neutrophils % 77.1 % (38.7-73.9); Platelet Count 232 T/CUMM (130-400); Red Blood Count 2.26 MC/CUMM (3.8-5.5); Red Cell Distribution Width 14.6 % (9.3-17.3); White Blood Count 7.9 T/CUMM (4-12)
[2018-11-10 04:47] LABS: INR 1.1; PT Patient Result 11.9 SECS
[2018-11-10 05:14] LABS: Calcium 7.7 MG/DL (8.5-10.1); Osmolality,Calculated 311.8 MOS/KG (273-304); Potassium 5.2 MMOL/L (3.5-5.1)
[2018-11-10] MEDS ORDERED: SODIUM CHLORIDE 0.9% 1,000 ML IV PRN (07:31)
[2018-11-10 08:25] LABS: % Iron Saturation 22.7 % (18-50)
[2018-11-10] MEDS ORDERED: EPOETIN ALFA 10,000 UNIT/1 ML VIAL SUBCUT ONE (09:00)
[2018-11-10] MEDS: amLODIPine 5 MG TABLET PO SCH (09:12)
[2018-11-10] MEDS: MUPIROCIN 2% OINT 22 GM TUBE TOP SCH (09:12)
[2018-11-10] MEDS: ASPIRIN EC 81 MG TABLET PO SCH (09:12)
[2018-11-10] MEDS: DOCUSATE SODIUM 100 MG CAPSULE PO SCH ×2 (09:12→21:11)
[2018-11-10] MEDS: INSULIN GLARGINE 100 UNIT/ML SUBCUT SCH (09:12)
[2018-11-10] MEDS: ZINC OXIDE PASTE 113 GM TUBE TOP SCH (09:12)
[2018-11-10] MEDS: PANTOPRAZOLE 40 MG TABLET PO SCH (09:12)
[2018-11-10] MEDS: GABAPENTIN 100 MG CAPSULE PO SCH ×3 (09:12→21:11)
[2018-11-10] MEDS: CARVEDILOL 25 MG TABLET PO SCH ×2 (09:12→21:12)
[2018-11-10] MEDS: CALCIUM (CARBONATE) 600 MG TABLET PO SCH ×2 (09:12→21:11)
[2018-11-10] MEDS: INSULIN REGULAR 100 UNIT/ML SUBCUT SCH ×4 (09:13→21:12)
[2018-11-10] MEDS: SENNA 8.6 MG TABLET PO SCH ×2 (09:14→21:13)
[2018-11-10] MEDS: MICAFUNGIN 100 MG in SODIUM CHLORIDE 0.9% 100 ML IV SCH (09:15)
[2018-11-10] MEDS: CETIRIZINE 10 MG TABLET PO SCH (09:23)
[2018-11-10] MEDS: WARFARIN 1 MG TABLET PO SCH (10:37)
[2018-11-10] MEDS: FUROSEMIDE 80 MG TABLET PO SCH (10:37)
[2018-11-10] MEDS: IRON SUCROSE 200 MG in SODIUM CHLORIDE 0.9% 100 ML IV SCH (10:38)
[2018-11-10] MEDS: FLUTICASONE 50 MCG NASAL SPRAY 16 GM BOTTLE BOTH NARES SCH ×2 (10:38→21:12)
[2018-11-10] MEDS ORDERED: FUROSEMIDE 100 MG/10 ML VIAL IV ONE (13:00)
[2018-11-10] MEDS: ATORVASTATIN 40 MG TABLET PO SCH (21:12)
[2018-11-10] MEDS: HEPARIN DRIP 25,000 UNITS/500 ML PREMIX IV SCH (21:13)
[2018-11-11] MEDS: ZINC OXIDE PASTE 113 GM TUBE TOP SCH ×3 (01:27→21:18)
[2018-11-11] MEDS: MUPIROCIN 2% OINT 22 GM TUBE TOP SCH ×3 (01:27→21:19)
[2018-11-11] MEDS: ALBUTEROL/IPRATROPIUM 3 ML NEB RESP TX SCH ×4 (01:50→19:26)
[2018-11-11 05:36] LABS: Basophils % 0.5 % (0.0-0.8); Eosinophils # 0.5 10*3/uL (0.0-0.87); Eosinophils % 5.7 % (0.00-10.9); Hematocrit 28.7 VOL% (42.0-52.0); Hemoglobin 8.6 GM/DL (14.0-18.0); Immature Granulocytes % 0.9 %; Immature Granulocytes Absolute 0.08 #; Lymphocytes # 0.6 10*3/uL (1.4-4.0); Lymphocytes % 6.9 % (21.2-54.2); Mean Corpuscular Hemoglobin 29 PG (27-34); Mean Corpuscular Volume 95.7 FL (87-102); Mean Platelet Volume 9.8 FL (9.6-12.0); Monocytes # 0.7 10*3/uL (0.11-0.8); Monocytes % 8.1 % (1.7-12.7); Neutrophils # 6.7 10*3/uL (1.4-7.4); Neutrophils % 77.9 % (38.7-73.9); Platelet Count 251 T/CUMM (130-400); Red Cell Distribution Width 14.3 % (9.3-17.3); White Blood Count 8.6 T/CUMM (4-12)
[2018-11-11 05:50] LABS: Calcium 7.7 MG/DL (8.5-10.1); Osmolality,Calculated 313.7 MOS/KG (273-304)
[2018-11-11 05:53] LABS: PT Patient Result 11.3 SECS
[2018-11-11] MEDS: INSULIN REGULAR 100 UNIT/ML SUBCUT SCH ×4 (07:22→21:37)
[2018-11-11] MEDS: WARFARIN 1 MG TABLET PO SCH (09:26)
[2018-11-11] MEDS: CARVEDILOL 25 MG TABLET PO SCH ×2 (09:26→21:03)
[2018-11-11] MEDS: ASPIRIN EC 81 MG TABLET PO SCH (09:26)
[2018-11-11] MEDS: CALCIUM (CARBONATE) 600 MG TABLET PO SCH ×2 (09:27→21:03)
[2018-11-11] MEDS: DOCUSATE SODIUM 100 MG CAPSULE PO SCH ×2 (09:27→21:03)
[2018-11-11] MEDS: amLODIPine 5 MG TABLET PO SCH (09:27)
[2018-11-11] MEDS: PANTOPRAZOLE 40 MG TABLET PO SCH (09:27)
[2018-11-11] MEDS: SENNA 8.6 MG TABLET PO SCH ×2 (09:27→21:03)
[2018-11-11] MEDS: IRON SUCROSE 200 MG in SODIUM CHLORIDE 0.9% 100 ML IV SCH (09:28)
[2018-11-11] MEDS: INSULIN GLARGINE 100 UNIT/ML SUBCUT SCH (09:28)
[2018-11-11] MEDS: CETIRIZINE 10 MG TABLET PO SCH (09:28)
[2018-11-11] MEDS: FLUTICASONE 50 MCG NASAL SPRAY 16 GM BOTTLE BOTH NARES SCH ×2 (09:28→21:03)
[2018-11-11] MEDS: FUROSEMIDE 80 MG TABLET PO SCH (09:30)
[2018-11-11] MEDS: GABAPENTIN 100 MG CAPSULE PO SCH ×3 (09:30→21:03)
[2018-11-11] MEDS: MICAFUNGIN 100 MG in SODIUM CHLORIDE 0.9% 100 ML IV SCH (11:15)
[2018-11-11] MEDS: ATORVASTATIN 40 MG TABLET PO SCH (21:03)
[2018-11-11] MEDS: HEPARIN DRIP 25,000 UNITS/500 ML PREMIX IV SCH (21:04)
[2018-11-12] MEDS: ALBUTEROL/IPRATROPIUM 3 ML NEB RESP TX SCH ×4 (01:42→20:30)
[2018-11-12 05:46] LABS: Basophils % 0.5 % (0.0-0.8); Eosinophils # 0.5 10*3/uL (0.0-0.87); Hematocrit 28.4 VOL% (42.0-52.0); Hemoglobin 8.8 GM/DL (14.0-18.0); Immature Granulocytes % 1.7 %; Immature Granulocytes Absolute 0.15 #; Lymphocytes # 0.7 10*3/uL (1.4-4.0); Lymphocytes % 7.8 % (21.2-54.2); Mean Corpuscular Hemoglobin 29 PG (27-34); Mean Corpuscular Volume 94.4 FL (87-102); Mean Platelet Volume 10.4 FL (9.6-12.0); Monocytes # 0.8 10*3/uL (0.11-0.8); Monocytes % 8.7 % (1.7-12.7); Neutrophils # 6.7 10*3/uL (1.4-7.4); Neutrophils % 75.3 % (38.7-73.9); Platelet Count 245 T/CUMM (130-400); Red Blood Count 3.01 MC/CUMM (3.8-5.5); Red Cell Distribution Width 14.3 % (9.3-17.3); White Blood Count 8.9 T/CUMM (4-12)
[2018-11-12 06:04] LABS: INR 1.1
[2018-11-12 06:27] LABS: Calcium 7.8 MG/DL (8.5-10.1); Osmolality,Calculated 312.7 MOS/KG (273-304); Potassium 4.5 MMOL/L (3.5-5.1)
[2018-11-12] MEDS: INSULIN REGULAR 100 UNIT/ML SUBCUT SCH ×4 (08:18→20:57)
[2018-11-12] MEDS: INSULIN GLARGINE 100 UNIT/ML SUBCUT SCH (09:10)
[2018-11-12] MEDS: PANTOPRAZOLE 40 MG TABLET PO SCH (09:11)
[2018-11-12] MEDS: GABAPENTIN 100 MG CAPSULE PO SCH ×3 (09:11→20:14)
[2018-11-12] MEDS: CETIRIZINE 10 MG TABLET PO SCH (09:11)
[2018-11-12] MEDS: CALCIUM (CARBONATE) 600 MG TABLET PO SCH ×2 (09:11→20:14)
[2018-11-12] MEDS: DOCUSATE SODIUM 100 MG CAPSULE PO SCH ×2 (09:12→20:14)
[2018-11-12] MEDS: ASPIRIN EC 81 MG TABLET PO SCH (09:12)
[2018-11-12] MEDS: amLODIPine 5 MG TABLET PO SCH (09:12)
[2018-11-12] MEDS: SENNA 8.6 MG TABLET PO SCH ×2 (09:12→20:14)
[2018-11-12] MEDS: WARFARIN 1 MG TABLET PO SCH (09:13)
[2018-11-12] MEDS: MUPIROCIN 2% OINT 22 GM TUBE TOP SCH ×2 (09:13→20:16)
[2018-11-12] MEDS: FUROSEMIDE 80 MG TABLET PO SCH (09:13)
[2018-11-12] MEDS: FLUTICASONE 50 MCG NASAL SPRAY 16 GM BOTTLE BOTH NARES SCH ×2 (09:13→20:15)
[2018-11-12] MEDS: CARVEDILOL 25 MG TABLET PO SCH ×2 (09:13→20:14)
[2018-11-12] MEDS: ZINC OXIDE PASTE 113 GM TUBE TOP SCH ×2 (09:14→20:15)
[2018-11-12] MEDS: IRON SUCROSE 200 MG in SODIUM CHLORIDE 0.9% 100 ML IV SCH (09:15)
[2018-11-12] MEDS: MICAFUNGIN 100 MG in SODIUM CHLORIDE 0.9% 100 ML IV SCH (09:54)
[2018-11-12] MEDS ORDERED: WARFARIN 1 MG TABLET PO SCH (18:00)
[2018-11-12] MEDS: HEPARIN DRIP 25,000 UNITS/500 ML PREMIX IV SCH (20:13)
[2018-11-12] MEDS: ATORVASTATIN 40 MG TABLET PO SCH (20:14)
[2018-11-13] MEDS: ALBUTEROL/IPRATROPIUM 3 ML NEB RESP TX SCH ×4 (00:42→19:09)
[2018-11-13] MEDS: ACETAMINOPHEN 325 MG TABLET PO PRN (04:00)
[2018-11-13] MEDS ORDERED: DOXYCYCLINE HYCLATE INJ 200 MG, LIDOCAINE 1% INJ 20 ML in STERILE WATER INJ 40 ML INTRAPLEUR ONE (08:00)
[2018-11-13 08:37] LABS: Basophils % 0.5 % (0.0-0.8); Eosinophils # 0.5 10*3/uL (0.0-0.87); Eosinophils % 5.8 % (0.00-10.9); Hemoglobin 8.9 GM/DL (14.0-18.0); Immature Granulocytes Absolute 0.17 #; Lymphocytes # 0.6 10*3/uL (1.4-4.0); Lymphocytes % 7.4 % (21.2-54.2); Mean Corpuscular HGB Conc 30.7 GM/DL (32-36); Mean Corpuscular Hemoglobin 29 PG (27-34); Mean Corpuscular Volume 94.2 FL (87-102); Mean Platelet Volume 9.5 FL (9.6-12.0); Monocytes # 0.8 10*3/uL (0.11-0.8); Monocytes % 8.8 % (1.7-12.7); Neutrophils # 6.4 10*3/uL (1.4-7.4); Neutrophils % 75.5 % (38.7-73.9); Platelet Count 223 T/CUMM (130-400); Red Blood Count 3.08 MC/CUMM (3.8-5.5); Red Cell Distribution Width 14.3 % (9.3-17.3); White Blood Count 8.5 T/CUMM (4-12)
[2018-11-13 09:05] LABS: Calcium 7.8 MG/DL (8.5-10.1); Osmolality,Calculated 305.1 MOS/KG (273-304); Potassium 4.9 MMOL/L (3.5-5.1)
[2018-11-13] MEDS: SENNA 8.6 MG TABLET PO SCH ×2 (09:06→23:03)
[2018-11-13] MEDS: CALCIUM (CARBONATE) 600 MG TABLET PO SCH ×2 (09:06→21:18)
[2018-11-13] MEDS: amLODIPine 5 MG TABLET PO SCH (09:06)
[2018-11-13] MEDS: DOCUSATE SODIUM 100 MG CAPSULE PO SCH ×2 (09:06→21:18)
[2018-11-13] MEDS: CETIRIZINE 10 MG TABLET PO SCH (09:06)
[2018-11-13] MEDS: ASPIRIN EC 81 MG TABLET PO SCH (09:06)
[2018-11-13] MEDS: CARVEDILOL 25 MG TABLET PO SCH ×2 (09:07→21:17)
[2018-11-13] MEDS: ZINC OXIDE PASTE 113 GM TUBE TOP SCH ×2 (09:07→21:18)
[2018-11-13] MEDS: GABAPENTIN 100 MG CAPSULE PO SCH ×3 (09:07→21:17)
[2018-11-13] MEDS: PANTOPRAZOLE 40 MG TABLET PO SCH (09:07)
[2018-11-13] MEDS: FUROSEMIDE 80 MG TABLET PO SCH (09:07)
[2018-11-13] MEDS: MUPIROCIN 2% OINT 22 GM TUBE TOP SCH ×2 (09:07→21:19)
[2018-11-13] MEDS: INSULIN GLARGINE 100 UNIT/ML SUBCUT SCH (09:08)
[2018-11-13] MEDS: INSULIN REGULAR 100 UNIT/ML SUBCUT SCH ×4 (09:12→21:18)
[2018-11-13] MEDS: FLUTICASONE 50 MCG NASAL SPRAY 16 GM BOTTLE BOTH NARES SCH ×2 (10:12→21:19)
[2018-11-13] MEDS: MICAFUNGIN 100 MG in SODIUM CHLORIDE 0.9% 100 ML IV SCH (10:20)
[2018-11-13] MEDS: IRON SUCROSE 200 MG in SODIUM CHLORIDE 0.9% 100 ML IV SCH (11:34)
[2018-11-13] MEDS: HEPARIN DRIP 25,000 UNITS/500 ML PREMIX IV SCH (15:34)
[2018-11-13] MEDS: WARFARIN 2 MG TABLET PO SCH (18:27)
[2018-11-13] MEDS: ATORVASTATIN 40 MG TABLET PO SCH (21:18)
[2018-11-14] MEDS: ALBUTEROL/IPRATROPIUM 3 ML NEB RESP TX SCH ×4 (00:23→20:14)
[2018-11-14 04:56] LABS: Basophils # 0.1 10*3/uL (0.0-0.2); Basophils % 0.5 % (0.0-0.8); Eosinophils # 0.5 10*3/uL (0.0-0.87); Eosinophils % 4.5 % (0.00-10.9); Hematocrit 28.6 VOL% (42.0-52.0); Immature Granulocytes % 1.4 %; Immature Granulocytes Absolute 0.17 #; Lymphocytes # 0.6 10*3/uL (1.4-4.0); Lymphocytes % 5.1 % (21.2-54.2); Mean Corpuscular HGB Conc 31.5 GM/DL (32-36); Mean Corpuscular Hemoglobin 30 PG (27-34); Mean Corpuscular Volume 94.1 FL (87-102); Mean Platelet Volume 10.2 FL (9.6-12.0); Monocytes # 0.9 10*3/uL (0.11-0.8); Monocytes % 7.7 % (1.7-12.7); Neutrophils # 9.7 10*3/uL (1.4-7.4); Neutrophils % 80.8 % (38.7-73.9); Platelet Count 258 T/CUMM (130-400); Red Blood Count 3.04 MC/CUMM (3.8-5.5); Red Cell Distribution Width 14.2 % (9.3-17.3)
[2018-11-14 05:06] LABS: INR 1.3; PT Patient Result 13.7 SECS
[2018-11-14 05:28] LABS: Calcium 7.8 MG/DL (8.5-10.1); Osmolality,Calculated 306.3 MOS/KG (273-304); Potassium 4.8 MMOL/L (3.5-5.1)
[2018-11-14] MEDS: HEPARIN DRIP 25,000 UNITS/500 ML PREMIX IV SCH (05:36)
[2018-11-14] MEDS: FLUTICASONE 50 MCG NASAL SPRAY 16 GM BOTTLE BOTH NARES SCH ×2 (09:06→20:29)
[2018-11-14] MEDS: IRON SUCROSE 200 MG in SODIUM CHLORIDE 0.9% 100 ML IV SCH (09:06)
[2018-11-14] MEDS: SENNA 8.6 MG TABLET PO SCH ×2 (09:07→20:28)
[2018-11-14] MEDS: GABAPENTIN 100 MG CAPSULE PO SCH ×3 (09:07→20:28)
[2018-11-14] MEDS: FUROSEMIDE 80 MG TABLET PO SCH (09:07)
[2018-11-14] MEDS: amLODIPine 5 MG TABLET PO SCH (09:07)
[2018-11-14] MEDS: CETIRIZINE 10 MG TABLET PO SCH (09:07)
[2018-11-14] MEDS: CARVEDILOL 25 MG TABLET PO SCH ×2 (09:07→20:32)
[2018-11-14] MEDS: PANTOPRAZOLE 40 MG TABLET PO SCH (09:07)
[2018-11-14] MEDS: DOCUSATE SODIUM 100 MG CAPSULE PO SCH ×2 (09:08→20:28)
[2018-11-14] MEDS: CALCIUM (CARBONATE) 600 MG TABLET PO SCH ×2 (09:08→20:28)
[2018-11-14] MEDS: ASPIRIN EC 81 MG TABLET PO SCH (09:08)
[2018-11-14] MEDS: INSULIN GLARGINE 100 UNIT/ML SUBCUT SCH (09:08)
[2018-11-14] MEDS: INSULIN REGULAR 100 UNIT/ML SUBCUT SCH ×3 (09:08→19:06)
[2018-11-14] MEDS: MUPIROCIN 2% OINT 22 GM TUBE TOP SCH ×2 (09:11→20:29)
[2018-11-14] MEDS: ZINC OXIDE PASTE 113 GM TUBE TOP SCH ×2 (09:11→20:29)
[2018-11-14] MEDS ORDERED: ALTEPLASE 5 MG in SYRINGE 1 EACH INTRAPLEUR ONE (10:30)
[2018-11-14] MEDS: PIPERACILLIN/TAZOBACTAM 3,375 MG in SODIUM CHLORIDE 0.9% 100 ML IV SCH (15:11)
[2018-11-14] MEDS: WARFARIN 2 MG TABLET PO SCH (18:07)
[2018-11-14] MEDS: ATORVASTATIN 40 MG TABLET PO SCH (20:28)
[2018-11-15] MEDS: INSULIN REGULAR 100 UNIT/ML SUBCUT SCH ×5 (00:08→22:52)
[2018-11-15] MEDS: ALBUTEROL/IPRATROPIUM 3 ML NEB RESP TX SCH ×4 (00:35→19:48)
[2018-11-15] MEDS: PIPERACILLIN/TAZOBACTAM 3,375 MG in SODIUM CHLORIDE 0.9% 100 ML IV SCH ×2 (01:36→14:36)
[2018-11-15] MEDS: HEPARIN DRIP 25,000 UNITS/500 ML PREMIX IV SCH ×3 (01:39→20:13)
[2018-11-15 05:12] LABS: Basophils # 0.1 10*3/uL (0.0-0.2); Basophils % 0.4 % (0.0-0.8); Eosinophils # 0.5 10*3/uL (0.0-0.87); Eosinophils % 3.9 % (0.00-10.9); Hematocrit 28.9 VOL% (42.0-52.0); Hemoglobin 9.1 GM/DL (14.0-18.0); Immature Granulocytes % 1.2 %; Immature Granulocytes Absolute 0.14 #; Lymphocytes # 0.7 10*3/uL (1.4-4.0); Lymphocytes % 5.7 % (21.2-54.2); Mean Corpuscular HGB Conc 31.5 GM/DL (32-36); Mean Corpuscular Hemoglobin 29 PG (27-34); Mean Corpuscular Volume 93.2 FL (87-102); Mean Platelet Volume 10.3 FL (9.6-12.0); Monocytes # 1.1 10*3/uL (0.11-0.8); Monocytes % 9.6 % (1.7-12.7); Neutrophils # 9.2 10*3/uL (1.4-7.4); Neutrophils % 79.2 % (38.7-73.9); Platelet Count 269 T/CUMM (130-400); Red Cell Distribution Width 14.4 % (9.3-17.3); White Blood Count 11.7 T/CUMM (4-12)
[2018-11-15 05:19] LABS: INR 1.6; PT Patient Result 17.4 SECS
[2018-11-15 05:29] LABS: Calcium 7.6 MG/DL (8.5-10.1); Osmolality,Calculated 301.3 MOS/KG (273-304)
[2018-11-15] MEDS ORDERED: DOXYCYCLINE HYCLATE INJ 200 MG, LIDOCAINE 1% INJ 20 ML in STERILE WATER INJ 40 ML INTRAPLEUR ONE (09:00)
[2018-11-15] MEDS: GABAPENTIN 100 MG CAPSULE PO SCH ×3 (09:40→20:02)
[2018-11-15] MEDS: CALCIUM (CARBONATE) 600 MG TABLET PO SCH ×2 (09:40→20:00)
[2018-11-15] MEDS: SENNA 8.6 MG TABLET PO SCH ×2 (09:40→20:00)
[2018-11-15] MEDS: amLODIPine 5 MG TABLET PO SCH (09:40)
[2018-11-15] MEDS: ASPIRIN EC 81 MG TABLET PO SCH (09:40)
[2018-11-15] MEDS: CETIRIZINE 10 MG TABLET PO SCH (09:40)
[2018-11-15] MEDS: FUROSEMIDE 80 MG TABLET PO SCH (09:41)
[2018-11-15] MEDS: FLUTICASONE 50 MCG NASAL SPRAY 16 GM BOTTLE BOTH NARES SCH ×2 (09:41→20:01)
[2018-11-15] MEDS: CARVEDILOL 25 MG TABLET PO SCH ×2 (09:41→20:01)
[2018-11-15] MEDS: PANTOPRAZOLE 40 MG TABLET PO SCH (09:41)
[2018-11-15] MEDS: INSULIN GLARGINE 100 UNIT/ML SUBCUT SCH (09:41)
[2018-11-15] MEDS: MUPIROCIN 2% OINT 22 GM TUBE TOP SCH ×2 (10:43→20:06)
[2018-11-15] MEDS: ZINC OXIDE PASTE 113 GM TUBE TOP SCH ×2 (10:43→20:29)
[2018-11-15] MEDS: DOCUSATE SODIUM 100 MG CAPSULE PO SCH ×2 (10:51→20:00)
[2018-11-15] MEDS: ACETAMINOPHEN 325 MG TABLET PO PRN (10:53)
[2018-11-15] MEDS: WARFARIN 1 MG TABLET PO SCH ×2 (18:19→19:58)
[2018-11-15 18:31] LABS: ABG HCO3 26.1 MMOL/L (20-26); ABG Oxygen Saturation 95.2 % (95-100); ABG PCO2 45.5 MM HG (35-48); ABG PH 7.387 (7.35-7.45); ABG PO2 74.1 MM HG (80-95); ABG TCO2 25.1 MMOL/L (23-27)
[2018-11-15] MEDS: ATORVASTATIN 40 MG TABLET PO SCH (20:01)
[2018-11-16] MEDS: ALBUTEROL/IPRATROPIUM 3 ML NEB RESP TX SCH ×4 (01:27→19:14)
[2018-11-16] MEDS: PIPERACILLIN/TAZOBACTAM 3,375 MG in SODIUM CHLORIDE 0.9% 100 ML IV SCH ×2 (01:31→12:31)
[2018-11-16 02:25] LABS: Basophils % 0.4 % (0.0-0.8); Eosinophils # 0.6 10*3/uL (0.0-0.87); Eosinophils % 5.9 % (0.00-10.9); Hematocrit 26.6 VOL% (42.0-52.0); Hemoglobin 8.3 GM/DL (14.0-18.0); Immature Granulocytes % 1.6 %; Immature Granulocytes Absolute 0.16 #; Lymphocytes # 0.7 10*3/uL (1.4-4.0); Lymphocytes % 6.8 % (21.2-54.2); Mean Corpuscular HGB Conc 31.2 GM/DL (32-36); Mean Corpuscular Hemoglobin 29 PG (27-34); Mean Platelet Volume 10.2 FL (9.6-12.0); Monocytes % 9.7 % (1.7-12.7); Neutrophils # 7.5 10*3/uL (1.4-7.4); Neutrophils % 75.6 % (38.7-73.9); Platelet Count 242 T/CUMM (130-400); Red Blood Count 2.83 MC/CUMM (3.8-5.5); Red Cell Distribution Width 14.8 % (9.3-17.3)
[2018-11-16 02:39] LABS: PT Patient Result 21.3 SECS
[2018-11-16 03:00] LABS: Calcium 7.5 MG/DL (8.5-10.1); Osmolality,Calculated 296.7 MOS/KG (273-304)
[2018-11-16] MEDS: INSULIN REGULAR 100 UNIT/ML SUBCUT SCH ×4 (08:22→23:08)
[2018-11-16] MEDS: FUROSEMIDE 80 MG TABLET PO SCH (08:32)
[2018-11-16] MEDS: ASPIRIN EC 81 MG TABLET PO SCH (08:32)
[2018-11-16] MEDS: DOCUSATE SODIUM 100 MG CAPSULE PO SCH ×2 (08:32→23:09)
[2018-11-16] MEDS: CETIRIZINE 10 MG TABLET PO SCH (08:32)
[2018-11-16] MEDS: GABAPENTIN 100 MG CAPSULE PO SCH ×3 (08:32→23:09)
[2018-11-16] MEDS: FLUTICASONE 50 MCG NASAL SPRAY 16 GM BOTTLE BOTH NARES SCH ×2 (08:33→23:10)
[2018-11-16] MEDS: CARVEDILOL 25 MG TABLET PO SCH ×2 (08:33→23:09)
[2018-11-16] MEDS: PANTOPRAZOLE 40 MG TABLET PO SCH (08:33)
[2018-11-16] MEDS: CALCIUM (CARBONATE) 600 MG TABLET PO SCH ×2 (08:33→23:09)
[2018-11-16] MEDS: ZINC OXIDE PASTE 113 GM TUBE TOP SCH ×2 (08:33→23:11)
[2018-11-16] MEDS: INSULIN GLARGINE 100 UNIT/ML SUBCUT SCH (08:33)
[2018-11-16] MEDS: SENNA 8.6 MG TABLET PO SCH ×2 (08:33→23:09)
[2018-11-16] MEDS: amLODIPine 5 MG TABLET PO SCH (08:33)
[2018-11-16] MEDS: MUPIROCIN 2% OINT 22 GM TUBE TOP SCH ×2 (08:33→23:10)
[2018-11-16] MEDS: ACETAMINOPHEN 325 MG TABLET PO PRN (12:30)
[2018-11-16] MEDS: HEPARIN DRIP 25,000 UNITS/500 ML PREMIX IV SCH (16:07)
[2018-11-16] MEDS: WARFARIN 1 MG TABLET PO SCH (17:17)
[2018-11-16] MEDS: ATORVASTATIN 40 MG TABLET PO SCH (23:10)
[2018-11-17] MEDS: ALBUTEROL/IPRATROPIUM 3 ML NEB RESP TX SCH ×3 (00:39→12:57)
[2018-11-17] MEDS: PIPERACILLIN/TAZOBACTAM 3,375 MG in SODIUM CHLORIDE 0.9% 100 ML IV SCH (01:46)
[2018-11-17 05:34] LABS: Basophils # 0.1 10*3/uL (0.0-0.2); Basophils % 0.5 % (0.0-0.8); Eosinophils # 0.5 10*3/uL (0.0-0.87); Eosinophils % 5.5 % (0.00-10.9); Hematocrit 26.2 VOL% (42.0-52.0); Hemoglobin 8.2 GM/DL (14.0-18.0); Immature Granulocytes % 1.3 %; Immature Granulocytes Absolute 0.12 #; Lymphocytes # 0.7 10*3/uL (1.4-4.0); Lymphocytes % 6.8 % (21.2-54.2); Mean Corpuscular HGB Conc 31.3 GM/DL (32-36); Mean Corpuscular Hemoglobin 30 PG (27-34); Mean Corpuscular Volume 94.2 FL (87-102); Mean Platelet Volume 10.4 FL (9.6-12.0); Monocytes % 10.4 % (1.7-12.7); Neutrophils # 7.2 10*3/uL (1.4-7.4); Neutrophils % 75.5 % (38.7-73.9); Platelet Count 244 T/CUMM (130-400); Red Blood Count 2.78 MC/CUMM (3.8-5.5); Red Cell Distribution Width 15.1 % (9.3-17.3); White Blood Count 9.5 T/CUMM (4-12)
[2018-11-17 05:52] LABS: PT Patient Result 21.6 SECS
[2018-11-17 05:56] LABS: Calcium 7.8 MG/DL (8.5-10.1); Osmolality,Calculated 298.4 MOS/KG (273-304); Potassium 5.1 MMOL/L (3.5-5.1)
[2018-11-17] MEDS: FUROSEMIDE 80 MG TABLET PO SCH (08:18)
[2018-11-17] MEDS: CALCIUM (CARBONATE) 600 MG TABLET PO SCH (08:18)
[2018-11-17] MEDS: amLODIPine 5 MG TABLET PO SCH (08:18)
[2018-11-17] MEDS: SENNA 8.6 MG TABLET PO SCH (08:18)
[2018-11-17] MEDS: GABAPENTIN 100 MG CAPSULE PO SCH (08:18)
[2018-11-17] MEDS: PANTOPRAZOLE 40 MG TABLET PO SCH (08:19)
[2018-11-17] MEDS: CETIRIZINE 10 MG TABLET PO SCH (08:19)
[2018-11-17] MEDS: DOCUSATE SODIUM 100 MG CAPSULE PO SCH (08:19)
[2018-11-17] MEDS: ASPIRIN EC 81 MG TABLET PO SCH (08:19)
[2018-11-17] MEDS: CARVEDILOL 25 MG TABLET PO SCH (08:19)
[2018-11-17] MEDS: ACETAMINOPHEN 325 MG TABLET PO PRN (08:34)
[2018-11-17] MEDS: INSULIN GLARGINE 100 UNIT/ML SUBCUT SCH (08:34)
[2018-11-17] MEDS: FLUTICASONE 50 MCG NASAL SPRAY 16 GM BOTTLE BOTH NARES SCH (08:37)
[2018-11-17] MEDS: ZINC OXIDE PASTE 113 GM TUBE TOP SCH (08:37)
[2018-11-17] MEDS: MUPIROCIN 2% OINT 22 GM TUBE TOP SCH (08:37)
[2018-11-17] MEDS ORDERED: ENOXAPARIN 100 MG/ML SYRINGE SUBCUT ONE (09:30)
[2018-11-17] MEDS: INSULIN REGULAR 100 UNIT/ML SUBCUT SCH (11:31)
[2018-11-17 11:47] VITALS: BP 147/78
== END 2018-11-17 13:00 | disposition hospice, home (50) | DRG 137 ==
LOC: EDBD → EDUNIT# → N.ED 01:50 → SUATTDRO 05:47 → N.EDINP 05:47 → N.CC 06:16 → N.2E 11-06 19:57
PROVIDERS: ADMIT Family Medicine; ATTEND Internal Medicine